=== PATIENT | male | born 1955 | race Two or more races ===

== ENCOUNTER 2022-02-27 22:43 | Inpatient (IN) | payer BC ==
[~2022-02-27] VITALS: Ht 177.8 cm; Wt 81.6 kg
--- NOTE | 2022-02-27 23:00 | NUR ---
Dr. Ross at bedside. MSE in progress.
--- NOTE | 2022-02-27 23:10 | NUR ---
Sister at bedside.
[2022-02-27 23:13] LABS: ABG BASE EXCESS 8.2 mmol/L; ABG HCO3 31.7 mmol/L; ABG PCO2 39.4 mmHg (35.0-45.0); ABG PH 7.523 (7.350-7.450); ABG SITE LEFT RADIAL; COHb 0.3 % (0.5-1.5); MetHb 0.2 % (0.0-1.5); O2Hb 97.9 % (94.0-97.0); VENT MODE VENT - A/C; VT, ABG 550 mL
[2022-02-27 23:22] LABS: HEMATOCRIT 25.4 % (36.7-47.1); MEAN CORPUSCULAR HEMOGLOBIN 30.3 uug (23.8-33.4); MEAN CORPUSCULAR VOLUME 89.3 fL (73.0-96.2); PLATELET COUNT (AUTO) 371 K/uL (152-348)
[2022-02-27 23:30] LABS: CARBON DIOXIDE 31 mmol/L (21-32); CHLORIDE 103 mmol/L (98-107); CREATININE 1.2 mg/dL (0.6-1.3); GLUCOSE 125 mg/dL (74-106); POTASSIUM 4.3 mmol/L (3.5-5.1); UREA NITROGEN, BLOOD 26 mg/dL (7-18)
[2022-02-27] MEDS ORDERED: IV NORMAL SALINE 1000 ML BAG IV ONE (23:30)
[2022-02-27 23:46] LABS: ALANINE AMINOTRANSFERASE 23 U/L (16-63); ALKALINE PHOSPHATASE 50 U/L (50-136); ASPARTATE AMINOTRANSFERASE 10 U/L (15-37); BILIRUBIN,DIRECT < 0.1 mg/dL (0.0-0.2); BILIRUBIN,TOTAL 0.3 mg/dL (0.2-1.0); TOTAL PROTEIN, SERUM 6.3 g/dL (6.4-8.2)
--- NOTE | 2022-02-28 | NUR ---
Sister's (Jaylon Vargasrocco) number [phone] Brother's (Kristi Nicolas) number [phone]
[2022-02-28 00:21] LABS: ABG BASE EXCESS 7.7 mmol/L; ABG HCO3 31.7 mmol/L; ABG PCO2 42.2 mmHg (35.0-45.0); ABG PH 7.493 (7.350-7.450); ABG PO2 90.3 mmHg (75.0-100.0); ABG SITE LEFT RADIAL; COHb 0.3 % (0.5-1.5); MetHb 0.3 % (0.0-1.5); O2Hb 96.1 % (94.0-97.0); VENT MODE VENT - A/C; VT, ABG 550 mL
--- NOTE | 2022-02-28 00:40 | NUR ---
Called [facility] for panel call. Dr. Dillon educational sign language interpreter.
[2022-02-28] MEDS ORDERED: SERT100T PO (01:10)
[2022-02-28] MEDS ORDERED: [UNRECOGNIZED DRUG - CODE] PO (01:10)
[2022-02-28] MEDS ORDERED: MELA3TAB41 PO (01:10)
[2022-02-28] MEDS ORDERED: LOSA50TA39 PO (01:10)
[2022-02-28] MEDS ORDERED: PANT40TA49 PO (01:10)
[2022-02-28] MEDS ORDERED: FENO160T PO (01:10)
[2022-02-28] MEDS ORDERED: ASPI81TA31 PO (01:10)
[2022-02-28] MEDS ORDERED: SILO8CAP2 PO (01:10)
[2022-02-28] MEDS ORDERED: DOCU100C36 PO (01:10)
[2022-02-28] MEDS ORDERED: FINA5TAB11 PO (01:10)
[2022-02-28] MEDS ORDERED: ATOR10TA PO (01:10)
[2022-02-28] MEDS ORDERED: ALLO300T2 PO (01:10)
[2022-02-28] MEDS ORDERED: BACL10TA PO (01:10)
[2022-02-28] MEDS ORDERED: GLYC2TAB2 PO (01:10)
[2022-02-28] MEDS ORDERED: MIRT-93 PO (01:10)
[2022-02-28] MEDS ORDERED: CHOL10005 PO (01:10)
[2022-02-28] MEDS ORDERED: RILU50TA4 PO (01:10)
[2022-02-28] MEDS ORDERED: TIZA4CAP6 PO (01:10)
[2022-02-28] MEDS ORDERED: LEVO112T5 PO (01:10)
[2022-02-28] MEDS ORDERED: POLY17PO4 PO (01:10)
--- NOTE | 2022-02-28 01:23 | NUR ---
Midline Nurse order. Nico RN Laboratory Sampler aware.
--- NOTE | 2022-02-28 01:42 | NUR ---
Midline inserted RT Upper arm 18 G
--- NOTE | 2022-02-28 02:05 | NUR ---
Spoke to Dr. Dillon, patient will be admitted Tele-TD ([facility]).
[2022-02-28] MEDS ORDERED: IPRATROPIUM BROMIDE 0.5 MG/2.5 ML NEBU NEB SCH ×2 (02:15→04:49)
[2022-02-28] MEDS ORDERED: ENOXAPARIN SODIUM 40 MG/0.4 ML DISP.SYRIN SQ SCH (02:15)
[2022-02-28] MEDS ORDERED: IV D5W-0.45% NS +20 KCL 1,000 ML IV PRN (02:15)
[2022-02-28] MEDS ORDERED: ONDANSETRON 4 MG/2 ML VIAL IV PRN (02:15)
[2022-02-28] MEDS ORDERED: methylPREDNISolone SOD SUCC 40 MG/ML VIAL IV ONE ×2 (02:15→06:15)
[2022-02-28] MEDS ORDERED: MAGNESIUM HYDROXIDE 30 ML LIQUID UDC PO PRN (02:15)
[2022-02-28] MEDS ORDERED: ALBUTEROL SULFATE 2.5 MG/3 ML NEBU IH SCH ×2 (02:15→04:50)
--- NOTE | 2022-02-28 02:26 | NUR ---
Called for [facility] bed.
[2022-02-28] MEDS ORDERED: IV D5/ 0.9% NACL 1,000 ML IV PRN (02:30)
--- NOTE | 2022-02-28 03:20 | NUR ---
Latasha MITCHELL called, patient was given rm 312 and will be under the care of Armida MITCHELL. She will call back for report.
--- NOTE | 2022-02-28 03:50 | NUR ---
Report given to Armida MITCHELL.
[2022-02-28 05:00] VITALS: BP 97/56
--- NOTE | 2022-02-28 05:05 | NUR ---
Pt. admitted to Tele-TD ([facility]) 312, under care of Dr. Dillon. Belongs List completed Armida MITCHELL aware of patient's arrival.
--- NOTE | 2022-02-28 05:10 | NUR ---
TRANSPORTED PT TO ROOM 312 VIA VENT WITH ASSISTANCE FROM RT ARCE AND ER NURSE. NO INCIDENT DURING AND AFTER TRANSPORT. NO SOB NOTED AT THIS TIME. WILL CONTINUE TO MONITOR.
[2022-02-28] MEDS ORDERED: CEFTRIAXONE 1 G VIAL ONE (05:13)
[2022-02-28] MEDS: LEVOTHYROXINE SODIUM 112 MCG TABLET PO SCH (06:17)
[2022-02-28] MEDS: IPRATROPIUM BROMIDE 0.5 MG/2.5 ML NEBU NEB SCH ×3 (06:37→19:49)
[2022-02-28] MEDS: ALBUTEROL SULFATE 2.5 MG/3 ML NEBU NEB SCH ×3 (06:37→19:49)
[2022-02-28] MEDS: CEFTRIAXONE 1 G in IV DEXTROSE 5% 50 ML IV SCH (06:39)
--- NOTE | 2022-02-28 06:51 | NUR ---
Admitted to [facility] in stable condition. Pt is alert and able to write out responses, but is aphasic. Trach is a shiley #8 with closed suction. Pt is SR on monitor. GT in place and patent. IV sites intact. No distress noted at this time. Will endorse to day shift.
[2022-02-28] MEDS ORDERED: PANTOPRAZOLE SODIUM 40 MG TABLET.DR PO SCH (07:00)
--- NOTE | 2022-02-28 07:30 | NUR ---
AWAKE ALERT AND COMMUNICATES WELL BY WRITING, DENIES PAIN OR SOB. VENT SETS AT 12-550-40-5 SATURATING 99%. CONTINUE WITH [facility] STATUS. SR ON MONITOR
[2022-02-28 08:00] VITALS: BP 100/52
[2022-02-28] MEDS: MIRALAX 17 GM POWD.PACK PO SCH ×2 (08:57→15:52)
[2022-02-28] MEDS: ASPIRIN 81 MG TAB.CHEW PO SCH (08:59)
[2022-02-28] MEDS: MIDODRINE HCL 5 MG TABLET PO SCH ×2 (08:59→20:22)
[2022-02-28] MEDS: PANTOPRAZOLE ORAL SUSPENSION 40 MG SUSPDR.PKT PO SCH ×2 (08:59→15:51)
[2022-02-28] MEDS: CHOLECALCIFEROL 1,000 UNIT TABLET PO SCH (08:59)
[2022-02-28] MEDS: FENOFIBRATE NANOCRYSTALLIZED 145 MG TABLET PO SCH (08:59)
[2022-02-28] MEDS ORDERED: PANTOPRAZOLE SODIUM 40 MG VIAL IV SCH (09:00)
[2022-02-28] MEDS ORDERED: SERTRALINE HCL 100 MG TABLET PO SCH (09:00)
[2022-02-28] MEDS ORDERED: BACLOFEN 10 MG TABLET PO SCH ×2 (09:00)
[2022-02-28] MEDS: GLYCOPYRROLATE 1 MG TABLET PO SCH ×3 (09:00→15:51)
--- NOTE | 2022-02-28 10:00 | NUR ---
SEEN BY DR AGUILA AND [place] FOR FOLLOW-UP SEE NOTES
[2022-02-28] MEDS: IV D5/ 0.9% NACL 1,000 ML IV SCH ×2 (10:32→16:34)
[2022-02-28 12:00] VITALS: BP 98/48
--- NOTE | 2022-02-28 12:30 | NUR ---
SEEN BY SPEECH THERAPY FOR SWALLOW EVAL BUT PATIENT FAILED. SEE NOTES
[2022-02-28] MEDS ORDERED: BACL5TAB PO (12:34)
[2022-02-28] MEDS ORDERED: ATOR20TA PO (12:34)
[2022-02-28] MEDS ORDERED: TIZA-180 PO (12:51)
[2022-02-28] MEDS ORDERED: SILO4CAP3 PO (13:18)
[2022-02-28] MEDS: SERTRALINE HCL 100 MG TABLET PO SCH (13:22)
[2022-02-28] MEDS: BACLOFEN 10 MG TABLET PO SCH ×2 (13:23→20:23)
[2022-02-28] MEDS ORDERED: CLON0.5T4 PO (13:30)
[2022-02-28] MEDS ORDERED: MISCELLANEOUS MED XX PRN (13:30)
[2022-02-28] MEDS ORDERED: TAMS-3 PO (14:59)
[2022-02-28] MEDS ORDERED: BUPR-96 PO (15:03)
--- NOTE | 2022-02-28 15:05 | NUR ---
RESTING COMFORTABLY NO SS OF PAIN OR DISTRESS. TOLERATING VENT SETTINGS SATURATING 99%. REQUIRES TRACH SUCTIONING ON OCCASION, GOOD ORAL CARE OBSERVED
[2022-02-28] MEDS: GLUCERNA 1.2 1000ML LIQUID GT PRN (15:28)
[2022-02-28] MEDS: CLONAZEPAM 0.5 MG TABLET PO PRN ×2 (15:51→21:31)
[2022-02-28] MEDS: REMEDY ESSENTIAL ZINC PASTE 113 GM TP PRN (15:53)
[2022-02-28 16:00] VITALS: BP 91/49
--- NOTE | 2022-02-28 17:23 | NUR ---
TOLERATING FEEDING WELL, REMAINS SR ON MONITOR. CONTINUE [facility] STATUS ORDERED
[2022-02-28 20:00] VITALS: BP 100/64
[2022-02-28] MEDS: FINASTERIDE 5 MG TABLET PO SCH (20:23)
[2022-02-28] MEDS: ATORVASTATIN 20 MG TABLET PO SCH (20:23)
[2022-02-28] MEDS: TAMSULOSIN HCL 0.4 MG CAP.SR.24H PO SCH (20:23)
[2022-02-28] MEDS: MIRTAZAPINE 15 MG TABLET PO SCH (20:23)
[2022-02-28] MEDS: DOCUSATE SODIUM 100 MG CAPSULE PO SCH (20:24)
[2022-02-28] MEDS: MELATONIN 3 MG TABLET PO SCH (20:24)
[2022-02-28] MEDS: RILUZOLE 50MG TABLET PO SCH (20:25)
[2022-02-28] MEDS: buPROPion XL 150 MG TAB.SR.24H PO SCH (20:27)
[2022-02-28] MEDS ORDERED: ATORVASTATIN 10 MG TABLET PO SCH ×2 (21:00)
[2022-03-01] MEDS: IPRATROPIUM BROMIDE 0.5 MG/2.5 ML NEBU NEB SCH ×4 (01:00→20:37)
[2022-03-01] MEDS: ALBUTEROL SULFATE 2.5 MG/3 ML NEBU NEB SCH ×4 (01:00→20:37)
[2022-03-01 04:00] VITALS: BP 133/80
[2022-03-01] MEDS: CEFTRIAXONE 1 G in IV DEXTROSE 5% 50 ML IV SCH (05:58)
[2022-03-01] MEDS: IV D5/ 0.9% NACL 1,000 ML IV SCH ×2 (05:59→20:55)
[2022-03-01] MEDS: LEVOTHYROXINE SODIUM 112 MCG TABLET PO SCH (06:00)
[2022-03-01] MEDS: PANTOPRAZOLE ORAL SUSPENSION 40 MG SUSPDR.PKT PO SCH ×2 (06:00→16:07)
[2022-03-01] MEDS: ASPIRIN 81 MG TAB.CHEW PO SCH (08:27)
[2022-03-01] MEDS: RILUZOLE 50MG TABLET PO SCH ×2 (08:27→16:11)
[2022-03-01] MEDS: SILODOSIN 4MG CAPSULE PO SCH (08:27)
[2022-03-01] MEDS: CHOLECALCIFEROL 1,000 UNIT TABLET PO SCH (08:28)
[2022-03-01] MEDS: buPROPion XL 150 MG TAB.SR.24H PO SCH ×2 (08:29→20:30)
[2022-03-01] MEDS: FENOFIBRATE NANOCRYSTALLIZED 145 MG TABLET PO SCH (08:29)
[2022-03-01] MEDS: MIRALAX 17 GM POWD.PACK PO SCH ×2 (08:31→16:07)
[2022-03-01] MEDS: ALLOPURINOL 300 MG TABLET PO SCH (08:31)
[2022-03-01] MEDS: SERTRALINE HCL 100 MG TABLET PO SCH (08:31)
[2022-03-01] MEDS: GLYCOPYRROLATE 1 MG TABLET PO SCH ×3 (08:33→16:09)
[2022-03-01] MEDS: BACLOFEN 10 MG TABLET PO SCH ×2 (08:33→16:08)
[2022-03-01] MEDS: MIDODRINE HCL 5 MG TABLET PO SCH ×2 (08:43→20:31)
[2022-03-01] MEDS: ENOXAPARIN SODIUM 40 MG/0.4 ML DISP.SYRIN SQ SCH (08:47)
--- NOTE | 2022-03-01 11:17 | NUR ---
WOUND CARE CONSULT: PT PRESENTS WITH SACRAL DEEP TISSUE INJURY, PRESENT ON ADMISSION. RECOMMENDATIONS MADE FOR SKIN PROTECTION. DISCUSSED WITH NURSING STAFF. IN AGREEMENT WITH PLAN OF CARE. Addendum: 03/01/22 at 1118 by GURPREET PRINCE RN Amended: Links added.
[2022-03-01 11:18] VITALS: BP 124/73
[2022-03-01 16:05] VITALS: BP 122/65
[2022-03-01 20:00] VITALS: BP 122/69
[2022-03-01] MEDS: ATORVASTATIN 20 MG TABLET PO SCH (20:30)
[2022-03-01] MEDS: TAMSULOSIN HCL 0.4 MG CAP.SR.24H PO SCH (20:30)
[2022-03-01] MEDS: MELATONIN 3 MG TABLET PO SCH (20:30)
[2022-03-01] MEDS: FINASTERIDE 5 MG TABLET PO SCH (20:30)
[2022-03-01] MEDS: MIRTAZAPINE 15 MG TABLET PO SCH (20:30)
[2022-03-01] MEDS: DOCUSATE SODIUM 100 MG CAPSULE PO SCH (20:30)
[2022-03-01] MEDS: CLONAZEPAM 0.5 MG TABLET PO PRN (21:26)
[2022-03-02] VITALS (7 sets, daily range): BP systolic 98–125; BP diastolic 55–81
[2022-03-02] MEDS: IPRATROPIUM BROMIDE 0.5 MG/2.5 ML NEBU NEB SCH ×4 (00:41→21:00)
[2022-03-02] MEDS: ALBUTEROL SULFATE 2.5 MG/3 ML NEBU NEB SCH ×4 (00:42→21:00)
--- NOTE | 2022-03-02 05:06 | NUR ---
PATIENT ON CONT BENITES VENT WITH S#[address] AND SECURED, WITH CURRENT VENT SETTINGS, A/C 12, 550ML, PEEP5, 40%, PT IS AWAKE AND VERY ALERT, RESTING WELL, SUCTIONED VERY LITTLE LIGHT APE JAZMIN SECRETIONS, CHANGE HME, ALL ALARMS GOOD, CONT PULSE OXY AT BEDSIDE, SAT 98% APPROX, NO VENT CHANGES MADE .Ana M LINDQUISTP Addendum: 03/02/22 at 0509 by JIMENA SANCHEZ RT Amended: Links added.
--- NOTE | 2022-03-02 05:09 | NUR ---
PATIENT ALSO RECEIVED 2 NEB INLINE RXS WITH ALBUTEROL/ ATROVENT, TOLL WELL. Ana M SANCHEZ TOWER DIRECTOR Addendum: 03/02/22 at 0510 by JIMENA SANCHEZ RT Amended: Links added.
[2022-03-02 06:05] LABS: MEAN CORPUSCULAR HEMOGLOBIN 30.8 uug (23.8-33.4); MEAN CORPUSCULAR VOLUME 87.6 fL (73.0-96.2); PLATELET COUNT (AUTO) 209 K/uL (152-348)
[2022-03-02] MEDS: PANTOPRAZOLE ORAL SUSPENSION 40 MG SUSPDR.PKT PO SCH ×2 (06:21→16:21)
[2022-03-02] MEDS: CEFTRIAXONE 1 G in IV DEXTROSE 5% 50 ML IV SCH (06:21)
[2022-03-02] MEDS: LEVOTHYROXINE SODIUM 112 MCG TABLET PO SCH (06:22)
[2022-03-02 07:16] LABS: CREATININE 0.8 mg/dL (0.6-1.3); MAGNESIUM 1.3 mg/dL (1.8-2.4); PHOSPHOROUS 4.5 mg/dL (2.5-4.9); POTASSIUM 3.3 mmol/L (3.5-5.1); URIC ACID 3.9 mg/dL (3.5-7.2)
[2022-03-02] MEDS ORDERED: POTASSIUM CHLORIDE 20 MEQ POWDER PACKET GT ONE (08:15)
[2022-03-02] MEDS: ASPIRIN 81 MG TAB.CHEW PO SCH (08:49)
[2022-03-02] MEDS: MAGNESIUM SULFATE/D5W 100 ML IV SCH ×4 (08:49→11:15)
[2022-03-02] MEDS: RILUZOLE 50MG TABLET PO SCH ×2 (08:51→16:22)
[2022-03-02] MEDS: SILODOSIN 4MG CAPSULE PO SCH (08:51)
[2022-03-02] MEDS: GLYCOPYRROLATE 1 MG TABLET PO SCH ×3 (08:52→16:21)
[2022-03-02] MEDS: BACLOFEN 10 MG TABLET PO SCH ×2 (08:52→16:21)
[2022-03-02] MEDS: MIDODRINE HCL 5 MG TABLET PO SCH ×2 (08:52→20:47)
[2022-03-02] MEDS: MIRALAX 17 GM POWD.PACK PO SCH ×2 (08:52→16:21)
[2022-03-02] MEDS: CHOLECALCIFEROL 1,000 UNIT TABLET PO SCH (08:57)
[2022-03-02] MEDS: FENOFIBRATE NANOCRYSTALLIZED 145 MG TABLET PO SCH (08:57)
[2022-03-02] MEDS: buPROPion XL 150 MG TAB.SR.24H PO SCH ×2 (08:57→20:50)
[2022-03-02] MEDS: ALLOPURINOL 300 MG TABLET PO SCH (08:58)
[2022-03-02] MEDS: SERTRALINE HCL 100 MG TABLET PO SCH (08:58)
[2022-03-02] MEDS: ENOXAPARIN SODIUM 40 MG/0.4 ML DISP.SYRIN SQ SCH (09:00)
[2022-03-02] MEDS: GLUCERNA 1.2 1000ML LIQUID GT PRN (15:49)
[2022-03-02] MEDS: CLONAZEPAM 0.5 MG TABLET PO PRN ×2 (16:30→22:02)
--- NOTE | 2022-03-02 17:06 | NUR ---
RSBI - 51 ; FVC 0.5L .. poor patient effort for FVC. Pt tired and short of breath after rsbi trial. Pt placed back on ordered settings. Pt cuffed trach repeatedly coming out throughout shift. Pt stoma site is notably large and causes trach to come out even with trach cuff inflated.
--- NOTE | 2022-03-02 18:17 | NUR ---
Patient tolerated care well throughout shift with minimal complaints of pain or distress. Anxiety experienced during shift. Appropriate medicinal interventions provided for patient. Patient explained to me wanting family to consider his opinion when being discharged in wanting to go to facility. Will endorse information to PM nurse. Charge Nurse Wilbur notified. IV site patent and intact. G-Tube settings at 65 cc/hr for 22 hours, off at 0600 and on at 0800 03/03/22. Comfort measures provided. Will endorse information to PM nurse.
[2022-03-02] MEDS: MELATONIN 3 MG TABLET PO SCH (20:45)
[2022-03-02] MEDS: ATORVASTATIN 20 MG TABLET PO SCH (20:46)
[2022-03-02] MEDS: FINASTERIDE 5 MG TABLET PO SCH (20:46)
[2022-03-02] MEDS: DOCUSATE SODIUM 100 MG CAPSULE PO SCH (20:47)
[2022-03-02] MEDS: TAMSULOSIN HCL 0.4 MG CAP.SR.24H PO SCH (20:47)
[2022-03-02] MEDS: MIRTAZAPINE 15 MG TABLET PO SCH (20:47)
--- NOTE | 2022-03-02 20:50 | NUR ---
pt is npo and has PEG tube; Wellbutrin XL not given because it can not be crushed; will inform MD.
[2022-03-02] MEDS: ACETAMINOPHEN 325 MG TABLET PO PRN (22:10)
[2022-03-03] MEDS: IPRATROPIUM BROMIDE 0.5 MG/2.5 ML NEBU NEB SCH ×4 (04:02→21:18)
[2022-03-03] MEDS: ALBUTEROL SULFATE 2.5 MG/3 ML NEBU NEB SCH ×4 (04:03→21:18)
--- NOTE | 2022-03-03 04:08 | NUR ---
PATIENT REMAINS ON BENITES VENT WITH SAME SETTINGS, JENN 8 TRACH ; EXTENDS OUT A FEW CM, OUT OF STOMA ; FIO2 40%, SAYS KATHY SOB AT TIMES,BUT SAT ALWAYS 96-98%, GOOD AIR EXCHANGE, MOSTLY CONTROLLED VENTILATION, PIP 20APPROX, SUCTION PRN, NEB Q6 X 2 INLINE.Ana M SANCHEZ MEDICAL DEVICE Addendum: 03/03/22 at 0412 by JIMENA SANCHEZ RT Amended: Links added.
[2022-03-03 05:41] VITALS: BP 102/55
[2022-03-03 05:54] LABS: HEMATOCRIT 22.4 % (36.7-47.1); MEAN CORPUSCULAR HEMOGLOBIN 30.3 uug (23.8-33.4); MEAN CORPUSCULAR VOLUME 87.8 fL (73.0-96.2); PLATELET COUNT (AUTO) 186 K/uL (152-348)
[2022-03-03 06:09] LABS: CREATININE 0.8 mg/dL (0.6-1.3); MAGNESIUM 1.6 mg/dL (1.8-2.4); PHOSPHOROUS 4.4 mg/dL (2.5-4.9); POTASSIUM 3.7 mmol/L (3.5-5.1)
[2022-03-03] MEDS: PANTOPRAZOLE ORAL SUSPENSION 40 MG SUSPDR.PKT PO SCH ×2 (06:12→16:26)
[2022-03-03] MEDS: CEFTRIAXONE 1 G in IV DEXTROSE 5% 50 ML IV SCH (06:12)
[2022-03-03] MEDS: LEVOTHYROXINE SODIUM 112 MCG TABLET PO SCH (06:12)
--- NOTE | 2022-03-03 07:30 | NUR ---
RECEIVED PATIENT IN BED AWAKE AND ALERT, COMMUNICATES WELL BY WRITTING, NO SS OF PAIN OR DISTRESS. CONTINUE WITH VENT SETTING SATURATING 98-99%. SR ON MONITOR
[2022-03-03 07:54] LABS: BAND % (MANUAL) 2 % (0-10); EOSINOPHILS % (MANUAL) 1 % (0-8); LYMPHOCYTES % (MANUAL) 16 % (20-40); MONOCYTES % (MANUAL) 6 % (2-10); NEUTROPHILS % (MANUAL) 75 % (42-75)
[2022-03-03 07:55] VITALS: BP 106/61
[2022-03-03 08:00] VITALS: BP 106/61
[2022-03-03] MEDS ORDERED: MAGNESIUM OXIDE 400 MG TABLET GT ONE (08:45)
[2022-03-03] MEDS: buPROPion XL 150 MG TAB.SR.24H PO SCH ×3 (09:02→21:00)
[2022-03-03] MEDS: ASPIRIN 81 MG TAB.CHEW PO SCH (09:02)
[2022-03-03] MEDS: BACLOFEN 10 MG TABLET PO SCH ×2 (09:02→16:26)
[2022-03-03] MEDS: SERTRALINE HCL 100 MG TABLET PO SCH (09:02)
[2022-03-03] MEDS: MIDODRINE HCL 5 MG TABLET PO SCH ×2 (09:03→20:04)
[2022-03-03] MEDS: FENOFIBRATE NANOCRYSTALLIZED 145 MG TABLET PO SCH (09:03)
[2022-03-03] MEDS: CHOLECALCIFEROL 1,000 UNIT TABLET PO SCH (09:03)
[2022-03-03] MEDS: GLYCOPYRROLATE 1 MG TABLET PO SCH ×3 (09:04→16:30)
[2022-03-03] MEDS: ALLOPURINOL 300 MG TABLET PO SCH (09:04)
[2022-03-03] MEDS: MIRALAX 17 GM POWD.PACK PO SCH ×2 (09:04→16:26)
[2022-03-03] MEDS: RILUZOLE 50MG TABLET PO SCH ×2 (09:05→16:27)
[2022-03-03] MEDS: SILODOSIN 4MG CAPSULE PO SCH (09:05)
[2022-03-03] MEDS: ENOXAPARIN SODIUM 40 MG/0.4 ML DISP.SYRIN SQ SCH (09:06)
[2022-03-03] MEDS: MAGNESIUM SULFATE/D5W 100 ML IV SCH ×2 (09:21→10:19)
--- NOTE | 2022-03-03 10:00 | NUR ---
SEEN BY HOSPITALIST AND APPLICATION DEVELOPMENT SPECIALIST REVIEWED LABS AND REPLACED MAGNESIUM OF 1.6
[2022-03-03] MEDS: GLUCERNA 1.2 1000ML LIQUID GT PRN (10:21)
--- NOTE | 2022-03-03 11:20 | NUR ---
PATIENT REQUIRES OCCASIONAL SUCTIONING VIA TRACH, OBTAINED SMALL AMOUNT OF OF THIN WHITISTISH SECRETION. GOOD ORAL CARE DONE
[2022-03-03] MEDS: CLONAZEPAM 0.5 MG TABLET PO PRN ×2 (11:31→20:02)
[2022-03-03] MEDS: ACETAMINOPHEN 325 MG TABLET PO PRN (11:31)
[2022-03-03] MEDS: REMEDY ESSENTIAL ZINC PASTE 113 GM TP PRN (11:32)
[2022-03-03 12:06] VITALS: BP 120/68
[2022-03-03] MEDS ORDERED: BISACODYL 10 MG SUPP.RECT RC PRN (14:00)
[2022-03-03 15:43] VITALS: BP 109/59
[2022-03-03] MEDS: PROTEIN SUPPLEMENT (PROSTAT) 30 ML LIQUID GT SCH (16:26)
--- NOTE | 2022-03-03 18:00 | NUR ---
NO SS OF DISTRESS, REMAINS COMFORTABLE WITH CURRENT VENT SETTINGS SATURATING 97-99%. ROUTINE TRACH CARE PER RT. SUCTIONING DONE NEEDED. PM CARE DONE. CONTINUE DAWN STATUS, SR ON MONITOR
[2022-03-03] MEDS ORDERED: EDAR30PI IV (19:46)
[2022-03-03 20:00] VITALS: BP 111/69
[2022-03-03] MEDS: MELATONIN 3 MG TABLET PO SCH (20:02)
[2022-03-03] MEDS: DOCUSATE SODIUM 100 MG CAPSULE PO SCH (20:03)
[2022-03-03] MEDS: MIRTAZAPINE 15 MG TABLET PO SCH (20:05)
[2022-03-03] MEDS: TAMSULOSIN HCL 0.4 MG CAP.SR.24H PO SCH (20:06)
[2022-03-03] MEDS: ATORVASTATIN 20 MG TABLET PO SCH (20:06)
[2022-03-03] MEDS: FINASTERIDE 5 MG TABLET PO SCH (20:09)
[2022-03-04] MEDS: ALBUTEROL SULFATE 2.5 MG/3 ML NEBU NEB SCH ×4 (00:26→19:21)
[2022-03-04] MEDS: IPRATROPIUM BROMIDE 0.5 MG/2.5 ML NEBU NEB SCH ×4 (00:26→19:21)
--- NOTE | 2022-03-04 00:31 | NUR ---
PATIENT ON CONT BENITES VENT WITH SHILEY #[address], BIG STOMA, CLEAN TRACH, PT VERY ALERT , NEB INLINE X WITH ALBUTEROL/ ATROVENT, TOLL WELL, PT ANXIOUS AND SEEMS NERVOUS AT TIMES, DUE TO HIS MEDICAL CONDITION, NO VENT CHANGES MADE, WILL MONITOR CLOSELY, PULSE OXY CONT AT BEDSIDE, SAT 96-98%.Ana M LINDQUISTP Addendum: 03/04/22 at 0033 by JIMENA SANCHEZ RT Amended: Links added.
[2022-03-04 04:00] VITALS: BP 108/57
[2022-03-04] MEDS: LEVOTHYROXINE SODIUM 112 MCG TABLET PO SCH (05:44)
[2022-03-04] MEDS: PANTOPRAZOLE ORAL SUSPENSION 40 MG SUSPDR.PKT PO SCH ×2 (05:44→17:27)
[2022-03-04 06:21] LABS: HEMATOCRIT 23.7 % (36.7-47.1); PLATELET COUNT (AUTO) 190 K/uL (152-348)
[2022-03-04 06:47] LABS: CREATININE 0.9 mg/dL (0.6-1.3); MAGNESIUM 1.6 mg/dL (1.8-2.4); PHOSPHOROUS 4.2 mg/dL (2.5-4.9); POTASSIUM 3.9 mmol/L (3.5-5.1)
--- NOTE | 2022-03-04 07:13 | NUR ---
pt rested well in between care no acute distress; suctioned trache secretions; pt 's meds RADICAVA for ALS was brought by family and would like to be restarted; endorsed to August RN
[2022-03-04 07:28] VITALS: BP 107/63
--- NOTE | 2022-03-04 07:28 | NUR ---
Patient received on cont horta vent with given settings of AC RR 12, VT 550, PEEP + 5, 40% Fio2. Patient is trach to vent with Shiley 8 XLT. Patient is to be noted with a larger stoma site. Patient is secured via trach tie. Ambubag and back up trach is bed side. Ventilator plugged in red outlet. Will continue to monitor through out shift.
[2022-03-04] MEDS: MIRALAX 17 GM POWD.PACK PO SCH ×3 (09:00→17:00)
[2022-03-04] MEDS ORDERED: MAGNESIUM OXIDE 400 MG TABLET PO ONE (09:00)
[2022-03-04] MEDS: FENOFIBRATE NANOCRYSTALLIZED 145 MG TABLET PO SCH (09:21)
[2022-03-04] MEDS: ASPIRIN 81 MG TAB.CHEW PO SCH (09:21)
[2022-03-04] MEDS: ALLOPURINOL 300 MG TABLET PO SCH (09:21)
[2022-03-04] MEDS: buPROPion XL 150 MG TAB.SR.24H PO SCH ×2 (09:21→20:21)
[2022-03-04] MEDS: CHOLECALCIFEROL 1,000 UNIT TABLET PO SCH (09:23)
[2022-03-04] MEDS: BACLOFEN 10 MG TABLET PO SCH ×2 (09:24→17:27)
[2022-03-04] MEDS: ENOXAPARIN SODIUM 40 MG/0.4 ML DISP.SYRIN SQ SCH (09:28)
[2022-03-04] MEDS: GLYCOPYRROLATE 1 MG TABLET PO SCH ×3 (09:28→17:28)
[2022-03-04] MEDS: RILUZOLE 50MG TABLET PO SCH ×2 (09:29→17:28)
[2022-03-04] MEDS: SILODOSIN 4MG CAPSULE PO SCH (09:29)
[2022-03-04] MEDS: MIDODRINE HCL 5 MG TABLET PO SCH ×2 (09:40→20:20)
[2022-03-04] MEDS: SERTRALINE HCL 100 MG TABLET PO SCH (09:42)
[2022-03-04] MEDS: MAGNESIUM SULFATE/D5W 100 ML IV SCH ×2 (09:50→11:24)
[2022-03-04] MEDS: PROTEIN SUPPLEMENT (PROSTAT) 30 ML LIQUID GT SCH ×2 (09:51→17:30)
[2022-03-04] MEDS: GLUCERNA 1.2 1000ML LIQUID GT PRN (10:08)
[2022-03-04 10:36] LABS: *BILIRUBIN,URIN NEGATIVE (NEGATIVE); *CLARITY,URINE CLEAR (CLEAR); *COLOR,URINE YELLOW (YELLOW); *KETONES,URINE NEGATIVE (NEGATIVE); *UROBILINOGEN,URINE 0.2 E.U./dl (NORMAL); LEUKOCYTE ESTERASE ,URINE NEGATIVE (NEGATIVE); NITRITE, URINE NEGATIVE (NEGATIVE); UGLUCOSE NEGATIVE (NEGATIVE)
[2022-03-04 11:08] LABS: *BLOOD, URINE TRACE (NEGATIVE)
[2022-03-04 11:23] VITALS: BP 109/66
[2022-03-04 13:02] LABS: WBC,URINE 0-3 /HPF (0-3)
[2022-03-04 13:03] LABS: BACTERIA,URINE NONE SEEN /HPF (NONE SEEN); SQUAMOUS EPITHELIAL CELL,UR NONE SEEN /HPF (NONE SEEN)
[2022-03-04] MEDS: RADICAVA IV SCH (13:05)
--- NOTE | 2022-03-04 13:20 | NUR ---
WOUND CARE: PT SEEN FOR SACRAL DEEP TISSUE INJURY IN EVOLUTION, PRESENT ON ADMISSION. SURGICAL CONSULT CALLED TO DR HELLER. DISCUSSED SKIN PROTECTION WITH NURSING STAFF. IN AGREEMENT WITH PLAN OF CARE.
[2022-03-04] MEDS: CLONAZEPAM 0.5 MG TABLET PO PRN ×2 (14:50→21:37)
[2022-03-04 15:24] VITALS: BP 119/63
--- NOTE | 2022-03-04 16:15 | NUR ---
Patient placed on home vent brought in by family with same given settings. AC RR 12, VT 550, PEEP +5, 5LPM BLEED-IN O2. Shiley 8 XLT trach. Inservice on home ventilator received by Efrain Lott from [facility]. Pulse ox connected @ bedside. Patient family present. Alarms on and audible. Ambubag and back up trach bedside. Will continue to monitor.
[2022-03-04 17:37] VITALS: BP 119/63
[2022-03-04 20:00] VITALS: BP 116/61
[2022-03-04] MEDS: DOCUSATE SODIUM 100 MG CAPSULE PO SCH (20:19)
[2022-03-04] MEDS: FINASTERIDE 5 MG TABLET PO SCH (20:20)
[2022-03-04] MEDS: MIRTAZAPINE 15 MG TABLET PO SCH (20:20)
[2022-03-04] MEDS: TAMSULOSIN HCL 0.4 MG CAP.SR.24H PO SCH (20:20)
[2022-03-04] MEDS: MELATONIN 3 MG TABLET PO SCH (20:20)
[2022-03-04] MEDS: ATORVASTATIN 20 MG TABLET PO SCH (20:22)
[2022-03-05] VITALS: BP 92/52
[2022-03-05] MEDS: IPRATROPIUM BROMIDE 0.5 MG/2.5 ML NEBU NEB SCH ×4 (01:17→19:38)
[2022-03-05] MEDS: ALBUTEROL SULFATE 2.5 MG/3 ML NEBU NEB SCH ×4 (01:17→19:39)
--- NOTE | 2022-03-05 01:28 | NUR ---
Patient received on home vent unit. Per report, unit has been cleared through [employer] and inservice was given to dayshift RT. Patient currently on ResMed Astral 150 model on PAC mode. PAC-Pressure Assist Control mode tolerated well. Settings are as follows: Ipap 10/Epap 5/ RR 12/ Back Up VT 550, bleed in O2 reading 30% FiO2. No signs or symptoms of respiratory distress noted throughout shift. Patient is trached with Shiley XLT 8-Distal tube. Large stoma noted, healed well, no redness/discharge noted. Alarm parameters assessed and are on/audible. Ambubag at bedside. Cont. Pulseox at bedside. Inline treatments administered and tolerated well, no adverse reactions noted. Will continue to monitor throughout shift.
[2022-03-05 04:00] VITALS: BP 99/60
[2022-03-05] MEDS: LEVOTHYROXINE SODIUM 112 MCG TABLET PO SCH (05:52)
[2022-03-05] MEDS: PANTOPRAZOLE ORAL SUSPENSION 40 MG SUSPDR.PKT PO SCH (05:53)
[2022-03-05 06:40] LABS: HEMATOCRIT 25.1 % (36.7-47.1); MEAN CORPUSCULAR HEMOGLOBIN 29.9 uug (23.8-33.4); MEAN CORPUSCULAR VOLUME 87.9 fL (73.0-96.2); PLATELET COUNT (AUTO) 164 K/uL (152-348)
[2022-03-05 07:10] LABS: CREATININE 0.8 mg/dL (0.6-1.3); MAGNESIUM 1.6 mg/dL (1.8-2.4); POTASSIUM 3.9 mmol/L (3.5-5.1)
[2022-03-05 07:33] VITALS: BP 98/60
[2022-03-05] MEDS: buPROPion XL 150 MG TAB.SR.24H PO SCH (08:32)
[2022-03-05] MEDS: CHOLECALCIFEROL 1,000 UNIT TABLET PO SCH (08:32)
[2022-03-05] MEDS: ASPIRIN 81 MG TAB.CHEW PO SCH (08:33)
[2022-03-05] MEDS: ALLOPURINOL 300 MG TABLET PO SCH (08:33)
[2022-03-05] MEDS: FENOFIBRATE NANOCRYSTALLIZED 145 MG TABLET PO SCH (08:33)
[2022-03-05] MEDS: SERTRALINE HCL 100 MG TABLET PO SCH (08:34)
[2022-03-05] MEDS: BACLOFEN 10 MG TABLET PO SCH (08:34)
[2022-03-05] MEDS: MIRALAX 17 GM POWD.PACK PO SCH (08:36)
[2022-03-05] MEDS: ENOXAPARIN SODIUM 40 MG/0.4 ML DISP.SYRIN SQ SCH (08:36)
[2022-03-05] MEDS: MIDODRINE HCL 5 MG TABLET PO SCH (08:38)
[2022-03-05] MEDS: SILODOSIN 4MG CAPSULE PO SCH (08:40)
[2022-03-05] MEDS: RILUZOLE 50MG TABLET PO SCH (08:41)
[2022-03-05] MEDS: GLYCOPYRROLATE 1 MG TABLET PO SCH (08:41)
[2022-03-05] MEDS: PROTEIN SUPPLEMENT (PROSTAT) 30 ML LIQUID GT SCH ×2 (08:42→16:59)
[2022-03-05] MEDS: GLUCERNA 1.2 1000ML LIQUID GT PRN (08:53)
[2022-03-05] MEDS: MAGNESIUM SULFATE/D5W 100 ML IV SCH ×2 (09:30→11:34)
[2022-03-05] MEDS ORDERED: RILUZOLE 50MG TABLET GT SCH (11:52)
[2022-03-05 11:56] VITALS: BP 116/65
[2022-03-05] MEDS ORDERED: IV NORMAL SALINE 500 ML IV ONE (12:00)
[2022-03-05] MEDS ORDERED: MAGNESIUM HYDROXIDE 30 ML LIQUID UDC GT PRN (12:00)
[2022-03-05] MEDS ORDERED: ACETAMINOPHEN 325 MG TABLET GT PRN (12:00)
[2022-03-05] MEDS: ZINC SULFATE 220 MG CAPSULE GT SCH (13:05)
[2022-03-05] MEDS: ASCORBIC ACID 500 MG TABLET GT SCH (13:05)
[2022-03-05] MEDS: GLYCOPYRROLATE 1 MG TABLET GT SCH ×2 (13:06→16:55)
[2022-03-05] MEDS: RADICAVA IV SCH (13:30)
[2022-03-05 15:56] VITALS: BP 114/65
[2022-03-05] MEDS: PANTOPRAZOLE ORAL SUSPENSION 40 MG SUSPDR.PKT GT SCH (16:53)
[2022-03-05] MEDS: BACLOFEN 10 MG TABLET GT SCH (16:54)
[2022-03-05] MEDS: RILUZOLE 50MG TABLET GT SCH (16:56)
[2022-03-05] MEDS: MIRALAX 17 GM POWD.PACK GT SCH (16:56)
[2022-03-05] MEDS: CLONAZEPAM 0.5 MG TABLET GT PRN (17:16)
--- NOTE | 2022-03-05 19:13 | NUR ---
Pt. stayed stable during the shift and no significant change noted. Able to tolerate medications through G-Tube. Aspiration precaution maintained. All need attended. Suction provided as needed.
[2022-03-05 20:00] VITALS: BP 132/85
[2022-03-05] MEDS: DOCUSATE SODIUM 100 MG/10 ML LIQUID UDC GT SCH (21:00)
[2022-03-05] MEDS ORDERED: MIDODRINE HCL 5 MG TABLET GT SCH (21:00)
[2022-03-05] MEDS ORDERED: DOCUSATE SODIUM 100 MG CAPSULE PO SCH (21:00)
[2022-03-05] MEDS: TAMSULOSIN HCL 0.4 MG CAP.SR.24H PO SCH (21:45)
[2022-03-05] MEDS: MELATONIN 3 MG TABLET GT SCH (21:45)
[2022-03-05] MEDS: buPROPion 75 MG TABLET GT SCH (21:45)
[2022-03-05] MEDS: ATORVASTATIN 20 MG TABLET GT SCH (21:46)
[2022-03-05] MEDS: MIRTAZAPINE 15 MG TABLET GT SCH (21:47)
[2022-03-05] MEDS: FINASTERIDE 5 MG TABLET GT SCH (21:47)
[2022-03-06] VITALS: BP 113/63
[2022-03-06] MEDS: IPRATROPIUM BROMIDE 0.5 MG/2.5 ML NEBU NEB SCH ×4 (01:23→20:45)
[2022-03-06] MEDS: ALBUTEROL SULFATE 2.5 MG/3 ML NEBU NEB SCH ×4 (01:23→20:45)
[2022-03-06 04:00] VITALS: BP 94/61
[2022-03-06 05:45] LABS: HEMATOCRIT 25.6 % (36.7-47.1); MEAN CORPUSCULAR HEMOGLOBIN 30.1 uug (23.8-33.4); MEAN CORPUSCULAR VOLUME 87.9 fL (73.0-96.2); PLATELET COUNT (AUTO) 157 K/uL (152-348)
[2022-03-06 05:48] LABS: CREATININE 0.8 mg/dL (0.6-1.3); MAGNESIUM 1.7 mg/dL (1.8-2.4); PHOSPHOROUS 4.5 mg/dL (2.5-4.9); POTASSIUM 3.9 mmol/L (3.5-5.1)
--- NOTE | 2022-03-06 06:00 | NUR ---
1999--599--PT CONT. TO BE A/OX4. VS HAVE BEEN STABLE. AFEBRILE. PT HAS BEEN IN SR. PT HAS TRACH-HOME VENT. PT DWIGHT WELL WITH POX OF 98-99%. PT DWIGHT SX AND RTX WELL. PT HAS BEEN VOIDING WELL. NO S/S OF ANY ACUTE DISTRESS. IV I/P VIA RIGHT UPPER ARM. PT ALSO HAS PEG TUBING I/P-PT DWIGHT T.FEEDG WELL-RESID IS 10CC. HOB UP MOVE 30 DEGREES. PT ENDORSED TO STEPHEN MCMANUS. TRISTA MITCHELL
[2022-03-06] MEDS: LEVOTHYROXINE SODIUM 112 MCG TABLET GT SCH ×2 (07:10→07:16)
[2022-03-06] MEDS: PANTOPRAZOLE ORAL SUSPENSION 40 MG SUSPDR.PKT GT SCH ×3 (07:10→16:53)
--- NOTE | 2022-03-06 07:30 | NUR ---
Awake, alert, oriented x 4, expressed needs through writing. Trach to vent FI02 305, TV 550, AC 12, PEEP 5. Glucerna per GT at 65 ml/hr.
[2022-03-06 07:34] VITALS: BP 92/60
[2022-03-06] MEDS: MIRALAX 17 GM POWD.PACK GT SCH ×2 (09:00→15:13)
[2022-03-06] MEDS: ASPIRIN 81 MG TAB.CHEW GT SCH (09:07)
[2022-03-06] MEDS: BACLOFEN 10 MG TABLET GT SCH ×2 (09:08→16:45)
[2022-03-06] MEDS: ZINC SULFATE 220 MG CAPSULE GT SCH (09:09)
[2022-03-06] MEDS: CHOLECALCIFEROL 1,000 UNIT TABLET GT SCH (09:09)
[2022-03-06] MEDS: FENOFIBRATE NANOCRYSTALLIZED 145 MG TABLET GT SCH (09:09)
[2022-03-06] MEDS: ASCORBIC ACID 500 MG TABLET GT SCH (09:09)
[2022-03-06] MEDS: ALLOPURINOL 300 MG TABLET GT SCH (09:10)
[2022-03-06] MEDS: SERTRALINE HCL 100 MG TABLET GT SCH (09:10)
[2022-03-06] MEDS: SILODOSIN 4MG CAPSULE GT SCH (09:11)
[2022-03-06] MEDS: GLYCOPYRROLATE 1 MG TABLET GT SCH ×3 (09:11→16:46)
[2022-03-06] MEDS: buPROPion 75 MG TABLET GT SCH ×2 (09:12→21:19)
[2022-03-06] MEDS: RILUZOLE 50MG TABLET GT SCH ×2 (09:12→16:44)
[2022-03-06] MEDS: ENOXAPARIN SODIUM 40 MG/0.4 ML DISP.SYRIN SQ SCH (09:13)
[2022-03-06] MEDS: MAGNESIUM SULFATE/D5W 100 ML IV SCH ×2 (09:17→11:22)
[2022-03-06] MEDS: MIDODRINE HCL 5 MG TABLET GT SCH ×3 (09:17→21:49)
[2022-03-06] MEDS: PROTEIN SUPPLEMENT (PROSTAT) 30 ML LIQUID GT SCH ×2 (09:18→16:45)
[2022-03-06] MEDS: CLONAZEPAM 0.5 MG TABLET GT PRN ×3 (09:51→23:11)
--- NOTE | 2022-03-06 09:51 | NUR ---
Anxious, requested for Klonopin, given per GT
[2022-03-06] MEDS: GLUCERNA 1.2 1000ML LIQUID GT PRN (09:55)
[2022-03-06 11:32] VITALS: BP 111/67
--- NOTE | 2022-03-06 12:00 | NUR ---
Noted Trach balloon at stoma. RT with Dr. Sammie box cuffed at bedside. Patient tolerated, not in distress.
--- NOTE | 2022-03-06 13:00 | NUR ---
Skin and wound care done. Repositioned comfortably
[2022-03-06] MEDS: RADICAVA IV SCH (14:15)
--- NOTE | 2022-03-06 15:30 | NUR ---
No BM today, requested for the Miralax, given.
[2022-03-06 15:39] VITALS: BP 96/58
--- NOTE | 2022-03-06 18:22 | NUR ---
Secretions suctioned. Trach to vent with same settings. No shortness of breath noted. Still no BM. Repositioned in bed comfortably. at bedside.
[2022-03-06 20:00] VITALS: BP 120/66
[2022-03-06] MEDS: TAMSULOSIN HCL 0.4 MG CAP.SR.24H PO SCH (21:18)
[2022-03-06] MEDS: DOCUSATE SODIUM 100 MG/10 ML LIQUID UDC GT SCH (21:18)
[2022-03-06] MEDS: FINASTERIDE 5 MG TABLET GT SCH (21:18)
[2022-03-06] MEDS: MIRTAZAPINE 15 MG TABLET GT SCH (21:19)
[2022-03-06] MEDS: ATORVASTATIN 20 MG TABLET GT SCH (21:19)
[2022-03-06] MEDS: MELATONIN 3 MG TABLET GT SCH (21:21)
[2022-03-07] VITALS: BP 122/56
[2022-03-07] MEDS: IPRATROPIUM BROMIDE 0.5 MG/2.5 ML NEBU NEB SCH ×3 (00:06→13:11)
[2022-03-07] MEDS: ALBUTEROL SULFATE 2.5 MG/3 ML NEBU NEB SCH ×3 (00:07→13:11)
[2022-03-07 04:00] VITALS: BP 104/62
--- NOTE | 2022-03-07 04:02 | NUR ---
DON HAS BEEN ON HIS OWN PORT, VENT WITH SHILEY # [address] [place] SECURED, POSITION TRACH WITH LARGE STOMA, NO VENT CHANGES MADE, PT ALERT AND AWAKE AT TIMES, NEB INLINE X 2 WITH HME CHANGED, WITH CONT PULSE OXY AT BEDSIDE, PT STABLE .Ana M SANCHEZ BLEND PLANT OPERATOR Addendum: 03/07/22 at 0404 by JIMENA SANCHEZ RT Amended: Links added.
[2022-03-07] MEDS: MIDODRINE HCL 5 MG TABLET GT SCH ×2 (05:32→13:52)
--- NOTE | 2022-03-07 06:00 | NUR ---
[id number]-CY CONT. WITH STABLE VS. SR.PT DWIGHT HOME VENT WELL. RESPS ARE REG/UNLAB. PT DWIGHT RTX WELL ALSO. IV HAS BEEN I/P. PT SLEEPING QUIETLY THROUGH MOST OF THE NIGHT. PT REMAINS A/OX4. PT DWIGHT T.FEEDG WELL ALSO. RESID 10CC. PT VOIDING WELL-650CC. HOB UP>30 DEGREES. GEN. COND HAS BEEN STABLE.
--- NOTE | 2022-03-07 06:00 | NUR ---
PREVIOUS NOTE BY KAMALA WELDON RN
[2022-03-07] MEDS: PANTOPRAZOLE ORAL SUSPENSION 40 MG SUSPDR.PKT GT SCH (06:40)
--- NOTE | 2022-03-07 07:00 | NUR ---
[id number]--PT CONT. WITH STABLE VS. PT REMAINS A/OX4. PT HAS BEEN AFEBRILE AND IN SR. PT DENIES ANY S/S OF PAIN. PT HAS DISPO FOR D/C TO HOME. PT AND FAMILY ARE AWARE. PT HAS TRACH TO VENT WITH FIO2 OF 30%, AC 12, TV550/PEEP+5. PT DWIGHT SX AND RTX WELL. RESPS REG/UNLAB. PT HAS BEEN VOIDING WELL. PT HAS GT INTACT AND PATENT WITH GLUCERNA T.FEEDING 65CC/HR. PT DWIGHT WELL WITH RESID OF 10CC. HOB HAS BEEN UP>30 DEGREES. PT RECEIVED HOMEMED IV OF RADICOVA TOTAL 60MG IVPB. PHARM RECEIVED IV MED FIRST. PT DWIGHT MED WELL. PT'S IS AT BEDSIDE. PT AND RECEIVED AFTERCARE INSTRUCTIONS AND AND PERSCRITIONS FOR MEDS. RESP TX AT BEDSIDE. PT ALSO MED WITH KLONIPINE AT APROX 0030 FOR ANXIETY. PT STATES RELIEF AFTER MED. AMBULANCE ARRIVED AND PT D/CD VIA [facility] IN STABLE COND. PT'S PRESENT ALSO. GEN. COND. HAS BEEN STABLE. WOOD SAWYER KATY AND COTTON WEIGHER OPERATOR/CM ARE AWARE. TRISTA MITCHELL
[2022-03-07 07:27] LABS: HEMATOCRIT 26.7 % (36.7-47.1); MEAN CORPUSCULAR HEMOGLOBIN 29.6 uug (23.8-33.4); MEAN CORPUSCULAR VOLUME 87.1 fL (73.0-96.2); PLATELET COUNT (AUTO) 153 K/uL (152-348)
[2022-03-07 07:35] LABS: CREATININE 0.9 mg/dL (0.6-1.3); MAGNESIUM 1.6 mg/dL (1.8-2.4); PHOSPHOROUS 4.3 mg/dL (2.5-4.9); POTASSIUM 4.1 mmol/L (3.5-5.1)
[2022-03-07 07:48] VITALS: BP 102/61
--- NOTE | 2022-03-07 07:56 | NUR ---
INFORMATION SENT:FACESHEET,24 HRS REPORT,PROGRESS NOTES 03/06,UR 03/06 FAXED CLINICALS TO [facility] PPLeona@ [phone] FAX SENT BY LUIGI
[2022-03-07] MEDS: ZINC SULFATE 220 MG CAPSULE GT SCH (09:00)
[2022-03-07] MEDS: MIRALAX 17 GM POWD.PACK GT SCH (09:00)
[2022-03-07] MEDS: BACLOFEN 10 MG TABLET GT SCH (09:00)
[2022-03-07] MEDS: ALLOPURINOL 300 MG TABLET GT SCH (09:00)
[2022-03-07] MEDS: ASCORBIC ACID 500 MG TABLET GT SCH (09:00)
[2022-03-07] MEDS: SILODOSIN 4MG CAPSULE GT SCH (09:00)
[2022-03-07] MEDS: buPROPion 75 MG TABLET GT SCH (09:00)
[2022-03-07] MEDS: RILUZOLE 50MG TABLET GT SCH (09:00)
[2022-03-07] MEDS: GLYCOPYRROLATE 1 MG TABLET GT SCH ×2 (09:00→13:50)
[2022-03-07] MEDS: SERTRALINE HCL 100 MG TABLET GT SCH (09:00)
[2022-03-07] MEDS: PROTEIN SUPPLEMENT (PROSTAT) 30 ML LIQUID GT SCH (09:00)
[2022-03-07] MEDS: FENOFIBRATE NANOCRYSTALLIZED 145 MG TABLET GT SCH (09:00)
[2022-03-07] MEDS: CHOLECALCIFEROL 1,000 UNIT TABLET GT SCH (09:00)
[2022-03-07] MEDS: ASPIRIN 81 MG TAB.CHEW GT SCH (09:00)
[2022-03-07] MEDS: MAGNESIUM OXIDE 400 MG TABLET PO ONE ×2 (09:15→12:00)
[2022-03-07] MEDS: ENOXAPARIN SODIUM 40 MG/0.4 ML DISP.SYRIN SQ SCH (10:05)
[2022-03-07 11:35] VITALS: BP 107/57
[2022-03-07] MEDS: CLONAZEPAM 0.5 MG TABLET GT PRN (12:00)
[2022-03-07] MEDS ORDERED: CEFEPIME HCL 2 G in IV DEXTROSE 5% 100 ML IV SCH (12:00)
[2022-03-07] MEDS: RADICAVA IV SCH (13:50)
[2022-03-07] MEDS ORDERED: CEFT2PIG5 IV (15:29)
[2022-03-07] MEDS ORDERED: [UNRECOGNIZED DRUG - CODE] IH (15:37)
[2022-03-07 15:45] VITALS: BP 111/70
[2022-03-18] MEDS ORDERED: ALLO300T2 PO (20:40)
[2022-03-18] MEDS ORDERED: IPRA0.2S48 NEB (20:42)
[2022-03-18] MEDS ORDERED: ICOS1CAP PO (20:42)
[2022-03-18] MEDS ORDERED: BUDE0.5A4 IH (20:42)
[2022-03-18] MEDS ORDERED: QUET100T PO (20:42)
== END 2022-03-07 16:45 | disposition home health service (06) | DRG 73 ==
LOC: ER 22:48 → TELE-TD3 02-28 03:00
PROVIDERS: ADMIT Internal Medicine; ATTEND Nurse Practitioner Acute Care
PROC: 5A1955Z Respiratory Ventilation, Greater than 96 Consecutive Hours (ICD-10-PCS; principal; 2022-02-28)
PROC: 05H533Z Insertion of Infusion Device into Right Subclavian Vein, Percutaneous Approach (ICD-10-PCS; 2022-02-28)
PROC: B546ZZA Ultrasonography of Right Subclavian Vein, Guidance (ICD-10-PCS; 2022-02-28)
DX: G90.8 Other disorders of autonomic nervous system (principal); J96.21 Acute and chronic respiratory failure with hypoxia; E44.0 Moderate protein-calorie malnutrition; J96.12 Chronic respiratory failure with hypercapnia; Z99.11 Dependence on respirator [ventilator] status; J98.11 Atelectasis; J90 Pleural effusion, not elsewhere classified; N17.9 Acute kidney failure, unspecified; G93.49 Other encephalopathy; G12.21 Amyotrophic lateral sclerosis; I95.9 Hypotension, unspecified; Z68.25 Body mass index [BMI] 25.0-25.9, adult; Z93.0 Tracheostomy status; B96.5 Pseudomonas (aeruginosa) (mallei) (pseudomallei) as the cause of diseases classified elsewhere; D63.8 Anemia in other chronic diseases classified elsewhere; E78.5 Hyperlipidemia, unspecified; E03.9 Hypothyroidism, unspecified; E87.6 Hypokalemia; E88.09 Other disorders of plasma-protein metabolism, not elsewhere classified; F41.9 Anxiety disorder, unspecified; I10 Essential (primary) hypertension; Z87.891 Personal history of nicotine dependence; R13.10 Dysphagia, unspecified; Z85.21 Personal history of malignant neoplasm of larynx; Z93.1 Gastrostomy status; F32.A Depression, unspecified; E86.0 Dehydration; E83.42 Hypomagnesemia; L89.156 Pressure-induced deep tissue damage of sacral region; D72.819 Decreased white blood cell count, unspecified; Z79.890 Hormone replacement therapy
CPT/HCPCS: 36415; 36600; 70030-TC; 71045; 83605; 83735; 84100; 84484; 84550; 85025; 85730; 87040; 87070; 87086; 87400; 93005; 93307; 94002; 94003; 94640; 94664; 94760; A4663; A6209; A6213; G0378; J0692; J0696; J1650; J2920; J3475; J3590; J7040; J7042

== ENCOUNTER 2022-06-04 20:16 | Inpatient (IN) | payer BC, OTHER ==
[~2022-06-04] VITALS: Ht 175.3 cm; Wt 78.5 kg
[~2022-06-04 20:16] MED LIST: ALLO300T2 GT; ALLO300T2 PO; ASPI81TA31 GT; ATOR20TA GT; BACL10TA GT; BACL5TAB GT; BUDE0.5A4 IH; BUPR-96 GT; BUPR75TA8 PO; CHOL10005 PO; CHOL100062 GT; CLON0.5T4 GT; CLON0.5T4 PO; DOCU100C36 PO; DOCU50LI GT; EDAR30PI IV; FENO145T GT; FENO160T GT; FINA5TAB11 GT; GLYC2TAB2 GT; Glycopyrrolate GT; ICOS1CAP PO; IPRA0.2S48 NEB; LACT-209 GT; LEVO112T5 GT; LEVO112T5 PO; LOSA50TA39 PO; MELA3TAB41 GT; MELA3TAB41 PO; MENT113O TOP; MIRT-93 GT; PANT40SU2 GT; PANT40TA49 GT; POLY17PO4 PO; QUET100T PO; RILU50TA4 GT; SERT100T GT; SILO4CAP3 GT; TAMS-3 PO; TIZA-180 PO; TIZA4TAB5 GT; [UNRECOGNIZED DRUG - CODE] IH; [UNRECOGNIZED DRUG - CODE] PO
[2022-06-04 21:07] LABS: HEMATOCRIT 32.8 % (36.7-47.1); MEAN CORPUSCULAR HEMOGLOBIN 26.4 uug (23.8-33.4); MEAN CORPUSCULAR VOLUME 82.9 fL (73.0-96.2); PLATELET COUNT (AUTO) 269 K/uL (152-348)
[2022-06-04 21:14] LABS: CREATININE 1.3 mg/dL (0.6-1.3); POTASSIUM 4.2 mmol/L (3.5-5.1)
[2022-06-04 21:20] LABS: BILIRUBIN,DIRECT 0.1 mg/dL (0.0-0.2); BILIRUBIN,TOTAL 0.3 mg/dL (0.2-1.0); TOTAL PROTEIN, SERUM 7.9 g/dL (6.4-8.2)
[2022-06-04] MEDS ORDERED: IV NS 1000 ML 1,000 ML IV ONE (22:00)
[2022-06-04] MEDS ORDERED: MAGNESIUM SULFATE/D5W 200 ML ONE (22:18)
[2022-06-04] MEDS: MAGNESIUM SULFATE/D5W 100 ML IV SCH ×2 (22:35→23:41)
--- NOTE | 2022-06-05 01:04 | NUR ---
[facility], WALLACE Delcid circulation director.
[2022-06-05] MEDS ORDERED: RACEPINEPHRINE HCL 2.25% 0.5 ML NEBU ONE (01:29)
[2022-06-05] MEDS ORDERED: MAGNESIUM HYDROXIDE 30 ML LIQUID UDC PO PRN (01:30)
[2022-06-05] MEDS ORDERED: TAMS-3 GT (02:06)
[2022-06-05] MEDS ORDERED: OMEG1CAP40 GT (02:06)
[2022-06-05] MEDS ORDERED: POLY17PO4 GT (02:06)
[2022-06-05] MEDS ORDERED: CLON1TAB12 GT (02:06)
[2022-06-05] MEDS ORDERED: CLOP75TA33 GT (02:06)
[2022-06-05] MEDS ORDERED: TIZA4TAB5 GT (02:06)
[2022-06-05] MEDS ORDERED: CLON0.5T4 GT (02:06)
--- NOTE | 2022-06-05 02:32 | NUR ---
Called M/S bed and given rm 302.
--- NOTE | 2022-06-05 03:00 | NUR ---
Received pt via case assisted by RN. Admitted 66 yr old male diagnosed with Acute Chronic Respiratory Failure under Dr. Delcid. AAOx4. Non-verbal but able to make needs known by writing it down. Pt has trach, vent and Gtube. Trach and Gtube site clean and dry. No SOB noted. FiO2 at 30% sating at 96%. Suctioned via in-line vent. Pt wants to be suctioned often. Minimal secretions noted. Skin is intact. Ambulatory. Denies any pain or discomfort. Pt verbalized that he wishes to be DNR. director of rehabilitative services ordered. Routine admission done. All needs attended. Safety precautions maintained. Addendum: 06/05/22 at 0649 by BUBBA PULLIAM RN Incorrect time. Admitted at 0420.
[2022-06-05] MEDS ORDERED: LEVO250T59 PO (03:03)
--- NOTE | 2022-06-05 03:29 | NUR ---
Report given to STEPHEN Lakhani.
[2022-06-05 04:20] VITALS: BP 140/62
--- NOTE | 2022-06-05 04:20 | NUR ---
Pt. admitted to TELE rm 302, under care of WALLACE Delcid. Belongs List completed STEPHEN Singh aware of pt's arrival to unit.
[2022-06-05] MEDS: ENOXAPARIN SODIUM 40 MG/0.4 ML DISP.SYRIN SQ SCH ×2 (05:06→20:08)
--- NOTE | 2022-06-05 08:00 | NUR ---
Received patient lying on bed awake, conscious and coherent with trach, vent and Gtube intact. Patient denies any pain and discomfort O2 sat at 97%. Suctioned secretions as needed. Needs attended
[2022-06-05 11:30] VITALS: BP 119/73
--- NOTE | 2022-06-05 12:00 | NUR ---
No acute change from morning assessment.
[2022-06-05] MEDS ORDERED: ALLO300T2 GT (13:06)
[2022-06-05] MEDS ORDERED: LEVO750T46 PO (13:07)
[2022-06-05] MEDS: OSMOLITE 1.2 CAL 1,000 ML LIQUID GT PRN (14:34)
[2022-06-05 16:53] VITALS: BP 120/73
[2022-06-05] MEDS ORDERED: CALMOSEPTINE 113 GM OINTMENT TOP PRN (17:30)
--- NOTE | 2022-06-05 17:38 | NUR ---
Medication reconciliation done by Dr. Cochran. Tolerating feeding at 40cc/hr. No signs of distress with current Vent setting AC-12, TV-500, FI02- 30%, peep- 5 saturating to 97-100%.
--- NOTE | 2022-06-05 19:30 | NUR ---
Received patient lying in bed. Family member at bedside. AAOx3-4. In no acute distress. Denies any pain or SOB. Trach to vent in place. PICC line on right upper arm intact and patent. GT feeding tolerated at this time. Osmolite 1.2 at 40cc/hr now. Goal is 70cc. NSR on tele with HR of 79/min. Safety measure initiated and call light within reached.
[2022-06-05 20:00] VITALS: BP 130/73
[2022-06-05] MEDS: levoFLOXacin 750 MG TABLET PO SCH (20:06)
[2022-06-05] MEDS: TAMSULOSIN HCL 0.4 MG CAP.SR.24H PO SCH (20:06)
[2022-06-05] MEDS: MELATONIN 3 MG TABLET GT SCH (20:06)
[2022-06-05] MEDS: MIRTAZAPINE 15 MG TABLET GT SCH (20:06)
[2022-06-05] MEDS: CLONAZEPAM 0.5 MG TABLET GT PRN (20:06)
[2022-06-05] MEDS: ATORVASTATIN 20 MG TABLET GT SCH (20:06)
[2022-06-05] MEDS: buPROPion 75 MG TABLET GT SCH (20:06)
[2022-06-05] MEDS: FINASTERIDE 5 MG TABLET GT SCH (20:06)
[2022-06-05] MEDS: TIZANIDINE HCL 4 MG TABLET GT SCH (20:07)
[2022-06-05] MEDS: PANTOPRAZOLE ORAL SUSPENSION 40 MG SUSPDR.PKT PO SCH (20:07)
[2022-06-05] MEDS: GLYCOPYRROLATE 1 MG TABLET GT SCH (20:07)
[2022-06-05] MEDS ORDERED: CLONAZEPAM 1 MG TABLET GT SCH (21:00)
[2022-06-06] VITALS: BP 92/57
[2022-06-06 04:00] VITALS: BP 97/57
[2022-06-06] MEDS: LEVOTHYROXINE SODIUM 112 MCG TABLET GT SCH (06:05)
--- NOTE | 2022-06-06 06:29 | NUR ---
Slept well during the night. In no apparent distress. Denies any pain or SOB. GT feeding and flushing well tolerated. No adverse reaction noted from antibiotic. NSR on tele with HR of 64/min. Suction secretions per pt request. Needs attended to and met. Safety measure maintained and call light within reached.
[2022-06-06 06:32] LABS: HEMATOCRIT 32.5 % (36.7-47.1); MEAN CORPUSCULAR HEMOGLOBIN 26.5 uug (23.8-33.4); MEAN CORPUSCULAR VOLUME 81.8 fL (73.0-96.2); PLATELET COUNT (AUTO) 291 K/uL (152-348)
[2022-06-06 06:39] LABS: CREATININE 1.2 mg/dL (0.6-1.3); MAGNESIUM 1.8 mg/dL (1.8-2.4); PHOSPHOROUS 3.8 mg/dL (2.5-4.9); POTASSIUM 3.5 mmol/L (3.5-5.1)
--- NOTE | 2022-06-06 07:55 | NUR ---
Sleeping, appears comfortable. Trach to vent AC 12, TV 500, FIO2 30%, PEEP 5; with O2 sat 95%. Tele SR 66. GT feedings off.
--- NOTE | 2022-06-06 09:30 | NUR ---
Secretions suctioned. Oral and trach care done. G Tube feedings on.
[2022-06-06] MEDS: ASPIRIN 81 MG TAB.CHEW GT SCH (09:58)
[2022-06-06] MEDS: BACLOFEN 10 MG TABLET GT SCH ×2 (09:59→17:57)
[2022-06-06] MEDS: CLOPIDOGREL 75 MG TABLET GT SCH (09:59)
[2022-06-06] MEDS: MIRALAX 17 GM POWD.PACK GT SCH ×2 (09:59→17:57)
[2022-06-06] MEDS: LOSARTAN POTASSIUM 50 MG TABLET GT SCH (09:59)
[2022-06-06] MEDS: GLYCOPYRROLATE 1 MG TABLET GT SCH ×3 (10:00→17:57)
[2022-06-06] MEDS: FENOFIBRATE NANOCRYSTALLIZED 145 MG TABLET GT SCH (10:00)
[2022-06-06] MEDS: CHOLECALCIFEROL 1,000 UNIT TABLET GT SCH (10:00)
[2022-06-06] MEDS: SERTRALINE HCL 100 MG TABLET GT SCH (10:00)
[2022-06-06] MEDS: buPROPion 75 MG TABLET GT SCH ×2 (10:01→20:13)
[2022-06-06] MEDS: ALLOPURINOL 100 MG TABLET GT SCH (10:01)
[2022-06-06] MEDS: PANTOPRAZOLE ORAL SUSPENSION 40 MG SUSPDR.PKT PO SCH ×2 (10:01→21:08)
[2022-06-06 11:11] VITALS: BP 113/65
--- NOTE | 2022-06-06 13:00 | NUR ---
PICC line care done, dressing changed, kept clean and dry
[2022-06-06] MEDS: OSMOLITE 1.2 CAL 1,000 ML LIQUID GT PRN (14:29)
[2022-06-06] MEDS: ACETAMINOPHEN 325 MG TABLET PO PRN ×2 (14:44→20:13)
[2022-06-06 15:15] VITALS: BP 112/68
--- NOTE | 2022-06-06 15:15 | NUR ---
Temp 99.8, Hospitalist informed. Sputum CS sent to lab. Tylenol given. Noted Trach almost out, RT at bedside, trach care done. Repositioned comfortably in bed with precaution to the trach.
--- NOTE | 2022-06-06 18:16 | NUR ---
Secretions suctioned. Placed a call to nurse to clarify regarding ALS IV medication, waiting for call back
--- NOTE | 2022-06-06 19:39 | NUR ---
Received patient lying in bed. Family member at bedside. AAOx4. In no acute distress. Denies any pain or SOB. Trach to vent in place. PICC line on right upper arm intact and patent. GT feeding infusing. NSR on tele with HR of 80/min. Safety measure initiated and call light within reached.
[2022-06-06 20:00] VITALS: BP 113/73
[2022-06-06] MEDS: MIRTAZAPINE 15 MG TABLET GT SCH (20:13)
[2022-06-06] MEDS: levoFLOXacin 750 MG TABLET PO SCH (20:13)
[2022-06-06] MEDS: ATORVASTATIN 20 MG TABLET GT SCH (20:13)
[2022-06-06] MEDS: TIZANIDINE HCL 4 MG TABLET GT SCH (20:13)
[2022-06-06] MEDS: CLONAZEPAM 0.5 MG TABLET GT PRN (20:13)
[2022-06-06] MEDS: TAMSULOSIN HCL 0.4 MG CAP.SR.24H PO SCH (20:13)
[2022-06-06] MEDS: FINASTERIDE 5 MG TABLET GT SCH (20:13)
[2022-06-06] MEDS: ENOXAPARIN SODIUM 40 MG/0.4 ML DISP.SYRIN SQ SCH (20:14)
[2022-06-06] MEDS: MELATONIN 3 MG TABLET GT SCH (20:14)
--- NOTE | 2022-06-06 23:09 | NUR ---
Patient complain unable to sleep. Stated he gets Klonopin 1mg at bedtime. Patient with order of Klonopin 0.5mg every 8 hours PRN only and already given. Dr. Cochran made aware and order additional Klonopin 0.5mg via GTx1 dose. Order noted and will carry out.
[2022-06-06] MEDS ORDERED: CLONAZEPAM 0.5 MG TABLET PO ONE (23:15)
[2022-06-07] VITALS: BP 98/63
[2022-06-07 04:00] VITALS: BP 107/63
--- NOTE | 2022-06-07 05:18 | NUR ---
Slept well after the 2nd dose of Klonopin 0.5mg via GT. In no apparent distress. No complain any pain or SOB. GT feeding and flushing tolerated well. No adverse reaction noted from antibiotic. NSR on tele with HR of 75/min. Suction secretions PRN. Needs attended to and met. Safety measure maintained and call light within reached.
[2022-06-07] MEDS: LEVOTHYROXINE SODIUM 112 MCG TABLET GT SCH (06:17)
[2022-06-07] MEDS: buPROPion 75 MG TABLET GT SCH ×2 (09:00→20:24)
[2022-06-07] MEDS: ALLOPURINOL 100 MG TABLET GT SCH (09:00)
[2022-06-07] MEDS: MIRALAX 17 GM POWD.PACK GT SCH ×2 (09:58→17:00)
[2022-06-07] MEDS: PANTOPRAZOLE ORAL SUSPENSION 40 MG SUSPDR.PKT PO SCH ×2 (09:58→20:24)
[2022-06-07] MEDS: BACLOFEN 10 MG TABLET GT SCH ×2 (09:59→17:41)
[2022-06-07] MEDS: ASPIRIN 81 MG TAB.CHEW GT SCH (09:59)
[2022-06-07] MEDS: CLOPIDOGREL 75 MG TABLET GT SCH (10:00)
[2022-06-07] MEDS: SERTRALINE HCL 100 MG TABLET GT SCH (10:00)
[2022-06-07] MEDS: CHOLECALCIFEROL 1,000 UNIT TABLET GT SCH (10:00)
[2022-06-07] MEDS: FENOFIBRATE NANOCRYSTALLIZED 145 MG TABLET GT SCH (10:00)
[2022-06-07] MEDS: LOSARTAN POTASSIUM 50 MG TABLET GT SCH (10:01)
[2022-06-07] MEDS: GLYCOPYRROLATE 1 MG TABLET GT SCH ×3 (10:03→17:41)
[2022-06-07 11:15] VITALS: BP 104/69
[2022-06-07] MEDS: ACETAMINOPHEN 325 MG TABLET PO PRN (14:01)
[2022-06-07 15:00] VITALS: BP 120/71
[2022-06-07] MEDS ORDERED: VANCOMYCIN IV 1,250 MG in IV DEXTROSE 5% 250 ML IV ONE (17:00)
[2022-06-07] MEDS: CEFEPIME HCL 2 G in IV DEXTROSE 5% 100 ML IV SCH (17:41)
[2022-06-07 19:18] LABS: *BILIRUBIN,URIN NEGATIVE (NEGATIVE); *BLOOD, URINE NEGATIVE (NEGATIVE); *CLARITY,URINE CLEAR (CLEAR); *COLOR,URINE YELLOW (YELLOW); *KETONES,URINE NEGATIVE (NEGATIVE); *UROBILINOGEN,URINE 0.2 E.U./dl (NORMAL); LEUKOCYTE ESTERASE ,URINE NEGATIVE (NEGATIVE); NITRITE, URINE NEGATIVE (NEGATIVE); UGLUCOSE NEGATIVE (NEGATIVE)
[2022-06-07] MEDS: RADICAVA IV SCH (19:22)
--- NOTE | 2022-06-07 19:25 | NUR ---
SHIFT NOTE PT WAS GIVEN MEDICATION ORDERED NO SIGNS OF DISTRESS NOTED. DR GUEVARA SAW PT THIS AM AN ORDERED VANCOMYCIN WITH A 0400 TROUGH AND HIS RADICAVA MEDS FOR ALS FAMILY AT BED SIDE. PT WAS SUCTIONED FREQUENTLY BY RT WITH TUBING CHANGED AND NO SIGNS OF RESPIRATORY DISTRESS NOTED. WILL ENDORSE TO HS NURSE MEDICATION GIVEN ORDERED NO SIGNS OF DISTRESS NOTED. WILL CONTINUE TO MONITOR FOR SAFETY AND FALLS
[2022-06-07 20:00] VITALS: BP 108/72
[2022-06-07] MEDS: FINASTERIDE 5 MG TABLET GT SCH (20:24)
[2022-06-07] MEDS: ATORVASTATIN 20 MG TABLET GT SCH (20:24)
[2022-06-07] MEDS: ENOXAPARIN SODIUM 40 MG/0.4 ML DISP.SYRIN SQ SCH (20:24)
[2022-06-07] MEDS: TAMSULOSIN HCL 0.4 MG CAP.SR.24H PO SCH (20:24)
[2022-06-07] MEDS: CLONAZEPAM 0.5 MG TABLET GT PRN (20:24)
[2022-06-07] MEDS: TIZANIDINE HCL 4 MG TABLET GT SCH (20:24)
[2022-06-07] MEDS: MIRTAZAPINE 15 MG TABLET GT SCH (20:24)
[2022-06-07] MEDS: MELATONIN 3 MG TABLET GT SCH (20:25)
[2022-06-07 21:43] VITALS: BP 108/72
[2022-06-07] MEDS ORDERED: diphenhydrAMINE 25 MG CAP PO PRN (22:45)
[2022-06-08] VITALS: BP 100/61
[2022-06-08] MEDS: CEFEPIME HCL 2 G in IV DEXTROSE 5% 100 ML IV SCH ×3 (01:23→16:51)
--- NOTE | 2022-06-08 03:22 | NUR ---
REPORT GIVEN TO RN FOR ASSIGNMENT CHANGE.
[2022-06-08 04:00] VITALS: BP 103/70
[2022-06-08] MEDS: VANCOMYCIN IV 1,000 MG in IV DEXTROSE 5% 250 ML IV SCH ×2 (04:54→17:55)
[2022-06-08] MEDS: LEVOTHYROXINE SODIUM 112 MCG TABLET GT SCH (05:50)
[2022-06-08 07:04] LABS: HEMATOCRIT 33.2 % (36.7-47.1); MEAN CORPUSCULAR HEMOGLOBIN 26.4 uug (23.8-33.4); MEAN CORPUSCULAR VOLUME 81.8 fL (73.0-96.2); PLATELET COUNT (AUTO) 277 K/uL (152-348)
[2022-06-08 07:33] LABS: CREATININE 1.3 mg/dL (0.6-1.3); PHOSPHOROUS 4.6 mg/dL (2.5-4.9); POTASSIUM 4.1 mmol/L (3.5-5.1)
--- NOTE | 2022-06-08 08:00 | NUR ---
AWAKE ALERT AND ORIENTED X3 ON MECHANICAL VENT W6-30-750--30-5 SATURATING 99% WITH CONTINUOUS FEEDING AT 70MLS/HR VIA GT. SR/ST ON MONITOR
[2022-06-08] MEDS: buPROPion 75 MG TABLET GT SCH ×2 (09:22→21:05)
[2022-06-08] MEDS: GLYCOPYRROLATE 1 MG TABLET GT SCH ×3 (09:24→16:20)
[2022-06-08] MEDS: MIRALAX 17 GM POWD.PACK GT SCH ×2 (09:24→16:12)
[2022-06-08] MEDS: ASPIRIN 81 MG TAB.CHEW GT SCH (09:24)
[2022-06-08] MEDS: ACETAMINOPHEN 325 MG TABLET PO PRN (09:24)
[2022-06-08] MEDS: BACLOFEN 10 MG TABLET GT SCH ×2 (09:25→16:20)
[2022-06-08] MEDS: PANTOPRAZOLE ORAL SUSPENSION 40 MG SUSPDR.PKT PO SCH ×2 (09:25→21:04)
[2022-06-08] MEDS: CLOPIDOGREL 75 MG TABLET GT SCH (09:25)
[2022-06-08] MEDS: SERTRALINE HCL 100 MG TABLET GT SCH (09:25)
[2022-06-08] MEDS: CHOLECALCIFEROL 1,000 UNIT TABLET GT SCH (09:25)
[2022-06-08] MEDS: ALLOPURINOL 100 MG TABLET GT SCH (09:26)
[2022-06-08] MEDS: FENOFIBRATE NANOCRYSTALLIZED 145 MG TABLET GT SCH (09:26)
[2022-06-08] MEDS: LOSARTAN POTASSIUM 50 MG TABLET GT SCH (09:40)
--- NOTE | 2022-06-08 11:27 | NUR ---
ROUTINE MORNING CARE GIVEN WITH MAXIMUM ASSIST. NOTED PATIENT EASILY GETS ANXIOUS AND AGITATED NEEDS ATTENDED
[2022-06-08 12:00] VITALS: BP 124/76
[2022-06-08] MEDS: OSMOLITE 1.2 CAL 1,000 ML LIQUID GT PRN (12:29)
--- NOTE | 2022-06-08 15:31 | NUR ---
Seen patient resting on bed, denies any pains and discomfort. Suctioned secretions as needed, turning of patient done. Medications given as ordered. Needs attended
[2022-06-08] MEDS: RADICAVA IV SCH (15:40)
[2022-06-08 16:00] VITALS: BP 127/72
[2022-06-08 20:40] VITALS: BP 118/73
[2022-06-08] MEDS: ENOXAPARIN SODIUM 40 MG/0.4 ML DISP.SYRIN SQ SCH (21:04)
[2022-06-08] MEDS: TIZANIDINE HCL 4 MG TABLET GT SCH (21:05)
[2022-06-08] MEDS: ATORVASTATIN 20 MG TABLET GT SCH (21:05)
[2022-06-08] MEDS: FINASTERIDE 5 MG TABLET GT SCH (21:05)
[2022-06-08] MEDS: MIRTAZAPINE 15 MG TABLET GT SCH (21:05)
[2022-06-08] MEDS: MELATONIN 3 MG TABLET GT SCH (21:06)
[2022-06-08] MEDS: TAMSULOSIN HCL 0.4 MG CAP.SR.24H PO SCH (21:06)
[2022-06-08] MEDS: CLONAZEPAM 0.5 MG TABLET GT PRN (21:32)
[2022-06-09 00:44] VITALS: BP 96/50
[2022-06-09] MEDS: CEFEPIME HCL 2 G in IV DEXTROSE 5% 100 ML IV SCH ×3 (00:56→16:42)
[2022-06-09] MEDS: OSMOLITE 1.2 CAL 1,000 ML LIQUID GT PRN ×2 (03:17→16:42)
[2022-06-09 04:00] VITALS: BP 96/49
[2022-06-09 05:29] LABS: HEMATOCRIT 32.5 % (36.7-47.1); MEAN CORPUSCULAR HEMOGLOBIN 26.2 uug (23.8-33.4); MEAN CORPUSCULAR VOLUME 81.6 fL (73.0-96.2); PLATELET COUNT (AUTO) 257 K/uL (152-348)
[2022-06-09 05:51] LABS: CREATININE 1.3 mg/dL (0.6-1.3); PHOSPHOROUS 4.3 mg/dL (2.5-4.9); POTASSIUM 3.9 mmol/L (3.5-5.1)
[2022-06-09] MEDS: VANCOMYCIN IV 1,000 MG in IV DEXTROSE 5% 250 ML IV SCH (06:30)
[2022-06-09] MEDS: LEVOTHYROXINE SODIUM 112 MCG TABLET GT SCH (06:57)
--- NOTE | 2022-06-09 07:25 | NUR ---
REPORT GIVEN TO STEPHEN BURNS
--- NOTE | 2022-06-09 08:00 | NUR ---
AWAKE ALERT AND RESPONDING APPROPRIATELY/COMMUNICATING BY WRITING. NO SS OF PAIN OR DISTRESS. FREQUENTLY ASK FOR TRACHEOSTOMY CARE AND SUCTIONING. SEEN BY RT AND RECOMMEND CHANGE TRACH. WILL FOLLOW-UP WITH BRIDGE PAINTER. SR ON MONITOR SATURATING 95-100%
[2022-06-09] MEDS: ACETAMINOPHEN 325 MG TABLET PO PRN (08:07)
[2022-06-09] MEDS: CLOPIDOGREL 75 MG TABLET GT SCH (08:08)
[2022-06-09] MEDS: CHOLECALCIFEROL 1,000 UNIT TABLET GT SCH (08:08)
[2022-06-09] MEDS: ASPIRIN 81 MG TAB.CHEW GT SCH (08:08)
[2022-06-09] MEDS: FENOFIBRATE NANOCRYSTALLIZED 145 MG TABLET GT SCH (08:08)
[2022-06-09] MEDS: BACLOFEN 10 MG TABLET GT SCH ×2 (08:08→16:41)
[2022-06-09] MEDS: CLONAZEPAM 0.5 MG TABLET GT PRN ×2 (08:08→21:13)
[2022-06-09] MEDS: PANTOPRAZOLE ORAL SUSPENSION 40 MG SUSPDR.PKT PO SCH ×2 (08:08→21:14)
[2022-06-09] MEDS: SERTRALINE HCL 100 MG TABLET GT SCH (08:09)
[2022-06-09] MEDS: buPROPion 75 MG TABLET GT SCH ×2 (08:09→21:00)
[2022-06-09] MEDS: ALLOPURINOL 100 MG TABLET GT SCH (08:09)
[2022-06-09] MEDS: GLYCOPYRROLATE 1 MG TABLET GT SCH ×3 (08:10→16:41)
[2022-06-09] MEDS: MIRALAX 17 GM POWD.PACK GT SCH ×2 (08:10→15:39)
[2022-06-09] MEDS: LOSARTAN POTASSIUM 50 MG TABLET GT SCH (08:13)
[2022-06-09] MEDS: REMEDY ESSENTIAL ZINC PASTE 113 GM TP PRN (08:15)
[2022-06-09] MEDS: ALBUTEROL SULFATE 2.5 MG/ 0.5 ML NEBU NEB PRN (09:22)
[2022-06-09] MEDS: IPRATROPIUM BROMIDE 0.5 MG/2.5 ML NEBU NEB PRN (09:22)
[2022-06-09 12:00] VITALS: BP 109/70
--- NOTE | 2022-06-09 12:00 | NUR ---
NO ACUTE CHANGED FROM MORNING ASSESSMENT. SEEN BY DR CABRAL AND SPOKED WITH RT REGARDING CHANGING TRACHEOSTOMY, SEE NOTES
--- NOTE | 2022-06-09 13:30 | NUR ---
Pt trach changed per MD Benavidez telephone order. Trach change performed using aseptic technique. Trach changed with the assistance of STAFF TRAINING AND DEVELOPMENT MANAGERSumi Barreto. Procedure perfomed without incident or complications. No bleeding noted. No signs or symptoms of respiratory distress noted before, during, or after procedure. [place] 8XLT-D trach is patent and secured. Bag/valve/mask at bedside. STEPHEN Stubbs notified.
--- NOTE | 2022-06-09 14:20 | NUR ---
TRACHEOSTOMY TUBE CHANGED BY RT PATIENT TOLERATED WELL..
[2022-06-09] MEDS: RADICAVA IV SCH (15:07)
[2022-06-09 16:00] VITALS: BP 98/56
--- NOTE | 2022-06-09 18:27 | NUR ---
continue iv antibiotics as ordered, vent settings at 12-500-28-5 saturating 97% . sr on monitor
[2022-06-09 20:00] VITALS: BP 110/67
[2022-06-09] MEDS ORDERED: VANCOMYCIN IV 1,250 MG in IV DEXTROSE 5% 250 ML IV SCH (20:00)
[2022-06-09] MEDS: MELATONIN 3 MG TABLET GT SCH (21:14)
[2022-06-09] MEDS: FINASTERIDE 5 MG TABLET GT SCH (21:14)
[2022-06-09] MEDS: ATORVASTATIN 20 MG TABLET GT SCH (21:14)
[2022-06-09] MEDS: TAMSULOSIN HCL 0.4 MG CAP.SR.24H PO SCH (21:14)
[2022-06-09] MEDS: MIRTAZAPINE 15 MG TABLET GT SCH (21:14)
[2022-06-09] MEDS: TIZANIDINE HCL 4 MG TABLET GT SCH (21:14)
[2022-06-09] MEDS: ENOXAPARIN SODIUM 40 MG/0.4 ML DISP.SYRIN SQ SCH (21:16)
[2022-06-10] VITALS: BP 96/49
[2022-06-10] MEDS: CEFEPIME HCL 2 G in IV DEXTROSE 5% 100 ML IV SCH ×3 (01:07→16:34)
[2022-06-10 04:00] VITALS: BP 129/71
--- NOTE | 2022-06-10 06:00 | NUR ---
Patient awake and alert. Tracheostomy intact to ventilator. Patient suctioned frequently. O2 saturation 96%. Osmolyte infused at 70cc per hour via peg. Tube feeding off at 6am. No acute distress noted.
[2022-06-10] MEDS: LEVOTHYROXINE SODIUM 112 MCG TABLET GT SCH (06:25)
[2022-06-10 07:54] LABS: HEMATOCRIT 33.8 % (36.7-47.1); MEAN CORPUSCULAR HEMOGLOBIN 26.6 uug (23.8-33.4); MEAN CORPUSCULAR VOLUME 81.4 fL (73.0-96.2); PLATELET COUNT (AUTO) 249 K/uL (152-348)
--- NOTE | 2022-06-10 08:00 | NUR ---
AWAKE ALERT AND ORIENTED X3 C/O SOB AND DEMAND FREQUENT TRACHEAL SUCTIONING AND ORAL CARE. SR/ST ON MONITOR, SATURATING 97%.VENT SETTINGS 12-500-28-5. CONTINUE WITH TELE MONITORING
[2022-06-10 08:13] LABS: CREATININE 1.1 mg/dL (0.6-1.3); PHOSPHOROUS 3.3 mg/dL (2.5-4.9); POTASSIUM 4.2 mmol/L (3.5-5.1)
[2022-06-10] MEDS: ASPIRIN 81 MG TAB.CHEW GT SCH (08:53)
[2022-06-10] MEDS: CHOLECALCIFEROL 1,000 UNIT TABLET GT SCH (08:53)
[2022-06-10] MEDS: BACLOFEN 10 MG TABLET GT SCH ×2 (08:54→16:35)
[2022-06-10] MEDS: SERTRALINE HCL 100 MG TABLET GT SCH (08:54)
[2022-06-10] MEDS: PANTOPRAZOLE ORAL SUSPENSION 40 MG SUSPDR.PKT PO SCH ×2 (08:54→21:18)
[2022-06-10] MEDS: LOSARTAN POTASSIUM 50 MG TABLET GT SCH (08:54)
[2022-06-10] MEDS: FENOFIBRATE NANOCRYSTALLIZED 145 MG TABLET GT SCH (08:54)
[2022-06-10] MEDS: CLOPIDOGREL 75 MG TABLET GT SCH (08:54)
[2022-06-10] MEDS: buPROPion 75 MG TABLET GT SCH ×2 (08:55→21:25)
[2022-06-10] MEDS: MIRALAX 17 GM POWD.PACK GT SCH ×2 (08:55→15:48)
[2022-06-10] MEDS: GLYCOPYRROLATE 1 MG TABLET GT SCH ×3 (08:55→16:35)
[2022-06-10] MEDS: CLONAZEPAM 0.5 MG TABLET GT PRN ×2 (09:00→22:07)
[2022-06-10] MEDS: ONDANSETRON 4 MG/2 ML VIAL IV PRN (09:01)
[2022-06-10] MEDS: ALLOPURINOL 100 MG TABLET GT SCH (09:17)
[2022-06-10] MEDS: IPRATROPIUM BROMIDE 0.5 MG/2.5 ML NEBU NEB PRN ×2 (09:25→20:06)
[2022-06-10] MEDS: ALBUTEROL SULFATE 2.5 MG/ 0.5 ML NEBU NEB PRN ×2 (09:26→20:06)
--- NOTE | 2022-06-10 09:30 | NUR ---
SEEN BY DR CORRALES FOR F/U, SEE NOTES. FOLLOWED UP BY PHYSICAL THERAPIST FOR EXERCISES TOELRATED WELL. SEE NOTES
--- NOTE | 2022-06-10 10:00 | NUR ---
SEEN BY HOSPITALIST AND ELECTRICIAN HELPER AUTOMOTIVE LINDA ELY TO [facility], PICK-UP TIME 1200 Addendum: 06/10/22 at 1226 by ANIYAH HEATH RN ERROR
--- NOTE | 2022-06-10 10:00 | NUR ---
BREATHING TX GIVEN FOR C/O OF TIGHTNESS ON CHEST WITH GOOD RELIEF. TOLERATING FEEDING WELL, NO RESIDUAL
[2022-06-10] MEDS: OSMOLITE 1.2 CAL 1,000 ML LIQUID GT PRN (10:02)
[2022-06-10 12:00] VITALS: BP 95/62
[2022-06-10] MEDS: VANCOMYCIN IV 1,250 MG in IV DEXTROSE 5% 250 ML IV SCH (12:03)
--- NOTE | 2022-06-10 12:24 | NUR ---
DISCHARGED HOME VIA AMBULANCE STABLE, REPORT GIVEN TO [facility] STAFF SO WITH AMBULANCE Addendum: 06/10/22 at 1226 by ANIYAH HEATH RN ERROR
[2022-06-10] MEDS: RADICAVA IV SCH (15:47)
[2022-06-10 16:00] VITALS: BP 116/59
[2022-06-10] MEDS: REMEDY ESSENTIAL ZINC PASTE 113 GM TP PRN (16:36)
[2022-06-10] MEDS: TAMSULOSIN HCL 0.4 MG CAP.SR.24H PO SCH (21:17)
[2022-06-10] MEDS: FINASTERIDE 5 MG TABLET GT SCH (21:17)
[2022-06-10] MEDS: MELATONIN 3 MG TABLET GT SCH (21:18)
[2022-06-10] MEDS: MIRTAZAPINE 15 MG TABLET GT SCH (21:18)
[2022-06-10] MEDS: ATORVASTATIN 20 MG TABLET GT SCH (21:18)
[2022-06-10] MEDS: TIZANIDINE HCL 4 MG TABLET GT SCH (21:18)
[2022-06-10] MEDS: ENOXAPARIN SODIUM 40 MG/0.4 ML DISP.SYRIN SQ SCH (21:19)
[2022-06-10 21:25] VITALS: BP 117/59
[2022-06-11] MEDS: CEFEPIME HCL 2 G in IV DEXTROSE 5% 100 ML IV SCH ×3 (00:05→16:19)
[2022-06-11 00:52] VITALS: BP 126/62
[2022-06-11] MEDS: VANCOMYCIN IV 1,250 MG in IV DEXTROSE 5% 250 ML IV SCH ×2 (03:16→19:50)
[2022-06-11] MEDS: OSMOLITE 1.2 CAL 1,000 ML LIQUID GT PRN (03:17)
[2022-06-11 05:43] VITALS: BP 116/60
[2022-06-11] MEDS: LEVOTHYROXINE SODIUM 112 MCG TABLET GT SCH (06:08)
--- NOTE | 2022-06-11 06:37 | NUR ---
Slept comfortably. IV site intact and patent. Trach suctioning done as needed. Minimal secretion noted. Breathing tx given by RT. Gtube feeding at 70 ml/hr. Tolerated well. No residual. noted. Gtube clean and dry. No leakage noted. Aspiration precaution maintained. Antibiotic given as ordered. No adverse reaction noted. All needs attended. Call light within reach.
[2022-06-11 06:52] LABS: HEMATOCRIT 31.3 % (36.7-47.1); MEAN CORPUSCULAR HEMOGLOBIN 26.6 uug (23.8-33.4); MEAN CORPUSCULAR VOLUME 81.9 fL (73.0-96.2); PLATELET COUNT (AUTO) 204 K/uL (152-348)
[2022-06-11 07:27] LABS: CREATININE 1.1 mg/dL (0.6-1.3); PHOSPHOROUS 3.9 mg/dL (2.5-4.9); POTASSIUM 4.4 mmol/L (3.5-5.1)
[2022-06-11] MEDS: PANTOPRAZOLE ORAL SUSPENSION 40 MG SUSPDR.PKT PO SCH ×2 (08:19→20:49)
[2022-06-11] MEDS: ASPIRIN 81 MG TAB.CHEW GT SCH (08:19)
[2022-06-11] MEDS: BACLOFEN 10 MG TABLET GT SCH ×2 (08:19→16:19)
[2022-06-11] MEDS: SERTRALINE HCL 100 MG TABLET GT SCH (08:20)
[2022-06-11] MEDS: CHOLECALCIFEROL 1,000 UNIT TABLET GT SCH (08:20)
[2022-06-11] MEDS: CLONAZEPAM 0.5 MG TABLET GT PRN ×2 (08:20→21:22)
[2022-06-11] MEDS: MIRALAX 17 GM POWD.PACK GT SCH ×2 (08:20→16:20)
[2022-06-11] MEDS: CLOPIDOGREL 75 MG TABLET GT SCH (08:20)
[2022-06-11] MEDS: FENOFIBRATE NANOCRYSTALLIZED 145 MG TABLET GT SCH (08:20)
[2022-06-11] MEDS: ALLOPURINOL 100 MG TABLET GT SCH (08:20)
[2022-06-11] MEDS: LOSARTAN POTASSIUM 50 MG TABLET GT SCH (08:21)
[2022-06-11] MEDS: buPROPion 75 MG TABLET GT SCH ×2 (08:25→20:51)
[2022-06-11] MEDS: GLYCOPYRROLATE 1 MG TABLET GT SCH ×3 (08:25→16:19)
[2022-06-11] MEDS: REMEDY ESSENTIAL ZINC PASTE 113 GM TP PRN (08:26)
[2022-06-11 11:40] VITALS: BP 103/40
--- NOTE | 2022-06-11 12:00 | NUR ---
NO ACUTE CHANGE FROM AM ASSESSMENT
[2022-06-11 15:41] VITALS: BP 111/51
[2022-06-11] MEDS: RADICAVA IV SCH (15:48)
--- NOTE | 2022-06-11 18:18 | NUR ---
CONTINUE IV ANTIBIOTIC ORDERED. AWAITING DC PLAN TO HOME
--- NOTE | 2022-06-11 18:19 | NUR ---
RESTING COMFORTABLY IN BED NO SIGNS OF DISTRESS WITH CURRENT VENT SETTINGS SR/ST ON MONITOR
[2022-06-11 20:00] VITALS: BP 108/64
[2022-06-11] MEDS: MELATONIN 3 MG TABLET GT SCH (20:48)
[2022-06-11] MEDS: ATORVASTATIN 20 MG TABLET GT SCH (20:48)
[2022-06-11] MEDS: TIZANIDINE HCL 4 MG TABLET GT SCH (20:49)
[2022-06-11] MEDS: MIRTAZAPINE 15 MG TABLET GT SCH (20:49)
[2022-06-11] MEDS: FINASTERIDE 5 MG TABLET GT SCH (20:49)
[2022-06-11] MEDS: TAMSULOSIN HCL 0.4 MG CAP.SR.24H PO SCH (20:51)
[2022-06-11] MEDS: ENOXAPARIN SODIUM 40 MG/0.4 ML DISP.SYRIN SQ SCH (20:54)
[2022-06-12] VITALS: BP 111/67
[2022-06-12] MEDS: CEFEPIME HCL 2 G in IV DEXTROSE 5% 100 ML IV SCH ×3 (00:57→17:12)
[2022-06-12 04:00] VITALS: BP 115/53
[2022-06-12] MEDS: LEVOTHYROXINE SODIUM 112 MCG TABLET GT SCH (07:17)
[2022-06-12 07:27] LABS: HEMATOCRIT 31.7 % (36.7-47.1); MEAN CORPUSCULAR VOLUME 81.2 fL (73.0-96.2); PLATELET COUNT (AUTO) 209 K/uL (152-348)
[2022-06-12] MEDS: MIRALAX 17 GM POWD.PACK GT SCH ×2 (08:09→17:00)
[2022-06-12] MEDS: FENOFIBRATE NANOCRYSTALLIZED 145 MG TABLET GT SCH (08:09)
[2022-06-12] MEDS: OSMOLITE 1.2 CAL 1,000 ML LIQUID GT PRN (08:09)
[2022-06-12] MEDS: GLYCOPYRROLATE 1 MG TABLET GT SCH ×3 (08:10→17:06)
[2022-06-12] MEDS: ALLOPURINOL 100 MG TABLET GT SCH (08:10)
[2022-06-12] MEDS: PANTOPRAZOLE ORAL SUSPENSION 40 MG SUSPDR.PKT PO SCH ×2 (08:10→21:19)
[2022-06-12] MEDS: buPROPion 75 MG TABLET GT SCH ×2 (08:10→21:20)
[2022-06-12] MEDS: ASPIRIN 81 MG TAB.CHEW GT SCH (08:10)
[2022-06-12] MEDS: CHOLECALCIFEROL 1,000 UNIT TABLET GT SCH (08:11)
[2022-06-12] MEDS: CLOPIDOGREL 75 MG TABLET GT SCH (08:11)
[2022-06-12] MEDS: SERTRALINE HCL 100 MG TABLET GT SCH (08:11)
[2022-06-12] MEDS: BACLOFEN 10 MG TABLET GT SCH ×2 (08:12→17:07)
[2022-06-12] MEDS: CLONAZEPAM 0.5 MG TABLET GT PRN ×2 (08:12→21:22)
[2022-06-12] MEDS: LOSARTAN POTASSIUM 50 MG TABLET GT SCH (08:12)
[2022-06-12] MEDS: REMEDY ESSENTIAL ZINC PASTE 113 GM TP PRN (08:13)
[2022-06-12 08:29] LABS: CREATININE 1.2 mg/dL (0.6-1.3); MAGNESIUM 2.1 mg/dL (1.8-2.4); PHOSPHOROUS 4.1 mg/dL (2.5-4.9); POTASSIUM 4.7 mmol/L (3.5-5.1)
[2022-06-12 11:50] VITALS: BP 127/62
--- NOTE | 2022-06-12 12:00 | NUR ---
NO ACUTE CHANGE FROM MORNING ASSESSMENT. SEEN BY CLEAN ROOM TECHNICIAN SEE NOTES
[2022-06-12] MEDS: RADICAVA IV SCH (15:21)
[2022-06-12 15:40] VITALS: BP 135/42
--- NOTE | 2022-06-12 18:10 | NUR ---
AWAINTING DISCHARGE PLAN TO HOME. SEE STONEMASON HELPER NOTES. NO SS OF PAIN OR DISTRESS, TOLERATING FEEDING WELL NO RESIDUAL. COMFORTABLE WITH CURRENT VENT SETTING SATURATING 97-100%
--- NOTE | 2022-06-12 19:35 | NUR ---
Received patient awake alert, no sob no chest pain, patient on trach to vent, sat 95% to 97%, on GTF tolerate well no residual noted, no nausea no vomiting noted. patient was suctioned by RT and RN alternate, whitish, blood tinge color secretions, patient wanted to be suction more frequently cause irritation on the throat. call light within reach, cont to monitor.
[2022-06-12 20:00] VITALS: BP 132/62
[2022-06-12] MEDS: FINASTERIDE 5 MG TABLET GT SCH (21:19)
[2022-06-12] MEDS: MIRTAZAPINE 15 MG TABLET GT SCH (21:19)
[2022-06-12] MEDS: TIZANIDINE HCL 4 MG TABLET GT SCH (21:19)
[2022-06-12] MEDS: ATORVASTATIN 20 MG TABLET GT SCH (21:19)
[2022-06-12] MEDS: TAMSULOSIN HCL 0.4 MG CAP.SR.24H PO SCH (21:19)
[2022-06-12] MEDS: MELATONIN 3 MG TABLET GT SCH (21:19)
[2022-06-12] MEDS: VANCOMYCIN IV 1,250 MG in IV DEXTROSE 5% 250 ML IV SCH (21:22)
[2022-06-12] MEDS: ENOXAPARIN SODIUM 40 MG/0.4 ML DISP.SYRIN SQ SCH (21:44)
[2022-06-13] VITALS: BP 118/50
[2022-06-13] MEDS: CEFEPIME HCL 2 G in IV DEXTROSE 5% 100 ML IV SCH ×3 (01:01→17:13)
[2022-06-13 04:00] VITALS: BP 120/54
[2022-06-13] MEDS: LEVOTHYROXINE SODIUM 112 MCG TABLET GT SCH (06:31)
--- NOTE | 2022-06-13 06:42 | NUR ---
Patient awake hob elevated, no sob no chest pain, GTF tolerate well no residual noted, trach to vent, dressing changed by RT, episode of anxiety requested klonopin with help after few minutes, v/s stable sat wnl, no complain of pain, cont on abx for infection with no adverse reaction noted, suctioned patient q2 hrs and as needed, alternate suction procedure from RN and RT. cont to monitor.
--- NOTE | 2022-06-13 06:46 | NUR ---
sputum from suction procedure is whitish no further bleeding. cont to monitor.
--- NOTE | 2022-06-13 07:30 | NUR ---
Awake, alert, oriented x 4. Trach to vent AC 12, TV 500, FIO2 30, PEEP 5. Tele SR. GT feedings off
[2022-06-13] MEDS: MIRALAX 17 GM POWD.PACK GT SCH ×3 (09:00→17:00)
--- NOTE | 2022-06-13 09:30 | NUR ---
Assisted out of bed by PT. Stand up and marching at bedside tolerated. With BM to moderate stool.
[2022-06-13] MEDS: GLYCOPYRROLATE 1 MG TABLET GT SCH ×3 (09:37→17:09)
[2022-06-13] MEDS: BACLOFEN 10 MG TABLET GT SCH ×2 (09:37→17:09)
[2022-06-13] MEDS: CLOPIDOGREL 75 MG TABLET GT SCH (09:37)
[2022-06-13] MEDS: ASPIRIN 81 MG TAB.CHEW GT SCH (09:37)
[2022-06-13] MEDS: FENOFIBRATE NANOCRYSTALLIZED 145 MG TABLET GT SCH (09:38)
[2022-06-13] MEDS: CHOLECALCIFEROL 1,000 UNIT TABLET GT SCH (09:38)
[2022-06-13] MEDS: buPROPion 75 MG TABLET GT SCH ×2 (09:38→21:36)
[2022-06-13] MEDS: SERTRALINE HCL 100 MG TABLET GT SCH (09:38)
[2022-06-13] MEDS: ALLOPURINOL 100 MG TABLET GT SCH (09:39)
[2022-06-13] MEDS: PANTOPRAZOLE ORAL SUSPENSION 40 MG SUSPDR.PKT PO SCH ×2 (09:39→21:36)
[2022-06-13] MEDS: LOSARTAN POTASSIUM 50 MG TABLET GT SCH (09:47)
[2022-06-13] MEDS: ONDANSETRON 4 MG/2 ML VIAL IV PRN (10:44)
--- NOTE | 2022-06-13 10:45 | NUR ---
nauseated, relieved with Zofran. Secretions suctioned, noted blood tinged secretion in the trach. Hospitalist informed. Foolowing sputum CS result. Lab will call back
[2022-06-13 11:10] VITALS: BP 106/69
[2022-06-13] MEDS: RADICAVA IV SCH (14:58)
--- NOTE | 2022-06-13 16:20 | NUR ---
SW consult requested to assess discharge plan. Patient is a 66-year-old male who was admitted to the hospital for respiratory failure. Patient appears lethargic and presents with anxious mood and congruent affect. SW spoke to the patients cousin, Sohan ([phone]) at patients bedside with housing case manager, Karan. Kenat ([phone]) states that the patient lives with his , Michael Kunz ([phone]) and his mother, Nakul [place] [place] [address] [address]. Ezat ([phone]) states that the patients Michael Kunz ([phone]) is the patients primary caregiver, and her flight was cancelled, and she will be flying back to [place] on Friday afternoon. The plan for discharge is [place] [address] [place] [place] [address] when the patients comes home on Friday. SW spoke to the patients brother, Trino Nicolas ([phone]) and he states that he wants the home health agency, [facility] ([phone]) to come to the patients house after he is discharged and SW informed the housing case manager, Karan. assistant clinical nurse manager, Karan has made Trino Nicolas ([phone]) aware that the patients continued stay at the hospital is currently not being covered by insurance and SW discussed the plan for discharge with the patients brother Trino Nicolas ([phone]) and he states that he understands and agrees with the plan for the patient [place] [address] [place] [place] [address] when the patients returns with the home health agency, [facility] ([phone]).
--- NOTE | 2022-06-13 17:52 | NUR ---
Secretions suctioned. Trach to vent with same settings with O2 sat of 95-99%. IV antibiotics given as ordered. Afebrile.
[2022-06-13] MEDS: VANCOMYCIN IV 1,250 MG in IV DEXTROSE 5% 250 ML IV SCH (17:58)
--- NOTE | 2022-06-13 19:35 | NUR ---
Received patient awake alert, no sob no chest pain, patient on trach to vent, sat 95% to 97%, on GTF tolerate well no residual noted, no nausea no vomiting noted. patient was suctioned by RT and RN alternate, whitish,color secretions, patient more calm today, sister and cousin at bedside helps participate with care, asked family to encourage the patient not have sudden movement due risk for trach dislodgement, and risk for respiratory distress. patient calm today and appears understand the message given to him by family, call light within reach, cont to monitor.
[2022-06-13 20:00] VITALS: BP 128/47
[2022-06-13] MEDS: FINASTERIDE 5 MG TABLET GT SCH (21:36)
[2022-06-13] MEDS: TIZANIDINE HCL 4 MG TABLET GT SCH (21:37)
[2022-06-13] MEDS: TAMSULOSIN HCL 0.4 MG CAP.SR.24H PO SCH (21:37)
[2022-06-13] MEDS: MIRTAZAPINE 15 MG TABLET GT SCH (21:37)
[2022-06-13] MEDS: MELATONIN 3 MG TABLET GT SCH (21:37)
[2022-06-13] MEDS: ATORVASTATIN 20 MG TABLET GT SCH (21:37)
[2022-06-13] MEDS: ENOXAPARIN SODIUM 40 MG/0.4 ML DISP.SYRIN SQ SCH (21:46)
[2022-06-14] VITALS: BP 118/52
[2022-06-14] MEDS: CEFEPIME HCL 2 G in IV DEXTROSE 5% 100 ML IV SCH ×3 (00:09→16:22)
[2022-06-14 04:00] VITALS: BP 119/50
[2022-06-14] MEDS: LEVOTHYROXINE SODIUM 112 MCG TABLET GT SCH (06:17)
--- NOTE | 2022-06-14 06:26 | NUR ---
Patient asleep but arousable no sob no chest pain, trach to vent tolerate well, no complain of pain, patient calm at this time, v/s stable, seen by RT for suction and checking of placement of trach, vent setting and function. kept comfortable, on GTF tolerate well, cont on abx for infection, cont to to monitor.
[2022-06-14 07:16] LABS: CREATININE 1.2 mg/dL (0.6-1.3); POTASSIUM 4.3 mmol/L (3.5-5.1)
[2022-06-14] MEDS: CLOPIDOGREL 75 MG TABLET GT SCH (08:58)
[2022-06-14] MEDS: CHOLECALCIFEROL 1,000 UNIT TABLET GT SCH (08:58)
[2022-06-14] MEDS: ASPIRIN 81 MG TAB.CHEW GT SCH (08:58)
[2022-06-14] MEDS: ALLOPURINOL 100 MG TABLET GT SCH (08:58)
[2022-06-14] MEDS: SERTRALINE HCL 100 MG TABLET GT SCH (08:58)
[2022-06-14] MEDS: PANTOPRAZOLE ORAL SUSPENSION 40 MG SUSPDR.PKT PO SCH ×2 (08:58→21:46)
[2022-06-14] MEDS: FENOFIBRATE NANOCRYSTALLIZED 145 MG TABLET GT SCH (08:58)
[2022-06-14] MEDS: GLYCOPYRROLATE 1 MG TABLET GT SCH ×3 (09:00→16:20)
[2022-06-14] MEDS: BACLOFEN 10 MG TABLET GT SCH ×3 (09:00→16:20)
[2022-06-14] MEDS: LOSARTAN POTASSIUM 50 MG TABLET GT SCH (09:06)
[2022-06-14] MEDS: MIRALAX 17 GM POWD.PACK GT SCH ×2 (09:07→16:19)
[2022-06-14] MEDS: buPROPion 75 MG TABLET GT SCH ×2 (09:07→21:46)
--- NOTE | 2022-06-14 09:55 | NUR ---
Pt asked for RT to suction his trach. Tolerated well.
[2022-06-14 11:56] VITALS: BP 140/60
[2022-06-14] MEDS: RADICAVA IV SCH (14:47)
[2022-06-14 16:51] VITALS: BP 106/66
--- NOTE | 2022-06-14 19:35 | NUR ---
Received patient in bed alert oriented, no sob no chest pain, cousin at bedside. Trach to vent tolerate well, GTF tolerate well no residual noted, suctioned as needed, seen by RT to check patient tract placement and patentcy, cont to monitor.
[2022-06-14 20:37] VITALS: BP 102/62
[2022-06-14] MEDS: TAMSULOSIN HCL 0.4 MG CAP.SR.24H PO SCH (21:46)
[2022-06-14] MEDS: FINASTERIDE 5 MG TABLET GT SCH (21:46)
[2022-06-14] MEDS: ATORVASTATIN 20 MG TABLET GT SCH (21:46)
[2022-06-14] MEDS: MIRTAZAPINE 15 MG TABLET GT SCH (21:46)
[2022-06-14] MEDS: TIZANIDINE HCL 4 MG TABLET GT SCH (21:46)
[2022-06-14] MEDS: ENOXAPARIN SODIUM 40 MG/0.4 ML DISP.SYRIN SQ SCH (21:47)
[2022-06-14] MEDS: MELATONIN 3 MG TABLET GT SCH (21:47)
[2022-06-15 00:01] VITALS: BP 100/56
[2022-06-15] MEDS: CEFEPIME HCL 2 G in IV DEXTROSE 5% 100 ML IV SCH ×2 (01:20→08:48)
--- NOTE | 2022-06-15 03:47 | NUR ---
Patient asleep but arousable, no sob no chest pain, sinus rhythm on tele reading, patient has little secretions on tracheal site, afebrile cont to monitor.
[2022-06-15 04:11] VITALS: BP 97/45
[2022-06-15] MEDS: LEVOTHYROXINE SODIUM 112 MCG TABLET GT SCH (06:14)
--- NOTE | 2022-06-15 06:17 | NUR ---
Patient asleep no sob no chest pain, trach check for placement by RT, kept comfortable, GTF feeding tolerate well, no complain of pain at this time, cont to monitor.
--- NOTE | 2022-06-15 07:30 | NUR ---
AWAKE ALERT AND ORIENTED X3, DENIES PAIN, NO SS OF DISTRESS WITH CURRENT VENT SETTINGS. 30-5 SATURATING 98%. SR ON MONITOR
[2022-06-15] MEDS: PANTOPRAZOLE ORAL SUSPENSION 40 MG SUSPDR.PKT PO SCH (08:46)
[2022-06-15] MEDS: CLOPIDOGREL 75 MG TABLET GT SCH (08:46)
[2022-06-15] MEDS: FENOFIBRATE NANOCRYSTALLIZED 145 MG TABLET GT SCH (08:46)
[2022-06-15] MEDS: CHOLECALCIFEROL 1,000 UNIT TABLET GT SCH (08:46)
[2022-06-15] MEDS: BACLOFEN 10 MG TABLET GT SCH (08:46)
[2022-06-15] MEDS: ASPIRIN 81 MG TAB.CHEW GT SCH (08:47)
[2022-06-15] MEDS: CLONAZEPAM 0.5 MG TABLET GT PRN (08:47)
[2022-06-15] MEDS: ALLOPURINOL 100 MG TABLET GT SCH (08:47)
[2022-06-15] MEDS: LOSARTAN POTASSIUM 50 MG TABLET GT SCH (08:47)
[2022-06-15] MEDS: SERTRALINE HCL 100 MG TABLET GT SCH (08:47)
[2022-06-15] MEDS: OSMOLITE 1.2 CAL 1,000 ML LIQUID GT PRN (08:48)
[2022-06-15] MEDS: MIRALAX 17 GM POWD.PACK GT SCH (08:48)
[2022-06-15] MEDS: REMEDY ESSENTIAL ZINC PASTE 113 GM TP PRN (08:49)
[2022-06-15] MEDS: GLYCOPYRROLATE 1 MG TABLET GT SCH ×2 (08:51→13:17)
[2022-06-15] MEDS: buPROPion 75 MG TABLET GT SCH (08:51)
--- NOTE | 2022-06-15 10:00 | NUR ---
SEEN BY DR CABRAL FOR FOLLOW-UP NO NEW ORDERS, AWARE OF DISCHARGE PLAN TODAY, NO NEW ORDERS
--- NOTE | 2022-06-15 11:00 | NUR ---
SEEN BY HOSPITALIST PLAN DISCHARGE TODAY, AUTO BRAKE MECHANIC MADE AWARE AND ARRANGEMENT MADE WITH FAMILY. PLAN PICK-UP AT 1500 VIA AMBULANCE
[2022-06-15 11:30] VITALS: BP 102/63
[2022-06-15] MEDS: RADICAVA IV SCH (15:00)
--- NOTE | 2022-06-15 15:14 | NUR ---
1500 IV PATIENT OWN MEDS NOT AVAILABLE PLUS PATIENT IS GOING HOME
--- NOTE | 2022-06-15 16:35 | NUR ---
DISCHARGE HOME STABLE VIA AMBULANCE, DISCHARGE MEDICATION AND FOLLOW-UP INSTRUCTION GIVEN TO RETAIL SERVICE TECHNICIAN
== END 2022-06-15 16:35 | disposition home or self-care (01) | DRG 207 ==
LOC: ER 20:21 → TELE3 06-05 02:30
PROVIDERS: ADMIT Nurse Practitioner Acute Care; ATTEND Nurse Practitioner Family
PROC: 5A1955Z Respiratory Ventilation, Greater than 96 Consecutive Hours (ICD-10-PCS; principal; 2022-06-05)
DX: J95.03 Malfunction of tracheostomy stoma (principal); J15.9 Unspecified bacterial pneumonia; G12.21 Amyotrophic lateral sclerosis; J96.11 Chronic respiratory failure with hypoxia; J98.11 Atelectasis; Z99.11 Dependence on respirator [ventilator] status; Y95 Nosocomial condition; E78.5 Hyperlipidemia, unspecified; F32.A Depression, unspecified; F41.9 Anxiety disorder, unspecified; K21.9 Gastro-esophageal reflux disease without esophagitis; M10.9 Gout, unspecified; Z87.440 Personal history of urinary (tract) infections; Z93.1 Gastrostomy status; Z85.21 Personal history of malignant neoplasm of larynx; N40.0 Benign prostatic hyperplasia without lower urinary tract symptoms; R13.10 Dysphagia, unspecified; Y84.8 Other medical procedures as the cause of abnormal reaction of the patient, or of later complication, without mention of misadventure at the time of the procedure; Y92.009 Unspecified place in unspecified non-institutional (private) residence as the place of occurrence of the external cause
CPT/HCPCS: 36415; 71045; 83735; 84100; 85025; 94002; 94003; 94640; 94664; 94760; A4663; A6213; G0378; J0692; J1650; J2405; J3370; J3475; J3590; J7040; J7050; J8499

== ENCOUNTER 2022-07-04 23:54 | Inpatient (IN) | payer BC, MEDICARE, OTHER ==
[~2022-07-04] VITALS: Ht 175.3 cm; Wt 80.3 kg
[~2022-07-04 23:54] MED LIST changes: -ALLO300T2 PO; -BACL10TA GT; -BUDE0.5A4 IH; -BUPR75TA8 PO; -CHOL10005 PO; -CLON0.5T4 PO; +CLOP75TA33 GT; -DOCU100C36 PO; -DOCU50LI GT; -EDAR30PI IV; -FENO145T GT; -Glycopyrrolate GT; -ICOS1CAP PO; -IPRA0.2S48 NEB; -LACT-209 GT; -LEVO112T5 PO; +LEVO750T46 PO; -MELA3TAB41 PO; -MENT113O TOP; +OMEG1CAP40 GT; -PANT40SU2 GT; +POLY17PO4 GT; -POLY17PO4 PO; -QUET100T PO; +TAMS-3 GT; -TAMS-3 PO; -TIZA-180 PO; -[UNRECOGNIZED DRUG - CODE] IH; -[UNRECOGNIZED DRUG - CODE] PO
[2022-07-05] MEDS ORDERED: ALBUTEROL SULFATE 2.5 MG/3 ML NEBU ONE (00:15)
--- NOTE | 2022-07-05 00:15 | NUR ---
Patient placed in 3A. RT placed patient on vent with setting of A/C 16, tidal Volume of 600, PEEP of 5 and FI02 at 40%. Has trach size of Shiley 8 XLT. Patient denies SOB, CP.
[2022-07-05] MEDS ORDERED: IPRATROPIUM BROMIDE 0.5 MG/2.5 ML NEBU ONE (00:18)
[2022-07-05 00:38] LABS: HEMATOCRIT 30.9 % (36.7-47.1); MEAN CORPUSCULAR HEMOGLOBIN 26.6 uug (23.8-33.4); MEAN CORPUSCULAR VOLUME 81.3 fL (73.0-96.2); PLATELET COUNT (AUTO) 361 K/uL (152-348)
[2022-07-05] MEDS ORDERED: ALBUTEROL SULFATE 2.5 MG/3 ML NEBU NEB ONE (00:45)
[2022-07-05] MEDS ORDERED: IPRATROPIUM BROMIDE 0.5 MG/2.5 ML NEBU NEB ONE (00:45)
[2022-07-05 01:10] LABS: CARBON DIOXIDE 30 mmol/L (21-32); CHLORIDE 100 mmol/L (98-107); CREATININE 1.2 mg/dL (0.6-1.3); GLUCOSE 108 mg/dL (74-106); POTASSIUM 4.2 mmol/L (3.5-5.1); UREA NITROGEN, BLOOD 24 mg/dL (7-18)
[2022-07-05 01:23] LABS: ALANINE AMINOTRANSFERASE 28 U/L (16-63); ALKALINE PHOSPHATASE 59 U/L (50-136); ASPARTATE AMINOTRANSFERASE 28 U/L (15-37); BILIRUBIN,DIRECT 0.1 mg/dL (0.0-0.2); BILIRUBIN,TOTAL 0.3 mg/dL (0.2-1.0)
[2022-07-05] MEDS ORDERED: PIPERACILLIN SODIUM/TAZOBACTAM 3.375 G in IV DEXTROSE 5% 50 ML IV ONE (04:30)
[2022-07-05] MEDS ORDERED: VANCOMYCIN 1G/D5W 200 ML PIGGYBACK IV ONE (04:30)
[2022-07-05] MEDS ORDERED: AZITHROMYCIN IV 500 MG in IV DEXTROSE 5% 250 ML IV ONE (04:30)
[2022-07-05] MEDS ORDERED: PIPERACILLIN/TAZOBACTAM/D5W 50 ML IV ONE (04:37)
[2022-07-05] MEDS ORDERED: AZITHROMYCIN 500MG/ D5W 250ML IVPB **ER PYXIS ONLY IV ONE (04:37)
[2022-07-05] MEDS ORDERED: ACETAMINOPHEN 325 MG TABLET PO PRN (05:00)
[2022-07-05] MEDS ORDERED: ONDANSETRON 4 MG/2 ML VIAL IV PRN (05:00)
[2022-07-05] MEDS ORDERED: hydrALAZINE HCL 20 MG/1 ML VIAL IV PRN (05:00)
[2022-07-05] MEDS ORDERED: ALBUTEROL SULFATE 2.5 MG/3 ML NEBU IH PRN (05:00)
[2022-07-05] MEDS ORDERED: IPRATROPIUM BROMIDE 0.5 MG/2.5 ML NEBU NEB PRN (05:00)
[2022-07-05] MEDS ORDERED: MAGNESIUM HYDROXIDE 30 ML LIQUID UDC PO PRN (05:00)
--- NOTE | 2022-07-05 05:45 | NUR ---
Transfered patient to 3rd floor via gurny with no distress noted.
--- NOTE | 2022-07-05 05:45 | NUR ---
Continue to infused Vanco 1 gram IVPB in the 3rd floor.
[2022-07-05] MEDS ORDERED: PIPERACILLIN SODIUM/TAZOBACTAM 3.375 G in IV DEXTROSE 5% 50 ML IV SCH (06:00)
[2022-07-05 06:30] LABS: HEMATOCRIT 28.9 % (36.7-47.1); MEAN CORPUSCULAR HEMOGLOBIN 26.1 uug (23.8-33.4); MEAN CORPUSCULAR VOLUME 80.7 fL (73.0-96.2); PLATELET COUNT (AUTO) 340 K/uL (152-348)
[2022-07-05 06:34] LABS: CREATININE 1.1 mg/dL (0.6-1.3); POTASSIUM 3.6 mmol/L (3.5-5.1)
[2022-07-05 06:40] LABS: BILIRUBIN,TOTAL 0.2 mg/dL (0.2-1.0); MAGNESIUM 1.7 mg/dL (1.8-2.4); PHOSPHOROUS 2.8 mg/dL (2.5-4.9); TOTAL PROTEIN, SERUM 7.1 g/dL (6.4-8.2)
[2022-07-05] MEDS ORDERED: PANTOPRAZOLE SODIUM 40 MG TABLET.DR PO SCH (07:00)
--- NOTE | 2022-07-05 07:07 | NUR ---
Pt admitted to room 316; skin surveillance done; made comfortable and safe on bed; needs attended; continued vent; suctioned oral and trache secretions.
[2022-07-05 07:08] LABS: THYROID STIMULATING HORMONE 2.597 mIU/mL (0.358-3.740)
[2022-07-05 08:00] VITALS: BP 95/57
[2022-07-05] MEDS: ENOXAPARIN SODIUM 40 MG/0.4 ML DISP.SYRIN SQ SCH (09:03)
[2022-07-05] MEDS: PIPERACILLIN SODIUM/TAZOBACTAM 3.375 G in IV DEXTROSE 5% 50 ML IV SCH ×2 (11:20→20:06)
[2022-07-05] MEDS: MAGNESIUM SULFATE/D5W 100 ML IV SCH ×2 (11:20→11:21)
[2022-07-05 11:26] VITALS: BP 105/48
[2022-07-05 16:17] VITALS: BP 113/63
[2022-07-05] MEDS: ENSURE WITH FIBER 237 ML LIQUID (CHOCOLATE) PO SCH (17:42)
[2022-07-05 20:00] VITALS: BP 118/46
[2022-07-05] MEDS ORDERED: HOME MED MISCELLANEOUS XX SCH ×3 (23:15)
[2022-07-05] MEDS ORDERED: CLONAZEPAM 0.5 MG TABLET GT PRN (23:15)
[2022-07-05] MEDS ORDERED: TAMSULOSIN HCL 0.4 MG CAP.SR.24H PO SCH (23:27)
[2022-07-05] MEDS ORDERED: MELATONIN 3 MG TABLET PO SCH (23:27)
[2022-07-05] MEDS ORDERED: GLYCOPYRROLATE 1 MG TABLET PO SCH (23:27)
[2022-07-05] MEDS ORDERED: FINASTERIDE 5 MG TABLET PO SCH (23:27)
[2022-07-05] MEDS ORDERED: BACLOFEN 10 MG TABLET PO SCH (23:27)
[2022-07-05] MEDS ORDERED: CLONAZEPAM 1 MG TABLET PO SCH (23:27)
[2022-07-05] MEDS ORDERED: MIRTAZAPINE 15 MG TABLET PO SCH (23:27)
[2022-07-05] MEDS ORDERED: MIRALAX 17 GM POWD.PACK PO ONE (23:30)
[2022-07-05] MEDS ORDERED: TIZANIDINE HCL 4 MG TABLET PO ONE (23:30)
[2022-07-05] MEDS ORDERED: buPROPion XL 150 MG TAB.SR.24H PO ONE (23:30)
[2022-07-05] MEDS ORDERED: SERTRALINE HCL 50 MG TABLET PO SCH (23:30)
[2022-07-06] VITALS: BP 116/56
[2022-07-06 04:00] VITALS: BP 112/61
[2022-07-06] MEDS: PIPERACILLIN SODIUM/TAZOBACTAM 3.375 G in IV DEXTROSE 5% 50 ML IV SCH (05:11)
[2022-07-06] MEDS: LEVOTHYROXINE SODIUM 112 MCG TABLET GT SCH (06:37)
[2022-07-06 06:53] LABS: HEMATOCRIT 27.9 % (36.7-47.1); MEAN CORPUSCULAR HEMOGLOBIN 26.5 uug (23.8-33.4); MEAN CORPUSCULAR VOLUME 79.3 fL (73.0-96.2); PLATELET COUNT (AUTO) 328 K/uL (152-348)
[2022-07-06 07:04] LABS: CREATININE 1.2 mg/dL (0.6-1.3); MAGNESIUM 1.9 mg/dL (1.8-2.4); POTASSIUM 3.4 mmol/L (3.5-5.1)
[2022-07-06] MEDS ORDERED: PANTOPRAZOLE SODIUM 40 MG TABLET.DR PO SCH (07:30)
[2022-07-06] MEDS: ENSURE WITH FIBER 237 ML LIQUID (CHOCOLATE) PO SCH (09:00)
[2022-07-06] MEDS ORDERED: buPROPion XL 150 MG TAB.SR.24H PO SCH (09:00)
[2022-07-06] MEDS ORDERED: AZITHROMYCIN 250 MG TABLET PO SCH (09:00)
[2022-07-06] MEDS: ENOXAPARIN SODIUM 40 MG/0.4 ML DISP.SYRIN SQ SCH (09:15)
[2022-07-06] MEDS: ASPIRIN 81 MG TAB.CHEW GT SCH (09:16)
[2022-07-06] MEDS: OMEGA-3 FATTY ACIDS/FISH OIL CAPSULE GT SCH (09:16)
[2022-07-06] MEDS: FENOFIBRATE NANOCRYSTALLIZED 145 MG TABLET GT SCH (09:17)
[2022-07-06] MEDS: CHOLECALCIFEROL 1,000 UNIT TABLET GT SCH (09:17)
[2022-07-06] MEDS: SERTRALINE HCL 100 MG TABLET GT SCH (09:19)
[2022-07-06] MEDS: BACLOFEN 10 MG TABLET GT SCH ×2 (09:19→17:27)
[2022-07-06] MEDS: ALLOPURINOL 300 MG TABLET GT SCH (09:19)
[2022-07-06] MEDS: MIRALAX 17 GM POWD.PACK GT SCH ×2 (09:20→17:00)
[2022-07-06] MEDS: CLOPIDOGREL 75 MG TABLET GT SCH (09:20)
[2022-07-06] MEDS: LOSARTAN POTASSIUM 50 MG TABLET PO SCH (09:21)
[2022-07-06] MEDS: buPROPion 75 MG TABLET PO SCH ×2 (09:22→21:46)
[2022-07-06] MEDS: GLYCOPYRROLATE 1 MG TABLET GT SCH ×3 (09:22→17:28)
[2022-07-06] MEDS ORDERED: POTASSIUM CHLORIDE 20 MEQ POWDER PACKET PO ONE (11:00)
[2022-07-06 12:04] VITALS: BP 113/53
[2022-07-06] MEDS: SILODOSIN 4 MG GT SCH (13:13)
[2022-07-06] MEDS: RADICAVA IV SCH (13:13)
[2022-07-06] MEDS: [UNRECOGNIZED DRUG - OTHER] GT SCH (13:13)
[2022-07-06 16:00] VITALS: BP 108/45
[2022-07-06] MEDS: GLUCERNA SHAKE 237 ML CAN PO SCH (17:00)
[2022-07-06] MEDS: [UNRECOGNIZED DRUG - OTHER] GT SCH (17:26)
[2022-07-06] MEDS: RILUZOLE 50 MG GT SCH (17:26)
[2022-07-06] MEDS: PANTOPRAZOLE SODIUM 40 MG TABLET.DR PO SCH (17:27)
[2022-07-06 17:59] LABS: BAND % (MANUAL) 0 % (0-10); BASOPHILS % (MANUAL) 0 % (0-2); EOSINOPHILS % (MANUAL) 2 % (0-8); LYMPHOCYTES % (MANUAL) 15 % (20-40); MONOCYTES % (MANUAL) 5 % (2-10); NEUTROPHILS % (MANUAL) 78 % (42-75)
--- NOTE | 2022-07-06 19:35 | NUR ---
Received patient in bed, alert oriented, no sob no chest pain, with trach to vent, sat wnl, suctioned patient only when patient requested it, but also suction q 2 hrs as needed. patient sat wnl, no complain of pain, on vent with setting as ordered. on GT without feeding, medications only, on puree diet as ordered, cont to monitor.
[2022-07-06 20:00] VITALS: BP 120/60
[2022-07-06] MEDS: MIRTAZAPINE 15 MG TABLET GT SCH (21:47)
[2022-07-06] MEDS: TIZANIDINE HCL 4 MG TABLET GT SCH (21:47)
[2022-07-06] MEDS: TAMSULOSIN HCL 0.4 MG CAP.SR.24H PO SCH (21:47)
[2022-07-06] MEDS: ATORVASTATIN 20 MG TABLET GT SCH (21:47)
[2022-07-06] MEDS: FINASTERIDE 5 MG TABLET GT SCH (21:47)
[2022-07-06] MEDS: MELATONIN 3 MG TABLET GT SCH (21:48)
[2022-07-07] VITALS: BP 99/60
[2022-07-07 04:34] VITALS: BP 90/56
--- NOTE | 2022-07-07 05:05 | NUR ---
Patient asleep but arousable, no sob no chest pain, trach intact, on vent with setting as order. patient tele monitor sinus rhythm, tolerate meds via GT only, no n/v no diarrhea noted, no residual, no complain of pain, suctioned q2 and prn, no coughing no congestion noted, sputum color whitish in color in small amount, uses urinal for bladder eliminations, cont to monitor.
[2022-07-07 06:42] LABS: CREATININE 1.2 mg/dL (0.6-1.3); POTASSIUM 3.8 mmol/L (3.5-5.1)
[2022-07-07] MEDS: PANTOPRAZOLE SODIUM 40 MG TABLET.DR PO SCH ×2 (06:52→17:38)
[2022-07-07] MEDS: LEVOTHYROXINE SODIUM 112 MCG TABLET GT SCH (06:52)
[2022-07-07] MEDS: GLUCERNA SHAKE 237 ML CAN PO SCH ×3 (09:01→17:38)
[2022-07-07] MEDS: FENOFIBRATE NANOCRYSTALLIZED 145 MG TABLET GT SCH (09:01)
[2022-07-07] MEDS: CLOPIDOGREL 75 MG TABLET GT SCH (09:01)
[2022-07-07] MEDS: ALLOPURINOL 300 MG TABLET GT SCH (09:02)
[2022-07-07] MEDS: BACLOFEN 10 MG TABLET GT SCH ×2 (09:02→17:38)
[2022-07-07] MEDS: CHOLECALCIFEROL 1,000 UNIT TABLET GT SCH (09:02)
[2022-07-07] MEDS: ASPIRIN 81 MG TAB.CHEW GT SCH (09:02)
[2022-07-07] MEDS: OMEGA-3 FATTY ACIDS/FISH OIL CAPSULE GT SCH (09:02)
[2022-07-07] MEDS: LOSARTAN POTASSIUM 50 MG TABLET PO SCH (09:06)
[2022-07-07] MEDS: SILODOSIN 4 MG GT SCH (09:07)
[2022-07-07] MEDS: RILUZOLE 50 MG GT SCH ×2 (09:07→17:39)
[2022-07-07] MEDS: [UNRECOGNIZED DRUG - OTHER] GT SCH (09:07)
[2022-07-07] MEDS: [UNRECOGNIZED DRUG - OTHER] GT SCH ×2 (09:07→17:39)
[2022-07-07] MEDS: buPROPion 75 MG TABLET PO SCH ×2 (09:08→23:06)
[2022-07-07] MEDS: GLYCOPYRROLATE 1 MG TABLET GT SCH ×3 (09:08→17:41)
[2022-07-07] MEDS: ENOXAPARIN SODIUM 40 MG/0.4 ML DISP.SYRIN SQ SCH (09:10)
[2022-07-07] MEDS: MIRALAX 17 GM POWD.PACK GT SCH ×2 (09:18→17:38)
[2022-07-07] MEDS: SERTRALINE HCL 100 MG TABLET GT SCH (09:18)
--- NOTE | 2022-07-07 10:00 | NUR ---
Rcvd pt in bed. AOOx4. No sob. Denies any pain or any discomfort. Suctioned pt prn. Routiine medication given via gt and pt. tolerated it well. Family on bedside. Keep pt clean and comfortable position.
[2022-07-07 12:45] VITALS: BP 116/63
[2022-07-07] MEDS: RADICAVA IV SCH (14:16)
[2022-07-07 16:00] VITALS: BP 127/60
--- NOTE | 2022-07-07 19:01 | NUR ---
Pt. AAOX4. No sob. Family in the bed side. D/c tomorrow 07/08/22.
[2022-07-07] MEDS: MELATONIN 3 MG TABLET GT SCH (23:05)
[2022-07-07] MEDS: FINASTERIDE 5 MG TABLET GT SCH (23:05)
[2022-07-07] MEDS: ATORVASTATIN 20 MG TABLET GT SCH (23:05)
[2022-07-07] MEDS: TAMSULOSIN HCL 0.4 MG CAP.SR.24H PO SCH (23:06)
[2022-07-07] MEDS: MIRTAZAPINE 15 MG TABLET GT SCH (23:06)
[2022-07-07] MEDS: TIZANIDINE HCL 4 MG TABLET GT SCH (23:06)
[2022-07-08 05:00] VITALS: BP 120/52
[2022-07-08] MEDS: LEVOTHYROXINE SODIUM 112 MCG TABLET GT SCH (06:14)
[2022-07-08] MEDS: PANTOPRAZOLE SODIUM 40 MG TABLET.DR PO SCH (06:15)
--- NOTE | 2022-07-08 07:30 | NUR ---
REPORT GIVEN TO STEPHEN AVALOS
[2022-07-08] MEDS: CLOPIDOGREL 75 MG TABLET GT SCH (08:22)
[2022-07-08] MEDS: ASPIRIN 81 MG TAB.CHEW GT SCH (08:23)
[2022-07-08] MEDS: CHOLECALCIFEROL 1,000 UNIT TABLET GT SCH (08:23)
[2022-07-08] MEDS: LOSARTAN POTASSIUM 50 MG TABLET PO SCH (08:23)
[2022-07-08] MEDS: buPROPion 75 MG TABLET PO SCH (08:24)
[2022-07-08] MEDS: ALLOPURINOL 300 MG TABLET GT SCH (08:24)
[2022-07-08] MEDS: SERTRALINE HCL 100 MG TABLET GT SCH (08:24)
[2022-07-08] MEDS: BACLOFEN 10 MG TABLET GT SCH (08:24)
[2022-07-08] MEDS: OMEGA-3 FATTY ACIDS/FISH OIL CAPSULE GT SCH (08:24)
[2022-07-08] MEDS: FENOFIBRATE NANOCRYSTALLIZED 145 MG TABLET GT SCH (08:24)
[2022-07-08] MEDS: [UNRECOGNIZED DRUG - OTHER] GT SCH (08:25)
[2022-07-08] MEDS: SILODOSIN 4 MG GT SCH (08:25)
[2022-07-08] MEDS: [UNRECOGNIZED DRUG - OTHER] GT SCH (08:26)
[2022-07-08] MEDS: GLYCOPYRROLATE 1 MG TABLET GT SCH (08:26)
[2022-07-08] MEDS: MIRALAX 17 GM POWD.PACK GT SCH (08:26)
[2022-07-08] MEDS: RILUZOLE 50 MG GT SCH (08:26)
[2022-07-08] MEDS: GLUCERNA SHAKE 237 ML CAN PO SCH ×2 (08:27→12:43)
--- NOTE | 2022-07-08 09:00 | NUR ---
Rcvd pt. in bed. AAO X4. nO sob. Meds given and pt. tolerated it well. Family in the bedside. Awaiting for the ambulance for turkey picker.
[2022-07-08] MEDS: ENOXAPARIN SODIUM 40 MG/0.4 ML DISP.SYRIN SQ SCH (10:04)
[2022-07-08 11:56] VITALS: BP 149/71
--- NOTE | 2022-07-08 12:20 | NUR ---
Dicharged pt. home and picked by [facility] ambulance together with the RT via gurney. Discharge instruction given to pt. and family. Pt. verbalized understanding. All belongings accounted for. Home medications given to family. Pt. stable to go.
== END 2022-07-08 12:22 | disposition home or self-care (01) | DRG 208 ==
LOC: ER 07-05 00:01 → TELE3 07-05 04:11
PROVIDERS: ADMIT Nurse Practitioner Acute Care; ATTEND Nurse Practitioner Acute Care
PROC: 5A1945Z Respiratory Ventilation, 24-96 Consecutive Hours (ICD-10-PCS; principal; 2022-07-05)
DX: T17.890A Other foreign object in other parts of respiratory tract causing asphyxiation, initial encounter (principal); J96.20 Acute and chronic respiratory failure, unspecified whether with hypoxia or hypercapnia; G12.21 Amyotrophic lateral sclerosis; D68.69 Other thrombophilia; E87.20 Acidosis, unspecified; Z99.11 Dependence on respirator [ventilator] status; Z20.822 Contact with and (suspected) exposure to COVID-19; D63.8 Anemia in other chronic diseases classified elsewhere; E03.9 Hypothyroidism, unspecified; E78.5 Hyperlipidemia, unspecified; F32.A Depression, unspecified; N18.9 Chronic kidney disease, unspecified; R13.10 Dysphagia, unspecified; Z93.0 Tracheostomy status; Z74.01 Bed confinement status; N40.0 Benign prostatic hyperplasia without lower urinary tract symptoms; Z79.899 Other long term (current) drug therapy; X58.XXXA Exposure to other specified factors, initial encounter; Y93.9 Activity, unspecified; Y92.009 Unspecified place in unspecified non-institutional (private) residence as the place of occurrence of the external cause; K21.9 Gastro-esophageal reflux disease without esophagitis; F41.9 Anxiety disorder, unspecified; Z85.21 Personal history of malignant neoplasm of larynx; I12.9 Hypertensive chronic kidney disease with stage 1 through stage 4 chronic kidney disease, or unspecified chronic kidney disease; Z79.02 Long term (current) use of antithrombotics/antiplatelets; Z93.1 Gastrostomy status
CPT/HCPCS: 36415; 70030-TC; 71045; 83605; 83735; 84100; 84443; 84484; 85025; 87040; 93005; 94002; 94003; 94760; 99082-TC; G0378; J0456; J1650; J2543; J3370; J3475; J3490; J3590; J7050; Q0144

== ENCOUNTER 2022-07-30 21:52 | Emergency (ER) | payer MEDICARE, BC, OTHER ==
[~2022-07-30] VITALS: Ht 175.3 cm; Wt 74.8 kg
[~2022-07-30 21:52] MED LIST changes: -LEVO750T46 PO
[2022-07-30 22:26] LABS: MEAN CORPUSCULAR HEMOGLOBIN 26.5 uug (23.8-33.4); MEAN CORPUSCULAR VOLUME 83.3 fL (73.0-96.2); PLATELET COUNT (AUTO) 405 K/uL (152-348)
[2022-07-30] MEDS ORDERED: CLONIDINE HCL 0.2 MG TABLET PO ONE (22:30)
[2022-07-30 22:46] LABS: CARBON DIOXIDE 29 mmol/L (21-32); CHLORIDE 104 mmol/L (98-107); CREATININE 1.4 mg/dL (0.6-1.3); GLUCOSE 163 mg/dL (74-106); POTASSIUM 3.9 mmol/L (3.5-5.1); UREA NITROGEN, BLOOD 19 mg/dL (7-18)
[2022-07-30 22:53] LABS: IRON, SERUM 41 ug/dL (50-175)
[2022-07-30] MEDS ORDERED: FERR220S6 PO (23:35)
--- NOTE | 2022-07-30 23:45 | NUR ---
Called [facility] ambulance, no unit available at the moment
--- NOTE | 2022-07-30 23:55 | NUR ---
Per [facility] ambulance, they cannot take patient without an RN/RT. Charge nurse Ruddy and Matrix Repairer Nico MITCHELL notified.
--- NOTE | 2022-07-30 23:56 | NUR ---
Per Aissatou RN (ER), will accompany patient on transport.
--- NOTE | 2022-07-30 23:57 | NUR ---
called [facility] ambulance for transport, ETA 90mins
--- NOTE | 2022-07-31 00:32 | NUR ---
spoke with patient's , made aware patient is getting discharged. Patient's stated she will wait at home until ambulance arrive
--- NOTE | 2022-07-31 01:33 | NUR ---
[facility] ambulance unit 315 at bedside for transport.
--- NOTE | 2022-07-31 01:51 | NUR ---
Patient discharged to home in stable condition via [facility] ambulance. Patient is accompanied by Aissatou [employer] INSTALLER. Written and verbal after care instructions given. Patient verbalizes understanding of instructions. Stressed follow up or return to ER for worsening s/s. Patient's aware of patient's discharge
[2022-07-31 01:52] VITALS: BP 124/71
[2022-07-31 04:26] LABS: ABG BASE EXCESS -3.9 mmol/L; ABG HCO3 21.3 mmol/L; ABG PCO2 39.3 mmHg (35.0-45.0); ABG PH 7.352 (7.350-7.450); ABG PO2 101.8 mmHg (75.0-100.0); ABG SITE RIGHT RADIAL; ABG TOTAL HEMOGLOBIN 10.1 G/dL (13.5-18.0); MetHb 0.1 % (0.0-1.5); O2Hb 94.2 % (94.0-97.0); VENT MODE VENT - A/C; VT, ABG 500 mL
== END 2022-07-31 01:53 | disposition home or self-care (01) ==
LOC: ER 21:52
DX: I10 Essential (primary) hypertension (principal); G12.21 Amyotrophic lateral sclerosis; Z85.21 Personal history of malignant neoplasm of larynx; Z93.0 Tracheostomy status; Z99.11 Dependence on respirator [ventilator] status; R00.0 Tachycardia, unspecified; Z79.899 Other long term (current) drug therapy; Z79.02 Long term (current) use of antithrombotics/antiplatelets; Z93.1 Gastrostomy status; D64.9 Anemia, unspecified
CPT/HCPCS: 36415; 36600; 71045; 83550; 83605; 83735; 84484; 85025; 93005; A4663

== ENCOUNTER 2022-08-08 00:24 | Emergency (ER) | payer MEDICARE, BC, OTHER ==
[~2022-08-08] VITALS: Ht 175.3 cm; Wt 74.8 kg
[~2022-08-08 00:24] MED LIST changes: +FERR220S6 PO
--- NOTE | 2022-08-08 00:37 | NUR ---
Patient placed in room 3A
--- NOTE | 2022-08-08 00:46 | NUR ---
Dr. Hanson evaluating patient. MSE in progress.
--- NOTE | 2022-08-08 00:49 | NUR ---
Patient resting comfortably and sleeping in gurney, patient appears in no distress.
--- NOTE | 2022-08-08 00:58 | NUR ---
Per , patient is ready for discharge. Called [facility] ambulance to request patient ride back to residence. ETA merchandise pickup/receiving associate time ~40min-60min.
--- NOTE | 2022-08-08 02:03 | NUR ---
Patient's trach suctioned per patient's request. Patient O2 saturation 99%
--- NOTE | 2022-08-08 02:36 | NUR ---
Patient picked up by [facility] ambulance [id number] via gurney with personal belongings. Patient in stable condition, no signs of distress.
[2022-08-08 03:08] VITALS: BP 115/62
== END 2022-08-08 02:36 | disposition home or self-care (01) ==
LOC: ER 00:28
DX: I10 Essential (primary) hypertension (principal); Z93.0 Tracheostomy status; Z79.01 Long term (current) use of anticoagulants; Z79.899 Other long term (current) drug therapy; Z79.82 Long term (current) use of aspirin
CPT/HCPCS: A4663

== ENCOUNTER 2023-01-15 23:21 | Inpatient (IN) | payer MEDICARE, OTHER ==
[~2023-01-15] VITALS: Ht 175.3 cm; Wt 74.8 kg
[2023-01-16] VITALS (8 sets, daily range): BP systolic 80–118; BP diastolic 52–68; TEMP 98.4–98.8; O2SAT 98–99
[2023-01-16 00:45] LABS: BASOPHILS % (AUTO) 0.4 % (0.0-2.0); EOSINOPHILS # (AUTO) 0.1 K/uL (0.0-0.7); EOSINOPHILS % (AUTO) 1.3 % (0.0-7.0); HEMATOCRIT 31.1 % (36.7-47.1); HEMOGLOBIN 10.2 g/dL (12.5-16.3); LYMPHOCYTES # (AUTO) 0.3 K/uL (0.8-4.8); LYMPHOCYTES % (AUTO) 4.3 % (20.5-51.5); MEAN CORPUSCULAR HEMOGLOBIN 26.8 uug (23.8-33.4); MEAN CORPUSCULAR HGB CONC 33 g/dL (32.5-36.3); MEAN CORPUSCULAR VOLUME 81.3 fL (73.0-96.2); MONOCYTES # (AUTO) 0.3 K/uL (0.1-1.30); MONOCYTES % (AUTO) 4.6 % (0.0-11.0); NEUTROPHILS # (AUTO) 6.1 K/uL (1.8-8.9); NEUTROPHILS % (AUTO) 89.4 % (38.5-71.5); PLATELET COUNT (AUTO) 257 K/uL (152-348); RED BLOOD CELL COUNT(AUTO) 3.82 MIL/uL (4.06-5.63); RED CELL DISTRIBUTION WIDTH 19.5 % (12.1-16.2); WHITE BLOOD COUNT (AUTO) 6.8 K/uL (3.6-10.2)
[2023-01-16 00:58] LABS: DIFFERENTIAL COMMENT 1
[2023-01-16 01:15] LABS: ALANINE AMINOTRANSFERASE 54 U/L (16-63); ALBUMIN 3.9 g/dL (3.4-5.0); ALKALINE PHOSPHATASE 65 U/L (50-136); ASPARTATE AMINOTRANSFERASE 55 U/L (15-37); BILIRUBIN,DIRECT 0.2 mg/dL (0.0-0.2); BILIRUBIN,TOTAL 0.5 mg/dL (0.2-1.0); CALCIUM 10.5 mg/dL (8.5-10.1); CARBON DIOXIDE 30 mmol/L (21-32); CHLORIDE 102 mmol/L (98-107); CREATININE 1.1 mg/dL (0.6-1.3); GLUCOSE 111 mg/dL (74-106); NT-PRO BNP 105 pg/mL (0-125); POTASSIUM 4.1 mmol/L (3.5-5.1); SODIUM SERUM 141 mmol/L (136-145); TOTAL PROTEIN, SERUM 7.5 g/dL (6.4-8.2); UREA NITROGEN, BLOOD 30 mg/dL (7-18)
[2023-01-16] MEDS ORDERED: IV NORMAL SALINE 250 ML IV ONE (01:57)
[2023-01-16] MEDS ORDERED: SWABABLE VALVE TRANSFER SET EA MC ONE (01:57)
[2023-01-16] MEDS ORDERED: IOHEXOL 350 100 ML INFUS..BTL ONE (01:57)
[2023-01-16] MEDS ORDERED: AZITHROMYCIN IV 500 MG in IV DEXTROSE 5% 250 ML IV ONE (02:00)
[2023-01-16] MEDS ORDERED: VANCOMYCIN 1G/D5W 200 ML PIGGYBACK IV ONE (02:00)
[2023-01-16] MEDS ORDERED: PIPERACILLIN SODIUM/TAZOBACTAM 3.375 G in IV DEXTROSE 5% 50 ML IV ONE (02:00)
[2023-01-16] MEDS ORDERED: VANCOMYCIN IV 200 ML ONE (03:40)
[2023-01-16] MEDS ORDERED: AZITHROMYCIN 500MG/ D5W 250ML IVPB **ER PYXIS ONLY IV ONE (03:41)
[2023-01-16] MEDS ORDERED: PIPERACILLIN/TAZOBACTAM/D5W 0 ML IV ONE (03:41)
[2023-01-16] MEDS ORDERED: levoFLOXacin 750 MG/D5W 150 ML PIGGYBACK IV ONE (04:00)
[2023-01-16] MEDS ORDERED: REMEDY ESSENTIAL ZINC PASTE 113 GM TP PRN (04:15)
[2023-01-16] MEDS ORDERED: ONDANSETRON 4 MG/2 ML VIAL IV PRN (04:15)
[2023-01-16] MEDS ORDERED: MAGNESIUM HYDROXIDE 30 ML LIQUID UDC GT PRN (04:15)
[2023-01-16] MEDS ORDERED: IV NORMAL SALINE 500 ML IV ONE (04:30)
[2023-01-16] MEDS ORDERED: PANTOPRAZOLE SODIUM 40 MG VIAL IV SCH (09:00)
[2023-01-16] MEDS ORDERED: ENOXAPARIN SODIUM 40 MG/0.4 ML DISP.SYRIN SQ ONE (10:24)
[2023-01-16] MEDS ORDERED: levoFLOXacin 750MG/D5W 150 ML IV ONE (10:24)
[2023-01-16] MEDS ORDERED: PANTOPRAZOLE SODIUM 40 MG VIAL ONE (10:25)
[2023-01-16] MEDS ORDERED: PIPERACILLIN/TAZOBACTAM/D5W 50 ML IV ONE ×3 (10:26→21:29)
[2023-01-16] MEDS: ENOXAPARIN SODIUM 40 MG/0.4 ML DISP.SYRIN SQ SCH (10:30)
[2023-01-16] MEDS ORDERED: TRAZ-182 PO (11:02)
[2023-01-16] MEDS ORDERED: BUPR75TA8 GT (11:02)
[2023-01-16] MEDS: IV 1/2NS 1000 ML 1,000 ML IV PRN (11:06)
[2023-01-16] MEDS ORDERED: IV NORMAL SALINE 1000 ML BAG IV ONE (14:00)
[2023-01-16] MEDS: PIPERACILLIN SODIUM/TAZOBACTAM 3.375 G in IV DEXTROSE 5% 50 ML IV SCH ×2 (14:21→21:30)
[2023-01-16] MEDS ORDERED: GLYCOPYRROLATE 1 MG TABLET GT PRN (18:45)
[2023-01-16] MEDS ORDERED: CLONAZEPAM 0.5 MG TABLET GT PRN (18:45)
[2023-01-16] MEDS: VANCOMYCIN IV 1,000 MG in IV DEXTROSE 5% 250 ML IV SCH (19:04)
[2023-01-16] MEDS ORDERED: PANTOPRAZOLE ORAL SUSPENSION 40 MG SUSPDR.PKT ONE (20:43)
[2023-01-16] MEDS ORDERED: TIZANIDINE HCL 4 MG TABLET ONE (20:43)
[2023-01-16] MEDS ORDERED: ATORVASTATIN 20 MG TABLET ONE (20:44)
[2023-01-16] MEDS ORDERED: BACLOFEN 10 MG TABLET ONE (20:44)
[2023-01-16] MEDS ORDERED: FINASTERIDE 5 MG TABLET ONE (20:44)
[2023-01-16] MEDS ORDERED: MIRTAZAPINE 15 MG TABLET ONE (20:44)
[2023-01-16] MEDS ORDERED: TAMSULOSIN HCL 0.4 MG CAP.SR.24H ONE (20:45)
[2023-01-16] MEDS: FINASTERIDE 5 MG TABLET GT SCH (20:49)
[2023-01-16] MEDS: ATORVASTATIN 20 MG TABLET GT SCH (20:49)
[2023-01-16] MEDS: MIRTAZAPINE 15 MG TABLET GT SCH (20:49)
[2023-01-16] MEDS: BACLOFEN 10 MG TABLET GT SCH (20:49)
[2023-01-16] MEDS: TIZANIDINE HCL 4 MG TABLET GT SCH (20:49)
[2023-01-16] MEDS: TAMSULOSIN HCL 0.4 MG CAP.SR.24H XX SCH (20:51)
[2023-01-16] MEDS ORDERED: PANTOPRAZOLE ORAL SUSPENSION 40 MG SUSPDR.PKT GT SCH (21:00)
[2023-01-16] MEDS ORDERED: LORAZEPAM 2 MG/1 ML VIAL IV ONE (21:15)
[2023-01-17 00:01] VITALS: BP 112/69; TEMP 97.7; O2SAT 100
[2023-01-17] MEDS ORDERED: LEVOTHYROXINE SODIUM 112 MCG TABLET ONE (03:54)
[2023-01-17] MEDS ORDERED: PIPERACILLIN/TAZOBACTAM/D5W 50 ML IV ONE (03:54)
[2023-01-17] MEDS ORDERED: ENOXAPARIN SODIUM 40 MG/0.4 ML DISP.SYRIN SQ ONE (03:54)
[2023-01-17] MEDS: ENOXAPARIN SODIUM 40 MG/0.4 ML DISP.SYRIN SQ SCH (03:58)
[2023-01-17 04:00] VITALS: BP 111/70; TEMP 97.6; O2SAT 100
[2023-01-17] MEDS: IV 1/2NS 1000 ML 1,000 ML IV PRN (04:00)
[2023-01-17 05:19] LABS: BASOPHILS % (AUTO) 0.6 % (0.0-2.0); EOSINOPHILS # (AUTO) 0.1 K/uL (0.0-0.7); EOSINOPHILS % (AUTO) 3.7 % (0.0-7.0); HEMATOCRIT 25.8 % (36.7-47.1); HEMOGLOBIN 8.6 g/dL (12.5-16.3); LYMPHOCYTES # (AUTO) 0.4 K/uL (0.8-4.8); MEAN CORPUSCULAR HEMOGLOBIN 27.1 uug (23.8-33.4); MEAN CORPUSCULAR HGB CONC 33 g/dL (32.5-36.3); MEAN CORPUSCULAR VOLUME 81.6 fL (73.0-96.2); MONOCYTES # (AUTO) 0.2 K/uL (0.1-1.30); MONOCYTES % (AUTO) 7.3 % (0.0-11.0); NEUTROPHILS # (AUTO) 2.5 K/uL (1.8-8.9); NEUTROPHILS % (AUTO) 77.4 % (38.5-71.5); PLATELET COUNT (AUTO) 182 K/uL (152-348); RED BLOOD CELL COUNT(AUTO) 3.16 MIL/uL (4.06-5.63); RED CELL DISTRIBUTION WIDTH 19.5 % (12.1-16.2); WHITE BLOOD COUNT (AUTO) 3.2 K/uL (3.6-10.2)
[2023-01-17] MEDS: PIPERACILLIN SODIUM/TAZOBACTAM 3.375 G in IV DEXTROSE 5% 50 ML IV SCH ×3 (05:31→22:52)
[2023-01-17] MEDS: LEVOTHYROXINE SODIUM 112 MCG TABLET GT SCH (05:31)
[2023-01-17 05:36] LABS: DIFFERENTIAL COMMENT 1
[2023-01-17 05:39] LABS: CREATININE 1.1 mg/dL (0.6-1.3); MAGNESIUM 1.4 mg/dL (1.8-2.4); PHOSPHOROUS 2.4 mg/dL (2.5-4.9); POTASSIUM 3.7 mmol/L (3.5-5.1)
[2023-01-17] MEDS: VANCOMYCIN IV 1,000 MG in IV DEXTROSE 5% 250 ML IV SCH ×2 (08:58→22:52)
[2023-01-17] MEDS ORDERED: CHOLECALCIFEROL 1,000 UNIT TABLET GT SCH (09:00)
[2023-01-17] MEDS ORDERED: SILODOSIN 4 MG GT SCH (09:00)
[2023-01-17] MEDS ORDERED: RILUZOLE 50 MG GT SCH (09:00)
[2023-01-17] MEDS: FERROUS SULFATE 300 MG/5 ML LIQUID UDC GT SCH (10:03)
[2023-01-17] MEDS: MIRALAX 17 GM POWD.PACK GT SCH ×2 (10:05→17:54)
[2023-01-17] MEDS: BACLOFEN 10 MG TABLET GT SCH ×2 (10:05→22:52)
[2023-01-17] MEDS: LOSARTAN POTASSIUM 50 MG TABLET PO SCH (10:06)
[2023-01-17] MEDS: SERTRALINE HCL 100 MG TABLET GT SCH (10:07)
[2023-01-17] MEDS: ASPIRIN 81 MG TAB.CHEW GT SCH (10:07)
[2023-01-17] MEDS: FENOFIBRATE NANOCRYSTALLIZED 145 MG TABLET GT SCH (10:08)
[2023-01-17] MEDS: ALLOPURINOL 300 MG TABLET GT SCH (10:08)
[2023-01-17] MEDS: CLOPIDOGREL 75 MG TABLET GT SCH (10:08)
[2023-01-17] MEDS ORDERED: MAGNESIUM SULFATE/D5W 100 ML IV SCH (10:30)
[2023-01-17] MEDS ORDERED: NEUTRA PHOS PACKET GT ONE (10:30)
[2023-01-17] MEDS: buPROPion 75 MG TABLET GT SCH ×2 (10:40→17:36)
[2023-01-17] MEDS: PANTOPRAZOLE SODIUM 40 MG VIAL IV SCH ×2 (10:40→22:52)
[2023-01-17] MEDS: MAGNESIUM SULFATE/D5W 100 ML IV SCH ×4 (11:22→14:24)
[2023-01-17 11:50] VITALS: BP 123/72; TEMP 98.2; O2SAT 100
[2023-01-17] MEDS: CADEXOMER IODINE 40 GM TUBE TOP SCH (12:17)
[2023-01-17] MEDS ORDERED: CLONAZEPAM 0.5 MG TABLET GT PRN (14:00)
[2023-01-17] MEDS: SILODOSIN 4 MG GT SCH (14:24)
[2023-01-17 16:00] VITALS: BP 116/56; TEMP 98.5
[2023-01-17] MEDS: [UNRECOGNIZED DRUG - OTHER] GT SCH (17:30)
[2023-01-17] MEDS: RILUZOLE 50 MG GT SCH (17:34)
[2023-01-17] MEDS: CLONAZEPAM 1 MG TABLET PO PRN (18:27)
[2023-01-17 20:00] VITALS: BP 149/66; TEMP 99.4; O2SAT 96
[2023-01-17] MEDS: TAMSULOSIN HCL 0.4 MG CAP.SR.24H XX SCH (22:52)
[2023-01-17] MEDS: ACETAMINOPHEN 650 MG/20.3 ML LIQUID UDC GT PRN (22:52)
[2023-01-17] MEDS: ATORVASTATIN 20 MG TABLET GT SCH (22:52)
[2023-01-17] MEDS: MIRTAZAPINE 15 MG TABLET GT SCH (22:53)
[2023-01-17] MEDS: TIZANIDINE HCL 4 MG TABLET GT SCH (22:53)
[2023-01-17] MEDS: FINASTERIDE 5 MG TABLET GT SCH (22:53)
[2023-01-17] MEDS ORDERED: LORAZEPAM 2 MG/1 ML VIAL IV ONE (23:20)
[2023-01-18] VITALS: BP 118/66; TEMP 98.4; O2SAT 98
[2023-01-18] MEDS: CLONAZEPAM 1 MG TABLET PO PRN ×3 (01:28→20:59)
[2023-01-18 04:00] VITALS: BP 103/50; TEMP 98.4; O2SAT 99
[2023-01-18] MEDS: ENOXAPARIN SODIUM 40 MG/0.4 ML DISP.SYRIN SQ SCH (04:38)
[2023-01-18] MEDS: LEVOTHYROXINE SODIUM 112 MCG TABLET GT SCH (06:12)
[2023-01-18] MEDS: PIPERACILLIN SODIUM/TAZOBACTAM 3.375 G in IV DEXTROSE 5% 50 ML IV SCH ×3 (06:14→21:52)
[2023-01-18] MEDS: [UNRECOGNIZED DRUG - OTHER] GT SCH (06:17)
[2023-01-18] MEDS: ACETAMINOPHEN 650 MG/20.3 ML LIQUID UDC GT PRN (09:05)
[2023-01-18] MEDS: FERROUS SULFATE 300 MG/5 ML LIQUID UDC GT SCH (09:06)
[2023-01-18] MEDS: FENOFIBRATE NANOCRYSTALLIZED 145 MG TABLET GT SCH (09:06)
[2023-01-18] MEDS: ASPIRIN 81 MG TAB.CHEW GT SCH (09:06)
[2023-01-18] MEDS: SERTRALINE HCL 100 MG TABLET GT SCH (09:07)
[2023-01-18] MEDS: ALLOPURINOL 300 MG TABLET GT SCH (09:07)
[2023-01-18] MEDS: LOSARTAN POTASSIUM 50 MG TABLET PO SCH (09:08)
[2023-01-18] MEDS: PANTOPRAZOLE SODIUM 40 MG VIAL IV SCH ×2 (09:08→20:59)
[2023-01-18] MEDS: CLOPIDOGREL 75 MG TABLET GT SCH (09:08)
[2023-01-18] MEDS: buPROPion 75 MG TABLET GT SCH ×2 (09:09→16:31)
[2023-01-18] MEDS: MIRALAX 17 GM POWD.PACK GT SCH ×2 (09:09→15:42)
[2023-01-18] MEDS: BACLOFEN 10 MG TABLET GT SCH ×2 (09:09→20:59)
[2023-01-18] MEDS: RILUZOLE 50 MG GT SCH ×2 (09:10→16:41)
[2023-01-18] MEDS: SILODOSIN 4 MG GT SCH (09:10)
[2023-01-18] MEDS: CADEXOMER IODINE 40 GM TUBE TOP SCH (09:11)
[2023-01-18] MEDS: VANCOMYCIN IV 1,000 MG in IV DEXTROSE 5% 250 ML IV SCH ×2 (09:13→23:24)
[2023-01-18 12:00] VITALS: BP 100/52; TEMP 98; O2SAT 98
[2023-01-18] MEDS: MAGNESIUM SULFATE/D5W 100 ML IV SCH ×4 (12:28→16:31)
[2023-01-18] MEDS ORDERED: NEUTRA PHOS PACKET PO ONE (12:30)
[2023-01-18] MEDS: IV 1/2NS 1000 ML 1,000 ML IV PRN (13:13)
[2023-01-18 15:50] VITALS: BP 100/56; TEMP 97.9; O2SAT 98
[2023-01-18] MEDS: JEVITY 1.2 1000 ML LIQUID GT PRN (16:45)
[2023-01-18] MEDS: TIZANIDINE HCL 4 MG TABLET GT SCH (20:59)
[2023-01-18] MEDS: TAMSULOSIN HCL 0.4 MG CAP.SR.24H XX SCH (20:59)
[2023-01-18] MEDS: ATORVASTATIN 20 MG TABLET GT SCH (20:59)
[2023-01-18] MEDS: MIRTAZAPINE 15 MG TABLET GT SCH (20:59)
[2023-01-18] MEDS: FINASTERIDE 5 MG TABLET GT SCH (20:59)
[2023-01-18 21:23] VITALS: BP 200/91; TEMP 98.2
[2023-01-18] MEDS ORDERED: hydrALAZINE HCL 25 MG TABLET PO PRN (21:30)
[2023-01-18] MEDS ORDERED: hydrALAZINE HCL 20 MG/1 ML VIAL IV ONE (21:30)
[2023-01-19 00:30] VITALS: BP 127/55; TEMP 98.2; O2SAT 99
[2023-01-19 01:23] VITALS: BP 127/55; TEMP 98.2; O2SAT 99
[2023-01-19] MEDS: ACETAMINOPHEN 650 MG/20.3 ML LIQUID UDC GT PRN ×2 (02:17→07:58)
[2023-01-19] MEDS: ENOXAPARIN SODIUM 40 MG/0.4 ML DISP.SYRIN SQ SCH ×2 (04:00→07:56)
[2023-01-19] MEDS: CLONAZEPAM 1 MG TABLET PO PRN (04:17)
[2023-01-19] MEDS: PIPERACILLIN SODIUM/TAZOBACTAM 3.375 G in IV DEXTROSE 5% 50 ML IV SCH ×4 (05:17→23:40)
[2023-01-19] MEDS: LEVOTHYROXINE SODIUM 112 MCG TABLET GT SCH (06:38)
[2023-01-19] MEDS: [UNRECOGNIZED DRUG - OTHER] GT SCH (06:39)
[2023-01-19 07:03] LABS: BASOPHILS % (AUTO) 0.1 % (0.0-2.0); EOSINOPHILS % (AUTO) 0.3 % (0.0-7.0); HEMATOCRIT 31.9 % (36.7-47.1); HEMOGLOBIN 10.4 g/dL (12.5-16.3); LYMPHOCYTES # (AUTO) 0.3 K/uL (0.8-4.8); LYMPHOCYTES % (AUTO) 6.2 % (20.5-51.5); MEAN CORPUSCULAR HEMOGLOBIN 26.8 uug (23.8-33.4); MEAN CORPUSCULAR HGB CONC 33 g/dL (32.5-36.3); MEAN CORPUSCULAR VOLUME 81.9 fL (73.0-96.2); MONOCYTES # (AUTO) 0.3 K/uL (0.1-1.30); NEUTROPHILS # (AUTO) 4.9 K/uL (1.8-8.9); NEUTROPHILS % (AUTO) 88.4 % (38.5-71.5); PLATELET COUNT (AUTO) 229 K/uL (152-348); RED BLOOD CELL COUNT(AUTO) 3.89 MIL/uL (4.06-5.63); RED CELL DISTRIBUTION WIDTH 20.2 % (12.1-16.2); WHITE BLOOD COUNT (AUTO) 5.6 K/uL (3.6-10.2)
[2023-01-19 07:07] LABS: DIFFERENTIAL COMMENT 1
[2023-01-19 07:10] LABS: CALCIUM 9.5 mg/dL (8.5-10.1); CREATININE 1.2 mg/dL (0.6-1.3); MAGNESIUM 2.3 mg/dL (1.8-2.4); PHOSPHOROUS 3.8 mg/dL (2.5-4.9); POTASSIUM 3.5 mmol/L (3.5-5.1)
[2023-01-19] MEDS ORDERED: PANTOPRAZOLE ORAL SUSPENSION 40 MG SUSPDR.PKT GT SCH (07:40)
[2023-01-19] MEDS: MIRALAX 17 GM POWD.PACK GT SCH ×2 (07:46→15:51)
[2023-01-19] MEDS: SILODOSIN 4 MG GT SCH (07:55)
[2023-01-19] MEDS: buPROPion 75 MG TABLET GT SCH ×2 (07:55→16:02)
[2023-01-19] MEDS: FERROUS SULFATE 300 MG/5 ML LIQUID UDC GT SCH (07:56)
[2023-01-19] MEDS: BACLOFEN 10 MG TABLET GT SCH ×2 (07:57→20:27)
[2023-01-19] MEDS: FINASTERIDE 5 MG TABLET GT SCH (07:57)
[2023-01-19] MEDS: CLOPIDOGREL 75 MG TABLET GT SCH (07:57)
[2023-01-19] MEDS: RILUZOLE 50 MG GT SCH ×2 (07:57→16:03)
[2023-01-19] MEDS: FENOFIBRATE NANOCRYSTALLIZED 145 MG TABLET GT SCH (07:57)
[2023-01-19] MEDS: ASPIRIN 81 MG TAB.CHEW GT SCH (07:57)
[2023-01-19] MEDS: CADEXOMER IODINE 40 GM TUBE TOP SCH (08:00)
[2023-01-19] MEDS: SERTRALINE HCL 100 MG TABLET GT SCH (08:05)
[2023-01-19] MEDS: LOSARTAN POTASSIUM 50 MG TABLET PO SCH (08:12)
[2023-01-19] MEDS: ALLOPURINOL 300 MG TABLET GT SCH (08:13)
[2023-01-19] MEDS: PANTOPRAZOLE ORAL SUSPENSION 40 MG SUSPDR.PKT GT SCH ×2 (09:26→17:15)
[2023-01-19] MEDS ORDERED: LORAZEPAM 2 MG/1 ML VIAL IV ONE (10:15)
[2023-01-19 11:42] VITALS: BP 108/65; TEMP 97.7; O2SAT 98
[2023-01-19] MEDS ORDERED: hydrALAZINE HCL 25 MG TABLET GT PRN (14:22)
[2023-01-19] MEDS: CLONAZEPAM 1 MG TABLET GT PRN (14:24)
[2023-01-19] MEDS: JEVITY 1.2 1000 ML LIQUID GT PRN (15:49)
[2023-01-19 16:00] VITALS: BP 96/64; TEMP 98.2; O2SAT 98
[2023-01-19] MEDS ORDERED: VANCOMYCIN IV 1,250 MG in IV DEXTROSE 5% 250 ML IV SCH (18:00)
[2023-01-19] MEDS: LORAZEPAM 2 MG/1 ML VIAL IV PRN (18:19)
[2023-01-19 20:00] VITALS: BP 136/73; TEMP 97.9; O2SAT 98
[2023-01-19] MEDS: MIRTAZAPINE 15 MG TABLET GT SCH (20:27)
[2023-01-19] MEDS: TAMSULOSIN HCL 0.4 MG CAP.SR.24H XX SCH (20:27)
[2023-01-19] MEDS: ATORVASTATIN 20 MG TABLET GT SCH (20:27)
[2023-01-19] MEDS: TIZANIDINE HCL 4 MG TABLET GT SCH (20:27)
[2023-01-19 21:13] LABS: ABG BASE EXCESS 0.7 mmol/L; ABG HCO3 27.7 mmol/L; ABG PCO2 55.3 mmHg (35.0-45.0); ABG PH 7.317 (7.350-7.450); ABG PO2 100.8 mmHg (75.0-100.0); ABG SITE RIGHT RADIAL; ABG TOTAL HEMOGLOBIN 11.4 G/dL (13.5-18.0); COHb 0.9 % (0.5-1.5); O2Hb 96.6 % (94.0-97.0); VENT MODE VENT - A/C; VT, ABG 550 mL
[2023-01-19] MEDS ORDERED: LOPERAMIDE HCL 2 MG CAPSULE PO PRN (22:30)
[2023-01-20] VITALS: BP 105/66; TEMP 98.2; O2SAT 99
[2023-01-20] MEDS: LORAZEPAM 2 MG/1 ML VIAL IV PRN ×3 (01:57→20:09)
[2023-01-20] MEDS: IV 1/2NS 1000 ML 1,000 ML IV PRN (02:01)
[2023-01-20 05:00] VITALS: BP 106/73; TEMP 98; O2SAT 98
[2023-01-20] MEDS: PIPERACILLIN SODIUM/TAZOBACTAM 3.375 G in IV DEXTROSE 5% 50 ML IV SCH (05:25)
[2023-01-20] MEDS: PANTOPRAZOLE ORAL SUSPENSION 40 MG SUSPDR.PKT GT SCH ×2 (05:48→17:25)
[2023-01-20] MEDS: LEVOTHYROXINE SODIUM 112 MCG TABLET GT SCH (05:48)
[2023-01-20] MEDS: CLONAZEPAM 1 MG TABLET GT PRN (06:03)
[2023-01-20] MEDS: [UNRECOGNIZED DRUG - OTHER] GT SCH (06:28)
[2023-01-20 07:14] LABS: BASOPHILS % (AUTO) 0.3 % (0.0-2.0); EOSINOPHILS % (AUTO) 1.1 % (0.0-7.0); HEMATOCRIT 30.9 % (36.7-47.1); HEMOGLOBIN 10.2 g/dL (12.5-16.3); LYMPHOCYTES # (AUTO) 0.3 K/uL (0.8-4.8); LYMPHOCYTES % (AUTO) 8.1 % (20.5-51.5); MEAN CORPUSCULAR HEMOGLOBIN 27.2 uug (23.8-33.4); MEAN CORPUSCULAR HGB CONC 33 g/dL (32.5-36.3); MEAN CORPUSCULAR VOLUME 82.1 fL (73.0-96.2); MONOCYTES # (AUTO) 0.4 K/uL (0.1-1.30); MONOCYTES % (AUTO) 8.4 % (0.0-11.0); NEUTROPHILS # (AUTO) 3.5 K/uL (1.8-8.9); NEUTROPHILS % (AUTO) 82.1 % (38.5-71.5); PLATELET COUNT (AUTO) 217 K/uL (152-348); RED BLOOD CELL COUNT(AUTO) 3.76 MIL/uL (4.06-5.63); RED CELL DISTRIBUTION WIDTH 20.6 % (12.1-16.2); WHITE BLOOD COUNT (AUTO) 4.3 K/uL (3.6-10.2)
[2023-01-20 07:27] LABS: DIFFERENTIAL COMMENT 1
[2023-01-20 07:58] LABS: CALCIUM 10.2 mg/dL (8.5-10.1); CREATININE 1.1 mg/dL (0.6-1.3); PHOSPHOROUS 3.6 mg/dL (2.5-4.9); POTASSIUM 3.5 mmol/L (3.5-5.1)
[2023-01-20] MEDS: SERTRALINE HCL 100 MG TABLET GT SCH (09:00)
[2023-01-20] MEDS: MIRALAX 17 GM POWD.PACK GT SCH ×2 (09:00→17:00)
[2023-01-20] MEDS: LOSARTAN POTASSIUM 50 MG TABLET GT SCH (09:00)
[2023-01-20] MEDS: CLOPIDOGREL 75 MG TABLET GT SCH (09:01)
[2023-01-20] MEDS: BACLOFEN 10 MG TABLET GT SCH ×2 (09:01→20:32)
[2023-01-20] MEDS: ALLOPURINOL 300 MG TABLET GT SCH (09:02)
[2023-01-20] MEDS: FENOFIBRATE NANOCRYSTALLIZED 145 MG TABLET GT SCH (09:02)
[2023-01-20] MEDS: ASPIRIN 81 MG TAB.CHEW GT SCH (09:02)
[2023-01-20] MEDS: buPROPion 75 MG TABLET GT SCH ×2 (09:03→17:24)
[2023-01-20] MEDS: SILODOSIN 4 MG GT SCH (09:04)
[2023-01-20] MEDS: FERROUS SULFATE 300 MG/5 ML LIQUID UDC GT SCH (09:10)
[2023-01-20] MEDS: ENOXAPARIN SODIUM 40 MG/0.4 ML DISP.SYRIN SQ SCH (09:11)
[2023-01-20] MEDS: CADEXOMER IODINE 40 GM TUBE TOP SCH (09:13)
[2023-01-20] MEDS: RILUZOLE 50 MG GT SCH ×2 (09:24→17:23)
[2023-01-20] MEDS: JEVITY 1.2 1000 ML LIQUID GT PRN ×2 (09:30→15:56)
[2023-01-20] MEDS: ACETAMINOPHEN 650 MG/20.3 ML LIQUID UDC GT PRN (11:18)
[2023-01-20 11:32] VITALS: BP 173/75; TEMP 98.3; O2SAT 95
[2023-01-20] MEDS: CLONAZEPAM 1 MG TABLET PO SCH ×2 (13:00→17:24)
[2023-01-20] MEDS: PIPERACILLIN SODIUM/TAZOBACTAM 3.375 G in IV DEXTROSE 5% 100 ML IV SCH ×2 (14:08→22:02)
[2023-01-20 16:00] VITALS: BP 154/75; TEMP 97.4; O2SAT 97
[2023-01-20 20:00] VITALS: BP 141/60; TEMP 97.8; O2SAT 100
[2023-01-20] MEDS: TAMSULOSIN HCL 0.4 MG CAP.SR.24H XX SCH (20:33)
[2023-01-20] MEDS: FINASTERIDE 5 MG TABLET GT SCH (20:33)
[2023-01-20] MEDS: TIZANIDINE HCL 4 MG TABLET GT SCH (20:33)
[2023-01-20] MEDS: MIRTAZAPINE 15 MG TABLET GT SCH (20:33)
[2023-01-20] MEDS: ATORVASTATIN 20 MG TABLET GT SCH (20:34)
[2023-01-21] VITALS: BP 115/53; TEMP 97.6; O2SAT 94
[2023-01-21] MEDS: LORAZEPAM 2 MG/1 ML VIAL IV PRN ×2 (00:39→21:12)
[2023-01-21 04:30] VITALS: BP 113/65; TEMP 98; O2SAT 99
[2023-01-21] MEDS: PIPERACILLIN SODIUM/TAZOBACTAM 3.375 G in IV DEXTROSE 5% 100 ML IV SCH ×3 (05:52→21:12)
[2023-01-21] MEDS: PANTOPRAZOLE ORAL SUSPENSION 40 MG SUSPDR.PKT GT SCH ×2 (06:04→17:16)
[2023-01-21] MEDS: LEVOTHYROXINE SODIUM 112 MCG TABLET GT SCH (06:23)
[2023-01-21] MEDS: IV 1/2NS 1000 ML 1,000 ML IV PRN (06:56)
[2023-01-21] MEDS: [UNRECOGNIZED DRUG - OTHER] GT SCH (07:03)
[2023-01-21 08:00] VITALS: BP 105/58; TEMP 98.5; O2SAT 100
[2023-01-21] MEDS: LOSARTAN POTASSIUM 50 MG TABLET GT SCH (09:00)
[2023-01-21] MEDS: CADEXOMER IODINE 40 GM TUBE TOP SCH (09:00)
[2023-01-21 09:07] LABS: BASOPHILS % (AUTO) 0.3 % (0.0-2.0); EOSINOPHILS # (AUTO) 0.1 K/uL (0.0-0.7); EOSINOPHILS % (AUTO) 2.5 % (0.0-7.0); HEMATOCRIT 29.2 % (36.7-47.1); HEMOGLOBIN 9.5 g/dL (12.5-16.3); LYMPHOCYTES # (AUTO) 0.5 K/uL (0.8-4.8); LYMPHOCYTES % (AUTO) 14.1 % (20.5-51.5); MEAN CORPUSCULAR HEMOGLOBIN 27.1 uug (23.8-33.4); MEAN CORPUSCULAR HGB CONC 33 g/dL (32.5-36.3); MEAN CORPUSCULAR VOLUME 83.3 fL (73.0-96.2); MONOCYTES # (AUTO) 0.4 K/uL (0.1-1.30); MONOCYTES % (AUTO) 9.8 % (0.0-11.0); NEUTROPHILS # (AUTO) 2.7 K/uL (1.8-8.9); NEUTROPHILS % (AUTO) 73.3 % (38.5-71.5); PLATELET COUNT (AUTO) 229 K/uL (152-348); RED BLOOD CELL COUNT(AUTO) 3.51 MIL/uL (4.06-5.63); RED CELL DISTRIBUTION WIDTH 21.3 % (12.1-16.2); WHITE BLOOD COUNT (AUTO) 3.7 K/uL (3.6-10.2)
[2023-01-21 09:08] LABS: DIFFERENTIAL COMMENT 1
[2023-01-21] MEDS: ALLOPURINOL 300 MG TABLET GT SCH (09:15)
[2023-01-21] MEDS: CLONAZEPAM 1 MG TABLET PO SCH ×3 (09:22→17:09)
[2023-01-21 09:40] LABS: CREATININE 1.1 mg/dL (0.6-1.3); MAGNESIUM 1.9 mg/dL (1.8-2.4); PHOSPHOROUS 3.5 mg/dL (2.5-4.9); POTASSIUM 3.7 mmol/L (3.5-5.1)
[2023-01-21] MEDS: ASPIRIN 81 MG TAB.CHEW GT SCH (09:53)
[2023-01-21] MEDS: BACLOFEN 10 MG TABLET GT SCH ×2 (09:54→20:12)
[2023-01-21] MEDS: FERROUS SULFATE 300 MG/5 ML LIQUID UDC GT SCH (09:54)
[2023-01-21] MEDS: RILUZOLE 50 MG GT SCH ×2 (09:55→17:08)
[2023-01-21] MEDS: FENOFIBRATE NANOCRYSTALLIZED 145 MG TABLET GT SCH (09:57)
[2023-01-21] MEDS: SERTRALINE HCL 100 MG TABLET GT SCH (09:57)
[2023-01-21] MEDS: CLOPIDOGREL 75 MG TABLET GT SCH (09:57)
[2023-01-21] MEDS: buPROPion 75 MG TABLET GT SCH ×2 (09:57→17:08)
[2023-01-21] MEDS: MIRALAX 17 GM POWD.PACK GT SCH ×2 (09:58→17:00)
[2023-01-21] MEDS: SILODOSIN 4 MG GT SCH (10:00)
[2023-01-21] MEDS: ENOXAPARIN SODIUM 40 MG/0.4 ML DISP.SYRIN SQ SCH (10:04)
[2023-01-21] MEDS ORDERED: LEVO500T90 PO (11:05)
[2023-01-21] MEDS ORDERED: CLON1TAB12 PO (11:05)
[2023-01-21 12:02] VITALS: BP 112/52; TEMP 98.1; O2SAT 95
[2023-01-21] MEDS: JEVITY 1.2 1000 ML LIQUID GT PRN (14:21)
[2023-01-21 16:09] VITALS: BP 134/61; TEMP 98.4; O2SAT 96
[2023-01-21 20:00] VITALS: BP 111/63; TEMP 98.5; O2SAT 93
[2023-01-21] MEDS: MIRTAZAPINE 15 MG TABLET GT SCH (20:12)
[2023-01-21] MEDS: ATORVASTATIN 20 MG TABLET GT SCH (20:12)
[2023-01-21] MEDS: TAMSULOSIN HCL 0.4 MG CAP.SR.24H XX SCH (20:12)
[2023-01-21] MEDS: TIZANIDINE HCL 4 MG TABLET GT SCH (20:12)
[2023-01-21] MEDS: FINASTERIDE 5 MG TABLET GT SCH (20:12)
[2023-01-22] VITALS: BP 101/55; TEMP 98.2; O2SAT 98
[2023-01-22 04:00] VITALS: BP 103/56; TEMP 98.1; O2SAT 99
[2023-01-22] MEDS: PIPERACILLIN SODIUM/TAZOBACTAM 3.375 G in IV DEXTROSE 5% 100 ML IV SCH ×2 (05:06→13:01)
[2023-01-22] MEDS: LEVOTHYROXINE SODIUM 112 MCG TABLET GT SCH (06:05)
[2023-01-22] MEDS: PANTOPRAZOLE ORAL SUSPENSION 40 MG SUSPDR.PKT GT SCH (06:06)
[2023-01-22] MEDS: [UNRECOGNIZED DRUG - OTHER] GT SCH (06:06)
[2023-01-22 07:30] VITALS: BP 99/62; TEMP 98; O2SAT 100
[2023-01-22] MEDS: CLOPIDOGREL 75 MG TABLET GT SCH (08:43)
[2023-01-22] MEDS: FENOFIBRATE NANOCRYSTALLIZED 145 MG TABLET GT SCH (08:43)
[2023-01-22] MEDS: SERTRALINE HCL 100 MG TABLET GT SCH (08:43)
[2023-01-22] MEDS: CLONAZEPAM 1 MG TABLET PO SCH ×2 (08:44→13:01)
[2023-01-22] MEDS: ASPIRIN 81 MG TAB.CHEW GT SCH (08:44)
[2023-01-22] MEDS: ALLOPURINOL 300 MG TABLET GT SCH (08:44)
[2023-01-22] MEDS: BACLOFEN 10 MG TABLET GT SCH (08:44)
[2023-01-22] MEDS: buPROPion 75 MG TABLET GT SCH (08:45)
[2023-01-22] MEDS: FERROUS SULFATE 300 MG/5 ML LIQUID UDC GT SCH (08:46)
[2023-01-22] MEDS: RILUZOLE 50 MG GT SCH (08:46)
[2023-01-22] MEDS: MIRALAX 17 GM POWD.PACK GT SCH (08:46)
[2023-01-22] MEDS: CADEXOMER IODINE 40 GM TUBE TOP SCH (08:47)
[2023-01-22] MEDS: ENOXAPARIN SODIUM 40 MG/0.4 ML DISP.SYRIN SQ SCH (08:52)
[2023-01-22] MEDS: LOSARTAN POTASSIUM 50 MG TABLET GT SCH (08:54)
[2023-01-22] MEDS: SILODOSIN 4 MG GT SCH (09:00)
[2023-01-22 12:00] VITALS: BP 106/61; TEMP 97.9; O2SAT 98
== END 2023-01-22 15:25 | disposition home health service (06) | DRG 207 ==
LOC: ER 23:26 → TRANSITION 01-16 09:00 → TELE3 01-17 07:30
PROVIDERS: ADMIT Nurse Practitioner Family; ATTEND Nurse Practitioner Acute Care
PROC: 5A1955Z Respiratory Ventilation, Greater than 96 Consecutive Hours (ICD-10-PCS; principal; 2023-01-16)
PROC: 05HB33Z Insertion of Infusion Device into Right Basilic Vein, Percutaneous Approach (ICD-10-PCS; 2023-01-19)
DX: J15.9 Unspecified bacterial pneumonia (principal); L89.153 Pressure ulcer of sacral region, stage 3; J47.0 Bronchiectasis with acute lower respiratory infection; G12.21 Amyotrophic lateral sclerosis; J96.10 Chronic respiratory failure, unspecified whether with hypoxia or hypercapnia; E87.1 Hypo-osmolality and hyponatremia; N17.9 Acute kidney failure, unspecified; Z99.11 Dependence on respirator [ventilator] status; J15.6 Pneumonia due to other Gram-negative bacteria; E78.5 Hyperlipidemia, unspecified; Z93.0 Tracheostomy status; Z85.21 Personal history of malignant neoplasm of larynx; Z79.890 Hormone replacement therapy; Z79.02 Long term (current) use of antithrombotics/antiplatelets; Z79.899 Other long term (current) drug therapy; Z79.82 Long term (current) use of aspirin; D63.8 Anemia in other chronic diseases classified elsewhere; Z85.118 Personal history of other malignant neoplasm of bronchus and lung; Z93.1 Gastrostomy status; E03.9 Hypothyroidism, unspecified; E83.39 Other disorders of phosphorus metabolism; E83.52 Hypercalcemia; E83.42 Hypomagnesemia; E86.0 Dehydration; F41.9 Anxiety disorder, unspecified; I10 Essential (primary) hypertension
CPT/HCPCS: 36415; 36600; 71045; 71275; 83605; 83735; 84100; 84484; 85025; 87040; 93005; 94002; 94003; 94760; A4663; A6209; A6213; C9113; G0378; J0360; J0456; J1650; J1956; J2060; J2543; J3370; J3475; J7040; J7050; Q9967

== ENCOUNTER 2023-01-29 15:14 | Inpatient (IN) | payer MEDICARE, OTHER ==
[~2023-01-29] VITALS: Ht 172.7 cm; Wt 74.8 kg
[~2023-01-29 15:14] MED LIST changes: -BUPR-96 GT; +BUPR75TA8 GT; -CLON0.5T4 GT; +CLON1TAB12 PO; +LEVO500T90 PO; +TRAZ-182 PO
[2023-01-29 16:41] LABS: BASOPHILS % (AUTO) 0.2 % (0.0-2.0); HEMATOCRIT 30.8 % (36.7-47.1); HEMOGLOBIN 10.2 g/dL (12.5-16.3); LYMPHOCYTES # (AUTO) 0.3 K/uL (0.8-4.8); LYMPHOCYTES % (AUTO) 9.4 % (20.5-51.5); MEAN CORPUSCULAR HEMOGLOBIN 28.2 uug (23.8-33.4); MEAN CORPUSCULAR HGB CONC 33 g/dL (32.5-36.3); MEAN CORPUSCULAR VOLUME 85.5 fL (73.0-96.2); MONOCYTES # (AUTO) 0.1 K/uL (0.1-1.30); MONOCYTES % (AUTO) 2.9 % (0.0-11.0); NEUTROPHILS # (AUTO) 3.1 K/uL (1.8-8.9); NEUTROPHILS % (AUTO) 86.5 % (38.5-71.5); PLATELET COUNT (AUTO) 230 K/uL (152-348); RED BLOOD CELL COUNT(AUTO) 3.61 MIL/uL (4.06-5.63); RED CELL DISTRIBUTION WIDTH 20.9 % (12.1-16.2); WHITE BLOOD COUNT (AUTO) 3.6 K/uL (3.6-10.2)
[2023-01-29 16:52] LABS: DIFFERENTIAL COMMENT 1
[2023-01-29 16:55] LABS: CALCIUM 10.1 mg/dL (8.5-10.1); CARBON DIOXIDE 26 mmol/L (21-32); CHLORIDE 104 mmol/L (98-107); CREATININE 1.4 mg/dL (0.6-1.3); GLUCOSE 113 mg/dL (74-106); POTASSIUM 4.3 mmol/L (3.5-5.1); SODIUM SERUM 141 mmol/L (136-145); UREA NITROGEN, BLOOD 24 mg/dL (7-18)
[2023-01-29 17:08] LABS: ALANINE AMINOTRANSFERASE 27 U/L (16-63); ALKALINE PHOSPHATASE 53 U/L (50-136); ASPARTATE AMINOTRANSFERASE 25 U/L (15-37); BILIRUBIN,DIRECT 0.2 mg/dL (0.0-0.2); BILIRUBIN,TOTAL 0.3 mg/dL (0.2-1.0); NT-PRO BNP 104 pg/mL (0-125); TOTAL PROTEIN, SERUM 7.4 g/dL (6.4-8.2)
[2023-01-29] MEDS ORDERED: IPRATROPIUM BROMIDE 0.5 MG/2.5 ML NEBU NEB PRN (18:45)
[2023-01-29] MEDS ORDERED: REMEDY ESSENTIAL ZINC PASTE 113 GM TP PRN (18:45)
[2023-01-29] MEDS ORDERED: ONDANSETRON 4 MG/2 ML VIAL IV PRN (18:45)
[2023-01-29] MEDS ORDERED: ALBUTEROL SULFATE 2.5 MG/3 ML NEBU NEB PRN (18:45)
[2023-01-29] MEDS ORDERED: LORAZEPAM 2 MG/1 ML VIAL IV PRN ×2 (18:45→23:00)
[2023-01-29] MEDS ORDERED: ALBUTEROL SULFATE 2.5 MG/ 0.5 ML NEBU ONE (19:13)
[2023-01-29] MEDS ORDERED: HOME MED MISCELLANEOUS XX SCH (22:00)
[2023-01-29] MEDS ORDERED: JEVITY 1.2 1000 ML LIQUID GT SCH (23:00)
[2023-01-29] MEDS ORDERED: TRAZODONE 50 MG TABLET ONE (23:23)
[2023-01-29] MEDS: TRAZODONE 50 MG TABLET GT PRN (23:30)
[2023-01-30] MEDS ORDERED: LORAZEPAM 2 MG/1 ML VIAL ONE (00:38)
[2023-01-30] MEDS: LORAZEPAM 2 MG/1 ML VIAL IV PRN (00:43)
[2023-01-30 07:11] LABS: BASOPHILS % (AUTO) 0.2 % (0.0-2.0); DIFFERENTIAL COMMENT 0; EOSINOPHILS % (AUTO) 1.1 % (0.0-7.0); LYMPHOCYTES # (AUTO) 0.5 K/uL (0.8-4.8); LYMPHOCYTES % (AUTO) 11.7 % (20.5-51.5); MEAN CORPUSCULAR HEMOGLOBIN 28.2 uug (23.8-33.4); MEAN CORPUSCULAR HGB CONC 34 g/dL (32.5-36.3); MEAN CORPUSCULAR VOLUME 84.2 fL (73.0-96.2); MONOCYTES # (AUTO) 0.4 K/uL (0.1-1.30); MONOCYTES % (AUTO) 9.3 % (0.0-11.0); NEUTROPHILS # (AUTO) 3.2 K/uL (1.8-8.9); NEUTROPHILS % (AUTO) 77.7 % (38.5-71.5); PLATELET COUNT (AUTO) 236 K/uL (152-348); RED BLOOD CELL COUNT(AUTO) 3.21 MIL/uL (4.06-5.63); RED CELL DISTRIBUTION WIDTH 20.8 % (12.1-16.2); WHITE BLOOD COUNT (AUTO) 4.1 K/uL (3.6-10.2)
[2023-01-30 07:12] LABS: CALCIUM 9.6 mg/dL (8.5-10.1); CREATININE 1.4 mg/dL (0.6-1.3); PHOSPHOROUS 2.5 mg/dL (2.5-4.9); POTASSIUM 3.2 mmol/L (3.5-5.1)
[2023-01-30] MEDS ORDERED: LEVOTHYROXINE SODIUM 112 MCG TABLET ONE (07:27)
[2023-01-30] MEDS: LEVOTHYROXINE SODIUM 112 MCG TABLET GT SCH (07:28)
[2023-01-30 08:00] VITALS: BP 145/72; TEMP 98.3; O2SAT 100
[2023-01-30] MEDS ORDERED: RILUZOLE 50 MG TAB GT SCH (09:00)
[2023-01-30] MEDS ORDERED: ALLOPURINOL 300 MG TABLET GT SCH (09:00)
[2023-01-30] MEDS ORDERED: POTASSIUM CHLORIDE 20 MEQ POWDER PACKET GT ONE ×2 (09:15→11:00)
[2023-01-30] MEDS: FERROUS SULFATE 300 MG/5 ML LIQUID UDC GT SCH (09:57)
[2023-01-30] MEDS: ASPIRIN 81 MG TAB.CHEW GT SCH (10:00)
[2023-01-30] MEDS: PANTOPRAZOLE ORAL SUSPENSION 40 MG SUSPDR.PKT GT SCH (10:00)
[2023-01-30] MEDS: CLOPIDOGREL 75 MG TABLET GT SCH (10:00)
[2023-01-30] MEDS: CLONAZEPAM 1 MG TABLET GT SCH ×3 (10:01→17:37)
[2023-01-30] MEDS: ALLOPURINOL 300 MG TABLET GT SCH (10:02)
[2023-01-30] MEDS: CHOLECALCIFEROL 1,000 UNIT TABLET GT SCH (10:02)
[2023-01-30] MEDS: MIRALAX 17 GM POWD.PACK GT SCH ×2 (10:04→17:37)
[2023-01-30 10:28] LABS: ABG PCO2 35.3 mmHg (35.0-45.0); ABG PH 7.431 (7.350-7.450); ABG PO2 141.1 mmHg (75.0-100.0); ABG SITE RIGHT RADIAL; ABG TOTAL HEMOGLOBIN 10.1 G/dL (13.5-18.0); COHb 0.1 % (0.5-1.5); MetHb 0.1 % (0.0-1.5); O2Hb 98.5 % (94.0-97.0); VENT MODE VENT - A/C; VT, ABG 550 mL
[2023-01-30] MEDS: FENOFIBRATE NANOCRYSTALLIZED 145 MG TABLET GT SCH (10:30)
[2023-01-30] MEDS: buPROPion 75 MG TABLET GT SCH ×2 (10:31→17:37)
[2023-01-30] MEDS: SERTRALINE HCL 100 MG TABLET GT SCH (10:31)
[2023-01-30 12:00] VITALS: BP 96/51; TEMP 97.9; O2SAT 100
[2023-01-30 16:00] VITALS: BP 106/71; TEMP 98.4; O2SAT 100
[2023-01-30] MEDS ORDERED: BACL10TA GT (16:36)
[2023-01-30] MEDS: BACLOFEN 10 MG TABLET GT SCH (17:37)
[2023-01-30 17:58] LABS: *BILIRUBIN,URIN NEGATIVE (NEGATIVE); *BLOOD, URINE NEGATIVE (NEGATIVE); *CLARITY,URINE SLIGHTLY CLOUDY (CLEAR); *COLOR,URINE YELLOW (YELLOW); *KETONES,URINE NEGATIVE (NEGATIVE); *PROTEIN,URINE NEGATIVE (NEGATIVE); *UROBILINOGEN,URINE 0.2 E.U./dl (NORMAL); LEUKOCYTE ESTERASE ,URINE NEGATIVE (NEGATIVE); NITRITE, URINE NEGATIVE (NEGATIVE); PH,URINE 8.5 (5.0-8.0); UGLUCOSE NEGATIVE (NEGATIVE)
[2023-01-30 18:26] LABS: WBC,URINE 0-3 /HPF (0-3)
[2023-01-30 18:27] LABS: BACTERIA,URINE FEW /HPF (NONE SEEN); RBC,URINE 0-3 /HPF (0-3); SQUAMOUS EPITHELIAL CELL,UR FEW /HPF (NONE SEEN); URINE AMORPHOUS URATE MANY /HPF
[2023-01-30 20:00] VITALS: BP 108/63; TEMP 97.5; O2SAT 100
[2023-01-30] MEDS: TIZANIDINE HCL 4 MG TABLET GT SCH (21:49)
[2023-01-30] MEDS: MIRTAZAPINE 15 MG TABLET GT SCH (21:49)
[2023-01-30] MEDS: TAMSULOSIN HCL 0.4 MG CAP.SR.24H XX SCH (21:49)
[2023-01-30] MEDS: ATORVASTATIN 20 MG TABLET GT SCH (21:49)
[2023-01-30] MEDS: FINASTERIDE 5 MG TABLET GT SCH (21:49)
[2023-01-30] MEDS: JEVITY 1.2 1000 ML LIQUID GT PRN (22:42)
[2023-01-31] VITALS: BP 111/63; TEMP 97.5; O2SAT 97
[2023-01-31] MEDS: LORAZEPAM 2 MG/1 ML VIAL IV PRN (02:58)
[2023-01-31 04:00] VITALS: BP 89/53; TEMP 97.5; O2SAT 100
[2023-01-31 04:55] LABS: BASOPHILS % (AUTO) 0.3 % (0.0-2.0); EOSINOPHILS # (AUTO) 0.1 K/uL (0.0-0.7); HEMATOCRIT 26.9 % (36.7-47.1); HEMOGLOBIN 9.2 g/dL (12.5-16.3); LYMPHOCYTES # (AUTO) 0.5 K/uL (0.8-4.8); MEAN CORPUSCULAR HEMOGLOBIN 28.6 uug (23.8-33.4); MEAN CORPUSCULAR HGB CONC 34 g/dL (32.5-36.3); MEAN CORPUSCULAR VOLUME 84.2 fL (73.0-96.2); MONOCYTES # (AUTO) 0.3 K/uL (0.1-1.30); MONOCYTES % (AUTO) 6.6 % (0.0-11.0); NEUTROPHILS # (AUTO) 3.4 K/uL (1.8-8.9); NEUTROPHILS % (AUTO) 80.1 % (38.5-71.5); PLATELET COUNT (AUTO) 218 K/uL (152-348); WHITE BLOOD COUNT (AUTO) 4.3 K/uL (3.6-10.2)
[2023-01-31 05:20] LABS: DIFFERENTIAL COMMENT 1
[2023-01-31 05:28] LABS: CALCIUM 9.4 mg/dL (8.5-10.1); CREATININE 1.3 mg/dL (0.6-1.3); MAGNESIUM 1.9 mg/dL (1.8-2.4); PHOSPHOROUS 3.3 mg/dL (2.5-4.9); POTASSIUM 3.7 mmol/L (3.5-5.1)
[2023-01-31] MEDS: LEVOTHYROXINE SODIUM 112 MCG TABLET GT SCH (06:06)
[2023-01-31] MEDS ORDERED: [UNRECOGNIZED DRUG - OTHER] GT SCH (07:00)
[2023-01-31 07:40] VITALS: BP 89/52; TEMP 98; O2SAT 100
[2023-01-31] MEDS: BACLOFEN 10 MG TABLET GT SCH ×2 (08:01→16:44)
[2023-01-31] MEDS: ASPIRIN 81 MG TAB.CHEW GT SCH (08:01)
[2023-01-31] MEDS: PANTOPRAZOLE ORAL SUSPENSION 40 MG SUSPDR.PKT GT SCH (08:01)
[2023-01-31] MEDS: FERROUS SULFATE 300 MG/5 ML LIQUID UDC GT SCH (08:01)
[2023-01-31] MEDS: CLONAZEPAM 1 MG TABLET GT SCH ×3 (08:01→16:57)
[2023-01-31] MEDS: SERTRALINE HCL 100 MG TABLET GT SCH (08:03)
[2023-01-31] MEDS: FENOFIBRATE NANOCRYSTALLIZED 145 MG TABLET GT SCH (08:03)
[2023-01-31] MEDS: buPROPion 75 MG TABLET GT SCH ×2 (08:04→16:44)
[2023-01-31] MEDS: CLOPIDOGREL 75 MG TABLET GT SCH (08:08)
[2023-01-31] MEDS: ALLOPURINOL 300 MG TABLET GT SCH (08:09)
[2023-01-31] MEDS: MIRALAX 17 GM POWD.PACK GT SCH ×2 (08:09→16:44)
[2023-01-31] MEDS: CHOLECALCIFEROL 1,000 UNIT TABLET GT SCH (08:09)
[2023-01-31] MEDS ORDERED: SILODOSIN 4 MG GT SCH (09:00)
[2023-01-31 12:00] VITALS: BP 90/60; TEMP 98; O2SAT 99
[2023-01-31] MEDS: RILUZOLE 50 MG GT SCH ×2 (12:40→16:59)
[2023-01-31] MEDS: SILODOSIN 4 MG GT SCH (12:41)
[2023-01-31 16:00] VITALS: BP 110/69; TEMP 98.4; O2SAT 97
[2023-01-31] MEDS: PROTEIN SUPPLEMENT (PROSTAT) 30 ML LIQUID GT SCH (16:58)
[2023-01-31 20:00] VITALS: BP 95/58; TEMP 98; O2SAT 98
[2023-01-31] MEDS: MIRTAZAPINE 15 MG TABLET GT SCH (21:29)
[2023-01-31] MEDS: TAMSULOSIN HCL 0.4 MG CAP.SR.24H XX SCH (21:29)
[2023-01-31] MEDS: ATORVASTATIN 20 MG TABLET GT SCH (21:29)
[2023-01-31] MEDS: FINASTERIDE 5 MG TABLET GT SCH (21:29)
[2023-01-31] MEDS: TIZANIDINE HCL 4 MG TABLET GT SCH (21:30)
[2023-01-31] MEDS: TRAZODONE 50 MG TABLET GT PRN (22:02)
[2023-01-31] MEDS: JEVITY 1.2 1000 ML LIQUID GT PRN (22:07)
[2023-02-01 04:00] VITALS: BP 99/53; TEMP 97.7; O2SAT 100
[2023-02-01] MEDS: LEVOTHYROXINE SODIUM 112 MCG TABLET GT SCH (06:11)
[2023-02-01] MEDS: PANTOPRAZOLE ORAL SUSPENSION 40 MG SUSPDR.PKT GT SCH (07:50)
[2023-02-01] MEDS: FERROUS SULFATE 300 MG/5 ML LIQUID UDC GT SCH (07:50)
[2023-02-01] MEDS: CLONAZEPAM 1 MG TABLET GT SCH ×3 (07:50→17:38)
[2023-02-01] MEDS: ALLOPURINOL 300 MG TABLET GT SCH (07:51)
[2023-02-01] MEDS: SERTRALINE HCL 100 MG TABLET GT SCH (07:51)
[2023-02-01] MEDS: MIRALAX 17 GM POWD.PACK GT SCH ×2 (07:51→17:38)
[2023-02-01] MEDS: BACLOFEN 10 MG TABLET GT SCH ×2 (07:51→17:43)
[2023-02-01] MEDS: ASPIRIN 81 MG TAB.CHEW GT SCH (07:51)
[2023-02-01] MEDS: buPROPion 75 MG TABLET GT SCH ×2 (07:51→17:39)
[2023-02-01] MEDS: FENOFIBRATE NANOCRYSTALLIZED 145 MG TABLET GT SCH (07:51)
[2023-02-01] MEDS: CHOLECALCIFEROL 1,000 UNIT TABLET GT SCH (07:51)
[2023-02-01] MEDS: PROTEIN SUPPLEMENT (PROSTAT) 30 ML LIQUID GT SCH ×2 (07:52→17:36)
[2023-02-01] MEDS: CLOPIDOGREL 75 MG TABLET GT SCH (07:53)
[2023-02-01 08:00] VITALS: BP 114/84; TEMP 98; O2SAT 100
[2023-02-01] MEDS: SILODOSIN 4 MG GT SCH (08:26)
[2023-02-01] MEDS: RILUZOLE 50 MG GT SCH ×2 (08:26→17:36)
[2023-02-01 12:00] VITALS: BP 127/61; TEMP 98; O2SAT 94
[2023-02-01 16:00] VITALS: BP 108/67; TEMP 98; O2SAT 94
[2023-02-01 20:00] VITALS: BP 124/63; TEMP 98.3; O2SAT 96
[2023-02-01] MEDS: TAMSULOSIN HCL 0.4 MG CAP.SR.24H XX SCH (20:47)
[2023-02-01] MEDS: TIZANIDINE HCL 4 MG TABLET GT SCH (20:47)
[2023-02-01] MEDS: ATORVASTATIN 20 MG TABLET GT SCH (20:47)
[2023-02-01] MEDS: MIRTAZAPINE 15 MG TABLET GT SCH (20:47)
[2023-02-01] MEDS: FINASTERIDE 5 MG TABLET GT SCH (20:47)
[2023-02-01] MEDS: LORAZEPAM 2 MG/1 ML VIAL IV PRN (20:50)
[2023-02-02 00:01] VITALS: BP 88/54; TEMP 98.1; O2SAT 98
[2023-02-02 04:00] VITALS: BP 95/65; TEMP 97.5; O2SAT 98
[2023-02-02] MEDS: LEVOTHYROXINE SODIUM 112 MCG TABLET GT SCH (06:18)
[2023-02-02] MEDS: LORAZEPAM 2 MG/1 ML VIAL IV PRN ×2 (07:21→13:31)
[2023-02-02 08:00] VITALS: BP 110/75; TEMP 97.7; O2SAT 98
[2023-02-02] MEDS: MIRALAX 17 GM POWD.PACK GT SCH ×2 (09:00→16:40)
[2023-02-02] MEDS: ASPIRIN 81 MG TAB.CHEW GT SCH (09:01)
[2023-02-02] MEDS: CLONAZEPAM 1 MG TABLET GT SCH ×3 (09:02→16:39)
[2023-02-02] MEDS: FERROUS SULFATE 300 MG/5 ML LIQUID UDC GT SCH (09:02)
[2023-02-02] MEDS: BACLOFEN 10 MG TABLET GT SCH ×2 (09:02→16:39)
[2023-02-02] MEDS: PANTOPRAZOLE ORAL SUSPENSION 40 MG SUSPDR.PKT GT SCH (09:03)
[2023-02-02] MEDS: CLOPIDOGREL 75 MG TABLET GT SCH (09:03)
[2023-02-02] MEDS: buPROPion 75 MG TABLET GT SCH ×2 (09:04→16:39)
[2023-02-02] MEDS: FENOFIBRATE NANOCRYSTALLIZED 145 MG TABLET GT SCH (09:04)
[2023-02-02] MEDS: ALLOPURINOL 300 MG TABLET GT SCH (09:05)
[2023-02-02] MEDS: SERTRALINE HCL 100 MG TABLET GT SCH (09:05)
[2023-02-02] MEDS: CHOLECALCIFEROL 1,000 UNIT TABLET GT SCH (09:35)
[2023-02-02] MEDS: PROTEIN SUPPLEMENT (PROSTAT) 30 ML LIQUID GT SCH ×2 (09:38→16:40)
[2023-02-02] MEDS: JEVITY 1.2 1000 ML LIQUID GT PRN (09:40)
[2023-02-02] MEDS: SILODOSIN 4 MG GT SCH (10:10)
[2023-02-02] MEDS: RILUZOLE 50 MG GT SCH ×2 (10:10→16:37)
[2023-02-02 12:30] VITALS: BP 98/58; TEMP 97.6; O2SAT 98
[2023-02-02 20:00] VITALS: BP 119/73; TEMP 98.7; O2SAT 100
[2023-02-02] MEDS: ATORVASTATIN 20 MG TABLET GT SCH (20:52)
[2023-02-02] MEDS: FINASTERIDE 5 MG TABLET GT SCH (20:53)
[2023-02-02] MEDS: TAMSULOSIN HCL 0.4 MG CAP.SR.24H XX SCH (20:53)
[2023-02-02] MEDS: TIZANIDINE HCL 4 MG TABLET GT SCH (20:53)
[2023-02-02] MEDS: MIRTAZAPINE 15 MG TABLET GT SCH (20:53)
[2023-02-03 00:01] VITALS: BP 91/59; TEMP 97.9; O2SAT 100
[2023-02-03] MEDS: LEVOTHYROXINE SODIUM 112 MCG TABLET GT SCH (06:25)
[2023-02-03 08:00] VITALS: BP 112/62; TEMP 97.8; O2SAT 100
[2023-02-03] MEDS: PANTOPRAZOLE ORAL SUSPENSION 40 MG SUSPDR.PKT GT SCH (08:52)
[2023-02-03] MEDS: ASPIRIN 81 MG TAB.CHEW GT SCH (08:52)
[2023-02-03] MEDS: FERROUS SULFATE 300 MG/5 ML LIQUID UDC GT SCH (08:52)
[2023-02-03] MEDS: CLOPIDOGREL 75 MG TABLET GT SCH (08:52)
[2023-02-03] MEDS: ALLOPURINOL 300 MG TABLET GT SCH (08:52)
[2023-02-03] MEDS: BACLOFEN 10 MG TABLET GT SCH ×2 (08:52→17:07)
[2023-02-03] MEDS: MIRALAX 17 GM POWD.PACK GT SCH ×2 (08:52→17:00)
[2023-02-03] MEDS: SILODOSIN 4 MG GT SCH (08:53)
[2023-02-03] MEDS: CHOLECALCIFEROL 1,000 UNIT TABLET GT SCH (08:53)
[2023-02-03] MEDS: SERTRALINE HCL 100 MG TABLET GT SCH (08:54)
[2023-02-03] MEDS: buPROPion 75 MG TABLET GT SCH ×2 (08:54→17:09)
[2023-02-03] MEDS: RILUZOLE 50 MG GT SCH ×2 (08:54→17:08)
[2023-02-03] MEDS: PROTEIN SUPPLEMENT (PROSTAT) 30 ML LIQUID GT SCH ×2 (09:00→17:10)
[2023-02-03] MEDS: CLONAZEPAM 1 MG TABLET GT SCH ×4 (09:00→17:31)
[2023-02-03] MEDS: FENOFIBRATE NANOCRYSTALLIZED 145 MG TABLET GT SCH (09:05)
[2023-02-03] MEDS: JEVITY 1.2 1000 ML LIQUID GT PRN (09:58)
[2023-02-03] MEDS: MORPHINE SULFATE 2 MG/1 ML DISP.SYRIN IV PRN (11:36)
[2023-02-03 12:00] VITALS: BP 110/68; TEMP 97.8; O2SAT 100
[2023-02-03] MEDS: POLYVINYL ALCOHOL OPHT DROPS 15 ML BOTTLE EACHEYE PRN (17:07)
[2023-02-03 17:21] VITALS: BP 130/65; TEMP 97.8; O2SAT 97
[2023-02-03 20:00] VITALS: BP 137/77; TEMP 99; O2SAT 98
[2023-02-03] MEDS: TAMSULOSIN HCL 0.4 MG CAP.SR.24H XX SCH (20:45)
[2023-02-03] MEDS: MIRTAZAPINE 15 MG TABLET GT SCH (20:45)
[2023-02-03] MEDS: FINASTERIDE 5 MG TABLET GT SCH (20:46)
[2023-02-03] MEDS: ATORVASTATIN 20 MG TABLET GT SCH (20:46)
[2023-02-03] MEDS: LORAZEPAM 2 MG/1 ML VIAL IV PRN (21:21)
[2023-02-03] MEDS: TIZANIDINE HCL 4 MG TABLET GT SCH (21:27)
[2023-02-04] VITALS (7 sets, daily range): BP systolic 87–129; BP diastolic 54–76; TEMP 97–97.8; O2SAT 94–100
[2023-02-04] MEDS: LEVOTHYROXINE SODIUM 112 MCG TABLET GT SCH (06:41)
[2023-02-04] MEDS: CHOLECALCIFEROL 1,000 UNIT TABLET GT SCH (09:31)
[2023-02-04] MEDS: BACLOFEN 10 MG TABLET GT SCH ×2 (09:31→17:23)
[2023-02-04] MEDS: CLONAZEPAM 1 MG TABLET GT SCH ×3 (09:31→17:23)
[2023-02-04] MEDS: ASPIRIN 81 MG TAB.CHEW GT SCH (09:31)
[2023-02-04] MEDS: PANTOPRAZOLE ORAL SUSPENSION 40 MG SUSPDR.PKT GT SCH (09:31)
[2023-02-04] MEDS: MIRALAX 17 GM POWD.PACK GT SCH ×2 (09:31→17:23)
[2023-02-04] MEDS: FERROUS SULFATE 300 MG/5 ML LIQUID UDC GT SCH (09:31)
[2023-02-04] MEDS: CLOPIDOGREL 75 MG TABLET GT SCH (09:31)
[2023-02-04] MEDS: SERTRALINE HCL 100 MG TABLET GT SCH (09:32)
[2023-02-04] MEDS: RILUZOLE 50 MG GT SCH ×2 (09:32→17:27)
[2023-02-04] MEDS: buPROPion 75 MG TABLET GT SCH ×2 (09:32→17:24)
[2023-02-04] MEDS: SILODOSIN 4 MG GT SCH (09:32)
[2023-02-04] MEDS: FENOFIBRATE NANOCRYSTALLIZED 145 MG TABLET GT SCH (09:32)
[2023-02-04] MEDS: PROTEIN SUPPLEMENT (PROSTAT) 30 ML LIQUID GT SCH ×2 (09:33→17:24)
[2023-02-04] MEDS: ALLOPURINOL 300 MG TABLET GT SCH (09:34)
[2023-02-04] MEDS: JEVITY 1.2 1000 ML LIQUID GT PRN (16:41)
[2023-02-04] MEDS: LORAZEPAM 2 MG/1 ML VIAL IV PRN (20:11)
[2023-02-04] MEDS: FINASTERIDE 5 MG TABLET GT SCH (20:54)
[2023-02-04] MEDS: TAMSULOSIN HCL 0.4 MG CAP.SR.24H XX SCH (20:54)
[2023-02-04] MEDS: MIRTAZAPINE 15 MG TABLET GT SCH (20:54)
[2023-02-04] MEDS: ATORVASTATIN 20 MG TABLET GT SCH (20:54)
[2023-02-04] MEDS: TIZANIDINE HCL 4 MG TABLET GT SCH (20:55)
[2023-02-05] VITALS: BP 101/51; TEMP 97.8; O2SAT 100
[2023-02-05] MEDS: LORAZEPAM 2 MG/1 ML VIAL IV PRN (02:18)
[2023-02-05] MEDS: LEVOTHYROXINE SODIUM 112 MCG TABLET GT SCH (05:04)
[2023-02-05 06:53] LABS: BASOPHILS % (AUTO) 0.3 % (0.0-2.0); DIFFERENTIAL COMMENT 0; EOSINOPHILS # (AUTO) 0.1 K/uL (0.0-0.7); EOSINOPHILS % (AUTO) 2.1 % (0.0-7.0); HEMATOCRIT 29.5 % (36.7-47.1); HEMOGLOBIN 9.9 g/dL (12.5-16.3); LYMPHOCYTES # (AUTO) 0.4 K/uL (0.8-4.8); MEAN CORPUSCULAR HEMOGLOBIN 28.2 uug (23.8-33.4); MEAN CORPUSCULAR HGB CONC 34 g/dL (32.5-36.3); MONOCYTES # (AUTO) 0.3 K/uL (0.1-1.30); MONOCYTES % (AUTO) 4.9 % (0.0-11.0); NEUTROPHILS # (AUTO) 5.1 K/uL (1.8-8.9); NEUTROPHILS % (AUTO) 85.7 % (38.5-71.5); PLATELET COUNT (AUTO) 210 K/uL (152-348); RED BLOOD CELL COUNT(AUTO) 3.52 MIL/uL (4.06-5.63); RED CELL DISTRIBUTION WIDTH 20.1 % (12.1-16.2); WHITE BLOOD COUNT (AUTO) 5.9 K/uL (3.6-10.2)
[2023-02-05 07:05] LABS: CALCIUM 10.3 mg/dL (8.5-10.1); CREATININE 1.1 mg/dL (0.6-1.3); MAGNESIUM 1.9 mg/dL (1.8-2.4); PHOSPHOROUS 4.4 mg/dL (2.5-4.9); POTASSIUM 3.7 mmol/L (3.5-5.1)
[2023-02-05 08:00] VITALS: BP 149/65; TEMP 98.1; O2SAT 100
[2023-02-05] MEDS: SILODOSIN 4 MG GT SCH (09:00)
[2023-02-05] MEDS: PROTEIN SUPPLEMENT (PROSTAT) 30 ML LIQUID GT SCH ×2 (09:31→17:18)
[2023-02-05] MEDS: ASPIRIN 81 MG TAB.CHEW GT SCH (09:32)
[2023-02-05] MEDS: CLONAZEPAM 1 MG TABLET GT SCH ×3 (09:33→17:17)
[2023-02-05] MEDS: CLOPIDOGREL 75 MG TABLET GT SCH (09:33)
[2023-02-05] MEDS: CHOLECALCIFEROL 1,000 UNIT TABLET GT SCH (09:34)
[2023-02-05] MEDS: PANTOPRAZOLE ORAL SUSPENSION 40 MG SUSPDR.PKT GT SCH (09:34)
[2023-02-05] MEDS: ALLOPURINOL 300 MG TABLET GT SCH (09:34)
[2023-02-05] MEDS: MIRALAX 17 GM POWD.PACK GT SCH ×2 (09:35→17:00)
[2023-02-05] MEDS: FERROUS SULFATE 300 MG/5 ML LIQUID UDC GT SCH (09:35)
[2023-02-05] MEDS: BACLOFEN 10 MG TABLET GT SCH ×2 (09:35→17:18)
[2023-02-05] MEDS: buPROPion 75 MG TABLET GT SCH ×2 (09:35→17:18)
[2023-02-05] MEDS: RILUZOLE 50 MG GT SCH ×2 (09:35→17:16)
[2023-02-05] MEDS: SERTRALINE HCL 100 MG TABLET GT SCH (09:36)
[2023-02-05] MEDS: FENOFIBRATE NANOCRYSTALLIZED 145 MG TABLET GT SCH (09:36)
[2023-02-05 12:00] VITALS: BP 159/63; TEMP 98.3; O2SAT 94
[2023-02-05 16:00] VITALS: BP 111/57; TEMP 97.7; O2SAT 99
[2023-02-05 20:00] VITALS: BP 111/64; TEMP 97.9; O2SAT 100
[2023-02-05] MEDS: TAMSULOSIN HCL 0.4 MG CAP.SR.24H XX SCH (20:43)
[2023-02-05] MEDS: MIRTAZAPINE 15 MG TABLET GT SCH (20:43)
[2023-02-05] MEDS: FINASTERIDE 5 MG TABLET GT SCH (20:43)
[2023-02-05] MEDS: ATORVASTATIN 20 MG TABLET GT SCH (20:43)
[2023-02-05] MEDS: TIZANIDINE HCL 4 MG TABLET GT SCH (20:43)
[2023-02-06 00:01] VITALS: BP 86/58; TEMP 97.6; O2SAT 98
[2023-02-06 04:00] VITALS: BP 114/69; TEMP 98; O2SAT 95
[2023-02-06 05:08] LABS: BASOPHILS % (AUTO) 0.7 % (0.0-2.0); EOSINOPHILS # (AUTO) 0.1 K/uL (0.0-0.7); EOSINOPHILS % (AUTO) 3.2 % (0.0-7.0); HEMATOCRIT 28.1 % (36.7-47.1); HEMOGLOBIN 9.5 g/dL (12.5-16.3); LYMPHOCYTES # (AUTO) 0.4 K/uL (0.8-4.8); LYMPHOCYTES % (AUTO) 12.5 % (20.5-51.5); MEAN CORPUSCULAR HEMOGLOBIN 28.4 uug (23.8-33.4); MEAN CORPUSCULAR HGB CONC 34 g/dL (32.5-36.3); MEAN CORPUSCULAR VOLUME 84.4 fL (73.0-96.2); MONOCYTES # (AUTO) 0.2 K/uL (0.1-1.30); MONOCYTES % (AUTO) 6.1 % (0.0-11.0); NEUTROPHILS # (AUTO) 2.8 K/uL (1.8-8.9); NEUTROPHILS % (AUTO) 77.5 % (38.5-71.5); PLATELET COUNT (AUTO) 180 K/uL (152-348); RED BLOOD CELL COUNT(AUTO) 3.33 MIL/uL (4.06-5.63); RED CELL DISTRIBUTION WIDTH 19.8 % (12.1-16.2); WHITE BLOOD COUNT (AUTO) 3.6 K/uL (3.6-10.2)
[2023-02-06 05:16] LABS: DIFFERENTIAL COMMENT 1
[2023-02-06 05:32] LABS: CREATININE 1.1 mg/dL (0.6-1.3); MAGNESIUM 1.9 mg/dL (1.8-2.4); POTASSIUM 3.4 mmol/L (3.5-5.1)
[2023-02-06 05:43] LABS: CALCIUM 9.7 mg/dL (8.5-10.1); PHOSPHOROUS 3.9 mg/dL (2.5-4.9)
[2023-02-06] MEDS: LEVOTHYROXINE SODIUM 112 MCG TABLET GT SCH (07:18)
[2023-02-06 08:10] VITALS: BP 90/62; TEMP 98.2; O2SAT 95
[2023-02-06] MEDS ORDERED: POTASSIUM CHLORIDE 20 MEQ POWDER PACKET GT ONE (08:15)
[2023-02-06] MEDS: FERROUS SULFATE 300 MG/5 ML LIQUID UDC GT SCH (08:37)
[2023-02-06] MEDS: ASPIRIN 81 MG TAB.CHEW GT SCH (08:37)
[2023-02-06] MEDS: MIRALAX 17 GM POWD.PACK GT SCH ×2 (08:38→17:00)
[2023-02-06] MEDS: BACLOFEN 10 MG TABLET GT SCH ×2 (08:38→17:30)
[2023-02-06] MEDS: CLONAZEPAM 1 MG TABLET GT SCH ×2 (08:38→17:00)
[2023-02-06] MEDS: RILUZOLE 50 MG GT SCH ×2 (08:39→17:30)
[2023-02-06] MEDS: CLOPIDOGREL 75 MG TABLET GT SCH (08:40)
[2023-02-06] MEDS: PANTOPRAZOLE ORAL SUSPENSION 40 MG SUSPDR.PKT GT SCH (08:40)
[2023-02-06] MEDS: SILODOSIN 4 MG GT SCH (08:40)
[2023-02-06] MEDS: FENOFIBRATE NANOCRYSTALLIZED 145 MG TABLET GT SCH (08:41)
[2023-02-06] MEDS: CHOLECALCIFEROL 1,000 UNIT TABLET GT SCH (08:41)
[2023-02-06] MEDS: buPROPion 75 MG TABLET GT SCH ×2 (08:42→17:31)
[2023-02-06] MEDS: ALLOPURINOL 300 MG TABLET GT SCH (08:42)
[2023-02-06] MEDS: SERTRALINE HCL 100 MG TABLET GT SCH (08:50)
[2023-02-06] MEDS: PROTEIN SUPPLEMENT (PROSTAT) 30 ML LIQUID GT SCH ×2 (09:03→17:00)
[2023-02-06 12:00] VITALS: BP 116/68; O2SAT 95
[2023-02-06 16:53] VITALS: BP 101/65; TEMP 97.9; O2SAT 99
[2023-02-06 20:00] VITALS: BP 126/62; TEMP 98.8; O2SAT 99
[2023-02-06] MEDS: FINASTERIDE 5 MG TABLET GT SCH (20:46)
[2023-02-06] MEDS: TAMSULOSIN HCL 0.4 MG CAP.SR.24H XX SCH (20:47)
[2023-02-06] MEDS: MIRTAZAPINE 15 MG TABLET GT SCH (20:47)
[2023-02-06] MEDS: TIZANIDINE HCL 4 MG TABLET GT SCH (20:47)
[2023-02-06] MEDS: ATORVASTATIN 20 MG TABLET GT SCH (20:47)
[2023-02-07] VITALS (7 sets, daily range): BP systolic 53–115; BP diastolic 56–66; TEMP 97.6–98.5; O2SAT 98–100
[2023-02-07 05:08] LABS: BASOPHILS % (AUTO) 0.4 % (0.0-2.0); EOSINOPHILS # (AUTO) 0.1 K/uL (0.0-0.7); EOSINOPHILS % (AUTO) 3.5 % (0.0-7.0); HEMATOCRIT 26.6 % (36.7-47.1); HEMOGLOBIN 8.9 g/dL (12.5-16.3); LYMPHOCYTES # (AUTO) 0.5 K/uL (0.8-4.8); LYMPHOCYTES % (AUTO) 13.9 % (20.5-51.5); MEAN CORPUSCULAR HEMOGLOBIN 28.5 uug (23.8-33.4); MEAN CORPUSCULAR HGB CONC 34 g/dL (32.5-36.3); MEAN CORPUSCULAR VOLUME 84.9 fL (73.0-96.2); MONOCYTES # (AUTO) 0.3 K/uL (0.1-1.30); MONOCYTES % (AUTO) 7.3 % (0.0-11.0); NEUTROPHILS # (AUTO) 2.8 K/uL (1.8-8.9); NEUTROPHILS % (AUTO) 74.9 % (38.5-71.5); PLATELET COUNT (AUTO) 179 K/uL (152-348); RED BLOOD CELL COUNT(AUTO) 3.14 MIL/uL (4.06-5.63); RED CELL DISTRIBUTION WIDTH 19.9 % (12.1-16.2); WHITE BLOOD COUNT (AUTO) 3.8 K/uL (3.6-10.2)
[2023-02-07 05:21] LABS: DIFFERENTIAL COMMENT 1
[2023-02-07 05:23] LABS: CALCIUM 9.8 mg/dL (8.5-10.1); CREATININE 1.2 mg/dL (0.6-1.3); MAGNESIUM 1.8 mg/dL (1.8-2.4); PHOSPHOROUS 3.5 mg/dL (2.5-4.9); POTASSIUM 3.3 mmol/L (3.5-5.1)
[2023-02-07] MEDS: LEVOTHYROXINE SODIUM 112 MCG TABLET GT SCH (06:29)
[2023-02-07] MEDS: CLONAZEPAM 1 MG TABLET GT SCH ×3 (09:14→17:45)
[2023-02-07] MEDS: ASPIRIN 81 MG TAB.CHEW GT SCH (09:14)
[2023-02-07] MEDS: FERROUS SULFATE 300 MG/5 ML LIQUID UDC GT SCH (09:14)
[2023-02-07] MEDS: ALLOPURINOL 300 MG TABLET GT SCH (09:17)
[2023-02-07] MEDS: buPROPion 75 MG TABLET GT SCH ×2 (09:18→17:38)
[2023-02-07] MEDS: FENOFIBRATE NANOCRYSTALLIZED 145 MG TABLET GT SCH (09:20)
[2023-02-07] MEDS: CHOLECALCIFEROL 1,000 UNIT TABLET GT SCH (09:20)
[2023-02-07] MEDS: SERTRALINE HCL 100 MG TABLET GT SCH (09:20)
[2023-02-07] MEDS: MIRALAX 17 GM POWD.PACK GT SCH ×2 (09:20→17:38)
[2023-02-07] MEDS: PANTOPRAZOLE ORAL SUSPENSION 40 MG SUSPDR.PKT GT SCH (09:20)
[2023-02-07] MEDS: BACLOFEN 10 MG TABLET GT SCH ×2 (09:21→17:37)
[2023-02-07] MEDS: RILUZOLE 50 MG GT SCH ×2 (09:21→17:35)
[2023-02-07] MEDS: CLOPIDOGREL 75 MG TABLET GT SCH (09:22)
[2023-02-07] MEDS: SILODOSIN 4 MG GT SCH (09:22)
[2023-02-07] MEDS: PROTEIN SUPPLEMENT (PROSTAT) 30 ML LIQUID GT SCH ×2 (09:23→17:34)
[2023-02-07] MEDS: POTASSIUM CHLORIDE 20 MEQ POWDER PACKET GT SCH ×2 (10:55→13:28)
[2023-02-07] MEDS: LORAZEPAM 2 MG/1 ML VIAL IV PRN (14:51)
[2023-02-07] MEDS: TIZANIDINE HCL 4 MG TABLET GT SCH (22:15)
[2023-02-07] MEDS: MIRTAZAPINE 15 MG TABLET GT SCH (22:15)
[2023-02-07] MEDS: TAMSULOSIN HCL 0.4 MG CAP.SR.24H XX SCH (22:15)
[2023-02-07] MEDS: ATORVASTATIN 20 MG TABLET GT SCH (22:16)
[2023-02-07] MEDS: FINASTERIDE 5 MG TABLET GT SCH (22:16)
[2023-02-08 00:34] VITALS: BP 98/62; TEMP 97.9; O2SAT 98
[2023-02-08 04:08] VITALS: BP 101/55; TEMP 98; O2SAT 100
[2023-02-08] MEDS: LEVOTHYROXINE SODIUM 112 MCG TABLET GT SCH (06:03)
[2023-02-08 06:27] LABS: CALCIUM 9.9 mg/dL (8.5-10.1); CREATININE 1.1 mg/dL (0.6-1.3); MAGNESIUM 1.8 mg/dL (1.8-2.4); PHOSPHOROUS 3.7 mg/dL (2.5-4.9); POTASSIUM 3.9 mmol/L (3.5-5.1)
[2023-02-08 07:00] LABS: BASOPHILS % (AUTO) 0.2 % (0.0-2.0); EOSINOPHILS # (AUTO) 0.1 K/uL (0.0-0.7); EOSINOPHILS % (AUTO) 3.7 % (0.0-7.0); HEMATOCRIT 26.6 % (36.7-47.1); HEMOGLOBIN 8.9 g/dL (12.5-16.3); LYMPHOCYTES # (AUTO) 0.6 K/uL (0.8-4.8); LYMPHOCYTES % (AUTO) 15.5 % (20.5-51.5); MEAN CORPUSCULAR HEMOGLOBIN 28.3 uug (23.8-33.4); MEAN CORPUSCULAR HGB CONC 33 g/dL (32.5-36.3); MEAN CORPUSCULAR VOLUME 84.6 fL (73.0-96.2); MONOCYTES # (AUTO) 0.3 K/uL (0.1-1.30); MONOCYTES % (AUTO) 7.5 % (0.0-11.0); NEUTROPHILS # (AUTO) 2.8 K/uL (1.8-8.9); NEUTROPHILS % (AUTO) 73.1 % (38.5-71.5); PLATELET COUNT (AUTO) 185 K/uL (152-348); RED BLOOD CELL COUNT(AUTO) 3.14 MIL/uL (4.06-5.63); RED CELL DISTRIBUTION WIDTH 19.9 % (12.1-16.2); WHITE BLOOD COUNT (AUTO) 3.8 K/uL (3.6-10.2)
[2023-02-08 07:05] LABS: DIFFERENTIAL COMMENT 1
[2023-02-08] MEDS: PANTOPRAZOLE ORAL SUSPENSION 40 MG SUSPDR.PKT GT SCH (09:02)
[2023-02-08] MEDS: ALLOPURINOL 300 MG TABLET GT SCH (09:03)
[2023-02-08] MEDS: SERTRALINE HCL 100 MG TABLET GT SCH (09:03)
[2023-02-08] MEDS: MIRALAX 17 GM POWD.PACK GT SCH ×2 (09:03→17:00)
[2023-02-08] MEDS: CHOLECALCIFEROL 1,000 UNIT TABLET GT SCH (09:04)
[2023-02-08] MEDS: CLOPIDOGREL 75 MG TABLET GT SCH (09:04)
[2023-02-08] MEDS: FENOFIBRATE NANOCRYSTALLIZED 145 MG TABLET GT SCH (09:04)
[2023-02-08] MEDS: FERROUS SULFATE 300 MG/5 ML LIQUID UDC GT SCH (09:04)
[2023-02-08] MEDS: CLONAZEPAM 1 MG TABLET GT SCH ×3 (09:06→17:06)
[2023-02-08] MEDS: BACLOFEN 10 MG TABLET GT SCH ×2 (09:07→17:06)
[2023-02-08] MEDS: RILUZOLE 50 MG GT SCH ×2 (09:08→17:07)
[2023-02-08] MEDS: SILODOSIN 4 MG GT SCH (09:08)
[2023-02-08] MEDS: buPROPion 75 MG TABLET GT SCH ×2 (09:10→17:07)
[2023-02-08] MEDS: PROTEIN SUPPLEMENT (PROSTAT) 30 ML LIQUID GT SCH ×2 (09:57→17:08)
[2023-02-08] MEDS: ASPIRIN 81 MG TAB.CHEW GT SCH (10:00)
[2023-02-08 11:51] VITALS: BP 101/49; TEMP 97; O2SAT 100
[2023-02-08] MEDS: JEVITY 1.2 1000 ML LIQUID GT PRN (13:25)
[2023-02-08] MEDS: POLYVINYL ALCOHOL OPHT DROPS 15 ML BOTTLE EACHEYE PRN ×2 (14:51→21:27)
[2023-02-08 16:04] VITALS: BP 109/66; TEMP 97.7; O2SAT 100
[2023-02-08] MEDS: LORAZEPAM 2 MG/1 ML VIAL IV PRN (19:41)
[2023-02-08 20:00] VITALS: BP 102/55; TEMP 97; O2SAT 100
[2023-02-08] MEDS: FINASTERIDE 5 MG TABLET GT SCH (21:20)
[2023-02-08] MEDS: TIZANIDINE HCL 4 MG TABLET GT SCH (21:20)
[2023-02-08] MEDS: MIRTAZAPINE 15 MG TABLET GT SCH (21:20)
[2023-02-08] MEDS: TAMSULOSIN HCL 0.4 MG CAP.SR.24H XX SCH (21:20)
[2023-02-08] MEDS: ATORVASTATIN 20 MG TABLET GT SCH (21:20)
[2023-02-08] MEDS: TRAZODONE 50 MG TABLET GT PRN (21:26)
[2023-02-08] MEDS: MORPHINE SULFATE 2 MG/1 ML DISP.SYRIN IV PRN (21:29)
[2023-02-08 23:54] VITALS: BP 105/50; TEMP 97.7; O2SAT 100
[2023-02-09 04:00] VITALS: BP 100/55; TEMP 98; O2SAT 100
[2023-02-09] MEDS: LEVOTHYROXINE SODIUM 112 MCG TABLET GT SCH (06:05)
[2023-02-09] MEDS: FERROUS SULFATE 300 MG/5 ML LIQUID UDC GT SCH (09:10)
[2023-02-09] MEDS: ASPIRIN 81 MG TAB.CHEW GT SCH (09:11)
[2023-02-09] MEDS: PANTOPRAZOLE ORAL SUSPENSION 40 MG SUSPDR.PKT GT SCH (09:11)
[2023-02-09] MEDS: CLOPIDOGREL 75 MG TABLET GT SCH (09:11)
[2023-02-09] MEDS: CHOLECALCIFEROL 1,000 UNIT TABLET GT SCH (09:11)
[2023-02-09] MEDS: ALLOPURINOL 300 MG TABLET GT SCH (09:12)
[2023-02-09] MEDS: BACLOFEN 10 MG TABLET GT SCH ×2 (09:12→17:17)
[2023-02-09] MEDS: RILUZOLE 50 MG GT SCH ×2 (09:15→17:21)
[2023-02-09] MEDS: MIRALAX 17 GM POWD.PACK GT SCH ×2 (09:15→16:44)
[2023-02-09] MEDS: SILODOSIN 4 MG GT SCH (09:16)
[2023-02-09] MEDS: SERTRALINE HCL 100 MG TABLET GT SCH (09:16)
[2023-02-09] MEDS: PROTEIN SUPPLEMENT (PROSTAT) 30 ML LIQUID GT SCH ×2 (09:16→16:45)
[2023-02-09] MEDS: FENOFIBRATE NANOCRYSTALLIZED 145 MG TABLET GT SCH (09:16)
[2023-02-09] MEDS: buPROPion 75 MG TABLET GT SCH ×2 (09:17→17:19)
[2023-02-09] MEDS: CLONAZEPAM 1 MG TABLET GT SCH ×3 (09:25→17:17)
[2023-02-09] MEDS: LORAZEPAM 2 MG/1 ML VIAL IV PRN (10:31)
[2023-02-09] MEDS: JEVITY 1.2 1000 ML LIQUID GT PRN (10:41)
[2023-02-09 11:56] VITALS: BP 101/59; TEMP 98.4; O2SAT 100
[2023-02-09 16:08] VITALS: BP 121/51; TEMP 97.8; O2SAT 99
[2023-02-09 20:00] VITALS: BP 106/50; TEMP 97.7; O2SAT 100
[2023-02-09] MEDS: FINASTERIDE 5 MG TABLET GT SCH (20:07)
[2023-02-09] MEDS: TIZANIDINE HCL 4 MG TABLET GT SCH (20:07)
[2023-02-09] MEDS: MIRTAZAPINE 15 MG TABLET GT SCH (20:07)
[2023-02-09] MEDS: ATORVASTATIN 20 MG TABLET GT SCH (20:07)
[2023-02-09] MEDS: TAMSULOSIN HCL 0.4 MG CAP.SR.24H XX SCH (20:07)
[2023-02-10] VITALS: BP 110/51; TEMP 97.8; O2SAT 99
[2023-02-10] MEDS: LEVOTHYROXINE SODIUM 112 MCG TABLET GT SCH (05:26)
[2023-02-10 06:32] LABS: BASOPHILS % (AUTO) 0.4 % (0.0-2.0); EOSINOPHILS # (AUTO) 0.1 K/uL (0.0-0.7); EOSINOPHILS % (AUTO) 2.7 % (0.0-7.0); HEMATOCRIT 28.1 % (36.7-47.1); HEMOGLOBIN 9.7 g/dL (12.5-16.3); LYMPHOCYTES # (AUTO) 0.4 K/uL (0.8-4.8); LYMPHOCYTES % (AUTO) 11.9 % (20.5-51.5); MEAN CORPUSCULAR HGB CONC 35 g/dL (32.5-36.3); MONOCYTES # (AUTO) 0.2 K/uL (0.1-1.30); NEUTROPHILS # (AUTO) 2.8 K/uL (1.8-8.9); PLATELET COUNT (AUTO) 229 K/uL (152-348); RED BLOOD CELL COUNT(AUTO) 3.34 MIL/uL (4.06-5.63); RED CELL DISTRIBUTION WIDTH 19.6 % (12.1-16.2); WHITE BLOOD COUNT (AUTO) 3.6 K/uL (3.6-10.2)
[2023-02-10 06:48] LABS: CALCIUM 9.7 mg/dL (8.5-10.1); CREATININE 1.2 mg/dL (0.6-1.3); MAGNESIUM 1.7 mg/dL (1.8-2.4); PHOSPHOROUS 4.5 mg/dL (2.5-4.9); POTASSIUM 3.5 mmol/L (3.5-5.1)
[2023-02-10 07:00] LABS: DIFFERENTIAL COMMENT 1
[2023-02-10] MEDS ORDERED: PROT30LI GT (09:20)
[2023-02-10] MEDS ORDERED: LACT-209 GT (09:20)
[2023-02-10] MEDS ORDERED: ALLO300T2 GT (09:20)
[2023-02-10] MEDS ORDERED: ALBU2.5V7 NEB (09:20)
[2023-02-10] MEDS ORDERED: [UNRECOGNIZED DRUG - OTHER] GT (09:20)
[2023-02-10] MEDS ORDERED: IPRA0.2S6 NEB (09:20)
[2023-02-10] MEDS: ASPIRIN 81 MG TAB.CHEW GT SCH (09:22)
[2023-02-10] MEDS: FERROUS SULFATE 300 MG/5 ML LIQUID UDC GT SCH (09:22)
[2023-02-10] MEDS: CLONAZEPAM 1 MG TABLET GT SCH (09:22)
[2023-02-10] MEDS: CLOPIDOGREL 75 MG TABLET GT SCH (09:23)
[2023-02-10] MEDS: PANTOPRAZOLE ORAL SUSPENSION 40 MG SUSPDR.PKT GT SCH (09:23)
[2023-02-10] MEDS: CHOLECALCIFEROL 1,000 UNIT TABLET GT SCH (09:23)
[2023-02-10] MEDS: BACLOFEN 10 MG TABLET GT SCH (09:23)
[2023-02-10] MEDS: ALLOPURINOL 300 MG TABLET GT SCH (09:24)
[2023-02-10] MEDS: SERTRALINE HCL 100 MG TABLET GT SCH (09:24)
[2023-02-10] MEDS: FENOFIBRATE NANOCRYSTALLIZED 145 MG TABLET GT SCH (09:24)
[2023-02-10] MEDS: SILODOSIN 4 MG GT SCH (09:25)
[2023-02-10] MEDS: RILUZOLE 50 MG GT SCH (09:25)
[2023-02-10] MEDS: MIRALAX 17 GM POWD.PACK GT SCH (09:26)
[2023-02-10] MEDS: PROTEIN SUPPLEMENT (PROSTAT) 30 ML LIQUID GT SCH (09:31)
[2023-02-10] MEDS: buPROPion 75 MG TABLET GT SCH (09:36)
== END 2023-02-10 10:40 | disposition home health service (06) | DRG 207 ==
LOC: ER 15:14 → TRANSITION 20:50 → CCU 01-30 08:45 → TELE3 02-07 18:36
PROVIDERS: ADMIT Nurse Practitioner Acute Care; ATTEND Nurse Practitioner Acute Care
PROC: 5A1955Z Respiratory Ventilation, Greater than 96 Consecutive Hours (ICD-10-PCS; principal; 2023-01-29)
PROC: 05HB33Z Insertion of Infusion Device into Right Basilic Vein, Percutaneous Approach (ICD-10-PCS; 2023-01-30)
DX: T17.990A Other foreign object in respiratory tract, part unspecified in causing asphyxiation, initial encounter (principal); J96.21 Acute and chronic respiratory failure with hypoxia; N17.0 Acute kidney failure with tubular necrosis; J96.22 Acute and chronic respiratory failure with hypercapnia; G93.1 Anoxic brain damage, not elsewhere classified; G12.21 Amyotrophic lateral sclerosis; Z99.11 Dependence on respirator [ventilator] status; D68.59 Other primary thrombophilia; Z93.0 Tracheostomy status; F41.9 Anxiety disorder, unspecified; F32.A Depression, unspecified; E78.5 Hyperlipidemia, unspecified; E03.9 Hypothyroidism, unspecified; Z87.01 Personal history of pneumonia (recurrent); D63.8 Anemia in other chronic diseases classified elsewhere; Z85.21 Personal history of malignant neoplasm of larynx; Z85.118 Personal history of other malignant neoplasm of bronchus and lung; Z93.1 Gastrostomy status; Z79.899 Other long term (current) drug therapy; Z79.02 Long term (current) use of antithrombotics/antiplatelets; N40.0 Benign prostatic hyperplasia without lower urinary tract symptoms; Z74.01 Bed confinement status; R91.1 Solitary pulmonary nodule; M89.8X9 Other specified disorders of bone, unspecified site; K21.9 Gastro-esophageal reflux disease without esophagitis; I70.0 Atherosclerosis of aorta; J47.9 Bronchiectasis, uncomplicated; Z85.819 Personal history of malignant neoplasm of unspecified site of lip, oral cavity, and pharynx; E87.6 Hypokalemia; E86.0 Dehydration
CPT/HCPCS: 36415; 36600; 71045; 83605; 83735; 84100; 84484; 85025; 85730; 87040; 93005; 94002; 94003; 94664; 94760; 99082-TC; A4663; A6209; A6213; G0378; J2060; J2270; J3590

== ENCOUNTER 2023-03-16 18:02 | Inpatient (IN) | payer MEDICARE, OTHER ==
[~2023-03-16] VITALS: Ht 172.7 cm; Wt 64.1 kg
[~2023-03-16 18:02] MED LIST changes: +ALBU2.5V7 NEB; +BACL10TA GT; -BACL5TAB GT; +IPRA0.2S6 NEB; +LACT-209 GT; -LEVO500T90 PO; -OMEG1CAP40 GT; +PROT30LI GT; +[UNRECOGNIZED DRUG - OTHER] GT
[2023-03-16 19:13] LABS: BASOPHILS % (AUTO) 0.1 % (0.0-2.0); EOSINOPHILS # (AUTO) 0.1 K/uL (0.0-0.7); MEAN CORPUSCULAR HEMOGLOBIN 27.2 uug (23.8-33.4); RED BLOOD CELL COUNT(AUTO) 2.62 MIL/uL (4.06-5.63)
[2023-03-16 19:14] LABS: HEMATOCRIT 22.3 % (36.7-47.1); LYMPHOCYTES # (AUTO) 0.3 K/uL (0.8-4.8); LYMPHOCYTES % (AUTO) 1.9 % (20.5-51.5); MEAN CORPUSCULAR HGB CONC 32 g/dL (32.5-36.3); MEAN CORPUSCULAR VOLUME 85.4 fL (73.0-96.2); MONOCYTES # (AUTO) 0.3 K/uL (0.1-1.30); MONOCYTES % (AUTO) 2.2 % (0.0-11.0); NEUTROPHILS # (AUTO) 12.6 K/uL (1.8-8.9); NEUTROPHILS % (AUTO) 94.8 % (38.5-71.5); PLATELET COUNT (AUTO) 420 K/uL (152-348); RED CELL DISTRIBUTION WIDTH 16.1 % (12.1-16.2); WHITE BLOOD COUNT (AUTO) 13.3 K/uL (3.6-10.2)
[2023-03-16 19:17] LABS: DIFFERENTIAL COMMENT 1; HEMOGLOBIN 7.1 g/dL (12.5-16.3)
[2023-03-16 19:22] LABS: CALCIUM 9.9 mg/dL (8.5-10.1); POTASSIUM 4.2 mmol/L (3.5-5.1)
[2023-03-16] MEDS ORDERED: IV NS 1000 ML 1,000 ML IV ONE (19:30)
[2023-03-16] MEDS ORDERED: AZITHROMYCIN IV 500 MG in IV DEXTROSE 5% 250 ML IV ONE (19:45)
[2023-03-16] MEDS ORDERED: CEFTRIAXONE /D5W 50ML IVPB **ER PYXIS IV ONE (19:45)
[2023-03-16] MEDS ORDERED: CEFTRIAXONE 1 G in IV DEXTROSE 5% 50 ML IV ONE (19:45)
[2023-03-16] MEDS ORDERED: AZITHROMYCIN 500MG/ D5W 250ML IVPB **ER PYXIS ONLY IV ONE (19:45)
[2023-03-17] MEDS ORDERED: ONDANSETRON 4 MG/2 ML VIAL IV PRN (00:45)
[2023-03-17] MEDS ORDERED: TRAZODONE 50 MG TABLET PO PRN (00:45)
[2023-03-17] MEDS ORDERED: ALBUTEROL SULFATE 2.5 MG/3 ML NEBU NEB PRN (00:45)
[2023-03-17] MEDS ORDERED: IPRATROPIUM BROMIDE 0.5 MG/2.5 ML NEBU NEB PRN (00:45)
[2023-03-17] MEDS ORDERED: GLYCOPYRROLATE 1 MG TABLET GT PRN (01:30)
[2023-03-17 01:45] VITALS: BP 102/69; TEMP 98.8; O2SAT 100
[2023-03-17] MEDS ORDERED: CEFEPIME HCL 1 G VIAL ONE (05:08)
[2023-03-17] MEDS: CEFEPIME HCL 2 G in IV DEXTROSE 5% 100 ML IV SCH ×3 (05:27→21:33)
[2023-03-17] MEDS: PANTOPRAZOLE ORAL SUSPENSION 40 MG SUSPDR.PKT GT SCH ×2 (06:12→17:43)
[2023-03-17] MEDS: LEVOTHYROXINE SODIUM 112 MCG TABLET GT SCH (06:12)
[2023-03-17] MEDS ORDERED: PANTOPRAZOLE SODIUM 40 MG TABLET.DR PO SCH (07:00)
[2023-03-17] MEDS ORDERED: JEVITY 1.2 1000 ML LIQUID GT SCH ×2 (08:00→08:22)
[2023-03-17 08:32] LABS: ABG BASE EXCESS -0.8 mmol/L; ABG HCO3 23.1 mmol/L; ABG PCO2 34.3 mmHg (35.0-45.0); ABG PH 7.446 (7.350-7.450); ABG PO2 117.4 mmHg (75.0-100.0); ABG SITE RIGHT RADIAL; ABG TOTAL HEMOGLOBIN 7.8 G/dL (13.5-18.0); COHb 0.3 % (0.5-1.5); MetHb 0.2 % (0.0-1.5); O2Hb 97.6 % (94.0-97.0); VENT MODE VENT - A/C18; VT, ABG 550 mL
[2023-03-17 08:34] LABS: BASOPHILS % (AUTO) 0.1 % (0.0-2.0); EOSINOPHILS # (AUTO) 0.1 K/uL (0.0-0.7); EOSINOPHILS % (AUTO) 0.8 % (0.0-7.0); HEMATOCRIT 22.9 % (36.7-47.1); HEMOGLOBIN 7.5 g/dL (12.5-16.3); LYMPHOCYTES # (AUTO) 0.4 K/uL (0.8-4.8); LYMPHOCYTES % (AUTO) 3.5 % (20.5-51.5); MEAN CORPUSCULAR HGB CONC 33 g/dL (32.5-36.3); MEAN CORPUSCULAR VOLUME 85.1 fL (73.0-96.2); MONOCYTES # (AUTO) 0.3 K/uL (0.1-1.30); MONOCYTES % (AUTO) 2.8 % (0.0-11.0); NEUTROPHILS % (AUTO) 92.8 % (38.5-71.5); PLATELET COUNT (AUTO) 412 K/uL (152-348); RED BLOOD CELL COUNT(AUTO) 2.69 MIL/uL (4.06-5.63); WHITE BLOOD COUNT (AUTO) 11.8 K/uL (3.6-10.2)
[2023-03-17] MEDS ORDERED: SILODOSIN 4 MG GT SCH (09:00)
[2023-03-17] MEDS ORDERED: Medication Not On Formulary EA (Fenofibrate 160 MG) GT SCH (09:00)
[2023-03-17] MEDS ORDERED: RILUZOLE 50 MG GT SCH (09:00)
[2023-03-17 09:11] LABS: DIFFERENTIAL COMMENT 1
[2023-03-17] MEDS: LOSARTAN POTASSIUM 50 MG TABLET PO SCH (09:30)
[2023-03-17] MEDS: SERTRALINE HCL 100 MG TABLET GT SCH (09:30)
[2023-03-17] MEDS: ASPIRIN 81 MG TAB.CHEW GT SCH (09:30)
[2023-03-17] MEDS: ALLOPURINOL 100 MG TABLET GT SCH (09:31)
[2023-03-17] MEDS: CLOPIDOGREL 75 MG TABLET GT SCH (09:31)
[2023-03-17] MEDS: CHOLECALCIFEROL 1,000 UNIT TABLET GT SCH (09:31)
[2023-03-17] MEDS: CLONAZEPAM 1 MG TABLET PO SCH ×3 (09:31→17:43)
[2023-03-17] MEDS: FERROUS SULFATE 300 MG/5 ML LIQUID UDC GT SCH (09:32)
[2023-03-17] MEDS: BACLOFEN 10 MG TABLET GT SCH ×2 (09:32→17:43)
[2023-03-17] MEDS: buPROPion 75 MG TABLET GT SCH ×2 (09:32→17:47)
[2023-03-17] MEDS: PROTEIN SUPPLEMENT (PROSTAT) 30 ML LIQUID GT SCH ×2 (09:35→17:44)
[2023-03-17] MEDS: MIRALAX 17 GM POWD.PACK GT SCH ×2 (09:35→17:43)
[2023-03-17] MEDS: SULFAMETH/TRIMETH 800/160 MG TABLET PO SCH ×2 (11:03→20:58)
[2023-03-17 11:49] VITALS: BP 96/60; TEMP 98.3; O2SAT 98
[2023-03-17 15:57] VITALS: BP 90/53; TEMP 97.5; O2SAT 99
[2023-03-17] MEDS: ACETAMINOPHEN 325 MG TABLET PO PRN (18:23)
[2023-03-17] MEDS: FINASTERIDE 5 MG TABLET GT SCH (20:58)
[2023-03-17] MEDS: ATORVASTATIN 20 MG TABLET GT SCH (20:58)
[2023-03-17] MEDS: TAMSULOSIN HCL 0.4 MG CAP.SR.24H PO SCH (20:58)
[2023-03-17] MEDS: TIZANIDINE HCL 4 MG TABLET GT SCH (20:58)
[2023-03-17 21:26] VITALS: BP 113/65; TEMP 98.2; O2SAT 96
[2023-03-18 00:20] VITALS: BP 90/50; TEMP 98.3; O2SAT 99
[2023-03-18 04:06] VITALS: BP 95/46; TEMP 98.4; O2SAT 99
[2023-03-18] MEDS: CEFEPIME HCL 2 G in IV DEXTROSE 5% 100 ML IV SCH ×3 (05:30→21:41)
[2023-03-18] MEDS: LEVOTHYROXINE SODIUM 112 MCG TABLET GT SCH (06:24)
[2023-03-18 07:29] LABS: *OCCULT BLOOD STOOL NEGATIVE (NEGATIVE)
[2023-03-18 07:57] LABS: BASOPHILS % (AUTO) 0.1 % (0.0-2.0); DIFFERENTIAL COMMENT 0; EOSINOPHILS # (AUTO) 0.1 K/uL (0.0-0.7); EOSINOPHILS % (AUTO) 1.7 % (0.0-7.0); HEMATOCRIT 23.2 % (36.7-47.1); HEMOGLOBIN 7.5 g/dL (12.5-16.3); LYMPHOCYTES # (AUTO) 0.4 K/uL (0.8-4.8); LYMPHOCYTES % (AUTO) 4.9 % (20.5-51.5); MEAN CORPUSCULAR HEMOGLOBIN 27.9 uug (23.8-33.4); MEAN CORPUSCULAR HGB CONC 32 g/dL (32.5-36.3); MEAN CORPUSCULAR VOLUME 86.2 fL (73.0-96.2); MONOCYTES # (AUTO) 0.2 K/uL (0.1-1.30); MONOCYTES % (AUTO) 3.2 % (0.0-11.0); NEUTROPHILS # (AUTO) 6.7 K/uL (1.8-8.9); NEUTROPHILS % (AUTO) 90.1 % (38.5-71.5); PLATELET COUNT (AUTO) 423 K/uL (152-348); RED BLOOD CELL COUNT(AUTO) 2.68 MIL/uL (4.06-5.63); WHITE BLOOD COUNT (AUTO) 7.5 K/uL (3.6-10.2)
[2023-03-18] MEDS: CHOLECALCIFEROL 1,000 UNIT TABLET GT SCH (08:12)
[2023-03-18] MEDS: CLOPIDOGREL 75 MG TABLET GT SCH (08:12)
[2023-03-18] MEDS: PANTOPRAZOLE ORAL SUSPENSION 40 MG SUSPDR.PKT GT SCH ×2 (08:12→16:01)
[2023-03-18] MEDS: BACLOFEN 10 MG TABLET GT SCH ×2 (08:12→16:02)
[2023-03-18] MEDS: FERROUS SULFATE 300 MG/5 ML LIQUID UDC GT SCH (08:14)
[2023-03-18] MEDS: SULFAMETH/TRIMETH 800/160 MG TABLET PO SCH ×2 (08:14→20:48)
[2023-03-18] MEDS: ASPIRIN 81 MG TAB.CHEW GT SCH (08:14)
[2023-03-18 08:15] LABS: ALBUMIN 3.3 g/dL (3.4-5.0); BILIRUBIN,TOTAL 0.3 mg/dL (0.2-1.0); CALCIUM 9.8 mg/dL (8.5-10.1); MAGNESIUM 2.1 mg/dL (1.8-2.4); POTASSIUM 4.5 mmol/L (3.5-5.1); TOTAL PROTEIN, SERUM 7.6 g/dL (6.4-8.2)
[2023-03-18] MEDS: CLONAZEPAM 1 MG TABLET PO SCH ×3 (08:15→16:01)
[2023-03-18] MEDS: ALLOPURINOL 100 MG TABLET GT SCH (08:15)
[2023-03-18] MEDS: SERTRALINE HCL 100 MG TABLET GT SCH (08:16)
[2023-03-18] MEDS: PROTEIN SUPPLEMENT (PROSTAT) 30 ML LIQUID GT SCH ×2 (08:18→15:43)
[2023-03-18] MEDS: MIRALAX 17 GM POWD.PACK GT SCH ×2 (08:18→15:43)
[2023-03-18] MEDS: buPROPion 75 MG TABLET GT SCH ×2 (08:18→16:01)
[2023-03-18] MEDS: LOSARTAN POTASSIUM 50 MG TABLET PO SCH (08:46)
[2023-03-18 09:26] LABS: RETICULOCYTE COUNT 2.4 % (0.4-2.2)
[2023-03-18 11:34] VITALS: BP 141/37; TEMP 98.6; O2SAT 99
[2023-03-18] MEDS: JEVITY 1.2 1000 ML LIQUID GT PRN (15:01)
[2023-03-18 16:00] VITALS: BP 149/72; TEMP 98; O2SAT 92
[2023-03-18 19:00] VITALS: BP 108/45; TEMP 98.5; O2SAT 97
[2023-03-18] MEDS: FINASTERIDE 5 MG TABLET GT SCH (20:13)
[2023-03-18] MEDS: TAMSULOSIN HCL 0.4 MG CAP.SR.24H PO SCH (20:13)
[2023-03-18] MEDS: ATORVASTATIN 20 MG TABLET GT SCH (20:14)
[2023-03-18] MEDS: TIZANIDINE HCL 4 MG TABLET GT SCH (20:48)
[2023-03-19 00:01] VITALS: BP 110/79; TEMP 97.4; O2SAT 100
[2023-03-19] MEDS: ACETAMINOPHEN 325 MG TABLET PO PRN (01:55)
[2023-03-19 04:00] VITALS: BP 98/55; TEMP 97.7; O2SAT 98
[2023-03-19] MEDS: CEFEPIME HCL 2 G in IV DEXTROSE 5% 100 ML IV SCH ×2 (05:44→14:00)
[2023-03-19 07:23] LABS: EOSINOPHILS # (AUTO) 0.1 K/uL (0.0-0.7); LYMPHOCYTES # (AUTO) 0.4 K/uL (0.8-4.8); MONOCYTES # (AUTO) 0.3 K/uL (0.1-1.30); NEUTROPHILS # (AUTO) 5.4 K/uL (1.8-8.9)
[2023-03-19 07:25] LABS: BASOPHILS % (AUTO) 0.2 % (0.0-2.0); EOSINOPHILS % (AUTO) 1.6 % (0.0-7.0); HEMATOCRIT 22.3 % (36.7-47.1); LYMPHOCYTES % (AUTO) 6.1 % (20.5-51.5); MEAN CORPUSCULAR HGB CONC 33 g/dL (32.5-36.3); MEAN CORPUSCULAR VOLUME 84.4 fL (73.0-96.2); MONOCYTES % (AUTO) 5.3 % (0.0-11.0); NEUTROPHILS % (AUTO) 86.8 % (38.5-71.5); PLATELET COUNT (AUTO) 382 K/uL (152-348); RED BLOOD CELL COUNT(AUTO) 2.64 MIL/uL (4.06-5.63); RED CELL DISTRIBUTION WIDTH 16.1 % (12.1-16.2); WHITE BLOOD COUNT (AUTO) 6.3 K/uL (3.6-10.2)
[2023-03-19 07:37] LABS: CALCIUM 9.6 mg/dL (8.5-10.1); CREATININE 1.1 mg/dL (0.6-1.3); MAGNESIUM 2.1 mg/dL (1.8-2.4); PHOSPHOROUS 2.9 mg/dL (2.5-4.9); POTASSIUM 4.6 mmol/L (3.5-5.1)
[2023-03-19 07:47] LABS: DIFFERENTIAL COMMENT 1; HEMOGLOBIN 7.4 g/dL (12.5-16.3)
[2023-03-19] MEDS: LEVOTHYROXINE SODIUM 112 MCG TABLET GT SCH (07:57)
[2023-03-19] MEDS: PROTEIN SUPPLEMENT (PROSTAT) 30 ML LIQUID GT SCH (07:58)
[2023-03-19 08:00] VITALS: BP 109/76; TEMP 97.6; O2SAT 98
[2023-03-19] MEDS: ALLOPURINOL 100 MG TABLET GT SCH (08:05)
[2023-03-19] MEDS: CLONAZEPAM 1 MG TABLET PO SCH ×2 (08:05→12:35)
[2023-03-19] MEDS: FERROUS SULFATE 300 MG/5 ML LIQUID UDC GT SCH (08:05)
[2023-03-19] MEDS: CLOPIDOGREL 75 MG TABLET GT SCH (08:05)
[2023-03-19] MEDS: MIRALAX 17 GM POWD.PACK GT SCH (08:06)
[2023-03-19] MEDS: PANTOPRAZOLE ORAL SUSPENSION 40 MG SUSPDR.PKT GT SCH (08:06)
[2023-03-19] MEDS: LOSARTAN POTASSIUM 50 MG TABLET PO SCH (08:06)
[2023-03-19] MEDS: ASPIRIN 81 MG TAB.CHEW GT SCH (08:06)
[2023-03-19] MEDS: CHOLECALCIFEROL 1,000 UNIT TABLET GT SCH (08:06)
[2023-03-19] MEDS: BACLOFEN 10 MG TABLET GT SCH (08:06)
[2023-03-19] MEDS: buPROPion 75 MG TABLET GT SCH (08:09)
[2023-03-19] MEDS: SULFAMETH/TRIMETH 800/160 MG TABLET PO SCH (08:34)
[2023-03-19] MEDS: SERTRALINE HCL 100 MG TABLET GT SCH (08:34)
[2023-03-19] MEDS: JEVITY 1.2 1000 ML LIQUID GT PRN (09:55)
[2023-03-19 12:00] VITALS: BP 103/60; TEMP 97.9; O2SAT 98
[2023-03-19] MEDS ORDERED: LEVO500T90 PO (16:12)
== END 2023-03-19 14:45 | disposition short-term general hospital (02) | DRG 208 ==
LOC: ER 18:05 → TELE3 20:13 → CCU 03-18 17:44
PROVIDERS: ADMIT Internal Medicine; ATTEND Nurse Practitioner Acute Care
PROC: 5A1945Z Respiratory Ventilation, 24-96 Consecutive Hours (ICD-10-PCS; principal; 2023-03-16)
DX: J95.851 Ventilator associated pneumonia (principal); J96.21 Acute and chronic respiratory failure with hypoxia; J96.22 Acute and chronic respiratory failure with hypercapnia; G12.21 Amyotrophic lateral sclerosis; Z99.11 Dependence on respirator [ventilator] status; E86.0 Dehydration; Z85.21 Personal history of malignant neoplasm of larynx; Z93.0 Tracheostomy status; Y84.8 Other medical procedures as the cause of abnormal reaction of the patient, or of later complication, without mention of misadventure at the time of the procedure; F41.9 Anxiety disorder, unspecified; E78.5 Hyperlipidemia, unspecified; E03.9 Hypothyroidism, unspecified; R79.82 Elevated C-reactive protein (CRP); C32.9 Malignant neoplasm of larynx, unspecified; Z93.1 Gastrostomy status; R13.10 Dysphagia, unspecified; N40.0 Benign prostatic hyperplasia without lower urinary tract symptoms; G47.00 Insomnia, unspecified; K21.9 Gastro-esophageal reflux disease without esophagitis; D64.9 Anemia, unspecified; Z79.02 Long term (current) use of antithrombotics/antiplatelets; Z79.899 Other long term (current) drug therapy; Z87.01 Personal history of pneumonia (recurrent); R91.1 Solitary pulmonary nodule
CPT/HCPCS: 36415; 36600; 70030-TC; 71045; 74018; 82803; 83735; 84100; 85025; 86140; 87040; 93005; 94002; 94003; 94760; 99082-TC; A4606; A4663; A6213; G0378; J0456; J0692; J0696; J7040; J8499

== ENCOUNTER 2023-04-19 20:10 | Inpatient (IN) | payer MEDICARE, OTHER ==
[~2023-04-19] VITALS: Ht 172.7 cm; Wt 67.6 kg
[~2023-04-19 20:10] MED LIST changes: +LEVO500T90 PO
[2023-04-19 20:38] LABS: BASOPHILS % (AUTO) 0.4 % (0.0-2.0); DIFFERENTIAL COMMENT 0; EOSINOPHILS # (AUTO) 0.1 K/uL (0.0-0.7); EOSINOPHILS % (AUTO) 0.7 % (0.0-7.0); HEMATOCRIT 30.4 % (36.7-47.1); HEMOGLOBIN 9.9 g/dL (12.5-16.3); LYMPHOCYTES # (AUTO) 0.3 K/uL (0.8-4.8); LYMPHOCYTES % (AUTO) 2.5 % (20.5-51.5); MEAN CORPUSCULAR HEMOGLOBIN 27.6 uug (23.8-33.4); MEAN CORPUSCULAR HGB CONC 33 g/dL (32.5-36.3); MONOCYTES # (AUTO) 0.3 K/uL (0.1-1.30); MONOCYTES % (AUTO) 2.8 % (0.0-11.0); NEUTROPHILS # (AUTO) 9.9 K/uL (1.8-8.9); NEUTROPHILS % (AUTO) 93.6 % (38.5-71.5); PLATELET COUNT (AUTO) 297 K/uL (152-348); RED BLOOD CELL COUNT(AUTO) 3.58 MIL/uL (4.06-5.63); WHITE BLOOD COUNT (AUTO) 10.5 K/uL (3.6-10.2)
[2023-04-19 20:47] LABS: CALCIUM 10.4 mg/dL (8.5-10.1); CREATININE 0.8 mg/dL (0.6-1.3); POTASSIUM 3.9 mmol/L (3.5-5.1)
[2023-04-19 21:00] LABS: ALBUMIN 3.3 g/dL (3.4-5.0); BILIRUBIN,TOTAL 0.5 mg/dL (0.2-1.0); TOTAL PROTEIN, SERUM 7.2 g/dL (6.4-8.2)
[2023-04-19] MEDS ORDERED: IV NS 1000 ML 1,000 ML IV ONE (22:00)
[2023-04-19] MEDS ORDERED: CEFTRIAXONE 1 G in IV DEXTROSE 5% 50 ML IV ONE (22:00)
[2023-04-19] MEDS ORDERED: AZITHROMYCIN IV 500 MG in IV DEXTROSE 5% 250 ML IV ONE (22:00)
[2023-04-19] MEDS ORDERED: CEFTRIAXONE 1 G VIAL ONE (22:29)
[2023-04-19] MEDS ORDERED: AZITHROMYCIN 500 MG VIAL IV ONE (22:29)
[2023-04-20] MEDS ORDERED: MAGNESIUM HYDROXIDE 30 ML LIQUID UDC PO PRN (00:45)
[2023-04-20] MEDS ORDERED: REMEDY ESSENTIAL ZINC PASTE 113 GM TP PRN (00:45)
[2023-04-20] MEDS ORDERED: ACETAMINOPHEN 325 MG TABLET PO PRN (00:45)
[2023-04-20] MEDS ORDERED: ONDANSETRON 4 MG/2 ML VIAL IV PRN (00:45)
[2023-04-20] MEDS ORDERED: IV NORMAL SALINE 500 ML IV ONE (01:00)
[2023-04-20] MEDS ORDERED: NOREPINEPHRINE BITARTRATE 8 MG in IV NORMAL SALINE 242 ML IV PRN (01:15)
[2023-04-20 06:14] LABS: ALBUMIN 2.9 g/dL (3.4-5.0); BILIRUBIN,DIRECT 0.2 mg/dL (0.0-0.2); BILIRUBIN,TOTAL 0.5 mg/dL (0.2-1.0); TOTAL PROTEIN, SERUM 6.4 g/dL (6.4-8.2)
[2023-04-20 08:00] VITALS: BP 105/59; TEMP 98.2; O2SAT 100
[2023-04-20] MEDS: PANTOPRAZOLE SODIUM 40 MG TABLET.DR PO SCH (08:46)
[2023-04-20] MEDS: ENOXAPARIN SODIUM 40 MG/0.4 ML DISP.SYRIN SQ SCH (08:47)
[2023-04-20] MEDS: CLONAZEPAM 1 MG TABLET GT SCH ×3 (09:13→18:04)
[2023-04-20 12:00] VITALS: BP 96/65; TEMP 97.9; O2SAT 100
[2023-04-20 16:00] VITALS: BP 96/63; TEMP 98; O2SAT 100
[2023-04-20] MEDS ORDERED: SWABABLE VALVE TRANSFER SET EA MC ONE ×2 (16:19→17:20)
[2023-04-20] MEDS ORDERED: IV NORMAL SALINE 250 ML IV ONE ×2 (16:19→17:20)
[2023-04-20] MEDS ORDERED: IOHEXOL 350 100 ML INFUS..BTL ONE (16:19)
[2023-04-20] MEDS ORDERED: IOHEXOL 300MG/ML 100 ML INFUS..BTL ONE (17:20)
[2023-04-20 20:00] VITALS: BP 115/77; TEMP 97.5; O2SAT 100
[2023-04-20] MEDS: CEFTRIAXONE 1 G in IV DEXTROSE 5% 50 ML IV SCH (21:57)
[2023-04-20] MEDS: AZITHROMYCIN IV 500 MG in IV DEXTROSE 5% 250 ML IV SCH (21:57)
[2023-04-21] VITALS (10 sets, daily range): BP systolic 108–144; BP diastolic 56–87; TEMP 97.6–98.4; O2SAT 96–99
[2023-04-21 04:55] LABS: BASOPHILS % (AUTO) 0.1 % (0.0-2.0); EOSINOPHILS # (AUTO) 0.1 K/uL (0.0-0.7); EOSINOPHILS % (AUTO) 1.9 % (0.0-7.0); HEMATOCRIT 26.7 % (36.7-47.1); HEMOGLOBIN 8.9 g/dL (12.5-16.3); LYMPHOCYTES # (AUTO) 0.3 K/uL (0.8-4.8); LYMPHOCYTES % (AUTO) 4.1 % (20.5-51.5); MEAN CORPUSCULAR HGB CONC 33 g/dL (32.5-36.3); MONOCYTES # (AUTO) 0.3 K/uL (0.1-1.30); NEUTROPHILS # (AUTO) 6.4 K/uL (1.8-8.9); NEUTROPHILS % (AUTO) 89.9 % (38.5-71.5); PLATELET COUNT (AUTO) 215 K/uL (152-348); RED BLOOD CELL COUNT(AUTO) 3.18 MIL/uL (4.06-5.63); RED CELL DISTRIBUTION WIDTH 16.7 % (12.1-16.2); WHITE BLOOD COUNT (AUTO) 7.1 K/uL (3.6-10.2)
[2023-04-21 05:12] LABS: CALCIUM 9.4 mg/dL (8.5-10.1); CARBON DIOXIDE 21 mmol/L (21-32); CHLORIDE 102 mmol/L (98-107); CREATININE 0.6 mg/dL (0.6-1.3); GLUCOSE 80 mg/dL (74-106); MAGNESIUM 1.5 mg/dL (1.8-2.4); PHOSPHOROUS 3.5 mg/dL (2.5-4.9); POTASSIUM 3.4 mmol/L (3.5-5.1); SODIUM SERUM 138 mmol/L (136-145); UREA NITROGEN, BLOOD 17 mg/dL (7-18)
[2023-04-21 05:15] LABS: DIFFERENTIAL COMMENT 1
[2023-04-21] MEDS: PANTOPRAZOLE SODIUM 40 MG TABLET.DR PO SCH (05:48)
[2023-04-21] MEDS ORDERED: CLONAZEPAM 0.5 MG TABLET GT SCH (06:00)
[2023-04-21] MEDS ORDERED: POTASSIUM CHLORIDE 20 MEQ POWDER PACKET GT ONE (08:00)
[2023-04-21] MEDS: MAGNESIUM SULFATE/D5W 100 ML IV SCH ×2 (09:33→09:45)
[2023-04-21] MEDS: ENOXAPARIN SODIUM 40 MG/0.4 ML DISP.SYRIN SQ SCH (09:35)
[2023-04-21] MEDS: LORAZEPAM 2 MG/1 ML VIAL IV PRN ×3 (11:42→16:40)
[2023-04-21] MEDS ORDERED: CLONAZEPAM 1 MG TABLET GT SCH (14:00)
[2023-04-21] MEDS: IV D5 1/2 NS 1000 ML 1,000 ML IV PRN (18:38)
[2023-04-21] MEDS ORDERED: TEMAZEPAM 7.5 MG CAPSULE PO PRN (18:45)
[2023-04-21] MEDS ORDERED: FENO145T21 PO (18:53)
[2023-04-21] MEDS ORDERED: LEVO150T8 PO (18:57)
[2023-04-21] MEDS ORDERED: QUET100T PO (19:05)
[2023-04-21] MEDS: CEFTRIAXONE 1 G in IV DEXTROSE 5% 50 ML IV SCH (20:29)
[2023-04-21] MEDS: AZITHROMYCIN IV 500 MG in IV DEXTROSE 5% 250 ML IV SCH (21:55)
[2023-04-22] VITALS (17 sets, daily range): BP systolic 98–155; BP diastolic 62–99; TEMP 97.5–98.7; O2SAT 99–100
[2023-04-22] MEDS: LORAZEPAM 2 MG/1 ML VIAL IV PRN ×4 (00:43→23:00)
[2023-04-22 05:14] LABS: BASOPHILS % (AUTO) 0.3 % (0.0-2.0); EOSINOPHILS # (AUTO) 0.1 K/uL (0.0-0.7); HEMATOCRIT 28.7 % (36.7-47.1); HEMOGLOBIN 9.5 g/dL (12.5-16.3); LYMPHOCYTES # (AUTO) 0.5 K/uL (0.8-4.8); MEAN CORPUSCULAR HGB CONC 33 g/dL (32.5-36.3); MEAN CORPUSCULAR VOLUME 84.9 fL (73.0-96.2); MONOCYTES # (AUTO) 0.4 K/uL (0.1-1.30); MONOCYTES % (AUTO) 4.9 % (0.0-11.0); NEUTROPHILS % (AUTO) 87.8 % (38.5-71.5); PLATELET COUNT (AUTO) 254 K/uL (152-348); RED BLOOD CELL COUNT(AUTO) 3.38 MIL/uL (4.06-5.63); WHITE BLOOD COUNT (AUTO) 7.9 K/uL (3.6-10.2)
[2023-04-22 05:35] LABS: DIFFERENTIAL COMMENT 1
[2023-04-22 05:36] LABS: CALCIUM 9.9 mg/dL (8.5-10.1); CARBON DIOXIDE 24 mmol/L (21-32); CHLORIDE 105 mmol/L (98-107); CREATININE 0.6 mg/dL (0.6-1.3); GLUCOSE 91 mg/dL (74-106); MAGNESIUM 1.6 mg/dL (1.8-2.4); PHOSPHOROUS 3.7 mg/dL (2.5-4.9); POTASSIUM 3.6 mmol/L (3.5-5.1); SODIUM SERUM 141 mmol/L (136-145); UREA NITROGEN, BLOOD 14 mg/dL (7-18)
[2023-04-22 05:47] LABS: ABG BASE EXCESS -0.5 mmol/L (-2.0-2.0); ABG HCO3 22.3 mmol/L (22.0-26.0); ABG PCO2 30.4 mmHg (35.0-48.0); ABG PH 7.484 (7.340-7.440); ABG PO2 110.9 mmHg (75.0-100.0); ABG SITE RIGHT RADIAL; ABG TOTAL HEMOGLOBIN 10.4 G/dL (14.0-18.0); AaDO2 98.4 mmHg; COHb 0.1 % (0.0-3.9); MetHb 0.3 % (0.0-1.5); O2Hb 97.8 % (94.0-97.0); VT, ABG 550 mL
[2023-04-22] MEDS ORDERED: CLONAZEPAM 1 MG TABLET GT SCH (08:17)
[2023-04-22] MEDS ORDERED: CLONAZEPAM 1 MG TABLET PO SCH (08:17)
[2023-04-22] MEDS ORDERED: MAGNESIUM HYDROXIDE 30 ML LIQUID UDC GT PRN (08:28)
[2023-04-22] MEDS ORDERED: POTASSIUM CHLORIDE 20 MEQ POWDER PACKET GT ONE (08:30)
[2023-04-22] MEDS: CLONAZEPAM 1 MG TABLET GT SCH ×3 (09:20→20:54)
[2023-04-22] MEDS: MAGNESIUM SULFATE/D5W 100 ML IV SCH ×2 (09:21→10:53)
[2023-04-22] MEDS: ENOXAPARIN SODIUM 40 MG/0.4 ML DISP.SYRIN SQ SCH (09:32)
[2023-04-22] MEDS: CEFTRIAXONE 1 G in IV DEXTROSE 5% 50 ML IV SCH (20:49)
[2023-04-22] MEDS: QUETIAPINE FUMARATE 100 MG TABLET GT SCH (20:49)
[2023-04-22] MEDS: FINASTERIDE 5 MG TABLET GT SCH (20:53)
[2023-04-22] MEDS: MELATONIN 3 MG TABLET GT SCH (20:53)
[2023-04-22] MEDS: ATORVASTATIN 20 MG TABLET GT SCH (21:00)
[2023-04-22] MEDS: AZITHROMYCIN IV 500 MG in IV DEXTROSE 5% 250 ML IV SCH (21:00)
[2023-04-22] MEDS: MIRTAZAPINE 15 MG TABLET GT SCH (21:00)
[2023-04-22] MEDS: IV D5 1/2 NS 1000 ML 1,000 ML IV PRN (21:11)
[2023-04-23 05:00] VITALS: BP 119/82; TEMP 98.4; O2SAT 98
[2023-04-23] MEDS: CLONAZEPAM 1 MG TABLET GT SCH ×4 (06:00→21:00)
[2023-04-23] MEDS: PANTOPRAZOLE ORAL SUSPENSION 40 MG SUSPDR.PKT GT SCH (06:31)
[2023-04-23] MEDS: LEVOTHYROXINE SODIUM 150 MCG TABLET PO SCH (07:17)
[2023-04-23 07:57] LABS: BASOPHILS % (AUTO) 0.1 % (0.0-2.0); DIFFERENTIAL COMMENT 0; EOSINOPHILS % (AUTO) 0.3 % (0.0-7.0); HEMATOCRIT 30.5 % (36.7-47.1); LYMPHOCYTES # (AUTO) 0.3 K/uL (0.8-4.8); LYMPHOCYTES % (AUTO) 2.7 % (20.5-51.5); MEAN CORPUSCULAR HEMOGLOBIN 27.5 uug (23.8-33.4); MEAN CORPUSCULAR HGB CONC 33 g/dL (32.5-36.3); MONOCYTES # (AUTO) 0.4 K/uL (0.1-1.30); MONOCYTES % (AUTO) 3.9 % (0.0-11.0); NEUTROPHILS # (AUTO) 10.2 K/uL (1.8-8.9); PLATELET COUNT (AUTO) 316 K/uL (152-348); RED BLOOD CELL COUNT(AUTO) 3.63 MIL/uL (4.06-5.63); RED CELL DISTRIBUTION WIDTH 17.1 % (12.1-16.2)
[2023-04-23 08:00] VITALS: BP 89/76; TEMP 98; O2SAT 97
[2023-04-23 08:04] LABS: CALCIUM 10.1 mg/dL (8.5-10.1); CARBON DIOXIDE 23 mmol/L (21-32); CHLORIDE 103 mmol/L (98-107); CREATININE 0.5 mg/dL (0.6-1.3); GLUCOSE 117 mg/dL (74-106); MAGNESIUM 1.6 mg/dL (1.8-2.4); PHOSPHOROUS 3.3 mg/dL (2.5-4.9); POTASSIUM 3.5 mmol/L (3.5-5.1); SODIUM SERUM 129 mmol/L (136-145); UREA NITROGEN, BLOOD 13 mg/dL (7-18)
[2023-04-23] MEDS: ALLOPURINOL 300 MG TABLET GT SCH (08:08)
[2023-04-23] MEDS: BACLOFEN 10 MG TABLET GT SCH ×2 (08:08→16:40)
[2023-04-23] MEDS: ASPIRIN 81 MG TAB.CHEW GT SCH (08:08)
[2023-04-23] MEDS: FERROUS SULFATE 300 MG/5 ML LIQUID UDC GT SCH (08:08)
[2023-04-23] MEDS: CLOPIDOGREL 75 MG TABLET GT SCH (08:08)
[2023-04-23] MEDS: CHOLECALCIFEROL 1,000 UNIT TABLET GT SCH (08:08)
[2023-04-23] MEDS: SERTRALINE HCL 100 MG TABLET GT SCH ×2 (08:10→20:04)
[2023-04-23] MEDS: buPROPion 75 MG TABLET GT SCH ×2 (08:10→16:40)
[2023-04-23] MEDS: FENOFIBRATE NANOCRYSTALLIZED 145 MG TABLET PO SCH (08:10)
[2023-04-23] MEDS: ENOXAPARIN SODIUM 40 MG/0.4 ML DISP.SYRIN SQ SCH (08:11)
[2023-04-23 10:25] LABS: CALCIUM 9.7 mg/dL (8.5-10.1); CARBON DIOXIDE 23 mmol/L (21-32); CHLORIDE 106 mmol/L (98-107); CREATININE 0.6 mg/dL (0.6-1.3); GLUCOSE 117 mg/dL (74-106); POTASSIUM 3.7 mmol/L (3.5-5.1); SODIUM SERUM 142 mmol/L (136-145); UREA NITROGEN, BLOOD 14 mg/dL (7-18)
[2023-04-23 12:00] VITALS: BP 106/77; TEMP 97.8; O2SAT 98
[2023-04-23] MEDS: VANCOMYCIN IV 1,000 MG in IV DEXTROSE 5% 250 ML IV SCH ×2 (12:44→23:01)
[2023-04-23] MEDS ORDERED: CEFEPIME HCL 2 G in IV DEXTROSE 5% 100 ML IV SCH (14:00)
[2023-04-23] MEDS: MAGNESIUM SULFATE/D5W 100 ML IV SCH ×2 (14:21→15:21)
[2023-04-23 16:00] VITALS: BP 108/80; TEMP 98; O2SAT 100
[2023-04-23] MEDS ORDERED: JEVITY 1.2 1000 ML LIQUID GT PRN (18:00)
[2023-04-23] MEDS: IV D5 1/2 NS 1000 ML 1,000 ML IV PRN (18:21)
[2023-04-23] MEDS ORDERED: EDAR30PI GT (18:48)
[2023-04-23] MEDS: LORAZEPAM 2 MG/1 ML VIAL IV PRN (19:25)
[2023-04-23 20:00] VITALS: BP 169/94; TEMP 98.6; O2SAT 96
[2023-04-23] MEDS: QUETIAPINE FUMARATE 100 MG TABLET GT SCH (20:03)
[2023-04-23] MEDS: CEFTRIAXONE 2 G in IV DEXTROSE 5% 100 ML IV SCH (20:18)
[2023-04-23] MEDS: FINASTERIDE 5 MG TABLET GT SCH (20:59)
[2023-04-23] MEDS: ACETAMINOPHEN 325 MG TABLET GT PRN (21:00)
[2023-04-23] MEDS: MELATONIN 3 MG TABLET GT SCH (21:01)
[2023-04-23] MEDS: TEMAZEPAM 7.5 MG CAPSULE GT PRN (21:01)
[2023-04-23] MEDS: MIRTAZAPINE 15 MG TABLET GT SCH (21:01)
[2023-04-23] MEDS: TRAZODONE 50 MG TABLET PO PRN (21:01)
[2023-04-23] MEDS: ATORVASTATIN 20 MG TABLET GT SCH (21:02)
[2023-04-23] MEDS: TIZANIDINE HCL 4 MG TABLET GT SCH (21:04)
[2023-04-24 04:00] VITALS: BP 116/76; TEMP 97.7; O2SAT 99
[2023-04-24] MEDS: CLONAZEPAM 1 MG TABLET GT SCH ×3 (06:00→21:40)
[2023-04-24] MEDS ORDERED: LIDOCAINE HCL 1% 20 ML VIAL ONE (06:09)
[2023-04-24] MEDS ORDERED: FENTANYL CITRATE 100 MCG/2 ML AMPUL ONE (06:34)
[2023-04-24] MEDS ORDERED: MIDAZOLAM HCL 2 MG/2 ML VIAL ONE (06:34)
[2023-04-24] MEDS ORDERED: VASOPRESSIN 20 UNIT/ML VIAL ONE (06:35)
[2023-04-24] MEDS ORDERED: ROCURONIUM BROMIDE 50 MG/5 ML VIAL ONE (06:35)
[2023-04-24] MEDS ORDERED: ONDANSETRON 4 MG/2 ML VIAL ONE (06:45)
[2023-04-24 08:15] VITALS: BP 90/67; TEMP 97.7; O2SAT 100
[2023-04-24] MEDS: ASPIRIN 81 MG TAB.CHEW GT SCH (08:48)
[2023-04-24] MEDS: FERROUS SULFATE 300 MG/5 ML LIQUID UDC GT SCH (08:48)
[2023-04-24] MEDS: BACLOFEN 10 MG TABLET GT SCH ×2 (08:48→17:09)
[2023-04-24] MEDS: LEVOTHYROXINE SODIUM 150 MCG TABLET PO SCH (08:48)
[2023-04-24] MEDS: CLOPIDOGREL 75 MG TABLET GT SCH (08:48)
[2023-04-24] MEDS: CHOLECALCIFEROL 1,000 UNIT TABLET GT SCH (08:49)
[2023-04-24] MEDS: buPROPion 75 MG TABLET GT SCH ×2 (08:49→17:09)
[2023-04-24] MEDS: GLYCOPYRROLATE 1 MG TABLET GT SCH ×3 (08:49→17:10)
[2023-04-24] MEDS: SERTRALINE HCL 100 MG TABLET GT SCH (08:50)
[2023-04-24] MEDS: ENOXAPARIN SODIUM 40 MG/0.4 ML DISP.SYRIN SQ SCH (08:51)
[2023-04-24] MEDS: VANCOMYCIN IV 1,000 MG in IV DEXTROSE 5% 250 ML IV SCH ×2 (08:53→21:56)
[2023-04-24] MEDS: FENOFIBRATE NANOCRYSTALLIZED 145 MG TABLET PO SCH (08:53)
[2023-04-24] MEDS: [UNRECOGNIZED DRUG - OTHER] GT SCH (08:55)
[2023-04-24 09:26] LABS: BASOPHILS % (AUTO) 0.3 % (0.0-2.0); EOSINOPHILS # (AUTO) 0.1 K/uL (0.0-0.7); EOSINOPHILS % (AUTO) 1.4 % (0.0-7.0); HEMATOCRIT 27.1 % (36.7-47.1); HEMOGLOBIN 8.8 g/dL (12.5-16.3); LYMPHOCYTES # (AUTO) 0.4 K/uL (0.8-4.8); LYMPHOCYTES % (AUTO) 5.6 % (20.5-51.5); MEAN CORPUSCULAR HEMOGLOBIN 27.5 uug (23.8-33.4); MEAN CORPUSCULAR HGB CONC 33 g/dL (32.5-36.3); MEAN CORPUSCULAR VOLUME 84.5 fL (73.0-96.2); MONOCYTES # (AUTO) 0.4 K/uL (0.1-1.30); MONOCYTES % (AUTO) 5.4 % (0.0-11.0); NEUTROPHILS # (AUTO) 6.2 K/uL (1.8-8.9); NEUTROPHILS % (AUTO) 87.3 % (38.5-71.5); PLATELET COUNT (AUTO) 276 K/uL (152-348); RED BLOOD CELL COUNT(AUTO) 3.21 MIL/uL (4.06-5.63); RED CELL DISTRIBUTION WIDTH 17.5 % (12.1-16.2); WHITE BLOOD COUNT (AUTO) 7.1 K/uL (3.6-10.2)
[2023-04-24 09:37] LABS: DIFFERENTIAL COMMENT 1
[2023-04-24] MEDS: ALLOPURINOL 300 MG TABLET GT SCH (09:58)
[2023-04-24] MEDS: PANTOPRAZOLE ORAL SUSPENSION 40 MG SUSPDR.PKT GT SCH (09:58)
[2023-04-24 10:00] VITALS: BP 99/65; O2SAT 100
[2023-04-24 10:06] LABS: CALCIUM 9.6 mg/dL (8.5-10.1); CARBON DIOXIDE 22 mmol/L (21-32); CHLORIDE 106 mmol/L (98-107); CREATININE 0.5 mg/dL (0.6-1.3); GLUCOSE 110 mg/dL (74-106); MAGNESIUM 1.6 mg/dL (1.8-2.4); PHOSPHOROUS 3.1 mg/dL (2.5-4.9); POTASSIUM 3.1 mmol/L (3.5-5.1); SODIUM SERUM 142 mmol/L (136-145); UREA NITROGEN, BLOOD 13 mg/dL (7-18)
[2023-04-24 12:15] VITALS: BP 119/73; TEMP 97.7; O2SAT 100
[2023-04-24] MEDS ORDERED: POTASSIUM CHLORIDE 20 MEQ POWDER PACKET GT ONE (13:00)
[2023-04-24] MEDS ORDERED: MAGNESIUM OXIDE 400 MG TABLET GT ONE (13:00)
[2023-04-24] MEDS: LORAZEPAM 2 MG/1 ML VIAL IV PRN (13:53)
[2023-04-24 16:00] VITALS: BP 120/64; TEMP 98.4; O2SAT 96
[2023-04-24] MEDS: IV D5 1/2 NS 1000 ML 1,000 ML IV PRN (18:27)
[2023-04-24] MEDS ORDERED: ALBUMIN HUMAN 25% 50 ML IV ONE (19:15)
[2023-04-24] MEDS ORDERED: IV NS 1000 ML 500 ML IV ONE (19:15)
[2023-04-24 20:00] VITALS: BP 100/64; TEMP 98.1; O2SAT 100
[2023-04-24] MEDS: CEFTRIAXONE 2 G in IV DEXTROSE 5% 100 ML IV SCH (21:05)
[2023-04-24] MEDS: ATORVASTATIN 20 MG TABLET GT SCH (21:26)
[2023-04-24] MEDS: MELATONIN 3 MG TABLET GT SCH (21:26)
[2023-04-24] MEDS: MIRTAZAPINE 15 MG TABLET GT SCH (21:27)
[2023-04-24] MEDS: FINASTERIDE 5 MG TABLET GT SCH (21:27)
[2023-04-24] MEDS: QUETIAPINE FUMARATE 100 MG TABLET GT SCH (21:27)
[2023-04-24] MEDS: TIZANIDINE HCL 4 MG TABLET GT SCH (21:27)
[2023-04-25] VITALS: BP 96/58; TEMP 98.3; O2SAT 100
[2023-04-25 04:00] VITALS: BP 83/60; TEMP 98.3; O2SAT 100
[2023-04-25 04:48] LABS: BASOPHILS % (AUTO) 0.6 % (0.0-2.0); EOSINOPHILS # (AUTO) 0.1 K/uL (0.0-0.7); EOSINOPHILS % (AUTO) 1.1 % (0.0-7.0); HEMATOCRIT 27.6 % (36.7-47.1); HEMOGLOBIN 9.2 g/dL (12.5-16.3); LYMPHOCYTES # (AUTO) 0.4 K/uL (0.8-4.8); LYMPHOCYTES % (AUTO) 4.9 % (20.5-51.5); MEAN CORPUSCULAR HEMOGLOBIN 28.1 uug (23.8-33.4); MEAN CORPUSCULAR HGB CONC 33 g/dL (32.5-36.3); MEAN CORPUSCULAR VOLUME 84.2 fL (73.0-96.2); MONOCYTES # (AUTO) 0.4 K/uL (0.1-1.30); MONOCYTES % (AUTO) 5.4 % (0.0-11.0); NEUTROPHILS # (AUTO) 7.2 K/uL (1.8-8.9); PLATELET COUNT (AUTO) 271 K/uL (152-348); RED BLOOD CELL COUNT(AUTO) 3.27 MIL/uL (4.06-5.63); RED CELL DISTRIBUTION WIDTH 17.5 % (12.1-16.2); WHITE BLOOD COUNT (AUTO) 8.2 K/uL (3.6-10.2)
[2023-04-25 04:52] LABS: DIFFERENTIAL COMMENT 1
[2023-04-25 05:05] LABS: CALCIUM 9.3 mg/dL (8.5-10.1); CREATININE 0.8 mg/dL (0.6-1.3); MAGNESIUM 1.6 mg/dL (1.8-2.4); PHOSPHOROUS 2.5 mg/dL (2.5-4.9); POTASSIUM 3.6 mmol/L (3.5-5.1)
[2023-04-25] MEDS: CLONAZEPAM 1 MG TABLET GT SCH ×3 (05:58→22:03)
[2023-04-25] MEDS: PANTOPRAZOLE ORAL SUSPENSION 40 MG SUSPDR.PKT GT SCH (06:02)
[2023-04-25] MEDS ORDERED: POTASSIUM CHLORIDE 20 MEQ POWDER PACKET GT ONE (07:30)
[2023-04-25] MEDS: [UNRECOGNIZED DRUG - OTHER] GT SCH (07:45)
[2023-04-25] MEDS: LEVOTHYROXINE SODIUM 150 MCG TABLET PO SCH (07:47)
[2023-04-25] MEDS: MAGNESIUM SULFATE/D5W 100 ML IV SCH ×2 (07:50→09:04)
[2023-04-25 08:00] VITALS: BP 103/69; TEMP 98.3; O2SAT 100
[2023-04-25] MEDS: CLOPIDOGREL 75 MG TABLET GT SCH (09:02)
[2023-04-25] MEDS: ASPIRIN 81 MG TAB.CHEW GT SCH (09:02)
[2023-04-25] MEDS: BACLOFEN 10 MG TABLET GT SCH ×2 (09:02→17:18)
[2023-04-25] MEDS: CHOLECALCIFEROL 1,000 UNIT TABLET GT SCH (09:02)
[2023-04-25] MEDS: FERROUS SULFATE 300 MG/5 ML LIQUID UDC GT SCH (09:02)
[2023-04-25] MEDS: SERTRALINE HCL 100 MG TABLET GT SCH (09:03)
[2023-04-25] MEDS: buPROPion 75 MG TABLET GT SCH ×2 (09:04→17:24)
[2023-04-25] MEDS: FENOFIBRATE NANOCRYSTALLIZED 145 MG TABLET PO SCH (09:05)
[2023-04-25] MEDS: GLYCOPYRROLATE 1 MG TABLET GT SCH ×3 (09:05→17:23)
[2023-04-25] MEDS: ALLOPURINOL 300 MG TABLET GT SCH (09:07)
[2023-04-25] MEDS: ENOXAPARIN SODIUM 40 MG/0.4 ML DISP.SYRIN SQ SCH (09:08)
[2023-04-25] MEDS: VANCOMYCIN IV 1,000 MG in IV DEXTROSE 5% 250 ML IV SCH ×2 (10:20→22:14)
[2023-04-25 12:00] VITALS: BP 112/83; TEMP 97.8; O2SAT 100
[2023-04-25 16:00] VITALS: BP 92/62; TEMP 98; O2SAT 100
[2023-04-25] MEDS: RILUZOLE 50 MG GT SCH (17:19)
[2023-04-25] MEDS: IV D5 1/2 NS 1000 ML 1,000 ML IV PRN (18:02)
[2023-04-25] MEDS: LORAZEPAM 2 MG/1 ML VIAL IV PRN (19:02)
[2023-04-25 20:00] VITALS: BP 130/80; TEMP 97.7; O2SAT 100
[2023-04-25] MEDS: CEFTRIAXONE 2 G in IV DEXTROSE 5% 100 ML IV SCH (20:56)
[2023-04-25] MEDS: FINASTERIDE 5 MG TABLET GT SCH (21:31)
[2023-04-25] MEDS: MIRTAZAPINE 15 MG TABLET GT SCH (21:31)
[2023-04-25] MEDS: QUETIAPINE FUMARATE 100 MG TABLET GT SCH (21:31)
[2023-04-25] MEDS: ATORVASTATIN 20 MG TABLET GT SCH (21:31)
[2023-04-25] MEDS: TIZANIDINE HCL 4 MG TABLET GT SCH (21:31)
[2023-04-25] MEDS: MELATONIN 3 MG TABLET GT SCH (21:34)
[2023-04-26] VITALS: BP 96/65; TEMP 97; O2SAT 100
[2023-04-26 04:00] VITALS: BP 115/73; TEMP 97.4; O2SAT 100
[2023-04-26] MEDS: CLONAZEPAM 1 MG TABLET GT SCH ×3 (05:57→20:58)
[2023-04-26] MEDS: PANTOPRAZOLE ORAL SUSPENSION 40 MG SUSPDR.PKT GT SCH (05:57)
[2023-04-26 07:34] LABS: CALCIUM 9.7 mg/dL (8.5-10.1); CARBON DIOXIDE 22 mmol/L (21-32); CHLORIDE 107 mmol/L (98-107); CREATININE 0.6 mg/dL (0.6-1.3); GLUCOSE 94 mg/dL (74-106); MAGNESIUM 1.7 mg/dL (1.8-2.4); PHOSPHOROUS 4.3 mg/dL (2.5-4.9); SODIUM SERUM 143 mmol/L (136-145); UREA NITROGEN, BLOOD 11 mg/dL (7-18); VANCOMYCIN,TROUGH 24.3 ug/mL (10.0-20.0)
[2023-04-26 07:36] LABS: BASOPHILS % (AUTO) 0.2 % (0.0-2.0); DIFFERENTIAL COMMENT 0; EOSINOPHILS # (AUTO) 0.2 K/uL (0.0-0.7); EOSINOPHILS % (AUTO) 2.8 % (0.0-7.0); HEMATOCRIT 27.9 % (36.7-47.1); HEMOGLOBIN 9.1 g/dL (12.5-16.3); LYMPHOCYTES # (AUTO) 0.3 K/uL (0.8-4.8); LYMPHOCYTES % (AUTO) 6.2 % (20.5-51.5); MEAN CORPUSCULAR HEMOGLOBIN 27.9 uug (23.8-33.4); MEAN CORPUSCULAR HGB CONC 33 g/dL (32.5-36.3); MEAN CORPUSCULAR VOLUME 85.3 fL (73.0-96.2); MONOCYTES # (AUTO) 0.3 K/uL (0.1-1.30); MONOCYTES % (AUTO) 5.9 % (0.0-11.0); NEUTROPHILS # (AUTO) 4.7 K/uL (1.8-8.9); NEUTROPHILS % (AUTO) 84.9 % (38.5-71.5); PLATELET COUNT (AUTO) 296 K/uL (152-348); RED BLOOD CELL COUNT(AUTO) 3.27 MIL/uL (4.06-5.63); RED CELL DISTRIBUTION WIDTH 17.8 % (12.1-16.2); WHITE BLOOD COUNT (AUTO) 5.5 K/uL (3.6-10.2)
[2023-04-26 08:00] VITALS: BP 120/84; TEMP 98.4; O2SAT 100
[2023-04-26] MEDS: [UNRECOGNIZED DRUG - OTHER] GT SCH (08:29)
[2023-04-26] MEDS: LEVOTHYROXINE SODIUM 150 MCG TABLET PO SCH (08:29)
[2023-04-26] MEDS: ASPIRIN 81 MG TAB.CHEW GT SCH (08:39)
[2023-04-26] MEDS: CLOPIDOGREL 75 MG TABLET GT SCH (08:39)
[2023-04-26] MEDS: CHOLECALCIFEROL 1,000 UNIT TABLET GT SCH (08:39)
[2023-04-26] MEDS: BACLOFEN 10 MG TABLET GT SCH ×2 (08:40→16:40)
[2023-04-26] MEDS: ALLOPURINOL 300 MG TABLET GT SCH (08:40)
[2023-04-26] MEDS: FERROUS SULFATE 300 MG/5 ML LIQUID UDC GT SCH (08:41)
[2023-04-26] MEDS: SILODOSIN 4 MG GT SCH (08:42)
[2023-04-26] MEDS: GLYCOPYRROLATE 1 MG TABLET GT SCH ×3 (08:44→16:40)
[2023-04-26] MEDS: SERTRALINE HCL 100 MG TABLET GT SCH (08:45)
[2023-04-26] MEDS: buPROPion 75 MG TABLET GT SCH ×2 (08:46→16:40)
[2023-04-26] MEDS: FENOFIBRATE NANOCRYSTALLIZED 145 MG TABLET PO SCH (08:49)
[2023-04-26] MEDS: ENOXAPARIN SODIUM 40 MG/0.4 ML DISP.SYRIN SQ SCH (08:52)
[2023-04-26] MEDS: LORAZEPAM 2 MG/1 ML VIAL IV PRN ×2 (09:36→16:41)
[2023-04-26] MEDS: RILUZOLE 50 MG GT SCH ×2 (09:48→16:40)
[2023-04-26] MEDS: VANCOMYCIN IV 1,000 MG in IV DEXTROSE 5% 250 ML IV SCH ×2 (09:56→22:37)
[2023-04-26 12:00] VITALS: BP 122/76; TEMP 98.2; O2SAT 100
[2023-04-26] MEDS ORDERED: MAGNESIUM OXIDE 400 MG TABLET GT ONE (13:15)
[2023-04-26] MEDS: IV D5 1/2 NS 1000 ML 1,000 ML IV PRN (14:50)
[2023-04-26 20:00] VITALS: BP 112/69; TEMP 99.3; O2SAT 100
[2023-04-26] MEDS: QUETIAPINE FUMARATE 100 MG TABLET GT SCH (20:57)
[2023-04-26] MEDS: TIZANIDINE HCL 4 MG TABLET GT SCH (20:57)
[2023-04-26] MEDS: TRAZODONE 50 MG TABLET PO PRN (20:58)
[2023-04-26] MEDS: ACETAMINOPHEN 325 MG TABLET GT PRN (20:58)
[2023-04-26] MEDS: FINASTERIDE 5 MG TABLET GT SCH (20:59)
[2023-04-26] MEDS: TEMAZEPAM 7.5 MG CAPSULE GT PRN (20:59)
[2023-04-26] MEDS: ATORVASTATIN 20 MG TABLET GT SCH (20:59)
[2023-04-26] MEDS: MIRTAZAPINE 15 MG TABLET GT SCH (21:00)
[2023-04-26] MEDS: MELATONIN 3 MG TABLET GT SCH (21:01)
[2023-04-26] MEDS: CEFTRIAXONE 2 G in IV DEXTROSE 5% 100 ML IV SCH (21:06)
[2023-04-27] MEDS: JEVITY 1.2 1000 ML LIQUID GT PRN (01:06)
[2023-04-27] MEDS: LORAZEPAM 2 MG/1 ML VIAL IV PRN (02:51)
[2023-04-27 04:00] VITALS: BP 115/96; TEMP 97.5; O2SAT 99
[2023-04-27 05:22] LABS: CALCIUM 9.3 mg/dL (8.5-10.1); CARBON DIOXIDE 23 mmol/L (21-32); CHLORIDE 107 mmol/L (98-107); CREATININE 0.6 mg/dL (0.6-1.3); GLUCOSE 129 mg/dL (74-106); MAGNESIUM 1.6 mg/dL (1.8-2.4); POTASSIUM 3.5 mmol/L (3.5-5.1); SODIUM SERUM 141 mmol/L (136-145); UREA NITROGEN, BLOOD 12 mg/dL (7-18)
[2023-04-27] MEDS: CLONAZEPAM 1 MG TABLET GT SCH ×3 (05:50→21:21)
[2023-04-27] MEDS: PANTOPRAZOLE ORAL SUSPENSION 40 MG SUSPDR.PKT GT SCH (05:50)
[2023-04-27] MEDS: LEVOTHYROXINE SODIUM 150 MCG TABLET PO SCH (05:53)
[2023-04-27] MEDS: [UNRECOGNIZED DRUG - OTHER] GT SCH (06:03)
[2023-04-27 08:00] VITALS: BP 125/71; TEMP 98; O2SAT 98
[2023-04-27] MEDS ORDERED: POTASSIUM CHLORIDE 20 MEQ POWDER PACKET GT ONE (08:45)
[2023-04-27] MEDS: BACLOFEN 10 MG TABLET GT SCH ×2 (09:08→16:23)
[2023-04-27] MEDS: FERROUS SULFATE 300 MG/5 ML LIQUID UDC GT SCH (09:08)
[2023-04-27] MEDS: MAGNESIUM SULFATE/D5W 100 ML IV SCH ×4 (09:08→13:24)
[2023-04-27] MEDS: SILODOSIN 4 MG GT SCH (09:09)
[2023-04-27] MEDS: CLOPIDOGREL 75 MG TABLET GT SCH (09:09)
[2023-04-27] MEDS: ASPIRIN 81 MG TAB.CHEW GT SCH (09:09)
[2023-04-27] MEDS: SERTRALINE HCL 100 MG TABLET GT SCH (09:09)
[2023-04-27] MEDS: FENOFIBRATE NANOCRYSTALLIZED 145 MG TABLET PO SCH (09:09)
[2023-04-27] MEDS: GLYCOPYRROLATE 1 MG TABLET GT SCH ×3 (09:10→16:24)
[2023-04-27] MEDS: buPROPion 75 MG TABLET GT SCH ×2 (09:10→16:25)
[2023-04-27] MEDS: RILUZOLE 50 MG GT SCH ×2 (09:10→16:23)
[2023-04-27] MEDS: ENOXAPARIN SODIUM 40 MG/0.4 ML DISP.SYRIN SQ SCH (09:11)
[2023-04-27] MEDS: CHOLECALCIFEROL 1,000 UNIT TABLET GT SCH (09:14)
[2023-04-27] MEDS: ALLOPURINOL 300 MG TABLET GT SCH (09:14)
[2023-04-27 12:00] VITALS: BP 118/85; TEMP 99; O2SAT 99
[2023-04-27] MEDS: VANCOMYCIN IV 1,000 MG in IV DEXTROSE 5% 250 ML IV SCH ×3 (13:13→21:49)
[2023-04-27 16:00] VITALS: BP 115/74; TEMP 97.3; O2SAT 98
[2023-04-27] MEDS: QUETIAPINE FUMARATE 25 MG TABLET GT PRN (16:28)
[2023-04-27] MEDS: ACETAMINOPHEN 325 MG TABLET GT PRN (16:28)
[2023-04-27 19:09] VITALS: BP 111/61; TEMP 97.1; O2SAT 99
[2023-04-27 20:00] VITALS: BP 84/40; TEMP 98.2; O2SAT 99
[2023-04-27] MEDS: MIRTAZAPINE 15 MG TABLET GT SCH (21:18)
[2023-04-27] MEDS: FINASTERIDE 5 MG TABLET GT SCH (21:18)
[2023-04-27] MEDS: QUETIAPINE FUMARATE 100 MG TABLET GT SCH (21:18)
[2023-04-27] MEDS: CEFTRIAXONE 2 G in IV DEXTROSE 5% 100 ML IV SCH (21:18)
[2023-04-27] MEDS: TIZANIDINE HCL 4 MG TABLET GT SCH (21:27)
[2023-04-27] MEDS: ATORVASTATIN 20 MG TABLET GT SCH (21:28)
[2023-04-27] MEDS: MELATONIN 3 MG TABLET GT SCH (21:28)
[2023-04-28] VITALS: BP 105/56; TEMP 98.1; O2SAT 100
[2023-04-28 05:04] VITALS: BP 102/66; TEMP 98.2; O2SAT 100
[2023-04-28] MEDS: CLONAZEPAM 1 MG TABLET GT SCH ×3 (05:29→22:25)
[2023-04-28] MEDS: PANTOPRAZOLE ORAL SUSPENSION 40 MG SUSPDR.PKT GT SCH (05:29)
[2023-04-28] MEDS: LEVOTHYROXINE SODIUM 150 MCG TABLET PO SCH (06:05)
[2023-04-28] MEDS: [UNRECOGNIZED DRUG - OTHER] GT SCH (06:05)
[2023-04-28 06:54] LABS: BASOPHILS % (AUTO) 0.6 % (0.0-2.0); EOSINOPHILS # (AUTO) 0.2 K/uL (0.0-0.7); EOSINOPHILS % (AUTO) 3.7 % (0.0-7.0); HEMATOCRIT 26.3 % (36.7-47.1); HEMOGLOBIN 8.8 g/dL (12.5-16.3); LYMPHOCYTES # (AUTO) 0.4 K/uL (0.8-4.8); LYMPHOCYTES % (AUTO) 7.8 % (20.5-51.5); MEAN CORPUSCULAR HEMOGLOBIN 28.5 uug (23.8-33.4); MEAN CORPUSCULAR HGB CONC 33 g/dL (32.5-36.3); MEAN CORPUSCULAR VOLUME 85.3 fL (73.0-96.2); MONOCYTES # (AUTO) 0.3 K/uL (0.1-1.30); MONOCYTES % (AUTO) 6.6 % (0.0-11.0); NEUTROPHILS # (AUTO) 3.7 K/uL (1.8-8.9); NEUTROPHILS % (AUTO) 81.3 % (38.5-71.5); PLATELET COUNT (AUTO) 273 K/uL (152-348); RED BLOOD CELL COUNT(AUTO) 3.09 MIL/uL (4.06-5.63); WHITE BLOOD COUNT (AUTO) 4.5 K/uL (3.6-10.2)
[2023-04-28 07:12] LABS: CALCIUM 9.8 mg/dL (8.5-10.1); CREATININE 0.7 mg/dL (0.6-1.3); MAGNESIUM 1.9 mg/dL (1.8-2.4); PHOSPHOROUS 4.4 mg/dL (2.5-4.9); POTASSIUM 3.9 mmol/L (3.5-5.1)
[2023-04-28 07:16] LABS: DIFFERENTIAL COMMENT 1
[2023-04-28 07:32] VITALS: BP 123/75; TEMP 98.3; O2SAT 100
[2023-04-28] MEDS: ASPIRIN 81 MG TAB.CHEW GT SCH (09:36)
[2023-04-28] MEDS: CLOPIDOGREL 75 MG TABLET GT SCH (09:37)
[2023-04-28] MEDS: BACLOFEN 10 MG TABLET GT SCH ×2 (09:37→17:52)
[2023-04-28] MEDS: CHOLECALCIFEROL 1,000 UNIT TABLET GT SCH (09:37)
[2023-04-28] MEDS: ALLOPURINOL 300 MG TABLET GT SCH (09:37)
[2023-04-28] MEDS: buPROPion 75 MG TABLET GT SCH ×2 (09:38→17:51)
[2023-04-28] MEDS: FENOFIBRATE NANOCRYSTALLIZED 145 MG TABLET PO SCH (09:38)
[2023-04-28] MEDS: GLYCOPYRROLATE 1 MG TABLET GT SCH ×3 (09:39→17:52)
[2023-04-28] MEDS: ENOXAPARIN SODIUM 40 MG/0.4 ML DISP.SYRIN SQ SCH (09:40)
[2023-04-28] MEDS: SERTRALINE HCL 100 MG TABLET GT SCH (09:43)
[2023-04-28] MEDS: VANCOMYCIN IV 1,000 MG in IV DEXTROSE 5% 250 ML IV SCH ×2 (09:44→22:25)
[2023-04-28] MEDS: SILODOSIN 4 MG GT SCH (09:49)
[2023-04-28] MEDS: RILUZOLE 50 MG GT SCH ×2 (10:02→17:52)
[2023-04-28] MEDS: LORAZEPAM 2 MG/1 ML VIAL IV PRN (10:02)
[2023-04-28] MEDS: FERROUS SULFATE 300 MG/5 ML LIQUID UDC GT SCH (10:03)
[2023-04-28 11:35] VITALS: BP 134/74; TEMP 98.1; O2SAT 100
[2023-04-28 15:39] VITALS: BP 136/78; TEMP 97.9; O2SAT 100
[2023-04-28] MEDS: PROTEIN SUPPLEMENT (PROSTAT) 30 ML LIQUID GT SCH (17:52)
[2023-04-28 20:00] VITALS: BP 143/89; TEMP 98.6; O2SAT 98
[2023-04-28] MEDS: QUETIAPINE FUMARATE 100 MG TABLET GT SCH (20:43)
[2023-04-28] MEDS: FINASTERIDE 5 MG TABLET GT SCH (20:43)
[2023-04-28] MEDS: TIZANIDINE HCL 4 MG TABLET GT SCH (20:43)
[2023-04-28] MEDS: ATORVASTATIN 20 MG TABLET GT SCH (20:43)
[2023-04-28] MEDS: MELATONIN 3 MG TABLET GT SCH (20:43)
[2023-04-28] MEDS: MIRTAZAPINE 15 MG TABLET GT SCH (20:43)
[2023-04-28] MEDS: CEFTRIAXONE 2 G in IV DEXTROSE 5% 100 ML IV SCH (20:46)
[2023-04-29] VITALS (7 sets, daily range): BP systolic 105–139; BP diastolic 69–82; TEMP 97.6–98.6; O2SAT 100
[2023-04-29] MEDS: LORAZEPAM 2 MG/1 ML VIAL IV PRN (04:00)
[2023-04-29] MEDS: CLONAZEPAM 1 MG TABLET GT SCH ×3 (05:58→21:28)
[2023-04-29] MEDS: PANTOPRAZOLE ORAL SUSPENSION 40 MG SUSPDR.PKT GT SCH (05:59)
[2023-04-29] MEDS: [UNRECOGNIZED DRUG - OTHER] GT SCH (06:30)
[2023-04-29] MEDS: JEVITY 1.2 1000 ML LIQUID GT PRN (07:00)
[2023-04-29 07:43] LABS: BASOPHILS % (AUTO) 0.4 % (0.0-2.0); EOSINOPHILS # (AUTO) 0.1 K/uL (0.0-0.7); EOSINOPHILS % (AUTO) 2.5 % (0.0-7.0); HEMATOCRIT 27.7 % (36.7-47.1); HEMOGLOBIN 9.1 g/dL (12.5-16.3); LYMPHOCYTES # (AUTO) 0.3 K/uL (0.8-4.8); LYMPHOCYTES % (AUTO) 7.2 % (20.5-51.5); MEAN CORPUSCULAR HEMOGLOBIN 27.8 uug (23.8-33.4); MEAN CORPUSCULAR HGB CONC 33 g/dL (32.5-36.3); MEAN CORPUSCULAR VOLUME 85.1 fL (73.0-96.2); MONOCYTES # (AUTO) 0.3 K/uL (0.1-1.30); MONOCYTES % (AUTO) 5.7 % (0.0-11.0); NEUTROPHILS % (AUTO) 84.2 % (38.5-71.5); PLATELET COUNT (AUTO) 302 K/uL (152-348); RED BLOOD CELL COUNT(AUTO) 3.26 MIL/uL (4.06-5.63); RED CELL DISTRIBUTION WIDTH 17.8 % (12.1-16.2); WHITE BLOOD COUNT (AUTO) 4.7 K/uL (3.6-10.2)
[2023-04-29 07:54] LABS: CALCIUM 9.6 mg/dL (8.5-10.1); CREATININE 0.8 mg/dL (0.6-1.3); MAGNESIUM 1.8 mg/dL (1.8-2.4); PHOSPHOROUS 4.6 mg/dL (2.5-4.9); POTASSIUM 3.8 mmol/L (3.5-5.1)
[2023-04-29 08:05] LABS: DIFFERENTIAL COMMENT 1
[2023-04-29] MEDS: ASPIRIN 81 MG TAB.CHEW GT SCH (08:55)
[2023-04-29] MEDS: CLOPIDOGREL 75 MG TABLET GT SCH (08:56)
[2023-04-29] MEDS: CHOLECALCIFEROL 1,000 UNIT TABLET GT SCH (08:56)
[2023-04-29] MEDS: FERROUS SULFATE 300 MG/5 ML LIQUID UDC GT SCH (08:56)
[2023-04-29] MEDS: BACLOFEN 10 MG TABLET GT SCH ×2 (08:56→18:12)
[2023-04-29] MEDS: ALLOPURINOL 300 MG TABLET GT SCH (08:57)
[2023-04-29] MEDS: SERTRALINE HCL 100 MG TABLET GT SCH (08:57)
[2023-04-29] MEDS: FENOFIBRATE NANOCRYSTALLIZED 145 MG TABLET PO SCH (08:57)
[2023-04-29] MEDS: buPROPion 75 MG TABLET GT SCH ×2 (08:58→18:13)
[2023-04-29] MEDS: SILODOSIN 4 MG GT SCH (08:58)
[2023-04-29] MEDS: RILUZOLE 50 MG GT SCH ×2 (08:58→18:12)
[2023-04-29] MEDS: GLYCOPYRROLATE 1 MG TABLET GT SCH ×3 (08:59→18:13)
[2023-04-29] MEDS: PROTEIN SUPPLEMENT (PROSTAT) 30 ML LIQUID GT SCH ×2 (08:59→18:18)
[2023-04-29] MEDS: ENOXAPARIN SODIUM 40 MG/0.4 ML DISP.SYRIN SQ SCH (09:00)
[2023-04-29] MEDS: LEVOTHYROXINE SODIUM 150 MCG TABLET PO SCH (09:07)
[2023-04-29] MEDS: VANCOMYCIN IV 1,000 MG in IV DEXTROSE 5% 250 ML IV SCH ×2 (09:16→21:47)
[2023-04-29] MEDS: CLOTRIMAZOLE 1% CREAM 30 GM TUBE TOP SCH (18:14)
[2023-04-29] MEDS: QUETIAPINE FUMARATE 25 MG TABLET GT PRN (18:15)
[2023-04-29] MEDS: QUETIAPINE FUMARATE 100 MG TABLET GT SCH (21:27)
[2023-04-29] MEDS: TIZANIDINE HCL 4 MG TABLET GT SCH (21:27)
[2023-04-29] MEDS: ATORVASTATIN 20 MG TABLET GT SCH (21:28)
[2023-04-29] MEDS: MIRTAZAPINE 15 MG TABLET GT SCH (21:28)
[2023-04-29] MEDS: MELATONIN 3 MG TABLET GT SCH (21:28)
[2023-04-29] MEDS: FINASTERIDE 5 MG TABLET GT SCH (21:28)
[2023-04-29] MEDS: CEFTRIAXONE 2 G in IV DEXTROSE 5% 100 ML IV SCH (21:30)
[2023-04-30] VITALS (7 sets, daily range): BP systolic 94–171; BP diastolic 55–78; TEMP 97.5–97.9; O2SAT 97–100
[2023-04-30] MEDS: PANTOPRAZOLE ORAL SUSPENSION 40 MG SUSPDR.PKT GT SCH (05:35)
[2023-04-30] MEDS: CLONAZEPAM 1 MG TABLET GT SCH ×3 (05:35→21:43)
[2023-04-30] MEDS: [UNRECOGNIZED DRUG - OTHER] GT SCH (06:07)
[2023-04-30 07:28] LABS: BASOPHILS % (AUTO) 0.2 % (0.0-2.0); EOSINOPHILS # (AUTO) 0.1 K/uL (0.0-0.7); EOSINOPHILS % (AUTO) 2.7 % (0.0-7.0); HEMATOCRIT 30.1 % (36.7-47.1); HEMOGLOBIN 9.9 g/dL (12.5-16.3); LYMPHOCYTES # (AUTO) 0.3 K/uL (0.8-4.8); LYMPHOCYTES % (AUTO) 6.4 % (20.5-51.5); MEAN CORPUSCULAR HGB CONC 33 g/dL (32.5-36.3); MEAN CORPUSCULAR VOLUME 85.1 fL (73.0-96.2); MONOCYTES # (AUTO) 0.3 K/uL (0.1-1.30); MONOCYTES % (AUTO) 5.5 % (0.0-11.0); NEUTROPHILS # (AUTO) 4.1 K/uL (1.8-8.9); NEUTROPHILS % (AUTO) 85.2 % (38.5-71.5); PLATELET COUNT (AUTO) 263 K/uL (152-348); RED BLOOD CELL COUNT(AUTO) 3.54 MIL/uL (4.06-5.63); RED CELL DISTRIBUTION WIDTH 17.7 % (12.1-16.2); WHITE BLOOD COUNT (AUTO) 4.8 K/uL (3.6-10.2)
[2023-04-30 07:31] LABS: DIFFERENTIAL COMMENT 1
[2023-04-30 07:34] LABS: CALCIUM 9.7 mg/dL (8.5-10.1); CREATININE 0.8 mg/dL (0.6-1.3)
[2023-04-30] MEDS: LEVOTHYROXINE SODIUM 150 MCG TABLET PO SCH (08:10)
[2023-04-30] MEDS: ASPIRIN 81 MG TAB.CHEW GT SCH (09:37)
[2023-04-30] MEDS: FERROUS SULFATE 300 MG/5 ML LIQUID UDC GT SCH (09:37)
[2023-04-30] MEDS: CHOLECALCIFEROL 1,000 UNIT TABLET GT SCH (09:37)
[2023-04-30] MEDS: CLOPIDOGREL 75 MG TABLET GT SCH (09:37)
[2023-04-30] MEDS: BACLOFEN 10 MG TABLET GT SCH ×2 (09:37→16:31)
[2023-04-30] MEDS: GLYCOPYRROLATE 1 MG TABLET GT SCH ×3 (09:37→16:31)
[2023-04-30] MEDS: FENOFIBRATE NANOCRYSTALLIZED 145 MG TABLET PO SCH (09:38)
[2023-04-30] MEDS: SERTRALINE HCL 100 MG TABLET GT SCH (09:38)
[2023-04-30] MEDS: ALLOPURINOL 300 MG TABLET GT SCH (09:39)
[2023-04-30] MEDS: CLOTRIMAZOLE 1% CREAM 30 GM TUBE TOP SCH ×2 (09:40→16:29)
[2023-04-30] MEDS: SILODOSIN 4 MG GT SCH (09:41)
[2023-04-30] MEDS: buPROPion 75 MG TABLET GT SCH ×2 (09:41→16:33)
[2023-04-30] MEDS: PROTEIN SUPPLEMENT (PROSTAT) 30 ML LIQUID GT SCH ×2 (09:42→16:29)
[2023-04-30] MEDS: RILUZOLE 50 MG GT SCH ×2 (09:42→16:32)
[2023-04-30] MEDS: ENOXAPARIN SODIUM 40 MG/0.4 ML DISP.SYRIN SQ SCH (09:44)
[2023-04-30] MEDS: QUETIAPINE FUMARATE 25 MG TABLET GT PRN ×2 (11:16→23:52)
[2023-04-30] MEDS: JEVITY 1.2 1000 ML LIQUID GT PRN (12:39)
[2023-04-30] MEDS: LORAZEPAM 2 MG/1 ML VIAL IV PRN (18:44)
[2023-04-30] MEDS ORDERED: OLANZAPINE 10 MG VIAL IM ONE (21:15)
[2023-04-30] MEDS: ATORVASTATIN 20 MG TABLET GT SCH (21:40)
[2023-04-30] MEDS: MELATONIN 3 MG TABLET GT SCH (21:42)
[2023-04-30] MEDS: QUETIAPINE FUMARATE 100 MG TABLET GT SCH (21:42)
[2023-04-30] MEDS: FINASTERIDE 5 MG TABLET GT SCH (21:42)
[2023-04-30] MEDS: TIZANIDINE HCL 4 MG TABLET GT SCH (21:42)
[2023-04-30] MEDS: MIRTAZAPINE 15 MG TABLET GT SCH (21:43)
[2023-04-30] MEDS: TEMAZEPAM 7.5 MG CAPSULE GT PRN (23:52)
[2023-05-01] MEDS: LORAZEPAM 2 MG/1 ML VIAL IV PRN ×2 (00:30→16:44)
[2023-05-01 04:10] VITALS: BP 130/71; TEMP 98.2; O2SAT 100
[2023-05-01] MEDS: PANTOPRAZOLE ORAL SUSPENSION 40 MG SUSPDR.PKT GT SCH (05:09)
[2023-05-01] MEDS: CLONAZEPAM 1 MG TABLET GT SCH ×3 (05:09→21:02)
[2023-05-01] MEDS: [UNRECOGNIZED DRUG - OTHER] GT SCH (06:13)
[2023-05-01 07:41] LABS: BASOPHILS % (AUTO) 0.4 % (0.0-2.0); EOSINOPHILS # (AUTO) 0.2 K/uL (0.0-0.7); EOSINOPHILS % (AUTO) 4.5 % (0.0-7.0); HEMATOCRIT 22.6 % (36.7-47.1); HEMOGLOBIN 7.5 g/dL (12.5-16.3); LYMPHOCYTES # (AUTO) 0.3 K/uL (0.8-4.8); LYMPHOCYTES % (AUTO) 7.7 % (20.5-51.5); MEAN CORPUSCULAR HEMOGLOBIN 28.2 uug (23.8-33.4); MEAN CORPUSCULAR HGB CONC 33 g/dL (32.5-36.3); MEAN CORPUSCULAR VOLUME 85.2 fL (73.0-96.2); MONOCYTES # (AUTO) 0.3 K/uL (0.1-1.30); MONOCYTES % (AUTO) 5.8 % (0.0-11.0); NEUTROPHILS # (AUTO) 3.5 K/uL (1.8-8.9); NEUTROPHILS % (AUTO) 81.6 % (38.5-71.5); PLATELET COUNT (AUTO) 262 K/uL (152-348); RED BLOOD CELL COUNT(AUTO) 2.65 MIL/uL (4.06-5.63); RED CELL DISTRIBUTION WIDTH 17.5 % (12.1-16.2); WHITE BLOOD COUNT (AUTO) 4.3 K/uL (3.6-10.2)
[2023-05-01 07:54] LABS: DIFFERENTIAL COMMENT 1
[2023-05-01 07:58] LABS: CALCIUM 9.4 mg/dL (8.5-10.1); CREATININE 0.8 mg/dL (0.6-1.3); POTASSIUM 3.5 mmol/L (3.5-5.1)
[2023-05-01 08:00] VITALS: BP 121/56; TEMP 97.4; O2SAT 100
[2023-05-01] MEDS: LEVOTHYROXINE SODIUM 150 MCG TABLET PO SCH (08:21)
[2023-05-01] MEDS: CLOTRIMAZOLE 1% CREAM 30 GM TUBE TOP SCH ×2 (08:47→16:57)
[2023-05-01] MEDS: ASPIRIN 81 MG TAB.CHEW GT SCH (08:48)
[2023-05-01] MEDS: FENOFIBRATE NANOCRYSTALLIZED 145 MG TABLET PO SCH (08:48)
[2023-05-01] MEDS: QUETIAPINE FUMARATE 25 MG TABLET GT PRN ×2 (08:48→18:07)
[2023-05-01] MEDS: SILODOSIN 4 MG GT SCH (08:49)
[2023-05-01] MEDS: RILUZOLE 50 MG GT SCH ×2 (08:49→17:15)
[2023-05-01] MEDS: GLYCOPYRROLATE 1 MG TABLET GT SCH ×3 (08:49→16:57)
[2023-05-01] MEDS: CHOLECALCIFEROL 1,000 UNIT TABLET GT SCH (08:49)
[2023-05-01] MEDS: BACLOFEN 10 MG TABLET GT SCH ×2 (08:49→16:57)
[2023-05-01] MEDS: CLOPIDOGREL 75 MG TABLET GT SCH (08:49)
[2023-05-01] MEDS: buPROPion 75 MG TABLET GT SCH ×2 (08:50→16:57)
[2023-05-01] MEDS: ALLOPURINOL 300 MG TABLET GT SCH (08:50)
[2023-05-01] MEDS: PROTEIN SUPPLEMENT (PROSTAT) 30 ML LIQUID GT SCH ×2 (08:56→17:13)
[2023-05-01] MEDS: SERTRALINE HCL 100 MG TABLET GT SCH (08:56)
[2023-05-01] MEDS: ENOXAPARIN SODIUM 40 MG/0.4 ML DISP.SYRIN SQ SCH (09:00)
[2023-05-01] MEDS: FERROUS SULFATE 300 MG/5 ML LIQUID UDC GT SCH (09:08)
[2023-05-01] MEDS ORDERED: VANCOMYCIN IV 1,000 MG in IV DEXTROSE 5% 250 ML IV ONE (11:45)
[2023-05-01 15:59] VITALS: BP 128/76; TEMP 97; O2SAT 100
[2023-05-01 20:18] VITALS: BP 146/69; TEMP 97.3; O2SAT 100
[2023-05-01] MEDS: ATORVASTATIN 20 MG TABLET GT SCH (20:32)
[2023-05-01] MEDS: MIRTAZAPINE 15 MG TABLET GT SCH (20:32)
[2023-05-01] MEDS: TIZANIDINE HCL 4 MG TABLET GT SCH (20:33)
[2023-05-01] MEDS: MELATONIN 3 MG TABLET GT SCH (20:33)
[2023-05-01] MEDS: FINASTERIDE 5 MG TABLET GT SCH (20:34)
[2023-05-01] MEDS: QUETIAPINE FUMARATE 100 MG TABLET GT SCH (20:35)
[2023-05-02] VITALS: BP 133/71; TEMP 97.9; O2SAT 97
[2023-05-02] MEDS: TEMAZEPAM 7.5 MG CAPSULE GT PRN (00:57)
[2023-05-02 04:55] VITALS: BP 122/70; TEMP 97.4; O2SAT 100
[2023-05-02] MEDS: PANTOPRAZOLE ORAL SUSPENSION 40 MG SUSPDR.PKT GT SCH (05:53)
[2023-05-02] MEDS: CLONAZEPAM 1 MG TABLET GT SCH ×3 (05:53→21:13)
[2023-05-02] MEDS: [UNRECOGNIZED DRUG - OTHER] GT SCH (06:02)
[2023-05-02] MEDS: LEVOTHYROXINE SODIUM 150 MCG TABLET PO SCH (06:35)
[2023-05-02 07:41] LABS: BASOPHILS % (AUTO) 0.4 % (0.0-2.0); EOSINOPHILS # (AUTO) 0.2 K/uL (0.0-0.7); EOSINOPHILS % (AUTO) 4.4 % (0.0-7.0); HEMATOCRIT 25.8 % (36.7-47.1); HEMOGLOBIN 8.5 g/dL (12.5-16.3); LYMPHOCYTES # (AUTO) 0.3 K/uL (0.8-4.8); LYMPHOCYTES % (AUTO) 6.2 % (20.5-51.5); MEAN CORPUSCULAR HEMOGLOBIN 28.1 uug (23.8-33.4); MEAN CORPUSCULAR HGB CONC 33 g/dL (32.5-36.3); MEAN CORPUSCULAR VOLUME 84.9 fL (73.0-96.2); MONOCYTES # (AUTO) 0.3 K/uL (0.1-1.30); MONOCYTES % (AUTO) 6.2 % (0.0-11.0); NEUTROPHILS # (AUTO) 3.9 K/uL (1.8-8.9); NEUTROPHILS % (AUTO) 82.8 % (38.5-71.5); PLATELET COUNT (AUTO) 266 K/uL (152-348); RED BLOOD CELL COUNT(AUTO) 3.04 MIL/uL (4.06-5.63); RED CELL DISTRIBUTION WIDTH 17.6 % (12.1-16.2); WHITE BLOOD COUNT (AUTO) 4.7 K/uL (3.6-10.2)
[2023-05-02 08:02] LABS: DIFFERENTIAL COMMENT 1
[2023-05-02 08:12] LABS: MAGNESIUM 1.7 mg/dL (1.8-2.4); PHOSPHOROUS 4.6 mg/dL (2.5-4.9)
[2023-05-02] MEDS: buPROPion 75 MG TABLET GT SCH ×2 (09:04→16:29)
[2023-05-02] MEDS: FERROUS SULFATE 300 MG/5 ML LIQUID UDC GT SCH (09:04)
[2023-05-02] MEDS: SILODOSIN 4 MG GT SCH (09:04)
[2023-05-02] MEDS: CLOPIDOGREL 75 MG TABLET GT SCH (09:05)
[2023-05-02] MEDS: BACLOFEN 10 MG TABLET GT SCH ×2 (09:05→16:29)
[2023-05-02] MEDS: CHOLECALCIFEROL 1,000 UNIT TABLET GT SCH (09:05)
[2023-05-02] MEDS: ALLOPURINOL 300 MG TABLET GT SCH (09:05)
[2023-05-02] MEDS: ASPIRIN 81 MG TAB.CHEW GT SCH (09:05)
[2023-05-02] MEDS: SERTRALINE HCL 100 MG TABLET GT SCH (09:05)
[2023-05-02] MEDS: GLYCOPYRROLATE 1 MG TABLET GT SCH ×3 (09:05→16:29)
[2023-05-02] MEDS: CLOTRIMAZOLE 1% CREAM 30 GM TUBE TOP SCH ×2 (09:05→16:29)
[2023-05-02] MEDS: FENOFIBRATE NANOCRYSTALLIZED 145 MG TABLET PO SCH (09:05)
[2023-05-02] MEDS: ENOXAPARIN SODIUM 40 MG/0.4 ML DISP.SYRIN SQ SCH (09:06)
[2023-05-02] MEDS: RILUZOLE 50 MG GT SCH ×2 (09:21→16:29)
[2023-05-02 09:24] LABS: CREATININE 0.8 mg/dL (0.6-1.3); POTASSIUM 3.5 mmol/L (3.5-5.1)
[2023-05-02 09:41] LABS: CALCIUM 9.4 mg/dL (8.5-10.1)
[2023-05-02] MEDS ORDERED: VANCOMYCIN IV 1,000 MG in IV DEXTROSE 5% 250 ML IV SCH (10:00)
[2023-05-02] MEDS ORDERED: MAGNESIUM OXIDE 400 MG TABLET PO ONE (11:00)
[2023-05-02] MEDS: PROTEIN SUPPLEMENT (PROSTAT) 30 ML LIQUID GT SCH ×2 (11:57→16:28)
[2023-05-02] MEDS: VANCOMYCIN IV 1,000 MG in IV DEXTROSE 5% 250 ML IV SCH ×2 (11:57→23:30)
[2023-05-02 12:00] VITALS: TEMP 98.6
[2023-05-02] MEDS: JEVITY 1.2 1000 ML LIQUID GT PRN (12:03)
[2023-05-02 15:57] VITALS: TEMP 98.7
[2023-05-02 20:00] VITALS: BP 153/68; TEMP 97.6; O2SAT 100
[2023-05-02] MEDS ORDERED: POTASSIUM CHLORIDE 20 MEQ POWDER PACKET GT ONE (21:00)
[2023-05-02] MEDS: ATORVASTATIN 20 MG TABLET GT SCH (21:12)
[2023-05-02] MEDS: QUETIAPINE FUMARATE 100 MG TABLET GT SCH (21:12)
[2023-05-02] MEDS: MELATONIN 3 MG TABLET GT SCH (21:12)
[2023-05-02] MEDS: FINASTERIDE 5 MG TABLET GT SCH (21:12)
[2023-05-02] MEDS: TIZANIDINE HCL 4 MG TABLET GT SCH (21:12)
[2023-05-02] MEDS: MIRTAZAPINE 15 MG TABLET GT SCH (21:12)
[2023-05-03] VITALS: TEMP 97.9
[2023-05-03] MEDS: QUETIAPINE FUMARATE 25 MG TABLET GT PRN ×3 (00:25→14:41)
[2023-05-03] MEDS: ACETAMINOPHEN 325 MG TABLET GT PRN ×2 (00:29→20:33)
[2023-05-03 04:00] VITALS: BP 149/70; TEMP 97.4; O2SAT 100
[2023-05-03] MEDS: LORAZEPAM 2 MG/1 ML VIAL IV PRN ×3 (04:44→19:41)
[2023-05-03] MEDS: PANTOPRAZOLE ORAL SUSPENSION 40 MG SUSPDR.PKT GT SCH (06:17)
[2023-05-03] MEDS: CLONAZEPAM 1 MG TABLET GT SCH ×3 (06:17→21:10)
[2023-05-03] MEDS: LEVOTHYROXINE SODIUM 150 MCG TABLET PO SCH (06:32)
[2023-05-03] MEDS: [UNRECOGNIZED DRUG - OTHER] GT SCH (07:00)
[2023-05-03 07:54] LABS: BASOPHILS % (AUTO) 0.2 % (0.0-2.0); EOSINOPHILS # (AUTO) 0.2 K/uL (0.0-0.7); EOSINOPHILS % (AUTO) 3.5 % (0.0-7.0); HEMATOCRIT 30.5 % (36.7-47.1); HEMOGLOBIN 10.2 g/dL (12.5-16.3); LYMPHOCYTES # (AUTO) 0.7 K/uL (0.8-4.8); LYMPHOCYTES % (AUTO) 12.6 % (20.5-51.5); MEAN CORPUSCULAR HEMOGLOBIN 28.1 uug (23.8-33.4); MEAN CORPUSCULAR HGB CONC 33 g/dL (32.5-36.3); MEAN CORPUSCULAR VOLUME 84.5 fL (73.0-96.2); MONOCYTES # (AUTO) 0.4 K/uL (0.1-1.30); MONOCYTES % (AUTO) 7.1 % (0.0-11.0); NEUTROPHILS % (AUTO) 76.6 % (38.5-71.5); PLATELET COUNT (AUTO) 300 K/uL (152-348); RED BLOOD CELL COUNT(AUTO) 3.61 MIL/uL (4.06-5.63); RED CELL DISTRIBUTION WIDTH 17.2 % (12.1-16.2); WHITE BLOOD COUNT (AUTO) 5.2 K/uL (3.6-10.2)
[2023-05-03 08:15] LABS: DIFFERENTIAL COMMENT 1
[2023-05-03 08:22] LABS: CALCIUM 10.4 mg/dL (8.5-10.1); CREATININE 0.7 mg/dL (0.6-1.3); POTASSIUM 4.2 mmol/L (3.5-5.1)
[2023-05-03 09:04] VITALS: TEMP 97.2
[2023-05-03] MEDS: CHOLECALCIFEROL 1,000 UNIT TABLET GT SCH (09:28)
[2023-05-03] MEDS: BACLOFEN 10 MG TABLET GT SCH ×2 (09:28→18:23)
[2023-05-03] MEDS: ALLOPURINOL 300 MG TABLET GT SCH (09:28)
[2023-05-03] MEDS: ASPIRIN 81 MG TAB.CHEW GT SCH (09:28)
[2023-05-03] MEDS: SERTRALINE HCL 100 MG TABLET GT SCH (09:29)
[2023-05-03] MEDS: CLOPIDOGREL 75 MG TABLET GT SCH (09:29)
[2023-05-03] MEDS: PROTEIN SUPPLEMENT (PROSTAT) 30 ML LIQUID GT SCH ×2 (09:29→17:00)
[2023-05-03] MEDS: CLOTRIMAZOLE 1% CREAM 30 GM TUBE TOP SCH ×2 (09:30→17:00)
[2023-05-03] MEDS: ENOXAPARIN SODIUM 40 MG/0.4 ML DISP.SYRIN SQ SCH (09:41)
[2023-05-03] MEDS: RILUZOLE 50 MG GT SCH ×2 (09:41→17:00)
[2023-05-03] MEDS: GLYCOPYRROLATE 1 MG TABLET GT SCH ×3 (09:42→18:24)
[2023-05-03] MEDS: buPROPion 75 MG TABLET GT SCH ×2 (09:42→18:24)
[2023-05-03] MEDS: SILODOSIN 4 MG GT SCH (09:42)
[2023-05-03] MEDS: FENOFIBRATE NANOCRYSTALLIZED 145 MG TABLET PO SCH (09:43)
[2023-05-03] MEDS: FERROUS SULFATE 300 MG/5 ML LIQUID UDC GT SCH (09:44)
[2023-05-03] MEDS: VANCOMYCIN IV 1,000 MG in IV DEXTROSE 5% 250 ML IV SCH (14:40)
[2023-05-03] MEDS: JEVITY 1.2 1000 ML LIQUID GT PRN (15:08)
[2023-05-03 16:18] VITALS: TEMP 98.6
[2023-05-03 20:00] VITALS: BP 129/77; TEMP 97; O2SAT 100
[2023-05-03] MEDS: TIZANIDINE HCL 4 MG TABLET GT SCH (20:32)
[2023-05-03] MEDS: MIRTAZAPINE 15 MG TABLET GT SCH (20:33)
[2023-05-03] MEDS: ATORVASTATIN 20 MG TABLET GT SCH (20:33)
[2023-05-03] MEDS: FINASTERIDE 5 MG TABLET GT SCH (20:33)
[2023-05-03] MEDS: QUETIAPINE FUMARATE 100 MG TABLET GT SCH (20:33)
[2023-05-03] MEDS: MELATONIN 3 MG TABLET GT SCH (20:35)
[2023-05-04] VITALS: BP 111/71; TEMP 97.3; O2SAT 99
[2023-05-04] MEDS: QUETIAPINE FUMARATE 25 MG TABLET GT PRN ×2 (00:52→10:45)
[2023-05-04] MEDS: TEMAZEPAM 7.5 MG CAPSULE GT PRN (00:52)
[2023-05-04] MEDS: VANCOMYCIN IV 1,000 MG in IV DEXTROSE 5% 250 ML IV SCH (01:55)
[2023-05-04 04:45] VITALS: BP 115/80; TEMP 98; O2SAT 99
[2023-05-04] MEDS: PANTOPRAZOLE ORAL SUSPENSION 40 MG SUSPDR.PKT GT SCH (05:17)
[2023-05-04] MEDS: CLONAZEPAM 1 MG TABLET GT SCH ×3 (05:17→21:45)
[2023-05-04] MEDS: LEVOTHYROXINE SODIUM 150 MCG TABLET PO SCH (06:52)
[2023-05-04 07:45] VITALS: BP 127/52; TEMP 97.6; O2SAT 92
[2023-05-04 08:14] LABS: BASOPHILS % (AUTO) 0.3 % (0.0-2.0); EOSINOPHILS # (AUTO) 0.1 K/uL (0.0-0.7); EOSINOPHILS % (AUTO) 2.8 % (0.0-7.0); HEMATOCRIT 26.1 % (36.7-47.1); LYMPHOCYTES # (AUTO) 0.3 K/uL (0.8-4.8); LYMPHOCYTES % (AUTO) 7.2 % (20.5-51.5); MEAN CORPUSCULAR HEMOGLOBIN 29.1 uug (23.8-33.4); MEAN CORPUSCULAR HGB CONC 34 g/dL (32.5-36.3); MEAN CORPUSCULAR VOLUME 84.5 fL (73.0-96.2); MONOCYTES # (AUTO) 0.3 K/uL (0.1-1.30); NEUTROPHILS # (AUTO) 3.5 K/uL (1.8-8.9); NEUTROPHILS % (AUTO) 82.7 % (38.5-71.5); PLATELET COUNT (AUTO) 218 K/uL (152-348); RED BLOOD CELL COUNT(AUTO) 3.09 MIL/uL (4.06-5.63); RED CELL DISTRIBUTION WIDTH 16.9 % (12.1-16.2); WHITE BLOOD COUNT (AUTO) 4.3 K/uL (3.6-10.2)
[2023-05-04 08:23] LABS: DIFFERENTIAL COMMENT 1
[2023-05-04 08:33] LABS: CREATININE 0.9 mg/dL (0.6-1.3); POTASSIUM 3.7 mmol/L (3.5-5.1)
[2023-05-04] MEDS: PROTEIN SUPPLEMENT (PROSTAT) 30 ML LIQUID GT SCH ×2 (09:00→17:21)
[2023-05-04] MEDS: CLOTRIMAZOLE 1% CREAM 30 GM TUBE TOP SCH ×2 (09:00→17:21)
[2023-05-04] MEDS: buPROPion 75 MG TABLET GT SCH ×2 (10:41→17:26)
[2023-05-04] MEDS: GLYCOPYRROLATE 1 MG TABLET GT SCH ×3 (10:42→17:25)
[2023-05-04] MEDS: FERROUS SULFATE 300 MG/5 ML LIQUID UDC GT SCH (10:43)
[2023-05-04] MEDS: FENOFIBRATE NANOCRYSTALLIZED 145 MG TABLET PO SCH (10:43)
[2023-05-04] MEDS: ASPIRIN 81 MG TAB.CHEW GT SCH (10:43)
[2023-05-04] MEDS: BACLOFEN 10 MG TABLET GT SCH ×2 (10:43→17:25)
[2023-05-04] MEDS: SILODOSIN 4 MG GT SCH (10:44)
[2023-05-04] MEDS: RILUZOLE 50 MG GT SCH ×2 (10:44→17:26)
[2023-05-04] MEDS: CLOPIDOGREL 75 MG TABLET GT SCH (10:45)
[2023-05-04] MEDS: CHOLECALCIFEROL 1,000 UNIT TABLET GT SCH (10:45)
[2023-05-04] MEDS: ALLOPURINOL 300 MG TABLET GT SCH (10:46)
[2023-05-04] MEDS: ENOXAPARIN SODIUM 40 MG/0.4 ML DISP.SYRIN SQ SCH (10:48)
[2023-05-04] MEDS: SERTRALINE HCL 100 MG TABLET GT SCH (10:52)
[2023-05-04 12:58] VITALS: BP 119/63; TEMP 98.2; O2SAT 100
[2023-05-04] MEDS: LORAZEPAM 2 MG/1 ML VIAL IV PRN (14:32)
[2023-05-04 17:41] VITALS: BP 100/58; TEMP 98.2; O2SAT 100
[2023-05-04 20:00] VITALS: BP 146/71; TEMP 98.2; O2SAT 99
[2023-05-04] MEDS: QUETIAPINE FUMARATE 100 MG TABLET GT SCH (21:44)
[2023-05-04] MEDS: TIZANIDINE HCL 4 MG TABLET GT SCH (21:44)
[2023-05-04] MEDS: MELATONIN 3 MG TABLET GT SCH (21:44)
[2023-05-04] MEDS: ATORVASTATIN 20 MG TABLET GT SCH (21:45)
[2023-05-04] MEDS: MIRTAZAPINE 15 MG TABLET GT SCH (21:45)
[2023-05-04] MEDS: FINASTERIDE 5 MG TABLET GT SCH (21:45)
[2023-05-05] MEDS: TRAZODONE 50 MG TABLET PO PRN (00:08)
[2023-05-05] MEDS: TEMAZEPAM 7.5 MG CAPSULE GT PRN ×2 (00:09→23:33)
[2023-05-05] MEDS: ACETAMINOPHEN 325 MG TABLET GT PRN (00:09)
[2023-05-05] MEDS: QUETIAPINE FUMARATE 25 MG TABLET GT PRN ×4 (00:09→23:32)
[2023-05-05] MEDS: JEVITY 1.2 1000 ML LIQUID GT PRN ×2 (01:17→12:17)
[2023-05-05 01:22] VITALS: BP 140/74; TEMP 98.2; O2SAT 100
[2023-05-05 04:00] VITALS: BP 138/66; TEMP 98; O2SAT 99
[2023-05-05] MEDS: PANTOPRAZOLE ORAL SUSPENSION 40 MG SUSPDR.PKT GT SCH (05:10)
[2023-05-05] MEDS: LEVOTHYROXINE SODIUM 150 MCG TABLET PO SCH (05:10)
[2023-05-05] MEDS: CLONAZEPAM 1 MG TABLET GT SCH ×3 (05:10→21:22)
[2023-05-05 07:17] LABS: BASOPHILS % (AUTO) 0.4 % (0.0-2.0); EOSINOPHILS # (AUTO) 0.1 K/uL (0.0-0.7); EOSINOPHILS % (AUTO) 1.7 % (0.0-7.0); HEMATOCRIT 24.7 % (36.7-47.1); HEMOGLOBIN 8.3 g/dL (12.5-16.3); LYMPHOCYTES # (AUTO) 0.3 K/uL (0.8-4.8); LYMPHOCYTES % (AUTO) 8.4 % (20.5-51.5); MEAN CORPUSCULAR HEMOGLOBIN 28.6 uug (23.8-33.4); MEAN CORPUSCULAR HGB CONC 34 g/dL (32.5-36.3); MONOCYTES # (AUTO) 0.2 K/uL (0.1-1.30); MONOCYTES % (AUTO) 5.6 % (0.0-11.0); NEUTROPHILS # (AUTO) 3.3 K/uL (1.8-8.9); NEUTROPHILS % (AUTO) 83.9 % (38.5-71.5); PLATELET COUNT (AUTO) 211 K/uL (152-348); RED BLOOD CELL COUNT(AUTO) 2.91 MIL/uL (4.06-5.63); RED CELL DISTRIBUTION WIDTH 17.3 % (12.1-16.2)
[2023-05-05 07:21] LABS: CALCIUM 9.5 mg/dL (8.5-10.1); CREATININE 0.9 mg/dL (0.6-1.3); POTASSIUM 3.3 mmol/L (3.5-5.1)
[2023-05-05 07:25] LABS: DIFFERENTIAL COMMENT 1
[2023-05-05] MEDS: PROTEIN SUPPLEMENT (PROSTAT) 30 ML LIQUID GT SCH ×2 (09:00→17:01)
[2023-05-05] MEDS: CLOTRIMAZOLE 1% CREAM 30 GM TUBE TOP SCH ×2 (09:00→17:39)
[2023-05-05 09:54] VITALS: BP 120/60; TEMP 98.2; O2SAT 100
[2023-05-05] MEDS: ASPIRIN 81 MG TAB.CHEW GT SCH (10:01)
[2023-05-05] MEDS: FERROUS SULFATE 300 MG/5 ML LIQUID UDC GT SCH (10:02)
[2023-05-05] MEDS: BACLOFEN 10 MG TABLET GT SCH ×2 (10:02→16:59)
[2023-05-05] MEDS: RILUZOLE 50 MG GT SCH ×2 (10:02→16:59)
[2023-05-05] MEDS: CLOPIDOGREL 75 MG TABLET GT SCH (10:03)
[2023-05-05] MEDS: SILODOSIN 4 MG GT SCH (10:03)
[2023-05-05] MEDS: CHOLECALCIFEROL 1,000 UNIT TABLET GT SCH (10:04)
[2023-05-05] MEDS: buPROPion 75 MG TABLET GT SCH ×2 (10:04→17:00)
[2023-05-05] MEDS: GLYCOPYRROLATE 1 MG TABLET GT SCH ×3 (10:04→17:00)
[2023-05-05] MEDS: ALLOPURINOL 300 MG TABLET GT SCH (10:05)
[2023-05-05] MEDS: ENOXAPARIN SODIUM 40 MG/0.4 ML DISP.SYRIN SQ SCH (10:07)
[2023-05-05] MEDS: FENOFIBRATE NANOCRYSTALLIZED 145 MG TABLET PO SCH (10:16)
[2023-05-05] MEDS: SERTRALINE HCL 100 MG TABLET GT SCH (10:18)
[2023-05-05] MEDS: LORAZEPAM 2 MG/1 ML VIAL IV PRN ×2 (12:21→21:14)
[2023-05-05] MEDS ORDERED: POTASSIUM CHLORIDE 20 MEQ POWDER PACKET GT ONE (13:00)
[2023-05-05 14:07] VITALS: BP 109/70; TEMP 98; O2SAT 100
[2023-05-05 20:00] VITALS: BP 119/71; TEMP 97.3; O2SAT 100
[2023-05-05] MEDS: FINASTERIDE 5 MG TABLET GT SCH (21:17)
[2023-05-05] MEDS: MELATONIN 3 MG TABLET GT SCH (21:17)
[2023-05-05] MEDS: QUETIAPINE FUMARATE 100 MG TABLET GT SCH (21:17)
[2023-05-05] MEDS: MIRTAZAPINE 15 MG TABLET GT SCH (21:17)
[2023-05-05] MEDS: ATORVASTATIN 20 MG TABLET GT SCH (21:17)
[2023-05-05] MEDS: TIZANIDINE HCL 4 MG TABLET GT SCH (21:18)
[2023-05-06] VITALS: BP 120/80; TEMP 97; O2SAT 100
[2023-05-06 04:00] VITALS: BP 128/78; TEMP 99; O2SAT 100
[2023-05-06] MEDS: CLONAZEPAM 1 MG TABLET GT SCH ×3 (05:21→22:15)
[2023-05-06] MEDS: PANTOPRAZOLE ORAL SUSPENSION 40 MG SUSPDR.PKT GT SCH (05:21)
[2023-05-06 06:56] LABS: BASOPHILS % (AUTO) 0.2 % (0.0-2.0); EOSINOPHILS # (AUTO) 0.1 K/uL (0.0-0.7); EOSINOPHILS % (AUTO) 0.5 % (0.0-7.0); HEMATOCRIT 23.1 % (36.7-47.1); HEMOGLOBIN 7.9 g/dL (12.5-16.3); LYMPHOCYTES # (AUTO) 0.3 K/uL (0.8-4.8); LYMPHOCYTES % (AUTO) 3.5 % (20.5-51.5); MEAN CORPUSCULAR HEMOGLOBIN 28.9 uug (23.8-33.4); MEAN CORPUSCULAR HGB CONC 34 g/dL (32.5-36.3); MEAN CORPUSCULAR VOLUME 84.7 fL (73.0-96.2); MONOCYTES # (AUTO) 0.3 K/uL (0.1-1.30); MONOCYTES % (AUTO) 3.3 % (0.0-11.0); NEUTROPHILS # (AUTO) 8.9 K/uL (1.8-8.9); NEUTROPHILS % (AUTO) 92.5 % (38.5-71.5); PLATELET COUNT (AUTO) 228 K/uL (152-348); RED BLOOD CELL COUNT(AUTO) 2.73 MIL/uL (4.06-5.63); RED CELL DISTRIBUTION WIDTH 17.1 % (12.1-16.2); WHITE BLOOD COUNT (AUTO) 9.7 K/uL (3.6-10.2)
[2023-05-06 07:11] LABS: CALCIUM 9.6 mg/dL (8.5-10.1); CREATININE 0.9 mg/dL (0.6-1.3); POTASSIUM 3.6 mmol/L (3.5-5.1); VANCOMYCIN,RANDOM 13.7 ug/mL (20.0-30.0)
[2023-05-06 07:13] LABS: DIFFERENTIAL COMMENT 1
[2023-05-06] MEDS ORDERED: VANCOMYCIN IV 1,000 MG in IV DEXTROSE 5% 250 ML IV SCH ×2 (09:00→11:45)
[2023-05-06] MEDS: ENOXAPARIN SODIUM 40 MG/0.4 ML DISP.SYRIN SQ SCH (10:14)
[2023-05-06] MEDS: ASPIRIN 81 MG TAB.CHEW GT SCH (10:14)
[2023-05-06] MEDS: FERROUS SULFATE 300 MG/5 ML LIQUID UDC GT SCH (10:14)
[2023-05-06] MEDS: SERTRALINE HCL 100 MG TABLET GT SCH (10:15)
[2023-05-06] MEDS: QUETIAPINE FUMARATE 25 MG TABLET GT PRN ×2 (10:15→16:39)
[2023-05-06] MEDS: ACETAMINOPHEN 325 MG TABLET GT PRN (10:15)
[2023-05-06] MEDS: ALLOPURINOL 300 MG TABLET GT SCH (10:16)
[2023-05-06] MEDS: FENOFIBRATE NANOCRYSTALLIZED 145 MG TABLET PO SCH (10:16)
[2023-05-06] MEDS: CHOLECALCIFEROL 1,000 UNIT TABLET GT SCH (10:16)
[2023-05-06] MEDS: RILUZOLE 50 MG GT SCH ×2 (10:17→16:40)
[2023-05-06] MEDS: CLOPIDOGREL 75 MG TABLET GT SCH (10:17)
[2023-05-06] MEDS: GLYCOPYRROLATE 1 MG TABLET GT SCH ×3 (10:17→16:40)
[2023-05-06] MEDS: BACLOFEN 10 MG TABLET GT SCH ×2 (10:17→16:42)
[2023-05-06] MEDS: SILODOSIN 4 MG GT SCH (10:18)
[2023-05-06] MEDS: buPROPion 75 MG TABLET GT SCH ×2 (10:18→16:40)
[2023-05-06] MEDS: CLOTRIMAZOLE 1% CREAM 30 GM TUBE TOP SCH ×2 (10:19→16:41)
[2023-05-06] MEDS: PROTEIN SUPPLEMENT (PROSTAT) 30 ML LIQUID GT SCH ×2 (10:36→16:42)
[2023-05-06 12:00] VITALS: BP 127/71; TEMP 97.6; O2SAT 100
[2023-05-06 16:00] VITALS: BP 120/69; TEMP 98.1; O2SAT 100
[2023-05-06 20:08] VITALS: BP 114/60; TEMP 98.1; O2SAT 100
[2023-05-06] MEDS: ATORVASTATIN 20 MG TABLET GT SCH (21:13)
[2023-05-06] MEDS: QUETIAPINE FUMARATE 100 MG TABLET GT SCH (21:13)
[2023-05-06] MEDS: MIRTAZAPINE 15 MG TABLET GT SCH (21:13)
[2023-05-06] MEDS: FINASTERIDE 5 MG TABLET GT SCH (21:13)
[2023-05-06] MEDS: TIZANIDINE HCL 4 MG TABLET GT SCH (21:13)
[2023-05-06] MEDS: MELATONIN 3 MG TABLET GT SCH (21:14)
[2023-05-07] VITALS: BP 97/72; TEMP 98.9; O2SAT 35
[2023-05-07 04:20] VITALS: BP 114/58; TEMP 98.3; O2SAT 35
[2023-05-07] MEDS: CLONAZEPAM 1 MG TABLET GT SCH ×3 (05:31→21:36)
[2023-05-07] MEDS: LORAZEPAM 2 MG/1 ML VIAL IV PRN ×2 (05:50→16:50)
[2023-05-07] MEDS: PANTOPRAZOLE ORAL SUSPENSION 40 MG SUSPDR.PKT GT SCH (06:12)
[2023-05-07 08:00] VITALS: BP 108/67; TEMP 98.1; O2SAT 100
[2023-05-07] MEDS: buPROPion 75 MG TABLET GT SCH ×2 (09:58→16:51)
[2023-05-07] MEDS: GLYCOPYRROLATE 1 MG TABLET GT SCH ×3 (09:59→16:51)
[2023-05-07] MEDS: FERROUS SULFATE 300 MG/5 ML LIQUID UDC GT SCH (09:59)
[2023-05-07] MEDS: ASPIRIN 81 MG TAB.CHEW GT SCH (09:59)
[2023-05-07] MEDS: RILUZOLE 50 MG GT SCH ×2 (09:59→16:52)
[2023-05-07] MEDS: SILODOSIN 4 MG GT SCH (09:59)
[2023-05-07] MEDS: CLOPIDOGREL 75 MG TABLET GT SCH (10:00)
[2023-05-07] MEDS: ALLOPURINOL 300 MG TABLET GT SCH (10:00)
[2023-05-07] MEDS: CHOLECALCIFEROL 1,000 UNIT TABLET GT SCH (10:00)
[2023-05-07] MEDS: FENOFIBRATE NANOCRYSTALLIZED 145 MG TABLET PO SCH (10:00)
[2023-05-07] MEDS: SERTRALINE HCL 100 MG TABLET GT SCH (10:00)
[2023-05-07] MEDS: BACLOFEN 10 MG TABLET GT SCH ×2 (10:01→16:51)
[2023-05-07] MEDS: ENOXAPARIN SODIUM 40 MG/0.4 ML DISP.SYRIN SQ SCH (10:02)
[2023-05-07] MEDS: LEVOTHYROXINE SODIUM 150 MCG TABLET PO SCH ×2 (10:10→10:12)
[2023-05-07] MEDS: CLOTRIMAZOLE 1% CREAM 30 GM TUBE TOP SCH ×2 (10:11→16:53)
[2023-05-07] MEDS: PROTEIN SUPPLEMENT (PROSTAT) 30 ML LIQUID GT SCH ×2 (10:24→16:53)
[2023-05-07] MEDS: QUETIAPINE FUMARATE 25 MG TABLET GT PRN ×2 (14:01→21:36)
[2023-05-07 14:12] VITALS: BP 132/72; TEMP 98.1; O2SAT 76
[2023-05-07 16:00] VITALS: BP 142/80; TEMP 98.5; O2SAT 100
[2023-05-07 20:15] VITALS: BP 136/69; TEMP 98.3; O2SAT 100
[2023-05-07] MEDS: QUETIAPINE FUMARATE 100 MG TABLET GT SCH (21:35)
[2023-05-07] MEDS: FINASTERIDE 5 MG TABLET GT SCH (21:35)
[2023-05-07] MEDS: TIZANIDINE HCL 4 MG TABLET GT SCH (21:35)
[2023-05-07] MEDS: MELATONIN 3 MG TABLET GT SCH (21:36)
[2023-05-07] MEDS: ATORVASTATIN 20 MG TABLET GT SCH (21:36)
[2023-05-07] MEDS: MIRTAZAPINE 15 MG TABLET GT SCH (21:37)
[2023-05-07] MEDS ORDERED: VANCOMYCIN IV 1,000 MG in IV DEXTROSE 5% 250 ML IV ONE (22:00)
[2023-05-08] MEDS: LORAZEPAM 2 MG/1 ML VIAL IV PRN
[2023-05-08 00:10] VITALS: BP 146/79; TEMP 97.6; O2SAT 100; O2SAT 99
[2023-05-08 04:10] VITALS: BP 95/63; TEMP 98.6; O2SAT 96
[2023-05-08] MEDS: CLONAZEPAM 1 MG TABLET GT SCH ×3 (05:47→22:19)
[2023-05-08] MEDS: PANTOPRAZOLE ORAL SUSPENSION 40 MG SUSPDR.PKT GT SCH (05:47)
[2023-05-08 07:05] LABS: BASOPHILS % (AUTO) 0.1 % (0.0-2.0); EOSINOPHILS % (AUTO) 0.6 % (0.0-7.0); HEMATOCRIT 24.9 % (36.7-47.1); HEMOGLOBIN 8.3 g/dL (12.5-16.3); LYMPHOCYTES # (AUTO) 0.3 K/uL (0.8-4.8); MEAN CORPUSCULAR HEMOGLOBIN 28.3 uug (23.8-33.4); MEAN CORPUSCULAR HGB CONC 33 g/dL (32.5-36.3); MEAN CORPUSCULAR VOLUME 85.4 fL (73.0-96.2); MONOCYTES # (AUTO) 0.3 K/uL (0.1-1.30); MONOCYTES % (AUTO) 3.8 % (0.0-11.0); NEUTROPHILS # (AUTO) 7.5 K/uL (1.8-8.9); NEUTROPHILS % (AUTO) 91.5 % (38.5-71.5); PLATELET COUNT (AUTO) 217 K/uL (152-348); RED BLOOD CELL COUNT(AUTO) 2.92 MIL/uL (4.06-5.63); RED CELL DISTRIBUTION WIDTH 16.9 % (12.1-16.2); WHITE BLOOD COUNT (AUTO) 8.2 K/uL (3.6-10.2)
[2023-05-08 07:27] LABS: CALCIUM 9.8 mg/dL (8.5-10.1); CREATININE 0.8 mg/dL (0.6-1.3); MAGNESIUM 1.6 mg/dL (1.8-2.4); PHOSPHOROUS 3.3 mg/dL (2.5-4.9); POTASSIUM 3.7 mmol/L (3.5-5.1)
[2023-05-08 07:28] LABS: DIFFERENTIAL COMMENT 1
[2023-05-08] MEDS: LEVOTHYROXINE SODIUM 150 MCG TABLET PO SCH (09:59)
[2023-05-08] MEDS: ASPIRIN 81 MG TAB.CHEW GT SCH (09:59)
[2023-05-08] MEDS: BACLOFEN 10 MG TABLET GT SCH ×2 (10:00→17:19)
[2023-05-08] MEDS: FENOFIBRATE NANOCRYSTALLIZED 145 MG TABLET PO SCH (10:00)
[2023-05-08] MEDS: FERROUS SULFATE 300 MG/5 ML LIQUID UDC GT SCH (10:00)
[2023-05-08] MEDS: CLOPIDOGREL 75 MG TABLET GT SCH (10:00)
[2023-05-08] MEDS: SERTRALINE HCL 100 MG TABLET GT SCH (10:01)
[2023-05-08] MEDS: CHOLECALCIFEROL 1,000 UNIT TABLET GT SCH (10:01)
[2023-05-08] MEDS: ALLOPURINOL 300 MG TABLET GT SCH (10:01)
[2023-05-08] MEDS: buPROPion 75 MG TABLET GT SCH ×2 (10:02→17:16)
[2023-05-08] MEDS: SILODOSIN 4 MG GT SCH (10:04)
[2023-05-08] MEDS: RILUZOLE 50 MG GT SCH ×2 (10:05→17:17)
[2023-05-08] MEDS: GLYCOPYRROLATE 1 MG TABLET GT SCH ×3 (10:05→17:16)
[2023-05-08] MEDS: ACETAMINOPHEN 325 MG TABLET GT PRN (10:06)
[2023-05-08] MEDS: QUETIAPINE FUMARATE 25 MG TABLET GT PRN ×2 (10:06→17:19)
[2023-05-08] MEDS: CLOTRIMAZOLE 1% CREAM 30 GM TUBE TOP SCH ×2 (10:08→17:21)
[2023-05-08] MEDS: PROTEIN SUPPLEMENT (PROSTAT) 30 ML LIQUID GT SCH ×2 (10:08→17:21)
[2023-05-08] MEDS: ENOXAPARIN SODIUM 40 MG/0.4 ML DISP.SYRIN SQ SCH (10:09)
[2023-05-08] MEDS: JEVITY 1.2 1000 ML LIQUID GT PRN (10:36)
[2023-05-08 11:30] VITALS: BP 100/40; TEMP 97.1; O2SAT 99
[2023-05-08] MEDS: VANCOMYCIN IV 1,000 MG in IV DEXTROSE 5% 250 ML IV SCH (14:16)
[2023-05-08 16:40] VITALS: BP 106/50; TEMP 98.3; O2SAT 98
[2023-05-08] MEDS: MAGNESIUM OXIDE 400 MG TABLET GT SCH ×2 (17:16→18:42)
[2023-05-08 20:36] VITALS: BP 120/70; TEMP 97.9; O2SAT 100
[2023-05-08] MEDS: FINASTERIDE 5 MG TABLET GT SCH (21:26)
[2023-05-08] MEDS: ATORVASTATIN 20 MG TABLET GT SCH (21:26)
[2023-05-08] MEDS: TIZANIDINE HCL 4 MG TABLET GT SCH (21:26)
[2023-05-08] MEDS: QUETIAPINE FUMARATE 100 MG TABLET GT SCH (21:26)
[2023-05-08] MEDS: MIRTAZAPINE 15 MG TABLET GT SCH (21:26)
[2023-05-08] MEDS: MELATONIN 3 MG TABLET GT SCH (21:28)
[2023-05-09 00:36] VITALS: BP 108/59; TEMP 98; O2SAT 100
[2023-05-09 04:05] VITALS: BP 97/51; TEMP 98; O2SAT 100
[2023-05-09] MEDS: CLONAZEPAM 1 MG TABLET GT SCH ×3 (06:01→22:00)
[2023-05-09] MEDS: PANTOPRAZOLE ORAL SUSPENSION 40 MG SUSPDR.PKT GT SCH (06:01)
[2023-05-09] MEDS: VANCOMYCIN IV 1,000 MG in IV DEXTROSE 5% 250 ML IV SCH ×2 (06:01→22:01)
[2023-05-09] MEDS: ASPIRIN 81 MG TAB.CHEW GT SCH (09:25)
[2023-05-09] MEDS: FERROUS SULFATE 300 MG/5 ML LIQUID UDC GT SCH (09:25)
[2023-05-09] MEDS: CLOPIDOGREL 75 MG TABLET GT SCH (09:26)
[2023-05-09] MEDS: BACLOFEN 10 MG TABLET GT SCH ×2 (09:26→17:35)
[2023-05-09] MEDS: LEVOTHYROXINE SODIUM 150 MCG TABLET PO SCH (09:26)
[2023-05-09] MEDS: ALLOPURINOL 300 MG TABLET GT SCH (09:26)
[2023-05-09] MEDS: CHOLECALCIFEROL 1,000 UNIT TABLET GT SCH (09:26)
[2023-05-09] MEDS: FENOFIBRATE NANOCRYSTALLIZED 145 MG TABLET PO SCH (09:26)
[2023-05-09] MEDS: buPROPion 75 MG TABLET GT SCH ×2 (09:27→17:35)
[2023-05-09] MEDS: SILODOSIN 4 MG GT SCH (09:27)
[2023-05-09] MEDS: GLYCOPYRROLATE 1 MG TABLET GT SCH ×3 (09:27→17:37)
[2023-05-09] MEDS: RILUZOLE 50 MG GT SCH ×2 (09:27→17:36)
[2023-05-09] MEDS: CLOTRIMAZOLE 1% CREAM 30 GM TUBE TOP SCH ×2 (09:29→17:37)
[2023-05-09] MEDS: SERTRALINE HCL 100 MG TABLET GT SCH (09:31)
[2023-05-09] MEDS: PROTEIN SUPPLEMENT (PROSTAT) 30 ML LIQUID GT SCH ×2 (09:31→17:35)
[2023-05-09] MEDS: ENOXAPARIN SODIUM 40 MG/0.4 ML DISP.SYRIN SQ SCH (09:32)
[2023-05-09 11:50] VITALS: BP 96/54; TEMP 97.9; O2SAT 100
[2023-05-09] MEDS: JEVITY 1.2 1000 ML LIQUID GT PRN (12:54)
[2023-05-09 16:40] VITALS: BP 115/70; TEMP 98.3; O2SAT 100
[2023-05-09 20:32] VITALS: BP 118/73; TEMP 98.6; O2SAT 100
[2023-05-09] MEDS: FINASTERIDE 5 MG TABLET GT SCH (21:43)
[2023-05-09] MEDS: QUETIAPINE FUMARATE 100 MG TABLET GT SCH (21:43)
[2023-05-09] MEDS: ATORVASTATIN 20 MG TABLET GT SCH (21:43)
[2023-05-09] MEDS: TIZANIDINE HCL 4 MG TABLET GT SCH (21:43)
[2023-05-09] MEDS: MIRTAZAPINE 15 MG TABLET GT SCH (21:43)
[2023-05-09] MEDS: MELATONIN 3 MG TABLET GT SCH (21:44)
[2023-05-10 00:21] VITALS: BP 123/76; TEMP 98.5; O2SAT 99
[2023-05-10 04:00] VITALS: BP 96/56; TEMP 98.3; O2SAT 100
[2023-05-10] MEDS: CLONAZEPAM 1 MG TABLET GT SCH ×3 (05:56→21:55)
[2023-05-10] MEDS: PANTOPRAZOLE ORAL SUSPENSION 40 MG SUSPDR.PKT GT SCH (05:56)
[2023-05-10] MEDS: LEVOTHYROXINE SODIUM 150 MCG TABLET PO SCH (07:59)
[2023-05-10] MEDS: QUETIAPINE FUMARATE 25 MG TABLET GT PRN (08:01)
[2023-05-10] MEDS: ASPIRIN 81 MG TAB.CHEW GT SCH (08:18)
[2023-05-10] MEDS: FERROUS SULFATE 300 MG/5 ML LIQUID UDC GT SCH (08:19)
[2023-05-10] MEDS: CLOPIDOGREL 75 MG TABLET GT SCH (08:19)
[2023-05-10] MEDS: FENOFIBRATE NANOCRYSTALLIZED 145 MG TABLET PO SCH (08:19)
[2023-05-10] MEDS: CHOLECALCIFEROL 1,000 UNIT TABLET GT SCH (08:19)
[2023-05-10] MEDS: PROTEIN SUPPLEMENT (PROSTAT) 30 ML LIQUID GT SCH ×2 (08:19→17:00)
[2023-05-10] MEDS: SERTRALINE HCL 100 MG TABLET GT SCH (08:21)
[2023-05-10] MEDS: ALLOPURINOL 300 MG TABLET GT SCH (08:21)
[2023-05-10] MEDS: BACLOFEN 10 MG TABLET GT SCH ×2 (08:21→16:59)
[2023-05-10] MEDS: RILUZOLE 50 MG GT SCH ×2 (08:22→17:01)
[2023-05-10] MEDS: GLYCOPYRROLATE 1 MG TABLET GT SCH ×3 (08:23→17:00)
[2023-05-10] MEDS: buPROPion 75 MG TABLET GT SCH ×2 (08:24→17:02)
[2023-05-10] MEDS: CLOTRIMAZOLE 1% CREAM 30 GM TUBE TOP SCH ×2 (08:24→17:02)
[2023-05-10] MEDS: SILODOSIN 4 MG GT SCH (08:25)
[2023-05-10] MEDS: ENOXAPARIN SODIUM 40 MG/0.4 ML DISP.SYRIN SQ SCH (08:58)
[2023-05-10 11:41] VITALS: BP 92/57; TEMP 98.6; O2SAT 100
[2023-05-10] MEDS: LORAZEPAM 2 MG/1 ML VIAL IV PRN (15:39)
[2023-05-10 15:41] VITALS: BP 99/65; TEMP 98.2; O2SAT 98
[2023-05-10] MEDS: VANCOMYCIN IV 1,000 MG in IV DEXTROSE 5% 250 ML IV SCH (16:20)
[2023-05-10] MEDS: TIZANIDINE HCL 4 MG TABLET GT SCH (20:44)
[2023-05-10] MEDS: FINASTERIDE 5 MG TABLET GT SCH (20:44)
[2023-05-10] MEDS: ATORVASTATIN 20 MG TABLET GT SCH (20:44)
[2023-05-10] MEDS: QUETIAPINE FUMARATE 100 MG TABLET GT SCH (20:44)
[2023-05-10] MEDS: MIRTAZAPINE 15 MG TABLET GT SCH (20:44)
[2023-05-10] MEDS: MELATONIN 3 MG TABLET GT SCH (20:45)
[2023-05-10] MEDS: JEVITY 1.2 1000 ML LIQUID GT PRN (20:52)
[2023-05-10 21:30] VITALS: BP 121/64; TEMP 97.8; O2SAT 100
[2023-05-11 00:49] VITALS: BP 112/64; TEMP 97.6; O2SAT 100
[2023-05-11 05:33] VITALS: BP 101/63; TEMP 97.8; O2SAT 100
[2023-05-11] MEDS: CLONAZEPAM 1 MG TABLET GT SCH ×3 (05:58→22:10)
[2023-05-11] MEDS: PANTOPRAZOLE ORAL SUSPENSION 40 MG SUSPDR.PKT GT SCH (05:58)
[2023-05-11] MEDS: LORAZEPAM 2 MG/1 ML VIAL IV PRN ×2 (06:31→15:22)
[2023-05-11 06:33] LABS: BASOPHILS % (AUTO) 0.2 % (0.0-2.0); EOSINOPHILS # (AUTO) 0.1 K/uL (0.0-0.7); EOSINOPHILS % (AUTO) 0.6 % (0.0-7.0); HEMATOCRIT 22.1 % (36.7-47.1); LYMPHOCYTES # (AUTO) 0.5 K/uL (0.8-4.8); MEAN CORPUSCULAR HGB CONC 33 g/dL (32.5-36.3); MEAN CORPUSCULAR VOLUME 86.9 fL (73.0-96.2); MONOCYTES # (AUTO) 0.6 K/uL (0.1-1.30); MONOCYTES % (AUTO) 4.5 % (0.0-11.0); NEUTROPHILS # (AUTO) 12.1 K/uL (1.8-8.9); NEUTROPHILS % (AUTO) 90.7 % (38.5-71.5); PLATELET COUNT (AUTO) 289 K/uL (152-348); RED BLOOD CELL COUNT(AUTO) 2.55 MIL/uL (4.06-5.63); RED CELL DISTRIBUTION WIDTH 16.2 % (12.1-16.2); WHITE BLOOD COUNT (AUTO) 13.4 K/uL (3.6-10.2)
[2023-05-11 06:51] LABS: DIFFERENTIAL COMMENT 1; HEMOGLOBIN 7.4 g/dL (12.5-16.3)
[2023-05-11 06:57] LABS: CALCIUM 10.1 mg/dL (8.5-10.1); CREATININE 0.9 mg/dL (0.6-1.3); PHOSPHOROUS 3.8 mg/dL (2.5-4.9); POTASSIUM 4.1 mmol/L (3.5-5.1)
[2023-05-11] MEDS: LEVOTHYROXINE SODIUM 150 MCG TABLET PO SCH (08:05)
[2023-05-11] MEDS: QUETIAPINE FUMARATE 25 MG TABLET GT PRN (08:06)
[2023-05-11] MEDS: FERROUS SULFATE 300 MG/5 ML LIQUID UDC GT SCH (09:41)
[2023-05-11] MEDS: ASPIRIN 81 MG TAB.CHEW GT SCH (09:42)
[2023-05-11] MEDS: FENOFIBRATE NANOCRYSTALLIZED 145 MG TABLET PO SCH (09:42)
[2023-05-11] MEDS: SERTRALINE HCL 100 MG TABLET GT SCH (09:42)
[2023-05-11] MEDS: CHOLECALCIFEROL 1,000 UNIT TABLET GT SCH (09:42)
[2023-05-11] MEDS: ALLOPURINOL 300 MG TABLET GT SCH (09:42)
[2023-05-11] MEDS: BACLOFEN 10 MG TABLET GT SCH ×2 (09:42→17:16)
[2023-05-11] MEDS: CLOPIDOGREL 75 MG TABLET GT SCH (09:42)
[2023-05-11] MEDS: PROTEIN SUPPLEMENT (PROSTAT) 30 ML LIQUID GT SCH ×2 (09:43→17:17)
[2023-05-11] MEDS: GLYCOPYRROLATE 1 MG TABLET GT SCH ×3 (09:44→17:18)
[2023-05-11] MEDS: RILUZOLE 50 MG GT SCH ×2 (09:44→17:16)
[2023-05-11] MEDS: SILODOSIN 4 MG GT SCH (09:45)
[2023-05-11] MEDS: buPROPion 75 MG TABLET GT SCH ×2 (09:45→17:18)
[2023-05-11] MEDS: CLOTRIMAZOLE 1% CREAM 30 GM TUBE TOP SCH ×2 (09:47→17:18)
[2023-05-11] MEDS: ENOXAPARIN SODIUM 40 MG/0.4 ML DISP.SYRIN SQ SCH (09:49)
[2023-05-11] MEDS: VANCOMYCIN IV 1,000 MG in IV DEXTROSE 5% 250 ML IV SCH (10:21)
[2023-05-11 11:40] VITALS: BP 90/58; TEMP 97.8; O2SAT 100
[2023-05-11 16:56] VITALS: BP 129/54; TEMP 97.6; O2SAT 98
[2023-05-11 20:00] VITALS: BP 142/65; TEMP 98.4; O2SAT 100
[2023-05-11] MEDS: QUETIAPINE FUMARATE 100 MG TABLET GT SCH (21:28)
[2023-05-11] MEDS: TIZANIDINE HCL 4 MG TABLET GT SCH (21:28)
[2023-05-11] MEDS: ATORVASTATIN 20 MG TABLET GT SCH (21:29)
[2023-05-11] MEDS: FINASTERIDE 5 MG TABLET GT SCH (21:29)
[2023-05-11] MEDS: MIRTAZAPINE 15 MG TABLET GT SCH (21:29)
[2023-05-11] MEDS: MELATONIN 3 MG TABLET GT SCH (21:29)
[2023-05-12 00:12] VITALS: BP 100/54; TEMP 97.9; O2SAT 100
[2023-05-12 03:27] LABS: BASOPHILS % (AUTO) 0.1 % (0.0-2.0); EOSINOPHILS % (AUTO) 0.4 % (0.0-7.0); HEMATOCRIT 23.4 % (36.7-47.1); HEMOGLOBIN 7.9 g/dL (12.5-16.3); LYMPHOCYTES # (AUTO) 0.3 K/uL (0.8-4.8); LYMPHOCYTES % (AUTO) 2.7 % (20.5-51.5); MEAN CORPUSCULAR HEMOGLOBIN 28.3 uug (23.8-33.4); MEAN CORPUSCULAR HGB CONC 34 g/dL (32.5-36.3); MEAN CORPUSCULAR VOLUME 83.9 fL (73.0-96.2); MONOCYTES # (AUTO) 0.3 K/uL (0.1-1.30); MONOCYTES % (AUTO) 2.6 % (0.0-11.0); NEUTROPHILS # (AUTO) 9.9 K/uL (1.8-8.9); NEUTROPHILS % (AUTO) 94.2 % (38.5-71.5); PLATELET COUNT (AUTO) 248 K/uL (152-348); RED BLOOD CELL COUNT(AUTO) 2.79 MIL/uL (4.06-5.63); RED CELL DISTRIBUTION WIDTH 15.9 % (12.1-16.2); WHITE BLOOD COUNT (AUTO) 10.5 K/uL (3.6-10.2)
[2023-05-12 03:29] LABS: DIFFERENTIAL COMMENT 1
[2023-05-12 03:31] LABS: CALCIUM 9.7 mg/dL (8.5-10.1); CREATININE 0.8 mg/dL (0.6-1.3); MAGNESIUM 1.6 mg/dL (1.8-2.4); PHOSPHOROUS 3.1 mg/dL (2.5-4.9); POTASSIUM 3.6 mmol/L (3.5-5.1)
[2023-05-12] MEDS: VANCOMYCIN IV 1,000 MG in IV DEXTROSE 5% 250 ML IV SCH ×2 (04:00→15:24)
[2023-05-12 04:35] VITALS: BP 162/57; TEMP 98.5; O2SAT 100
[2023-05-12] MEDS: PANTOPRAZOLE ORAL SUSPENSION 40 MG SUSPDR.PKT GT SCH (05:48)
[2023-05-12] MEDS: CLONAZEPAM 1 MG TABLET GT SCH ×3 (05:48→21:12)
[2023-05-12] MEDS ORDERED: MAGNESIUM OXIDE 400 MG TABLET PO ONE (10:15)
[2023-05-12 10:18] VITALS: BP 102/58; TEMP 98.5; O2SAT 100
[2023-05-12] MEDS: FERROUS SULFATE 300 MG/5 ML LIQUID UDC GT SCH (10:46)
[2023-05-12] MEDS: SERTRALINE HCL 100 MG TABLET GT SCH (10:47)
[2023-05-12] MEDS: CHOLECALCIFEROL 1,000 UNIT TABLET GT SCH (10:47)
[2023-05-12] MEDS: ASPIRIN 81 MG TAB.CHEW GT SCH (10:47)
[2023-05-12] MEDS: ALLOPURINOL 300 MG TABLET GT SCH (10:47)
[2023-05-12] MEDS: BACLOFEN 10 MG TABLET GT SCH ×2 (10:48→16:59)
[2023-05-12] MEDS: QUETIAPINE FUMARATE 25 MG TABLET GT PRN (10:49)
[2023-05-12] MEDS: PROTEIN SUPPLEMENT (PROSTAT) 30 ML LIQUID GT SCH ×2 (10:50→17:02)
[2023-05-12] MEDS: GLYCOPYRROLATE 1 MG TABLET GT SCH ×3 (10:53→17:00)
[2023-05-12] MEDS: LEVOTHYROXINE SODIUM 150 MCG TABLET PO SCH (10:53)
[2023-05-12] MEDS: CLOPIDOGREL 75 MG TABLET GT SCH (10:53)
[2023-05-12] MEDS: SILODOSIN 4 MG GT SCH (10:54)
[2023-05-12] MEDS: buPROPion 75 MG TABLET GT SCH ×2 (10:54→17:01)
[2023-05-12] MEDS: RILUZOLE 50 MG GT SCH ×2 (10:55→17:00)
[2023-05-12] MEDS: ENOXAPARIN SODIUM 40 MG/0.4 ML DISP.SYRIN SQ SCH (10:58)
[2023-05-12] MEDS: CLOTRIMAZOLE 1% CREAM 30 GM TUBE TOP SCH ×2 (10:59→17:03)
[2023-05-12] MEDS ORDERED: VANCOMYCIN IV 1,000 MG in IV DEXTROSE 5% 250 ML IV SCH (13:00)
[2023-05-12 13:13] VITALS: BP 138/62; TEMP 97.9; O2SAT 100
[2023-05-12] MEDS: FENOFIBRATE NANOCRYSTALLIZED 145 MG TABLET PO SCH (15:28)
[2023-05-12 16:48] VITALS: BP 139/59; TEMP 97.6; O2SAT 100
[2023-05-12] MEDS: MIRTAZAPINE 15 MG TABLET GT SCH (21:12)
[2023-05-12] MEDS: QUETIAPINE FUMARATE 100 MG TABLET GT SCH (21:12)
[2023-05-12] MEDS: TIZANIDINE HCL 4 MG TABLET GT SCH (21:12)
[2023-05-12] MEDS: ATORVASTATIN 20 MG TABLET GT SCH (21:12)
[2023-05-12] MEDS: FINASTERIDE 5 MG TABLET GT SCH (21:12)
[2023-05-12] MEDS: MELATONIN 3 MG TABLET GT SCH (21:13)
[2023-05-12 21:27] VITALS: BP 109/75; TEMP 98.3; O2SAT 98
[2023-05-13 00:16] VITALS: BP 91/54; TEMP 98.2; O2SAT 100
[2023-05-13] MEDS: JEVITY 1.2 1000 ML LIQUID GT PRN (03:16)
[2023-05-13 04:00] VITALS: BP 91/53; TEMP 98.2; O2SAT 100
[2023-05-13] MEDS: PANTOPRAZOLE ORAL SUSPENSION 40 MG SUSPDR.PKT GT SCH (05:49)
[2023-05-13] MEDS: CLONAZEPAM 1 MG TABLET GT SCH ×3 (05:49→21:03)
[2023-05-13] MEDS: LEVOTHYROXINE SODIUM 150 MCG TABLET PO SCH (06:42)
[2023-05-13 07:01] LABS: BASOPHILS % (AUTO) 0.1 % (0.0-2.0); EOSINOPHILS % (AUTO) 0.2 % (0.0-7.0); HEMATOCRIT 22.4 % (36.7-47.1); HEMOGLOBIN 7.6 g/dL (12.5-16.3); LYMPHOCYTES # (AUTO) 0.3 K/uL (0.8-4.8); LYMPHOCYTES % (AUTO) 3.2 % (20.5-51.5); MEAN CORPUSCULAR HEMOGLOBIN 28.9 uug (23.8-33.4); MEAN CORPUSCULAR HGB CONC 34 g/dL (32.5-36.3); MEAN CORPUSCULAR VOLUME 85.4 fL (73.0-96.2); MONOCYTES # (AUTO) 0.4 K/uL (0.1-1.30); NEUTROPHILS # (AUTO) 9.8 K/uL (1.8-8.9); NEUTROPHILS % (AUTO) 92.5 % (38.5-71.5); PLATELET COUNT (AUTO) 258 K/uL (152-348); RED BLOOD CELL COUNT(AUTO) 2.62 MIL/uL (4.06-5.63); RED CELL DISTRIBUTION WIDTH 15.9 % (12.1-16.2); WHITE BLOOD COUNT (AUTO) 10.6 K/uL (3.6-10.2)
[2023-05-13 07:22] LABS: DIFFERENTIAL COMMENT 1
[2023-05-13 07:24] LABS: CALCIUM 9.5 mg/dL (8.5-10.1); CREATININE 0.8 mg/dL (0.6-1.3); MAGNESIUM 1.8 mg/dL (1.8-2.4); PHOSPHOROUS 3.1 mg/dL (2.5-4.9); POTASSIUM 3.6 mmol/L (3.5-5.1)
[2023-05-13] MEDS: CHOLECALCIFEROL 1,000 UNIT TABLET GT SCH (09:22)
[2023-05-13] MEDS: BACLOFEN 10 MG TABLET GT SCH ×2 (09:22→17:01)
[2023-05-13] MEDS: ALLOPURINOL 300 MG TABLET GT SCH (09:22)
[2023-05-13] MEDS: CLOPIDOGREL 75 MG TABLET GT SCH (09:22)
[2023-05-13] MEDS: FENOFIBRATE NANOCRYSTALLIZED 145 MG TABLET PO SCH (09:22)
[2023-05-13] MEDS: ASPIRIN 81 MG TAB.CHEW GT SCH (09:22)
[2023-05-13] MEDS: GLYCOPYRROLATE 1 MG TABLET GT SCH ×3 (09:24→17:01)
[2023-05-13] MEDS: ENOXAPARIN SODIUM 40 MG/0.4 ML DISP.SYRIN SQ SCH (09:24)
[2023-05-13] MEDS: buPROPion 75 MG TABLET GT SCH ×2 (09:25→17:04)
[2023-05-13] MEDS: SILODOSIN 4 MG GT SCH (09:26)
[2023-05-13] MEDS: FERROUS SULFATE 300 MG/5 ML LIQUID UDC GT SCH (09:26)
[2023-05-13] MEDS: RILUZOLE 50 MG GT SCH ×2 (09:26→17:01)
[2023-05-13] MEDS: PROTEIN SUPPLEMENT (PROSTAT) 30 ML LIQUID GT SCH ×2 (09:27→17:03)
[2023-05-13] MEDS: SERTRALINE HCL 100 MG TABLET GT SCH (09:30)
[2023-05-13] MEDS: CLOTRIMAZOLE 1% CREAM 30 GM TUBE TOP SCH ×2 (09:36→17:04)
[2023-05-13 12:00] VITALS: BP 94/55; TEMP 97.9; O2SAT 100
[2023-05-13] MEDS: VANCOMYCIN IV 1,000 MG in IV DEXTROSE 5% 250 ML IV SCH (15:12)
[2023-05-13 16:00] VITALS: BP 108/59; TEMP 97.8; O2SAT 99
[2023-05-13 20:00] VITALS: BP 101/63; TEMP 98.7; O2SAT 95
[2023-05-13] MEDS: MELATONIN 3 MG TABLET GT SCH (21:03)
[2023-05-13] MEDS: MIRTAZAPINE 15 MG TABLET GT SCH (21:03)
[2023-05-13] MEDS: ATORVASTATIN 20 MG TABLET GT SCH (21:03)
[2023-05-13] MEDS: QUETIAPINE FUMARATE 100 MG TABLET GT SCH (21:03)
[2023-05-13] MEDS: TIZANIDINE HCL 4 MG TABLET GT SCH (21:03)
[2023-05-13] MEDS: FINASTERIDE 5 MG TABLET GT SCH (21:03)
[2023-05-14 04:00] VITALS: BP 104/59; TEMP 98.9; O2SAT 100
[2023-05-14] MEDS: CLONAZEPAM 1 MG TABLET GT SCH ×3 (05:11→21:05)
[2023-05-14] MEDS: PANTOPRAZOLE ORAL SUSPENSION 40 MG SUSPDR.PKT GT SCH (05:11)
[2023-05-14] MEDS: LEVOTHYROXINE SODIUM 150 MCG TABLET PO SCH (06:31)
[2023-05-14 08:00] VITALS: BP 94/55; TEMP 97.9; O2SAT 100
[2023-05-14 08:39] LABS: BASOPHILS % (AUTO) 0.1 % (0.0-2.0); EOSINOPHILS % (AUTO) 0.6 % (0.0-7.0); HEMATOCRIT 21.1 % (36.7-47.1); LYMPHOCYTES # (AUTO) 0.3 K/uL (0.8-4.8); LYMPHOCYTES % (AUTO) 4.1 % (20.5-51.5); MEAN CORPUSCULAR HGB CONC 33 g/dL (32.5-36.3); MEAN CORPUSCULAR VOLUME 84.2 fL (73.0-96.2); MONOCYTES # (AUTO) 0.3 K/uL (0.1-1.30); MONOCYTES % (AUTO) 3.9 % (0.0-11.0); NEUTROPHILS # (AUTO) 6.7 K/uL (1.8-8.9); NEUTROPHILS % (AUTO) 91.3 % (38.5-71.5); PLATELET COUNT (AUTO) 282 K/uL (152-348); RED BLOOD CELL COUNT(AUTO) 2.51 MIL/uL (4.06-5.63); RED CELL DISTRIBUTION WIDTH 15.4 % (12.1-16.2); WHITE BLOOD COUNT (AUTO) 7.3 K/uL (3.6-10.2)
[2023-05-14 08:44] LABS: DIFFERENTIAL COMMENT 1
[2023-05-14] MEDS: BACLOFEN 10 MG TABLET GT SCH ×2 (08:58→16:48)
[2023-05-14] MEDS: ALLOPURINOL 300 MG TABLET GT SCH (08:58)
[2023-05-14] MEDS: ASPIRIN 81 MG TAB.CHEW GT SCH (08:58)
[2023-05-14] MEDS: CLOPIDOGREL 75 MG TABLET GT SCH (08:58)
[2023-05-14] MEDS: CHOLECALCIFEROL 1,000 UNIT TABLET GT SCH (08:58)
[2023-05-14] MEDS: FENOFIBRATE NANOCRYSTALLIZED 145 MG TABLET PO SCH (08:58)
[2023-05-14] MEDS: PROTEIN SUPPLEMENT (PROSTAT) 30 ML LIQUID GT SCH ×2 (08:59→16:51)
[2023-05-14] MEDS: SILODOSIN 4 MG GT SCH (08:59)
[2023-05-14] MEDS: GLYCOPYRROLATE 1 MG TABLET GT SCH ×3 (09:00→17:05)
[2023-05-14] MEDS: RILUZOLE 50 MG GT SCH ×2 (09:00→16:49)
[2023-05-14 09:01] LABS: CALCIUM 9.4 mg/dL (8.5-10.1); CREATININE 0.9 mg/dL (0.6-1.3); MAGNESIUM 1.8 mg/dL (1.8-2.4); PHOSPHOROUS 3.1 mg/dL (2.5-4.9); POTASSIUM 3.8 mmol/L (3.5-5.1)
[2023-05-14] MEDS: buPROPion 75 MG TABLET GT SCH ×2 (09:01→17:05)
[2023-05-14] MEDS: FERROUS SULFATE 300 MG/5 ML LIQUID UDC GT SCH (09:02)
[2023-05-14] MEDS: ENOXAPARIN SODIUM 40 MG/0.4 ML DISP.SYRIN SQ SCH (09:03)
[2023-05-14] MEDS: CLOTRIMAZOLE 1% CREAM 30 GM TUBE TOP SCH ×2 (09:03→17:06)
[2023-05-14] MEDS: SERTRALINE HCL 100 MG TABLET GT SCH (09:05)
[2023-05-14] MEDS: CHLORHEXIDINE GLUCONATE 15 ML MOUTHWASH MM SCH ×2 (11:47→21:58)
[2023-05-14 11:48] VITALS: BP 96/53; TEMP 98.2; O2SAT 98
[2023-05-14] MEDS: VANCOMYCIN IV 1,000 MG in IV DEXTROSE 5% 250 ML IV SCH (15:17)
[2023-05-14 15:55] VITALS: BP 98/58; TEMP 97.7; O2SAT 98
[2023-05-14] MEDS: LORAZEPAM 2 MG/1 ML VIAL IV PRN (16:48)
[2023-05-14] MEDS: JEVITY 1.2 1000 ML LIQUID GT PRN (18:25)
[2023-05-14 20:03] VITALS: BP 105/65; TEMP 97.6; O2SAT 100
[2023-05-14] MEDS: TIZANIDINE HCL 4 MG TABLET GT SCH (21:02)
[2023-05-14] MEDS: ATORVASTATIN 20 MG TABLET GT SCH (21:02)
[2023-05-14] MEDS: FINASTERIDE 5 MG TABLET GT SCH (21:02)
[2023-05-14] MEDS: QUETIAPINE FUMARATE 100 MG TABLET GT SCH (21:03)
[2023-05-14] MEDS: MIRTAZAPINE 15 MG TABLET GT SCH (21:03)
[2023-05-14] MEDS: MELATONIN 3 MG TABLET GT SCH (21:03)
[2023-05-15] VITALS (10 sets, daily range): BP systolic 95–112; BP diastolic 49–63; TEMP 97.4–98.7; O2SAT 97–100
[2023-05-15] MEDS: CLONAZEPAM 1 MG TABLET GT SCH ×3 (05:13→21:03)
[2023-05-15] MEDS: PANTOPRAZOLE ORAL SUSPENSION 40 MG SUSPDR.PKT GT SCH (05:13)
[2023-05-15] MEDS: LEVOTHYROXINE SODIUM 150 MCG TABLET PO SCH (06:35)
[2023-05-15 06:37] LABS: BASOPHILS % (AUTO) 0.5 % (0.0-2.0); EOSINOPHILS # (AUTO) 0.1 K/uL (0.0-0.7); EOSINOPHILS % (AUTO) 1.3 % (0.0-7.0); LYMPHOCYTES # (AUTO) 0.4 K/uL (0.8-4.8); LYMPHOCYTES % (AUTO) 8.2 % (20.5-51.5); MEAN CORPUSCULAR HEMOGLOBIN 28.2 uug (23.8-33.4); MEAN CORPUSCULAR HGB CONC 33 g/dL (32.5-36.3); MONOCYTES # (AUTO) 0.3 K/uL (0.1-1.30); MONOCYTES % (AUTO) 5.5 % (0.0-11.0); NEUTROPHILS # (AUTO) 4.5 K/uL (1.8-8.9); NEUTROPHILS % (AUTO) 84.5 % (38.5-71.5); PLATELET COUNT (AUTO) 304 K/uL (152-348); RED CELL DISTRIBUTION WIDTH 15.8 % (12.1-16.2); WHITE BLOOD COUNT (AUTO) 5.3 K/uL (3.6-10.2)
[2023-05-15 06:38] LABS: RED BLOOD CELL COUNT(AUTO) 2.25 MIL/uL (4.06-5.63)
[2023-05-15 06:41] LABS: DIFFERENTIAL COMMENT 1; HEMATOCRIT 19.4 % (36.7-47.1); HEMOGLOBIN 6.4 g/dL (12.5-16.3)
[2023-05-15 06:49] LABS: CALCIUM 9.8 mg/dL (8.5-10.1); CREATININE 0.9 mg/dL (0.6-1.3); PHOSPHOROUS 3.1 mg/dL (2.5-4.9)
[2023-05-15 08:43] LABS: ABG BASE EXCESS 1.2 mmol/L (-2.0-2.0); ABG HCO3 23.7 mmol/L (22.0-26.0); ABG PCO2 28.8 mmHg (35.0-48.0); ABG PH 7.533 (7.340-7.440); ABG PO2 116.2 mmHg (75.0-100.0); ABG SITE RIGHT RADIAL; ABG TOTAL HEMOGLOBIN 7.7 G/dL (14.0-18.0); AaDO2 98.7 mmHg; COHb 0.7 % (0.0-3.9); MetHb 0.3 % (0.0-1.5); O2Hb 97.7 % (94.0-97.0); VT, ABG 519 mL
[2023-05-15] MEDS: CHOLECALCIFEROL 1,000 UNIT TABLET GT SCH (09:04)
[2023-05-15] MEDS: BACLOFEN 10 MG TABLET GT SCH ×2 (09:04→17:10)
[2023-05-15] MEDS: FENOFIBRATE NANOCRYSTALLIZED 145 MG TABLET PO SCH (09:04)
[2023-05-15] MEDS: CLOPIDOGREL 75 MG TABLET GT SCH (09:04)
[2023-05-15] MEDS: ALLOPURINOL 300 MG TABLET GT SCH (09:05)
[2023-05-15] MEDS: ASPIRIN 81 MG TAB.CHEW GT SCH (09:05)
[2023-05-15] MEDS: ENOXAPARIN SODIUM 40 MG/0.4 ML DISP.SYRIN SQ SCH (09:06)
[2023-05-15] MEDS: FERROUS SULFATE 300 MG/5 ML LIQUID UDC GT SCH (09:06)
[2023-05-15] MEDS: CHLORHEXIDINE GLUCONATE 15 ML MOUTHWASH MM SCH ×2 (09:07→22:37)
[2023-05-15] MEDS: GLYCOPYRROLATE 1 MG TABLET GT SCH ×3 (09:07→17:12)
[2023-05-15] MEDS: SILODOSIN 4 MG GT SCH (09:08)
[2023-05-15] MEDS: RILUZOLE 50 MG GT SCH ×2 (09:08→17:11)
[2023-05-15] MEDS: buPROPion 75 MG TABLET GT SCH ×2 (09:09→17:10)
[2023-05-15] MEDS: CLOTRIMAZOLE 1% CREAM 30 GM TUBE TOP SCH ×2 (09:09→17:13)
[2023-05-15] MEDS: PROTEIN SUPPLEMENT (PROSTAT) 30 ML LIQUID GT SCH ×2 (09:10→17:13)
[2023-05-15] MEDS: SERTRALINE HCL 100 MG TABLET GT SCH (09:12)
[2023-05-15 15:25] LABS: BAND % (MANUAL) 1 % (0-10); EOSINOPHILS % (MANUAL) 1 % (0-8); LYMPHOCYTES % (MANUAL) 10 % (20-40); MONOCYTES % (MANUAL) 4 % (2-10); NEUTROPHILS % (MANUAL) 84 % (42-75)
[2023-05-15 15:26] LABS: PLATELET ESTIMATE ADEQUATE
[2023-05-15] MEDS: VANCOMYCIN IV 1,000 MG in IV DEXTROSE 5% 250 ML IV SCH (15:51)
[2023-05-15] MEDS: JEVITY 1.2 1000 ML LIQUID GT PRN (16:47)
[2023-05-15] MEDS: FINASTERIDE 5 MG TABLET GT SCH (21:03)
[2023-05-15] MEDS: ATORVASTATIN 20 MG TABLET GT SCH (21:03)
[2023-05-15] MEDS: MIRTAZAPINE 15 MG TABLET GT SCH (21:03)
[2023-05-15] MEDS: QUETIAPINE FUMARATE 100 MG TABLET GT SCH (21:03)
[2023-05-15] MEDS: TIZANIDINE HCL 4 MG TABLET GT SCH (21:03)
[2023-05-15] MEDS: MELATONIN 3 MG TABLET GT SCH (21:04)
[2023-05-16] VITALS: BP 98/53; TEMP 97.9; O2SAT 96
[2023-05-16 04:00] VITALS: BP 106/61; TEMP 97.8; O2SAT 99
[2023-05-16] MEDS: PANTOPRAZOLE ORAL SUSPENSION 40 MG SUSPDR.PKT GT SCH (06:10)
[2023-05-16] MEDS: LEVOTHYROXINE SODIUM 150 MCG TABLET PO SCH (06:10)
[2023-05-16] MEDS: CLONAZEPAM 1 MG TABLET GT SCH ×3 (06:10→22:06)
[2023-05-16 08:26] LABS: BASOPHILS % (AUTO) 0.2 % (0.0-2.0); EOSINOPHILS # (AUTO) 0.1 K/uL (0.0-0.7); EOSINOPHILS % (AUTO) 1.1 % (0.0-7.0); HEMATOCRIT 24.7 % (36.7-47.1); HEMOGLOBIN 8.1 g/dL (12.5-16.3); LYMPHOCYTES # (AUTO) 0.4 K/uL (0.8-4.8); LYMPHOCYTES % (AUTO) 5.6 % (20.5-51.5); MEAN CORPUSCULAR HGB CONC 33 g/dL (32.5-36.3); MONOCYTES # (AUTO) 0.3 K/uL (0.1-1.30); MONOCYTES % (AUTO) 5.2 % (0.0-11.0); NEUTROPHILS # (AUTO) 5.7 K/uL (1.8-8.9); NEUTROPHILS % (AUTO) 87.9 % (38.5-71.5); PLATELET COUNT (AUTO) 367 K/uL (152-348); RED CELL DISTRIBUTION WIDTH 15.5 % (12.1-16.2); WHITE BLOOD COUNT (AUTO) 6.4 K/uL (3.6-10.2)
[2023-05-16 08:43] LABS: DIFFERENTIAL COMMENT 1
[2023-05-16 08:53] LABS: CALCIUM 9.9 mg/dL (8.5-10.1); CREATININE 0.9 mg/dL (0.6-1.3); MAGNESIUM 1.9 mg/dL (1.8-2.4); PHOSPHOROUS 3.9 mg/dL (2.5-4.9); POTASSIUM 3.9 mmol/L (3.5-5.1)
[2023-05-16] MEDS: FENOFIBRATE NANOCRYSTALLIZED 145 MG TABLET PO SCH (09:47)
[2023-05-16] MEDS: CHOLECALCIFEROL 1,000 UNIT TABLET GT SCH (09:47)
[2023-05-16] MEDS: BACLOFEN 10 MG TABLET GT SCH ×2 (09:47→17:31)
[2023-05-16] MEDS: ASPIRIN 81 MG TAB.CHEW GT SCH (09:47)
[2023-05-16] MEDS: FERROUS SULFATE 300 MG/5 ML LIQUID UDC GT SCH (09:48)
[2023-05-16] MEDS: ALLOPURINOL 300 MG TABLET GT SCH (09:48)
[2023-05-16] MEDS: CLOPIDOGREL 75 MG TABLET GT SCH (09:48)
[2023-05-16] MEDS: SERTRALINE HCL 100 MG TABLET GT SCH (09:48)
[2023-05-16] MEDS: CHLORHEXIDINE GLUCONATE 15 ML MOUTHWASH MM SCH ×2 (09:49→22:05)
[2023-05-16] MEDS: ENOXAPARIN SODIUM 40 MG/0.4 ML DISP.SYRIN SQ SCH (09:49)
[2023-05-16] MEDS: buPROPion 75 MG TABLET GT SCH ×2 (09:50→17:31)
[2023-05-16] MEDS: PROTEIN SUPPLEMENT (PROSTAT) 30 ML LIQUID GT SCH ×2 (09:50→17:31)
[2023-05-16] MEDS: GLYCOPYRROLATE 1 MG TABLET GT SCH ×3 (09:51→17:31)
[2023-05-16] MEDS: RILUZOLE 50 MG GT SCH ×2 (09:51→17:31)
[2023-05-16] MEDS: SILODOSIN 4 MG GT SCH (09:52)
[2023-05-16] MEDS: CLOTRIMAZOLE 1% CREAM 30 GM TUBE TOP SCH ×2 (09:53→17:32)
[2023-05-16] MEDS: LORAZEPAM 2 MG/1 ML VIAL IV PRN ×2 (10:48→16:04)
[2023-05-16 10:59] VITALS: BP 102/58; TEMP 97.7; O2SAT 94
[2023-05-16] MEDS: QUETIAPINE FUMARATE 25 MG TABLET GT PRN (13:06)
[2023-05-16 15:05] VITALS: BP 99/59; TEMP 98.2; O2SAT 98
[2023-05-16] MEDS: VANCOMYCIN IV 1,000 MG in IV DEXTROSE 5% 250 ML IV SCH (15:48)
[2023-05-16] MEDS: JEVITY 1.2 1000 ML LIQUID GT PRN (17:45)
[2023-05-16] MEDS: TIZANIDINE HCL 4 MG TABLET GT SCH (20:54)
[2023-05-16] MEDS: MELATONIN 3 MG TABLET GT SCH (20:54)
[2023-05-16] MEDS: FINASTERIDE 5 MG TABLET GT SCH (20:55)
[2023-05-16] MEDS: MIRTAZAPINE 15 MG TABLET GT SCH (20:55)
[2023-05-16] MEDS: QUETIAPINE FUMARATE 100 MG TABLET GT SCH (20:55)
[2023-05-16] MEDS: ATORVASTATIN 20 MG TABLET GT SCH (20:55)
[2023-05-16 21:43] VITALS: BP 150/68; TEMP 98; O2SAT 92
[2023-05-16] MEDS: TEMAZEPAM 7.5 MG CAPSULE GT PRN (23:56)
[2023-05-17] MEDS: TRAZODONE 50 MG TABLET PO PRN (03:02)
[2023-05-17] MEDS: QUETIAPINE FUMARATE 25 MG TABLET GT PRN (03:02)
[2023-05-17] MEDS: CLONAZEPAM 1 MG TABLET GT SCH ×3 (05:45→21:12)
[2023-05-17] MEDS: PANTOPRAZOLE ORAL SUSPENSION 40 MG SUSPDR.PKT GT SCH (05:45)
[2023-05-17] MEDS: LEVOTHYROXINE SODIUM 150 MCG TABLET PO SCH (06:30)
[2023-05-17 06:48] VITALS: BP 128/68; TEMP 97.8; O2SAT 98
[2023-05-17] MEDS: FERROUS SULFATE 300 MG/5 ML LIQUID UDC GT SCH (10:23)
[2023-05-17] MEDS: BACLOFEN 10 MG TABLET GT SCH ×2 (10:25→18:06)
[2023-05-17] MEDS: ALLOPURINOL 300 MG TABLET GT SCH (10:25)
[2023-05-17] MEDS: ASPIRIN 81 MG TAB.CHEW GT SCH (10:25)
[2023-05-17] MEDS: FENOFIBRATE NANOCRYSTALLIZED 145 MG TABLET PO SCH (10:26)
[2023-05-17] MEDS: SERTRALINE HCL 100 MG TABLET GT SCH (10:26)
[2023-05-17] MEDS: CLOPIDOGREL 75 MG TABLET GT SCH (10:26)
[2023-05-17] MEDS: CHOLECALCIFEROL 1,000 UNIT TABLET GT SCH (10:26)
[2023-05-17] MEDS: CHLORHEXIDINE GLUCONATE 15 ML MOUTHWASH MM SCH ×2 (10:29→21:11)
[2023-05-17] MEDS: GLYCOPYRROLATE 1 MG TABLET GT SCH ×3 (10:29→17:57)
[2023-05-17] MEDS: SILODOSIN 4 MG GT SCH (10:30)
[2023-05-17] MEDS: buPROPion 75 MG TABLET GT SCH ×2 (10:30→17:57)
[2023-05-17] MEDS: RILUZOLE 50 MG GT SCH ×2 (10:30→17:57)
[2023-05-17] MEDS: ENOXAPARIN SODIUM 40 MG/0.4 ML DISP.SYRIN SQ SCH (10:33)
[2023-05-17] MEDS: CLOTRIMAZOLE 1% CREAM 30 GM TUBE TOP SCH ×2 (10:33→17:58)
[2023-05-17 11:28] VITALS: BP 139/85; TEMP 97.6; O2SAT 97
[2023-05-17] MEDS: PROTEIN SUPPLEMENT (PROSTAT) 30 ML LIQUID GT SCH ×2 (13:08→17:57)
[2023-05-17] MEDS: VANCOMYCIN IV 1,000 MG in IV DEXTROSE 5% 250 ML IV SCH (14:49)
[2023-05-17 16:32] VITALS: BP 114/74; TEMP 97.8; O2SAT 97
[2023-05-17 20:55] VITALS: BP 95/58; TEMP 97.6; O2SAT 90
[2023-05-17] MEDS: FINASTERIDE 5 MG TABLET GT SCH (21:11)
[2023-05-17] MEDS: MIRTAZAPINE 15 MG TABLET GT SCH (21:11)
[2023-05-17] MEDS: ATORVASTATIN 20 MG TABLET GT SCH (21:11)
[2023-05-17] MEDS: MELATONIN 3 MG TABLET GT SCH (21:11)
[2023-05-17] MEDS: TIZANIDINE HCL 4 MG TABLET GT SCH (21:11)
[2023-05-17] MEDS: QUETIAPINE FUMARATE 100 MG TABLET GT SCH (21:12)
[2023-05-17 22:45] VITALS: BP 76/46; TEMP 97.8; O2SAT 98
[2023-05-17] MEDS: TEMAZEPAM 7.5 MG CAPSULE GT PRN (23:16)
[2023-05-18 05:19] VITALS: BP 90/55; TEMP 97.6; O2SAT 99
[2023-05-18] MEDS: PANTOPRAZOLE ORAL SUSPENSION 40 MG SUSPDR.PKT GT SCH (05:49)
[2023-05-18] MEDS: CLONAZEPAM 1 MG TABLET GT SCH ×3 (06:54→22:09)
[2023-05-18 08:14] LABS: BASOPHILS % (AUTO) 0.4 % (0.0-2.0); EOSINOPHILS # (AUTO) 0.2 K/uL (0.0-0.7); EOSINOPHILS % (AUTO) 2.8 % (0.0-7.0); HEMATOCRIT 29.7 % (36.7-47.1); HEMOGLOBIN 9.5 g/dL (12.5-16.3); LYMPHOCYTES # (AUTO) 0.9 K/uL (0.8-4.8); LYMPHOCYTES % (AUTO) 15.9 % (20.5-51.5); MEAN CORPUSCULAR HEMOGLOBIN 27.8 uug (23.8-33.4); MEAN CORPUSCULAR HGB CONC 32 g/dL (32.5-36.3); MEAN CORPUSCULAR VOLUME 86.9 fL (73.0-96.2); MONOCYTES # (AUTO) 0.3 K/uL (0.1-1.30); MONOCYTES % (AUTO) 5.1 % (0.0-11.0); NEUTROPHILS # (AUTO) 4.2 K/uL (1.8-8.9); NEUTROPHILS % (AUTO) 75.8 % (38.5-71.5); PLATELET COUNT (AUTO) 441 K/uL (152-348); RED BLOOD CELL COUNT(AUTO) 3.41 MIL/uL (4.06-5.63); RED CELL DISTRIBUTION WIDTH 15.7 % (12.1-16.2); WHITE BLOOD COUNT (AUTO) 5.5 K/uL (3.6-10.2)
[2023-05-18 08:26] LABS: DIFFERENTIAL COMMENT 1
[2023-05-18 08:36] LABS: CREATININE 0.9 mg/dL (0.6-1.3); POTASSIUM 4.2 mmol/L (3.5-5.1)
[2023-05-18] MEDS: LEVOTHYROXINE SODIUM 150 MCG TABLET PO SCH (08:46)
[2023-05-18] MEDS: ALLOPURINOL 300 MG TABLET GT SCH (09:46)
[2023-05-18] MEDS: CHOLECALCIFEROL 1,000 UNIT TABLET GT SCH (09:46)
[2023-05-18] MEDS: ASPIRIN 81 MG TAB.CHEW GT SCH (09:46)
[2023-05-18] MEDS: QUETIAPINE FUMARATE 25 MG TABLET GT PRN ×2 (09:46→17:30)
[2023-05-18] MEDS: FERROUS SULFATE 300 MG/5 ML LIQUID UDC GT SCH (09:46)
[2023-05-18] MEDS: FENOFIBRATE NANOCRYSTALLIZED 145 MG TABLET PO SCH (09:46)
[2023-05-18] MEDS: SERTRALINE HCL 100 MG TABLET GT SCH (09:47)
[2023-05-18] MEDS: BACLOFEN 10 MG TABLET GT SCH ×2 (09:47→16:38)
[2023-05-18] MEDS: CLOPIDOGREL 75 MG TABLET GT SCH (09:48)
[2023-05-18] MEDS: SILODOSIN 4 MG GT SCH (09:48)
[2023-05-18] MEDS: GLYCOPYRROLATE 1 MG TABLET GT SCH ×3 (09:48→16:35)
[2023-05-18] MEDS: PROTEIN SUPPLEMENT (PROSTAT) 30 ML LIQUID GT SCH ×2 (09:48→16:35)
[2023-05-18] MEDS: RILUZOLE 50 MG GT SCH ×2 (09:48→16:37)
[2023-05-18] MEDS: CHLORHEXIDINE GLUCONATE 15 ML MOUTHWASH MM SCH ×2 (09:52→22:09)
[2023-05-18] MEDS: CLOTRIMAZOLE 1% CREAM 30 GM TUBE TOP SCH ×2 (09:52→17:10)
[2023-05-18] MEDS: ENOXAPARIN SODIUM 40 MG/0.4 ML DISP.SYRIN SQ SCH (09:55)
[2023-05-18] MEDS: buPROPion 75 MG TABLET GT SCH ×2 (10:09→16:36)
[2023-05-18] MEDS: DOCUSATE SODIUM 100 MG/10 ML LIQUID UDC GT SCH ×2 (11:05→22:06)
[2023-05-18 11:18] VITALS: BP 118/73; TEMP 98.2; O2SAT 92
[2023-05-18 15:35] VITALS: BP 125/90; TEMP 97.6; O2SAT 92
[2023-05-18] MEDS: VANCOMYCIN IV 1,000 MG in IV DEXTROSE 5% 250 ML IV SCH (16:32)
[2023-05-18] MEDS: LORAZEPAM 2 MG/1 ML VIAL IV PRN (17:00)
[2023-05-18] MEDS ORDERED: OLANZAPINE 10 MG VIAL IM ONE (19:00)
[2023-05-18] MEDS: JEVITY 1.2 1000 ML LIQUID GT PRN (19:50)
[2023-05-18 20:55] VITALS: BP 105/62; TEMP 97.8; O2SAT 7; O2SAT 97
[2023-05-18] MEDS: FINASTERIDE 5 MG TABLET GT SCH (22:06)
[2023-05-18] MEDS: TIZANIDINE HCL 4 MG TABLET GT SCH (22:06)
[2023-05-18] MEDS: TRAZODONE 50 MG TABLET PO PRN (22:06)
[2023-05-18] MEDS: ATORVASTATIN 20 MG TABLET GT SCH (22:06)
[2023-05-18] MEDS: MELATONIN 3 MG TABLET GT SCH (22:07)
[2023-05-18] MEDS: QUETIAPINE FUMARATE 100 MG TABLET GT SCH (22:07)
[2023-05-18] MEDS: MIRTAZAPINE 15 MG TABLET GT SCH (22:13)
[2023-05-19 04:00] VITALS: BP 96/53; TEMP 97.7; O2SAT 97
[2023-05-19] MEDS: QUETIAPINE FUMARATE 25 MG TABLET GT PRN ×2 (05:11→09:47)
[2023-05-19] MEDS: CLONAZEPAM 1 MG TABLET GT SCH ×3 (05:11→21:41)
[2023-05-19] MEDS: PANTOPRAZOLE ORAL SUSPENSION 40 MG SUSPDR.PKT GT SCH (05:11)
[2023-05-19 06:52] LABS: EOSINOPHILS # (AUTO) 0.1 K/uL (0.0-0.7); HEMATOCRIT 27.7 % (36.7-47.1); HEMOGLOBIN 9.2 g/dL (12.5-16.3); LYMPHOCYTES # (AUTO) 0.3 K/uL (0.8-4.8); LYMPHOCYTES % (AUTO) 3.1 % (20.5-51.5); MEAN CORPUSCULAR HEMOGLOBIN 28.2 uug (23.8-33.4); MEAN CORPUSCULAR HGB CONC 33 g/dL (32.5-36.3); MEAN CORPUSCULAR VOLUME 84.8 fL (73.0-96.2); MONOCYTES # (AUTO) 0.3 K/uL (0.1-1.30); MONOCYTES % (AUTO) 3.2 % (0.0-11.0); NEUTROPHILS # (AUTO) 8.3 K/uL (1.8-8.9); NEUTROPHILS % (AUTO) 92.7 % (38.5-71.5); PLATELET COUNT (AUTO) 491 K/uL (152-348); RED BLOOD CELL COUNT(AUTO) 3.26 MIL/uL (4.06-5.63); WHITE BLOOD COUNT (AUTO) 8.9 K/uL (3.6-10.2)
[2023-05-19 07:17] LABS: DIFFERENTIAL COMMENT 1
[2023-05-19 07:26] LABS: CALCIUM 10.2 mg/dL (8.5-10.1); MAGNESIUM 1.9 mg/dL (1.8-2.4); PHOSPHOROUS 3.3 mg/dL (2.5-4.9); POTASSIUM 3.8 mmol/L (3.5-5.1)
[2023-05-19] MEDS: DOCUSATE SODIUM 100 MG/10 ML LIQUID UDC GT SCH ×2 (09:39→21:40)
[2023-05-19] MEDS: FENOFIBRATE NANOCRYSTALLIZED 145 MG TABLET PO SCH (09:39)
[2023-05-19] MEDS: CHOLECALCIFEROL 1,000 UNIT TABLET GT SCH (09:39)
[2023-05-19] MEDS: SERTRALINE HCL 100 MG TABLET GT SCH (09:39)
[2023-05-19] MEDS: ALLOPURINOL 300 MG TABLET GT SCH (09:39)
[2023-05-19] MEDS: ASPIRIN 81 MG TAB.CHEW GT SCH (09:39)
[2023-05-19] MEDS: CLOPIDOGREL 75 MG TABLET GT SCH (09:39)
[2023-05-19] MEDS: BACLOFEN 10 MG TABLET GT SCH ×2 (09:40→17:23)
[2023-05-19] MEDS: FERROUS SULFATE 300 MG/5 ML LIQUID UDC GT SCH (09:40)
[2023-05-19] MEDS: CLOTRIMAZOLE 1% CREAM 30 GM TUBE TOP SCH ×2 (09:40→17:25)
[2023-05-19] MEDS: CHLORHEXIDINE GLUCONATE 15 ML MOUTHWASH MM SCH ×2 (09:41→21:40)
[2023-05-19] MEDS: PROTEIN SUPPLEMENT (PROSTAT) 30 ML LIQUID GT SCH ×2 (09:42→17:25)
[2023-05-19] MEDS: GLYCOPYRROLATE 1 MG TABLET GT SCH ×3 (09:48→17:24)
[2023-05-19] MEDS: SILODOSIN 4 MG GT SCH (09:49)
[2023-05-19] MEDS: buPROPion 75 MG TABLET GT SCH ×2 (09:49→17:23)
[2023-05-19] MEDS: RILUZOLE 50 MG GT SCH ×2 (09:50→17:24)
[2023-05-19] MEDS: ENOXAPARIN SODIUM 40 MG/0.4 ML DISP.SYRIN SQ SCH (09:50)
[2023-05-19] MEDS: LEVOTHYROXINE SODIUM 150 MCG TABLET PO SCH (09:57)
[2023-05-19 11:53] VITALS: BP 117/47; TEMP 97.6; O2SAT 99
[2023-05-19] MEDS ORDERED: BISACODYL 10 MG SUPP.RECT RC ONE (13:00)
[2023-05-19] MEDS: VANCOMYCIN IV 1,000 MG in IV DEXTROSE 5% 250 ML IV SCH (15:23)
[2023-05-19 16:00] VITALS: BP 100/73; TEMP 97.6; O2SAT 99
[2023-05-19 20:25] VITALS: BP 115/63; TEMP 98.5; O2SAT 98
[2023-05-19] MEDS: QUETIAPINE FUMARATE 100 MG TABLET GT SCH (21:41)
[2023-05-19] MEDS: TIZANIDINE HCL 4 MG TABLET GT SCH (21:41)
[2023-05-19] MEDS: MIRTAZAPINE 15 MG TABLET GT SCH (21:41)
[2023-05-19] MEDS: FINASTERIDE 5 MG TABLET GT SCH (21:41)
[2023-05-19] MEDS: ATORVASTATIN 20 MG TABLET GT SCH (21:41)
[2023-05-19] MEDS: MELATONIN 3 MG TABLET GT SCH (21:42)
[2023-05-20 00:20] VITALS: BP 110/67; TEMP 98.2; O2SAT 100
[2023-05-20 04:22] VITALS: BP 98/62; TEMP 97.8; O2SAT 100
[2023-05-20] MEDS: PANTOPRAZOLE ORAL SUSPENSION 40 MG SUSPDR.PKT GT SCH (06:02)
[2023-05-20] MEDS: CLONAZEPAM 1 MG TABLET GT SCH (06:02)
[2023-05-20] MEDS: JEVITY 1.2 1000 ML LIQUID GT PRN (06:19)
[2023-05-20] MEDS: GLYCOPYRROLATE 1 MG TABLET GT SCH (08:19)
[2023-05-20] MEDS: ASPIRIN 81 MG TAB.CHEW GT SCH (08:20)
[2023-05-20] MEDS: CHOLECALCIFEROL 1,000 UNIT TABLET GT SCH (08:20)
[2023-05-20] MEDS: DOCUSATE SODIUM 100 MG/10 ML LIQUID UDC GT SCH (08:20)
[2023-05-20] MEDS: ALLOPURINOL 300 MG TABLET GT SCH (08:20)
[2023-05-20] MEDS: FERROUS SULFATE 300 MG/5 ML LIQUID UDC GT SCH (08:20)
[2023-05-20] MEDS: CLOPIDOGREL 75 MG TABLET GT SCH (08:20)
[2023-05-20] MEDS: FENOFIBRATE NANOCRYSTALLIZED 145 MG TABLET PO SCH (08:20)
[2023-05-20] MEDS: BACLOFEN 10 MG TABLET GT SCH (08:20)
[2023-05-20] MEDS: LEVOTHYROXINE SODIUM 150 MCG TABLET PO SCH (08:20)
[2023-05-20] MEDS: buPROPion 75 MG TABLET GT SCH (08:21)
[2023-05-20] MEDS: PROTEIN SUPPLEMENT (PROSTAT) 30 ML LIQUID GT SCH (08:21)
[2023-05-20] MEDS: CHLORHEXIDINE GLUCONATE 15 ML MOUTHWASH MM SCH (08:21)
[2023-05-20] MEDS: SERTRALINE HCL 100 MG TABLET GT SCH (08:21)
[2023-05-20] MEDS: ENOXAPARIN SODIUM 40 MG/0.4 ML DISP.SYRIN SQ SCH (08:24)
[2023-05-20] MEDS: CLOTRIMAZOLE 1% CREAM 30 GM TUBE TOP SCH (08:25)
[2023-05-20] MEDS: SILODOSIN 4 MG GT SCH (08:26)
[2023-05-20] MEDS: RILUZOLE 50 MG GT SCH (08:35)
[2023-05-20 11:27] VITALS: BP 115/65; TEMP 98.2; O2SAT 98
== END 2023-05-20 11:00 | DRG 870 ==
LOC: ER 20:12 → CSC2 04-20 01:35 → CCU 04-20 02:35 → TELE-TD3 04-27 17:34 → TELE3 05-01 06:41
PROVIDERS: ADMIT Student in an Organized Health Care Education/Training Program; ATTEND Internal Medicine
PROC: 5A1955Z Respiratory Ventilation, Greater than 96 Consecutive Hours (ICD-10-PCS; principal; 2023-04-20)
PROC: 0JPV0XZ Removal of Tunneled Vascular Access Device from Upper Extremity Subcutaneous Tissue and Fascia, Open Approach (ICD-10-PCS; 2023-04-24)
PROC: 05HB33Z Insertion of Infusion Device into Right Basilic Vein, Percutaneous Approach (ICD-10-PCS; 2023-04-25)
PROC: 02HV33Z Insertion of Infusion Device into Superior Vena Cava, Percutaneous Approach (ICD-10-PCS; 2023-04-26)
PROC: 30233N1 Transfusion of Nonautologous Red Blood Cells into Peripheral Vein, Percutaneous Approach (ICD-10-PCS; 2023-05-15)
DX: A41.02 Sepsis due to Methicillin resistant Staphylococcus aureus (principal); J69.0 Pneumonitis due to inhalation of food and vomit; J86.0 Pyothorax with fistula; J96.21 Acute and chronic respiratory failure with hypoxia; J96.22 Acute and chronic respiratory failure with hypercapnia; E43 Unspecified severe protein-calorie malnutrition; G92.8 Other toxic encephalopathy; G12.21 Amyotrophic lateral sclerosis; Z99.11 Dependence on respirator [ventilator] status; D68.59 Other primary thrombophilia; I31.39 Other pericardial effusion (noninflammatory); J98.11 Atelectasis; R04.2 Hemoptysis; J95.03 Malfunction of tracheostomy stoma; J47.9 Bronchiectasis, uncomplicated; Z85.21 Personal history of malignant neoplasm of larynx; Z90.02 Acquired absence of larynx; Z93.0 Tracheostomy status; Z93.1 Gastrostomy status; Z74.09 Other reduced mobility; Z68.22 Body mass index [BMI] 22.0-22.9, adult; D63.8 Anemia in other chronic diseases classified elsewhere; N40.0 Benign prostatic hyperplasia without lower urinary tract symptoms; E03.9 Hypothyroidism, unspecified; E78.5 Hyperlipidemia, unspecified; F41.9 Anxiety disorder, unspecified; K21.9 Gastro-esophageal reflux disease without esophagitis; Z85.118 Personal history of other malignant neoplasm of bronchus and lung; R91.1 Solitary pulmonary nodule; R13.10 Dysphagia, unspecified; F32.A Depression, unspecified; M62.59 Muscle wasting and atrophy, not elsewhere classified, multiple sites; G47.00 Insomnia, unspecified; Z79.899 Other long term (current) drug therapy; Z87.01 Personal history of pneumonia (recurrent); Z79.02 Long term (current) use of antithrombotics/antiplatelets; R74.8 Abnormal levels of other serum enzymes
CPT/HCPCS: 36415; 36569; 36600; 70030-TC; 70360; 70450; 70491; 71045; 71275; 73000; 73060; 82803; 83735; 84100; 84484; 85025; 86140; 86850; 86900; 86901; 86920; 87040; 87077; 93005; 93307; 94002; 94003; 94760; 99082-TC; A4606; A4649; A4663; A6209; A6213; G0378; J0456; J0692; J0696; J1650; J2060; J2250; J2358; J2405; J3010; J3370; J3475; J3490; J7040; J7050; P9016; Q9967